=== PATIENT | female | born 1950 | race Caucasian/White ===

== ENCOUNTER → 2016-10-27 | Outpatient (CLI) | payer MEDICARE, MEDICAID ==
[~2016-10-27] MED LIST: ACETAMINOPHEN325 M1 PO; ALLOPURINOL300 M1 PO; ALPRAZOLAM1 MG PO; ANUSOL-HC25 MG PR; APAP/BUTALBITAL1 TA1 PO; ATIVAN GENERIC 11 MG PO; BENTYL10 MG PO; BENTYL20 MG PO; BENZTROPINE1 MG PO; COGENTIN GENERIC1 MG PO; DICYCLOMINE HYD20 MG PO; FLONASE 50 MCG16 GM; GLIPIZIDE 5MG TA5 MG PO; IMODIUM 2MG. CAP2 MG PO; KLOR-CON M2020 MEQ PO; LOPERAMIDE2 MG PO; MAXZIDE 25 MG-31 TA1 PO; MAXZIDE 50 MG-71 TAB PO; MAXZIDE1 TAB PO; MECLIZINE HYDRO25 MG PO; METFORMIN500 MG PO; MONTELUKAST SOD10 MG PO; OXCARBAZEPINE300 M2 PO; PANTOPRAZOLE SO40 M1 PO; PHENERGAN 25MG.25 M1 PO; POTASSIUM CHLO10 ME3 PO; POTASSIUM CHLO20 ME2 PO; PRAVACHOL20 MG PO; PRAVASTATIN 20M20 MG PO; PRILOSEC20 M1 PO; PRISTIQ50 MG PO; PROZAC40 MG PO; REQUIP 1 MG TABL1 MG PO; RISPERDAL 1 MG T1 MG PO; RISPERDAL1 MG PO; RISPERDAL2 M1 PO; RISPERIDONE1 M2 PO; ROPINIROLE HYDRO1 M1 PO; SIMVASTATIN20 MG PO; SINGULAIR10 MG PO; TRILEPTAL300 MG PO; TRILEPTAL600 MG PO; VISTARIL25 M1 PO; ZYLOPRIM300 MG PO; ZYPREXA 5MG TAB5 MG PO; ZYRTEC10 M2 PO; [UNRECOGNIZED DRUG - OTHER] NS
[2016-10-27 19:45] LABS: URINE BILIRUBIN - DIPSTICK NEGATIVE (NEG); URINE BLOOD NEGATIVE (NEG)
== END ==
LOC: LAB 19:11
PROVIDERS: Emergency Medicine
DX: N39.0 Urinary tract infection, site not specified (principal)

== ENCOUNTER 2017-02-27 09:07 | Day surgery (SDC) | payer MEDICARE, MEDICAID ==
[~2017-02-27 09:07] MED LIST changes: +ALLOPURINOL300 M1 FT; +ALPRAZOLAM XR1 MG PO; +BENZONATATE100 MG PO; +BENZTROPINE ME0.5 MG PO; +DESVENLAFAXINE100 M1 PO; +FLOVENT DI50 MCG/ACT IH; +HCTZ/TRIAMTEREN1 CA2 PO; +INVANZ 1 GM1 GM IM; +LACTULOSE10 GM/15 M PO; +LEADER PAIN RE500 M1 PO; +MIRALAX17 GM/DOSE PO; +PANTOPRAZOLE SO40 MG PO; +ROPINIROLE HYDRO1 MG PO; +SENNA8.6 M1 PO; +SINGULAIR 10 MG10 MG PO; +ZYPREXA ZYDIS10 MG PO; +ZYRTEC ALLERGY10 MG PO
--- NOTE | 2017-02-27 11:30 | Operative Note ---
Surgeon/Diagnoses Surgeon/Rn Primary Care(s) Date of procedure: 02/27/17 Surgeon: Ilya Eddy Diagnoses Pre-op diagnosis: Suspicious irritated skin lesion of LEFT breast Post-op diagnosis Same Procedure Procedure Procedure: Excision of skin lesion from LEFT breast (excisional length 4.5 cm) with simple closure Indications: JAMISON MAGANA is a 66 year-old Female wheelchair-bound [place] [facility] patient referred by Tim Tejeda for "mole on the LEFT breast". Patient is unable to give me much of a history. She does describe some "soreness". She is unable to relate to me how long the lesion has been present. There is no evidence of any breast imaging. Findings: Irritated skin lesion possibly seborrheic keratosis Procedure Description: Consent was obtained. Patient was maintained on the stretcher. She was taken to the operating room. The area was prepped and draped. Lesion was marked with a skin marker. Local anesthetic was infiltrated. Elliptical incision was made. Dissection was carried down to subcutaneous tissues. Skin ellipse containing the lesion with grossly negative margins was excised from underlying subcutaneous tissues using Metzenbaum dissection. It was sent off as specimen. Hemostasis was achieved with use of electrocautery. Wound was closed with interrupted 4-0 nylon sutures. Dressing was applied. EBL (ml): 20 Anesthesia: local Specimens: Skin lesion from LEFT breast Disposition Disposition: To postop at 1130
[2017-02-27 14:13] VITALS: BP 169/75
== END 2017-02-27 12:00 | disposition home or self-care (01) ==
LOC: SDC 09:07
PROVIDERS: Surgery
PROC: 0HBUXZZ (ICD-10-PCS; principal; 2017-02-27 09:15)
DX: D48.5 Neoplasm of uncertain behavior of skin (principal); E11.9 Type 2 diabetes mellitus without complications

== ENCOUNTER → 2017-03-03 | Outpatient (CLI) | payer MEDICARE, MEDICAID | LOC: LAB 19:11 | DX: S21.002A Unspecified open wound of left breast, initial encounter (principal); R06.02 Shortness of breath ==

== ENCOUNTER 2017-04-13 20:02 | Inpatient (IN) | payer MEDICARE, MEDICAID ==
[~2017-04-13] VITALS: Ht 177.8 cm; Wt 89.6 kg
[2017-04-13 20:06] VITALS: BP 132/68
--- OUTSIDE RECORDS SUMMARY | 2017-04-13 20:26 | External Medical Summary Rpt | CCD ---
Demographics Preferred Language Japanese Marital Status Unknown Uatsdin Affiliation Unknown Race Unknown Ethnic Group Unknown Author Author JANICE Address Unknown Phone Immunization No patient found.
--- OUTSIDE RECORDS SUMMARY | 2017-04-13 20:26 | External Medical Summary Rpt | CCD ---
Author Author Conduent Organization Con[employer] Address Unknown Phone Unavailable Purpose Continuity of Care Document - through 2016
--- OUTSIDE RECORDS SUMMARY | 2017-04-13 20:26 | External Medical Summary Rpt | CCD ---
Author Author , JANICE Organization JANICE Address Unknown Phone [email or web address] Care Team Providers Care Fabric Inspector Name Role Phone Fercho Mac MD, Unavailable Unavailable Fercho Mac MD Purpose Continuity of Care Document - 04-22-2013 through 2016 Problems Code Diagnosis DOS Provider Status 805.6 805.6 FX 04-23-2013 Niraj SACRUM/COCC [facility]OSED [facility] 808.2 808.2 04-23-2013 Niraj FRACTURE OF [facility] PUBIS-CLOSE D 847.0 847.0 04-23-2013 Niraj SPRAIN OF [facility] 850.11 850.11 04-23-2013 Niraj CONCUSSION, [facility] LOSS OF Hospital CONSCIOUSNE SS OF 30 MINUTES OR LESS E849.7 E849.7 04-23-2013 Niraj ACCID IN [facility] INSTIT E885.9 E885.9 FALL 04-23-2013 Niraj FROM [facility] SLIPPING, Hospital TRIPPING, OR STUMBLING NEC E87.6 HYPOKALEMIA N28.9 DISORDER OF KIDNEY AND URETER, UNSPECIFIED N39.0 URINARY TRACT INFECTION, SITE NOT SPECIFIED S00.93XA CONTUSION OF UNSPECIFIED PART OF HEAD, INITIAL ENCOUNTER S01.81XA LACERATION W/O FOREIGN BODY OF OTH PART OF HEAD, INIT ENCNTR W19.XXXA UNSPECIFIED FALL, INITIAL ENCOUNTER Allergies, Adverse Reactions, Alerts Type Allergy to substance Drug Allergy Adverse Reaction to Substance Substance Reaction Severity ANTIHISTAMINES Unknown Mild Aspirin Unknown Mild Loratadine Unknown Mild Sertraline Unknown Mild Vital Signs 04-23-2013 00:57 Name Value Interpretat Reference Comment ion Range Body 98.4 [degF] Temperature BP 65 mm[Hg] Diastolic BP Systolic 123 mm[Hg] Heart 82 /min Rate/Pulse O2% 97 % Respiratory 20 /min Rate 11-27-2013 22:24 Name Value Interpretat Reference Comment ion Range BP 62 mm[Hg] Diastolic BP Systolic 120 mm[Hg] Heart 97 /min Rate/Pulse O2% 93 % Respiratory 20 /min Rate Results Labs Lab Lab Date Result Refere Interp Status Commen Order Detail nces retati t Range on Urinalysis dipstick W Reflex Microscopic panel in Urine (10-27-2016 18:00) Bacteri 4+ O complet a 017 ed [Presen 18:00 ce] in Urine sedimen t by Light microsc opy Epithel 5-10 0#/hp complet ial 017 f - ed cells.s 18:00 5#/hp quamous f [Presen ce] in Urine sedimen t by Microsc opy high power field Leukocy 50-100 O complet daryl 017 wbc/hpf ed [#/volu 18:00 me] in Urine Urinalysis dipstick W Reflex Microscopic panel in Urine (10-27-2016 18:00) Appeara CLOUDY CLEAR complet nce of 017 ed Urine 18:00 Bilirub NEGATIV NEG complet in 017 E ed [Presen 18:00 ce] in Urine by Test strip Erythro NEGATIV NEG complet cytes 017 E ed [Presen 18:00 ce] in Urine Color YELLOW YELLOW complet of 017 ed Urine 18:00 Ketones NEGATIV NEG complet 017 E ed [Presen 18:00 ce] in Urine by Automat ed test strip Mucus 1+ NEG Abnorma complet [Presen 017 l ed ce] in 18:00 Urine sedimen t by Light microsc opy Nitrite NEGATIV NEG complet 017 E ed [Presen 18:00 ce] in Urine by Test strip Urobili 1.0 NEG complet nogen 017 ed [Presen 18:00 ce] in Urine by Test strip Urinalysis dipstick W Reflex Microscopic panel in Urine (10-24-2016) Appeara CLEAR CLEAR complet nce of 017 ed Urine Amorpho OCC NONE complet us 017 ed sedimen t [Presen ce] in Urine sedimen t by Light microsc opy Bacteri 3+ O complet a 017 ed [Presen ce] in Urine sedimen t by Light microsc opy Bilirub NEGATIV NEG complet in 017 E ed [Presen ce] in Urine by Test strip Erythro TRACE-I NEG complet cytes 017 NTACT ed [Presen ce] in Urine Color YELLOW YELLOW complet of 017 ed Urine Ketones NEGATIV NEG complet 017 E ed [Presen ce] in Urine by Automat ed test strip Mucus 3+ NEG Abnorma complet [Presen 017 l ed ce] in Urine sedimen t by Light microsc opy Nitrite NEGATIV NEG complet 017 E ed [Presen ce] in Urine by Test strip Erythro 3-5 0 complet cytes 017 ed [Presen ce] in Urine sedimen t by Light microsc opy Urobili 1.0 NEG complet nogen 017 ed [Presen ce] in Urine by Test strip Leukocy 20-50 O complet daryl 017 wbc/hpf ed [#/volu me] in Urine COMPREHENSIVE METABOLIC PANEL (04-22-2013 21:45) Glucose 110 74-106 complet 013 mg/dL ed Bld-mCn 21:45 c BUN 25 7-18 complet Bld-mCn 013 mg/dL ed c 21:45 Creat 2.7 0.6-1.0 complet SerPl-m 013 mg/dL ed Cnc 21:45 Creat 28 50-200 complet Cl 013 ML/MIN ed predict 21:45 ed SerPl C-G-vRa te GFR/BSA 18 59- Low complet .pred 013 ML/MIN alert ed SerPl 21:45 Schwart z-vRate Sodium 135 136-145 complet SerPl-s 013 mmoL/L ed Cnc 21:45 Potassi 3.5 3.5-5.1 complet um 013 mmoL/L ed SerPl-s 21:45 Cnc Chlorid 11-27-2 95 98-107 complet e 013 mmoL/L ed SerPl-s 21:45 Cnc CO2 04-22-2 25 21.0-32 complet SerPl-s 013 mmoL/L .0 ed Cnc 21:45 Calcium 04-22-2 8.8 8.5-10. complet 013 mg/dL 1 ed SerPl-m 21:45 Cnc Prot 04-22-2 7.8 6.4-8.2 complet SerPl-m 013 gm/dL ed Cnc 21:45 Albumin 04-22-2 3.3 3.4-5.0 complet 013 gm/dL ed SerPl-m 21:45 Cnc Globuli 04-22-2 4.5 1.3-3.2 complet n 013 gm/dL ed Ser-mCn 21:45 c Albumin 04-22-2 0.7 UNK 1.1-1.8 complet /Glob 013 ed SerPl-m 21:45 Rto Bilirub 04-22-2 0.4 0.2-1.0 complet 013 mg/dL ed SerPl-m 21:45 Cnc AST 04-22-2 21 U/L 15-37 complet SerPl-c 013 ed Cnc 21:45 ALT 04-22-2 40 U/L 30-65 complet SerPl-c 013 ed Cnc 21:45 ALP 04-22-2 290 U/L 50-136 complet SerPl-c 013 ed Cnc 21:45 CBC with AUTO DIFF (04-22-2013 21:45) WBC # 04-22-2 11.3 4.8-10. complet Bld 013 K/MM3 8 ed Auto 21:45 RBC # 04-22-2 4.95 4.2-5.4 complet Bld 013 M/mm3 ed Auto 21:45 Hgb 04-22-2 13.7 12.2-16 complet Bld-mCn 013 g/dL .2 ed c 21:45 Hct Fr 04-22-2 40.6 % 37.0-47 complet Bld 013 .0 ed 21:45 MCV RBC 04-22-2 82.1 fl 82.2-97 complet 013 .8 ed 21:45 MCH RBC 04-22-2 27.8 pg 27-31.2 complet Qn 013 ed Auto 21:45 MEAN 04-22-2 33.8 31.8-35 complet CORPUSC 013 g/dl .4 ed ULAR 21:45 HGB CONC RDW RBC 04-22-2 16.1 % 11.5-17 complet Auto 013 .5 ed 21:45 Platele 04-22-2 312 142-424 complet t Bld 013 K/mm3 ed Ql 21:45 Manual MEAN 04-22-2 7.9 fl 7.4-10. complet PLATELE 013 4 ed T 21:45 VOLUME Granulo 04-22-2 72.2 % 37.0-80 complet cytes 013 .0 ed Fr Bld 21:45 Auto LYMPH % 04-22-2 21.9 % 10-50.0 complet 013 ed 21:45 Monocyt 04-22-2 4.8 % 1.7-9.3 complet es Fr 013 ed Bld 21:45 Auto Eosinop 04-22-2 0.8 % 0.1-12. complet hil Fr 013 0 ed Bld 21:45 Auto Basophi 04-22-2 0.3 % 0.1-2.0 complet ls Fr 013 ed Bld 21:45 Auto Granulo 04-22-2 8.1 1.8-7.8 complet cytes # 013 K/mm3 ed Bld 21:45 Auto Lymphoc 04-22-2 2.5 0.7-4.5 complet ytes Fr 013 K/mm3 ed Bld 21:45 Auto Monocyt 04-22-2 0.5 0.1-1.0 complet es # 013 K/mm3 ed Bld 21:45 Auto Eosinop 04-22-2 0.1 0.0-0.4 complet hil # 013 K/mm3 ed Bld 21:45 Auto Basophi 04-22-2 0.0 0-0.2 complet ls # 013 K/MM3 ed Bld 21:45 Auto Encounters Encounter Start End Date Code Location Performer Type Date Emergency JOSE Mac MD (ER) 3 22:07 3 00:57 [facility]
--- OUTSIDE RECORDS SUMMARY | 2017-04-13 20:26 | External Medical Summary Rpt ---
Author Author JANICE Leonardo, [employer] Organization [employer] Address Unknown Phone Unavailable Results Glucose [Mass/volume] in Capillary blood by Glucometer Observa Value Referen Units Interpr Notes Date tion ce etation Range Glucose 70 - 110 mg/dl No No Feb 4 [Mass/vol informati informati 2017 9:50 ume] in on in on in AM Capillary source source blood by data data Glucomete r Urinalysis dipstick W Reflex Microscopic panel in Urine Observa Value Referen Units Interpr Notes Date tion ce etation Range Appeara CLOUDY CLEAR No No No Oct 3 nce of informa informa informa 2017 Urine tion in tion in tion in 6:00 PM source source source data data data Bacteri 4+ O No No No Oct 27 a informa informa informa 2016 [Presen tion in tion in tion in 6:00 PM ce] in source source source Urine data data data sedimen t by Light microsc opy Bilirub NEGATIV NEG No No No Oct 27 in E informa informa informa 2016 [Presen tion in tion in tion in 6:00 PM ce] in source source source Urine data data data by Test strip Erythro NEGATIV NEG No No No Oct 27 cytes E informa informa informa 2016 [Presen tion in tion in tion in 6:00 PM ce] in source source source Urine data data data Color YELLOW YELLOW No No No Oct 27 of informa informa informa 2017 Urine tion in tion in tion in 6:00 PM source source source data data data Glucose NEG No No No Oct 3 [Mass/vol informati informati informati 2017 6:00 ume] in on in on in on in PM Urine by source source source Test data data data strip Ketones NEGATIV NEG mg/dL No No Oct 27 E informa informa 2016 [Presen tion in tion in 6:00 PM ce] in source source Urine data data by Automat ed test strip Mucus 1+ NEG No Abnorma No Wero 3 [Presen informa l informa 2016 ce] in tion in tion in 6:00 PM Urine source source sedimen data data t by Light microsc opy Nitrite NEGATIV NEG No No No Wero 3 E informa informa informa 2017 [Presen tion in tion in tion in 6:00 PM ce] in source source source Urine data data data by Test strip pH of 5.0 - 8.5 No Normal No Wero 3 Urine informati informati 2017 6:00 on in on in PM source source data data Protein NEG mg/dL No No Wero 3 [Mass/vol informati informati 2017 6:00 ume] in on in on in PM Urine by source source Automated data data test strip Specific 1.005 - No Normal No Wero 3 gravity 1.030 informati informati 2017 6:00 of Urine on in on in PM source source data data Epithel 5-10 0 - 5 #/hpf No No Wero 3 ial informa informa 2017 cells.s tion in tion in 6:00 PM quamous source source data data [Presen ce] in Urine sedimen t by Microsc opy high power field Urobili 1.0 NEG E.U./dL No No Wero 3 nogen informa informa 2016 [Presen tion in tion in 6:00 PM ce] in source source Urine data data by Test strip Leukocy [50 O wbc/hpf No No Wero 3 daryl wbc/hpf informa informa 2016 [#/volu ; 100 tion in tion in 6:00 PM me] in wbc/hpf source source Urine ] data data Urinalysis dipstick W Reflex Microscopic panel in Urine Observa Value Referen Units Interpr Notes Date tion ce etation Range Appeara CLOUDY CLEAR No No No Wero 3 nce of informa informa informa 2017 Urine tion in tion in tion in 6:00 PM source source source data data data Bilirub NEGATIV NEG No No No Wero 3 in E informa informa informa 2017 [Presen tion in tion in tion in 6:00 PM ce] in source source source Urine data data data by Test strip Erythro NEGATIV NEG No No No Wero 3 cytes E informa informa informa 2017 [Presen tion in tion in tion in 6:00 PM ce] in source source source Urine data data data Color YELLOW YELLOW No No No Oct 3 of informa informa informa 2016 Urine tion in tion in tion in 6:00 PM source source source data data data Glucose NEG No No No Wero 3 [Mass/vol informati informati informati 2016 6:00 ume] in on in on in on in PM Urine by source source source Test data data data strip Ketones NEGATIV NEG mg/dL No No Ewro 3 E informa informa 2016 [Presen tion in tion in 6:00 PM ce] in source source Urine data data by Automat ed test strip Mucus 1+ NEG No Abnorma No Wero 3 [Presen informa l informa 2016 ce] in tion in tion in 6:00 PM Urine source source sedimen data data t by Light microsc opy Nitrite NEGATIV NEG No No No Oct 3 E informa informa informa 2016 [Presen tion in tion in tion in 6:00 PM ce] in source source source Urine data data data by Test strip pH of 5.0 - 8.5 No Normal No Wero 3 Urine informati informati 2017 6:00 on in on in PM source source data data Protein NEG mg/dL No No Wero 3 [Mass/vol informati informati 2016 6:00 ume] in on in on in PM Urine by source source Automated data data test strip Specific 1.005 - No Normal No Wero 3 gravity 1.030 informati informati 2016 6:00 of Urine on in on in PM source source data data Urobili 1.0 NEG E.U./dL No No Wero 3 nogen informa informa 2016 [Presen tion in tion in 6:00 PM ce] in source source Urine data data by Test strip Urinalysis dipstick W Reflex Microscopic panel in Urine Observa Value Referen Units Interpr Notes Date tion ce etation Range Appeara CLEAR CLEAR No No No October 24 nce of informa informa informa 2017 Urine tion in tion in tion in source source source data data data Amorpho OCC NONE No No No October 24 us informa informa informa 2016 sedimen tion in tion in tion in t source source source [Presen data data data ce] in Urine sedimen t by Light microsc opy Bacteri 3+ O No No No October 24 a informa informa informa 2017 [Presen tion in tion in tion in ce] in source source source Urine data data data sedimen t by Light microsc opy Bilirub NEGATIV NEG No No No October 24 in E informa informa informa 2016 [Presen tion in tion in tion in ce] in source source source Urine data data data by Test strip Erythro TRACE-I NEG No No No October 24 cytes NTACT informa informa informa 2016 [Presen tion in tion in tion in ce] in source source source Urine data data data Color YELLOW YELLOW No No No October 24 of informa informa informa 2017 Urine tion in tion in tion in source source source data data data Glucose NEG No No No October 24 [Mass/vol informati informati informati 2016 ume] in on in on in on in Urine by source source source Test data data data strip Ketones NEGATIV NEG mg/dL No No October 24 E informa informa 2017 [Presen tion in tion in ce] in source source Urine data data by Automat ed test strip Mucus 3+ NEG No Abnorma No October 24 [Presen informa l informa 2016 ce] in tion in tion in Urine source source sedimen data data t by Light microsc opy Nitrite NEGATIV NEG No No No October 24 E informa informa informa 2016 [Presen tion in tion in tion in ce] in source source source Urine data data data by Test strip pH of 5.0 - 8.5 No Normal No October 24 Urine informati informati 2017 on in on in source source data data Protein NEG mg/dL No No October 24 [Mass/vol informati informati 2016 ume] in on in on in Urine by source source Automated data data test strip Erythro 3-5 0 rbc/hpf No No October 24 cytes informa informa 2017 [Presen tion in tion in ce] in source source Urine data data sedimen t by Light microsc opy Specific 1.005 - No Normal No October 24 gravity 1.030 informati informati 2016 of Urine on in on in source source data data Urobili 1.0 NEG E.U./dL No No October 24 nogen informa informa 2017 [Presen tion in tion in ce] in source source Urine data data by Test strip Leukocy [20 O wbc/hpf No No October 24 daryl wbc/hpf informa informa 2017 [#/volu ; 50 tion in tion in me] in wbc/hpf source source Urine ] data data
--- OUTSIDE RECORDS SUMMARY | 2017-04-13 20:26 | External Medical Summary Rpt | CCD ---
Demographics Preferred Language Greek Marital Status Unknown Pentecostal Affiliation Unknown Race Unknown Ethnic Group Unknown Author Author JANICE Address Unknown Phone Immunization No patient found.
--- OUTSIDE RECORDS SUMMARY | 2017-04-13 20:26 | External Medical Summary Rpt ---
[...] strip Ketones NEGATIV NEG mg/dL No No Wero 3 E informa informa 2016 [Presen tion [...]
--- OUTSIDE RECORDS SUMMARY | 2017-04-13 20:26 | External Medical Summary Rpt | CCD ---
Author Author , JANICE Organization JANICE Address Unknown Phone Care Team Providers Care Legal Referee Name Role Phone Fercho Mac MD, Unavailable Unavailable Fercho Mac MD Purpose Continuity of Care Document - 04-22-2013 through 2016 Problems Code Diagnosis DOS Provider Status 805.6 805.6 FX 04-23-2013 Niraj SACRUM/COCC [facility]CLOSED Hospital 808.2 808.2 04-23-2013 Niraj FRACTURE OF [facility] PUBIS-CLOSE D 847.0 847.0 04-23-2013 Niraj SPRAIN OF [facility] 850.11 850.11 04-23-2013 Niraj CONCUSSION, [facility] LOSS OF Hospital CONSCIOUSNE SS OF 30 MINUTES OR LESS E849.7 E849.7 04-23-2013 Niraj ACCID IN [facility] INSTIT E885.9 E885.9 FALL 04-23-2013 Niraj FROM [facility] SLIPPING, Hospital TRIPPING, OR STUMBLING NEC E87.6 [...] Mac MD (ER) 3 22:07 3 00:57 [facility]
[2017-04-13 20:32] LABS: ARTERIAL PO2 99.1 MMHG (80-100); ARTERIAL TCO2 26.4 MMOL/L (23-27)
[2017-04-13 20:33] LABS: ALLEN'S TEST Y; ARTERIAL ABE 1.9 MMOL/L (-2.4-+2.3); OXYGEN 4
--- NOTE | 2017-04-13 20:48 | Emergency Room Report ---
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 Y Clinical Suspician of Infection? Y Mental Status: 2 - Mildly Altered Sepsis Risk:Possible Sepsis Risk Have you (or family members/close friends) recently traveled outside the [place]? N If Yes, where/when: Have you had exposure to infectious disease within the past month? N TB? Other? Specify: Source patient, RN notes reviewed, family, old records Exam Limitations clinical condition Comment pt sent from [facility] for eval of change in mental status- pt unable to give specific hx- Cardiac Chest Pain Chest pain indicative of cardiac No Timing/Duration this evening Severity moderate ALLERGIES Coded Allergies: Antihistamines - Alkylamine (02/27/17) aspirin (02/27/17) loratadine (02/27/17) sertraline (02/27/17) Home Medications Active Scripts Allopurinol (Zyloprim 300MG) 300 MG PO DAILY #30 TAB Prov: 10/03/16 ALPRAZOLAM (Alprazolam 1MG) 1 MG PO Q6HP PRN ANXIETY #120 TAB Prov: 10/03/16 Dicyclomine Hcl (Bentyl 10MG) 20 MG PO DAILY #30 CAPSULE Prov: 10/03/16 BENZTROPINE MESYLATE (Benztropine 1MG Tab) 0.5 MG PO BID #60 TAB Prov: 10/03/16 Olanzapine (Zyprexa 5MG) 10 MG PO BID #30 TAB Prov: 10/03/16 Pravastatin Sodium (Pravachol) 20 MG PO QHS #30 TAB Prov: 10/03/16 Oxcarbazepine 600 MG PO BID #60 TAB Prov: 10/03/16 Reported Medications BENZTROPINE MESYLATE (COGENTIN 1MG TAB) 0.5 MG PO BID Risperidone (Risperdal) 2 MG PO QID Pravastatin Sodium (Pravastatin 20MG) 20 MG PO QHS Dicyclomine Hcl (Bentyl 20mg Tab (Generic)) 20 MG PO 1700 ROPINIROLE HCL (Requip 1 Mg) 1 MG PO QHS Glipizide (Glipizide 5MG) 5 MG PO DAILY Acetaminophen 650 MG PO Q4HP PRN PAIN ALPRAZOLAM (Alprazolam 1MG) 1 MG PO Q6HP PRN ANXIETY Risperidone (Risperdal) 1 MG PO QAM CETIRIZINE HCL (Zyrtec) 10 MG PO DAILY OMEPRAZOLE MAGNESIUM (Prilosec 20MG) 20 MG PO DAILY Olanzapine (Zyprexa 5MG) 10 MG PO BID Montelukast Sodium (Singulair) 10 MG PO QHS OXYMETAZOLINE HCL (Nasal [place]) 15 ML NS BID Desvenlafaxine Succinate (Pristiq ER) 50 MG PO DAILY TRIAMTERENE/HYDROCHLOROTHIAZID (Maxzide 75 MG-50 MG Tablet) 1 TAB PO DAILY Oxcarbazepine (Trileptal) 600 MG PO BID Acetaminophen (Pain Reliever) 500 MG PO Alprazolam (Alprazolam Xr) 1 MG PO Lactulose (Lactulose) 10 GM PO QID Cetirizine Hcl (Zyrtec) 10 MG PO Desvenlafaxine (Desvenlafaxine ER) 100 MG PO Fluticasone Propionate (Flovent Diskus 50MCG) 1 PUFF IH BID Ertapenem Sodium (Invanz) 1 GM IM DAILY Montelukast Sodium (Singulair 10MG) 10 MG PO DAILY Olanzapine (Zyprexa Zydis) 10 MG PO Oxcarbazepine (Trileptal) 600 MG PO Pantoprazole Sodium (Pantoprazole 40MG) 40 MG PO BID Polyethylene Glycol 3350 (Miralax) 17 GM PO DAILY Sennosides (Senna) 8.6 MG PO History Medical History General CAD? No Angina: No NM: No Hypertension? Yes Hyperlipidemia? No CHF? No DVT? No PE? No COPD? No Asthma? Yes Anemia? No GERD? No Gastric ulcers? No GI Bleed? No Hernia? No Thyroid Problems? No Hypothyroidism? No CVA? No Seizures? No Diabetes? Yes Insulin Dependent: No Insulin Pump: No Home FSBS? No Renal Insuffiency? No End Stage Renal Disease? No UTI? No Stones? No BPH? No GB Disease: No Nephritic Syndrome? No Asplenia? No Hepatitis? No Sickle Cell Disease? No Arthritis? Yes Migraines? Yes Cataracts? No Glaucoma? No MRSA? No HIV? No TB? No Anxiety? Yes Depression? Yes Cancer? No More? Yes Additional hx: SCHIZOPRENIA MENTAL RETARDATION Immunization Hx DT/Tetanus Unknown Flu 2015-FSN Pneumonia Received In Past Surgical Hx Previous Surgery?Y HYSTERECTOMY 1994 Hemorrhoid [place]-2002 Family History Family Hx Diabetes Yes CAD No Hypertension Yes Hyperlipidemia Yes Cancer No TB No Social History Smoking Hx Smoker: Former Smoker Tobacco: No Alcohol Alcohol: No Drugs none Review of Systems All Other Systems Reviewed and Negative Constitutional see HPI, denies fever, other Eyes denies drainage ENT denies: ear discharge, epistaxis, throat pain. Respiratory denies cough, denies shortness of breath, denies wheezing Cardiovascular denies chest pain, denies syncope Gastrointestinal denies abdominal pain, denies diarrhea, denies vomiting Genitourinary denies: dysuria, frequency, hesitancy, hematuria. Musculoskeletal denies back pain, denies joint pain, denies joint swelling, denies neck pain Skin denies rash Psychiatric/Neurological see HPI, denies headache, denies seizure, other Physical Exam Vital Signs Vital Signs Date Time Temp Pulse Resp B/P Pulse O2 O2 Flow FiO2 Ox Delivery Rate 04/13 2111 99.9 127 20 118/83 96 4 04/13 2006 101.2 85 22 132/68 95 4 - WBC >12,000 or <4,000 or 10% bands? 2 or more SIRS Criteria Met? B/P:118/83 MAP:89 Creatinine >2.0? UA output<0.5ml/kg/hr for 2 hrs? Platelet count >100,000? Lactate >2.0mmol/1? INR >1.2 or PTT > than 60 sec? Evidence of Organ Dysfunction? Provider documented clinical suspician of infection? Y Sepsis Criteria Count: 2 Sepsis Risk: Possible Sepsis Risk General Appearance no apparent distress Eye Exam - bilateral eye PERRL, bilateral eye EOMI Ear, Nose, Throat normal ENT inspection Neck non-tender Respiratory Status No: respiratory distress. Lung Sounds bilateral: decreased breath sounds. Cardiovascular regular rate/rhythm, systolic murmur Peripheral Pulses Pulses normal Yes Gastrointestinal soft Extremities pedal edema, foot drop bilat Strength 3 Lower Ext (L), 3 Lower Ext (R), 4 Upper Ext (L), 4 Upper Ext (R) Neurologic no focal changes Reflexes Reflexes normal No Mental status confused Skin intact Medical Decision Making LABS/Meds/Orders Pt receiving controlled substance in ED? No Results/Orders Laboratory Tests 04/13/17 2100: Urine Color YELLOW, Urine Appearance CLOUDY, Urine pH 6.5, Ur Specific [place] 1.015, Urine Protein 2+ H, Urine Ketones NEGATIVE, Urine Blood 2+ H, Urine Nitrate NEGATIVE, Urine Bilirubin NEGATIVE, Urine Urobilinogen 0.2, Ur Leukocyte Esterase 3+ H, Urine RBC 20-50, Urine WBC TNTC, Urine Glucose NEGATIVE 04/13/172049: Lactic Acid 1.2 04/13/172049: Sodium 128 L, Potassium 2.8 *L, Chloride 90 L, Carbon Dioxide 28, BUN 19 H, Creatinine 1.7 H, Estimated Creat Clear 68, Estimated GFR (MDRD) 30 L, Glucose 163 H, Calcium 9.5, Total Bilirubin 0.4, AST 11 L, ALT 14, Alkaline Phosphatase 132 H, Creatine Kinase 20 L, CK-MB (CK-2) Rel Index 2.5, CK and CKMB Interp < 0.5, Troponin I < 0.02, Total Protein 7.4, Albumin 2.9 L, Globulin 4.5 H, Albumin/Globulin Ratio 0.6 L, WBC 18.0 H, RBC 4.93, Hgb 13.3, Hct 39.7, MCV 80.6 L, RDW 16.2, Plt Count 298, MPV 7.5, Gran % 88.4 H, Gran # 15.9 H, Total Counted Pending, Lymphocytes % 5.4 L, Monocytes % 5.7, Eosinophils % 0.4, Basophils % 0.1, Neutrophils Pending, Lymphocytes (Manual) Pending, Lymphocytes # 1.0, Monocytes # 1.0, Eosinophils # 0.1, Basophils # 0.0, Platelet Estimate Pending, PUBS MCHC 33.5, MCH 27.0 04/13/172030: ABG pH 7.48 H, ABG pCO2 (Temp Corrct 34.6 L, ABG pO2 (Temp Correct 99.1, ABG HCO3 25.4, ABG Total CO2 26.4, ABG O2 Sat (Calculated) 97.6, ABG Base Excess 1.9 , Az Test Y, Blood Gas Comments R/R Current Medication Orders Sig/Malcolm Start time Last Medication Dose Route Stop Time Status Admin Ertapenem 1 GM ONCE ONE 04/13 2145 AC Sodium Chloride 50 ML IV 04/13 2214 Acetaminophen 0 .STK-MED ONE 04/13 2021 DC RI Albuterol/Ipratropium 0 .STK-MED ONE 04/13 2019 DC INH Acetaminophen 650 MG ONCE ONE 04/13 2015 DC 04/13 RI 04/13 Albuterol/Ipratropium 3 ML ONCE ONE 04/13 2015 DC 04/13 INH 04/13 Sodium Chloride 10 ML PRN PRN 04/13 2015 AC IV 04/14 2006 Orders Procedure Date/time Status Decision to admit 04/13 2134 Active CULTURE, URINE 04/13 2100 Active URINARY CATHETER INSERT 04/13 2056 Active URINALYSIS/COMPLETE 04/13 2052 Complete DIFFERENTIAL-WBC 04/13 2050 Active RT Aerosol Treatment, Provide 04/13 2015 Active ELECTROCARDIOGRAM REQUEST 04/13 2007 Active RT REQUEST DUONEB 04/13 2007 Active ARTERIAL BLOOD GAS REQUEST 04/13 2007 Active CHEST-PORTABLE 04/13 2007 Active IV SALINE LOCK 04/13 2007 Active CULTURE, BLOOD 04/13 2007 Active LACTIC ACID 04/13 2007 Complete CBC WITH AUTO DIFF 04/13 2007 Active CARDIAC ENZYMES 04/13 2007 Complete CHEM 12 PROFILE 04/13 2007 Complete 12 LEAD EKG-DESTINY (INITIAL) 04/13 UNK Active CM/EKG CM/personal lines underwriter Rhythm Sinus Tachycardia EKG no EKG for comparison, non-spec. ST/Twave chgs XRAY/CT/US XRAY/CT/US XRAY chest XR interpretation by reviewed by me Xray Results normal/NAD Departure Departure Time of Disposition 2132 Disposition Still a Patient Clinical Impression Primary Impression: UTI (urinary tract infection) Qualifiers: Urinary tract infection type: acute cystitis Hematuria presence: without hematuria Qualified Code: N30.00 - Acute cystitis without hematuria Secondary Impressions: Hypokalemia, Renal insufficiency Condition STABLE Referrals Estefania DIEGO,Sanju Conde (Family) ED Critical Care Critical Care No at [id number]
[2017-04-13 21:07] LABS: LYMPH % 5.4 % (10-50.0)
[2017-04-13 21:15] LABS: HEMOGLOBIN 13.3 g/dL (12.2-16.2)
[2017-04-13 21:22] LABS: URINE BILIRUBIN - DIPSTICK NEGATIVE (NEG); URINE BLOOD 2+ (NEG)
[2017-04-13 21:38] LABS: BUN 19 mg/dL (7-18)
[2017-04-13 21:39] LABS: GFR (ESTIMATED) 30 ML/MIN (59-)
--- OUTSIDE RECORDS SUMMARY | 2017-04-13 21:45 | External Medical Summary Rpt | CCD ---
Author Author , JANICE Organization JANICE Address Unknown Phone Care Team Providers Care Hospital Education Coordinator Name Role Phone Fercho Mac MD, Unavailable Unavailable Fercho Mac MD Purpose Continuity of Care Document - 04-22-2013 through 2016 Problems Code Diagnosis DOS Provider Status 805.6 805.6 FX 04-23-2013 Niraj SACRUM/COCC [facility] YX-CLOSED Hospital 808.2 808.2 04-23-2013 Niraj FRACTURE OF [facility] PUBIS-CLOSE D 847.0 847.0 04-23-2013 Niraj SPRAIN OF [facility] 850.11 850.11 04-23-2013 Niraj CONCUSSION, [facility] LOSS OF Hospital CONSCIOUSNE SS OF 30 MINUTES OR LESS E849.7 E849.7 04-23-2013 Niraj ACCID IN [facility] INSTIT E885.9 E885.9 FALL 04-23-2013 Niraj FROM [facility] SLIPPING, Hospital TRIPPING, OR STUMBLING NEC [...] Detail nces retati t Range on Urinalysis with microscopy (04-13-2017 21:00) Urine 11-18-2 NEGATIV NEG complet total 017 E ed bilirub 21:00 NEGATIV in E L detecti on by test Urine 11-18-2 CLOUDY CLEAR complet appeara 017 CLOUDY ed nce 21:00 L determi nation Urine 11-18-2 2+ 2+ L NEG complet blood 017 ed detecti 21:00 on Urine 11-18-2 YELLOW YELLOW complet color 017 YELLOW ed 21:00 L Glucose -18-2 = NEG complet ur 017 NEGATIV ed test 21:00 E strip Urine 11-18-2 NEGATIV NEG complet ketones 017 E ed 21:00 NEGATIV detecti E L on by mg/dL automat ed daryl Mucus 11-18-2 3+ 3+ L NEG complet detecti 017 ed on in 21:00 urine sedimen t by lig Urine -18-2 NEGATIV NEG complet nitrite 017 E ed 21:00 NEGATIV detecti E L on by test strip Urine 11-18-2 = 6.5 5.0-8.5 complet pH 017 ed 21:00 Urine 11-18-2 2 + NEG complet protein 017 mg/dL ed 21:00 measure ment by automat ed t Erythro 11-18-2 20-50 0 complet cytes 017 20-50 L ed detecti 21:00 on in rbc/hpf urine sedimen t Urine 11-18-2 = 1.015 1.005-1 complet specifi 017 .030 ed c 21:00 gravity measure ment Urine 11-18-2 0.2 0.2 NEG complet urobili 017 L ed nogen 21:00 E.U./dL detecti on by test str Urine 11-18-2 = TNTC O complet leukocy 017 wbc/hpf ed daryl 21:00 count (number /volume ) Blood lactic acid measurement (moles/vol (04-13-2017 20:50) Blood 11-18-2 = 1.2 0.4-2.0 complet lactic 017 mmol/L ed acid 20:50 measure ment (moles/ vol Cardiac enzymes (04-13-2017 20:50) Serum 1118-2 = 2.5 0-4.0 complet or 017 U/L ed plasma 20:50 creatin e kinase MB (CK-M Serum < 0.5 0.0-3.6 complet or 017 ng/mL ed plasma 20:50 creatin e kinase MB measu Serum = 20 26-192 complet or 017 U/L ed plasma 20:50 creatin e kinase measure m Serum 04-13-2 < 0.02 0.00-0. complet or 017 ng/mL 06 ed plasma 20:50 troponi n i.cardi ac measu Comprehensive metabolic panel (04-13-2017 20:50) Serum 18-2 = 0.6 1.1-1.8 complet or 017 ed plasma 20:50 albumin /globul in mass ra Serum 2 = 2.9 3.4-5.0 complet or 017 gm/dL ed plasma 20:50 albumin measure ment (mas Serum = 132 46-116 complet or 017 U/L ed plasma 20:50 alkalin e phospha tase ximena Serum 04-13-2 = 0.4 0.2-1.0 complet or 017 mg/dL ed plasma 20:50 total bilirub in measure m Serum 04-13-2 = 19 7-18 complet or 017 mg/dL ed plasma 20:50 urea nitroge n measure men Serum 04-13-2 = 9.5 8.5-10. complet or 017 mg/dL 1 ed plasma 20:50 calcium measure ment (mas Serum 2 = 90 98-107 complet or 017 mmoL/L ed plasma 20:50 chlorid e measure ment (mo Carbon = 28 21.0-32 complet dioxide 017 mmoL/L .0 ed 20:50 measure ment Serum 04-13-2 = 1.7 0.55-1. complet or 017 mg/dL 02 ed plasma 20:50 creatin ine measure ment ( Estimat = 68 50-200 complet ion of 017 ML/MIN ed creatin 20:50 ine renal clearan ce Estimat = 30 59- complet ed 017 ML/MIN ed glomeru 20:50 lar filtrat ion rate (GF Comment: REFERENCE RANGE: >60 ML/MIN/1.73 SQUARE METERS Comment: If this patient is -Polish, then multiply the Comment: result by 1.210. Serum 04-13-2 = 4.5 1.3-3.2 complet globuli 017 gm/dL ed n 20:50 measure ment (mass/v olume) Serum = 163 74-106 complet or 017 mg/dL ed plasma 20:50 glucose measure ment (mas Serum = 2.8 3.5-5.1 complet potassi 017 mmoL/L ed um 20:50 measure ment Comment: CRITICAL RESULTS Comment: RESULTS CALLED TO: Rosie RAYA [employer]ERCIAL JOURNEYMAN ELECTRICIAN 04/13/170 Comment: Luis Alfaro Serum = 128 136-145 complet sodium 017 mmoL/L ed measure 20:50 ment Serum = 11 15-37 complet or 017 U/L ed plasma 20:50 asparta te aminotr ansfera ALT = 14 12-78 complet (SGPT) 017 U/L ed ser/ayo 20:50 s Protein = 7.4 6.4-8.2 complet total 017 gm/dL ed ser/ayo 20:50 s Arterial blood gas (04-13-2017 20:31) Arteria = 1.9 -2.4-+2 complet l blood 017 MMOL/L .3 ed base 20:[address] [facility]'s Y Y L complet test 017 ed before 20:31 arteria l blood gas Arteria = 25.4 22.0-26 complet l blood 017 MMOL/L .0 ed 20:31 [place] mekhi measure ment ( Arteria = 4 complet l blood 017 ed total 20:31 oxygen content nichole Arteria = 34.6 35.0-45 complet l blood 017 MMHG .0 ed 20:31 partial pressur e of carbo Arteria = 7.48 7.35-7. complet l blood 017 MMOL/L 45 ed pH 20:31 measure ment Arteria = 99.1 80-100 complet l whole 017 MMHG ed blood 20:31 PO2 at POC Arteria = 97.6 90-100 complet l blood 017 % ed oxygen 20:31 saturat ion calcula SOURCE R/R complet 017 ed 20:31 Arteria = 26.4 23-27 complet l blood 017 MMOL/L ed carbon 20:31 dioxide , total ximena COMPREHENSIVE METABOLIC PANEL (04-22-2013 21:45) Glucose 110 [...] 013 mmoL/L ed SerPl-s 21:45 Cnc Chlorid 95 98-107 complet e 013 mmoL/L ed SerPl-s 21:45 Cnc CO2 25 21.0-32 complet SerPl-s 013 mmoL/L .0 ed Cnc 21:45 Calcium 8.8 8.5-10. complet 013 mg/dL 1 ed SerPl-m 21:45 Cnc Prot 7.8 6.4-8.2 complet SerPl-m 013 gm/dL ed Cnc 21:45 Albumin 3.3 3.4-5.0 complet 013 gm/dL ed SerPl-m 21:45 Cnc Globuli 4.5 1.3-3.2 complet n 013 gm/dL ed [...] with AUTO DIFF (04-22-2013 21:45) WBC # 11-27-2 11.3 4.8-10. complet Bld 013 K/MM3 8 ed Auto 21:45 RBC # 27-2 4.95 4.2-5.4 complet Bld 013 M/mm3 ed [...] complet Auto 013 .5 ed 21:45 Platele 11--2 312 142-424 complet t Bld 013 K/mm3 ed Ql 21:45 Manual MEAN 11-27-2 7.9 fl 7.4-10. complet PLATELE 013 4 ed T 21:45 VOLUME Granulo 04-22-2 72.2 % 37.0-80 complet cytes 013 .0 ed Fr Bld 21:45 Auto LYMPH % 11--2 21.9 % 10-50.0 complet 013 ed 21:45 Monocyt 11-27-2 4.8 % 1.7-9.3 complet es Fr 013 [...] Mac MD (ER) 3 22:07 3 00:57 [facility]
--- OUTSIDE RECORDS SUMMARY | 2017-04-13 21:45 | External Medical Summary Rpt | CCD ---
Demographics Preferred Language Albanian Marital Status Unknown Worship Affiliation Unknown Race Unknown Ethnic Group Unknown Author Author JANICE Address Unknown Phone Immunization No patient found.
--- OUTSIDE RECORDS SUMMARY | 2017-04-13 21:45 | External Medical Summary Rpt | CCD ---
Demographics Preferred Language Romansh Marital Status Unknown Jewish Affiliation Unknown Race Unknown Ethnic Group Unknown Author Author JANICE Address Unknown Phone Immunization No patient found.
--- OUTSIDE RECORDS SUMMARY | 2017-04-13 21:45 | External Medical Summary Rpt | CCD ---
Author Author , JANICE Organization JANICE Address Unknown Phone Care Team Providers Care Product Safety Test Engineer Name Role Phone Fercho Mac MD, Unavailable Unavailable Fercho Mac MD Purpose Continuity of Care Document - 04-22-2013 through 2016 Problems Code Diagnosis DOS Provider Status 805.6 805.6 FX 04-23-2013 Niraj SACRUM/COCC [facility] YX-CLOSED Hospital 808.2 808.2 04-23-2013 Niraj FRACTURE OF [facility] PUBIS-CLOSE D 847.0 847.0 04-23-2013 Niraj SPRAIN OF [facility] 850.11 850.11 04-23-2013 Niraj CONCUSSION, [facility] LOSS OF Hospital CONSCIOUSNE SS OF 30 MINUTES OR LESS E849.7 E849.7 04-23-2013 Niraj ACCID IN [facility] INSTIT E885.9 E885.9 FALL 04-23-2013 Niraj FROM [facility] SLIPPING, Hospital TRIPPING, OR STUMBLING NEC [...] SQUARE METERS Comment: If this patient is -Martiniquais, then multiply the Comment: result by 1.210. Serum 04-13-2 = 4.5 1.3-3.2 complet globuli 017 gm/dL ed n 20:50 measure ment (mass/v olume) Serum = 163 74-106 complet or 017 mg/dL ed plasma 20:50 glucose measure ment (mas Serum = 2.8 3.5-5.1 complet potassi 017 mmoL/L ed um 20:50 measure ment Comment: CRITICAL RESULTS Comment: RESULTS CALLED TO: Rosie RAYA AUTOMOBILE GLASS TECHNICIAN 04/13/170 Comment: Luis Alfaro Serum = 128 [...] MMOL/L .3 ed base 20:31 excess determi [facility]'s Y Y L complet test 017 ed [...] Mac MD (ER) 3 22:07 3 00:57 [facility]
--- OUTSIDE RECORDS SUMMARY | 2017-04-13 21:46 | External Medical Summary Rpt ---
Author Author JANICE Leonardo, [employer] Organization [employer] Address Unknown Phone Unavailable Results Urinalysis dipstick W Reflex Microscopic panel in Urine Observa Value Referen Units Interpr Notes Date tion ce etation Range Appeara CLOUDY CLEAR No No No Apr 13 nce of informa informa informa 2017 Urine tion in tion in tion in 9:00 PM source source source data data data Bilirub NEGATIV NEG No No No Apr 13 in E informa informa informa 2016 [Presen tion in tion in tion in 9:00 PM ce] in source source source Urine data data data by Test strip Erythro 2+ NEG No Abnorma No Apr 13 cytes informa l informa 2016 [Presen tion in tion in 9:00 PM ce] in source source Urine data data Color YELLOW YELLOW No No No Apr 13 of informa informa informa 2016 Urine tion in tion in tion in 9:00 PM source source source data data data Glucose NEG No No No Apr 13 [Mass/vol informati informati informati 2017 9:00 ume] in on in on in on in PM Urine by source source source Test data data data strip Ketones NEGATIV NEG mg/dL No No Apr 13 E informa informa 2016 [Presen tion in tion in 9:00 PM ce] in source source Urine data data by Automat ed test strip Mucus 3+ NEG No Abnorma No Mar 18 [Presen informa l informa 2016 ce] in tion in tion in 9:00 PM Urine source source sedimen data data t by Light microsc opy Nitrite NEGATIV NEG No No No Apr 13 E informa informa informa 2016 [Presen tion in tion in tion in 9:00 PM ce] in source source source Urine data data data by Test strip pH of 5.0 - 8.5 No Normal No Nov 18 Urine informati informati 2017 9:00 on in on in PM source source data data Protein NEG mg/dL High No Apr 13 [Mass/vol informati 2016 9:00 ume] in on in PM Urine by source Automated data test strip Erythro 20-50 0 rbc/hpf No No Apr 13 cytes informa informa 2016 [Presen tion in tion in 9:00 PM ce] in source source Urine data data sedimen t by Light microsc opy Specific 1.005 - No Normal No Apr 13 gravity 1.030 informati informati 2016 9:00 of Urine on in on in PM source source data data Urobili 0.2 NEG E.U./dL No No Apr 13 nogen informa informa 2016 [Presen tion in tion in 9:00 PM ce] in source source Urine data data by Test strip Leukocyte O wbc/hpf No No Apr 13 s informati informati 2016 9:00 [#/volume on in on in PM ] in source source Urine data data Urinalysis dipstick W Reflex Microscopic panel in Urine Observa Value Referen Units Interpr Notes Date tion ce etation Range Appeara CLOUDY CLEAR No No No Apr 13 nce of informa informa informa 2016 Urine tion in tion in tion in 9:00 PM source source source data data data Bilirub NEGATIV NEG No No No Apr 13 in E informa informa informa 2016 [Presen tion in tion in tion in 9:00 PM ce] in source source source Urine data data data by Test strip Erythro 2+ NEG No Abnorma No Apr 13 cytes informa l informa 2016 [Presen tion in tion in 9:00 PM ce] in source source Urine data data Color YELLOW YELLOW No No No Apr 13 of informa informa informa 2016 Urine tion in tion in tion in 9:00 PM source source source data data data Glucose NEG No No No Apr 13 [Mass/vol informati informati informati 2016 9:00 ume] in on in on in on in PM Urine by source source source Test data data data strip Ketones NEGATIV NEG mg/dL No No Apr 13 E informa informa 2016 [Presen tion in tion in 9:00 PM ce] in source source Urine data data by Automat ed test strip Mucus 3+ NEG No Abnorma No Apr 13 [Presen informa l informa 2016 ce] in tion in tion in 9:00 PM Urine source source sedimen data data t by Light microsc opy Nitrite NEGATIV NEG No No No Mar 18 E informa informa informa 2016 [Presen tion in tion in tion in 9:00 PM ce] in source source source Urine data data data by Test strip pH of 5.0 - 8.5 No Normal No Mar 18 Urine informati informati 2017 9:00 on in on in PM source source data data Protein NEG mg/dL High No Mar 18 [Mass/vol informati 2016 9:00 ume] in on in PM Urine by source Automated data test strip Specific 1.005 - No Normal No Apr 13 gravity 1.030 informati informati 2016 9:00 of Urine on in on in PM source source data data Urobili 0.2 NEG E.U./dL No No Mar 18 nogen informa informa 2016 [Presen tion in tion in 9:00 PM ce] in source source Urine data data by Test strip Lactate [Moles/volume] in Blood Observa Value Referen Units Interpr Notes Date tion ce etation Range Lactate 0.4 - 2.0 mmol/L Normal No Mar 18 [Moles/vo informati 2016 8:50 lume] in on in PM Blood source data Gas panel in Arterial blood Observa Value Referen Units Interpr Notes Date tion ce etation Range Base -2.4-+2.3 MMOL/L Normal No Mar 18 excess in informati 2017 8:31 Arterial on in PM blood source data Arteria Y No No No No Mar 18 l informa informa informa informa 2016 patency tion in tion in tion in tion in 8:31 PM Wrist source source source source artery data data data data --pre arteria l punctur e Bicarbona 22.0 - MMOL/L Normal No Mar 18 te 26.0 informati 2017 8:31 [Moles/vo on in PM lume] in source Arterial data blood Oxygen No No No No Mar 18 content informati informati informati informati 2017 8:31 in on in on in on in on in PM Arterial source source source source blood data data data data Carbon 35.0 - MMHG Low No Apr 13 dioxide 45.0 informati 2017 8:31 [Partial on in PM pressure] source in data Arterial blood pH of 7.35 - MMOL/L High No Apr 13 Arterial 7.45 informati 2016 8:31 blood on in PM source data Oxygen 80 - 100 MMHG Normal No Apr 13 [Partial informati 2016 8:31 pressure] on in PM in source Arterial data blood Oxygen 90 - 100 % Normal No Apr 13 saturatio informati 2016 8:31 n.calcula on in PM ken from source oxygen data partial pressure in Arterial blood SOURCE R/R No No No No Apr 13 informa informa informa informa 2016 tion in tion in tion in tion in 8:31 PM source source source source data data data data Carbon 23 - 27 MMOL/L Normal No Apr 13 dioxide, informati 2016 8:31 total on in PM [Moles/vo source lume] in data Arterial blood Glucose [Mass/volume] in Capillary blood by Glucometer Observa Value Referen Units Interpr Notes Date tion ce etation Range Glucose 70 - 110 mg/dl No No Feb 27 [Mass/vol informati informati 2016 9:50 ume] in on in on in AM Capillary source source blood by data data Glucomete r Urinalysis dipstick W Reflex Microscopic panel in Urine Observa Value Referen Units Interpr Notes Date tion ce etation Range Appeara CLOUDY CLEAR No No No Oct 27 nce of informa informa informa 2016 Urine tion [...] No Wero 3 [Mass/vol informati informati informati 2017 6:00 [...] No Wero 3 E informa informa informa 2016 [Presen [...] data Color YELLOW YELLOW No No No Wero 3 of informa informa informa 2017 Urine tion in tion in tion in 6:00 PM source source source data data data Glucose NEG No No No Wero 3 [Mass/vol informati informati informati 2017 6:00 [...] No Wero 3 E informa informa informa 2016 [Presen [...] No No Wero 3 nogen informa informa 2017 [Presen tion in tion in 6:00 PM [...] No October 24 us informa informa informa 2017 sedimen tion in tion in tion in t source source source [Presen data data data ce] in Urine sedimen t by Light microsc opy Bacteri 3+ O No No No October 24 a informa informa informa 2016 [Presen tion [...] No October 24 gravity 1.030 informati informati 2017 of Urine on in on in source source data data Urobili 1.0 NEG E.U./dL No No October 24 nogen informa informa 2017 [Presen tion in tion in ce] in source source Urine data data by Test strip Leukocy [20 O wbc/hpf No No October 24 daryl wbc/hpf informa informa 2016 [#/volu ; 50 tion in tion in me] in wbc/hpf source source Urine ] data data
[2017-04-13 21:47] LABS: NEUTROPHILS 86 % (42-76)
[2017-04-13 23:17] VITALS: BP 135/77
[2017-04-14] VITALS (8 sets, daily range): BP systolic 124–157; BP diastolic 75–88
[2017-04-14] MEDS ORDERED: BENZONATATE100 MG PO (03:56)
[2017-04-14] MEDS ORDERED: BENZTROPINE1 MG PO (03:57)
[2017-04-14] MEDS ORDERED: BETHANECHOL CHL25 MG PO (03:58)
[2017-04-14] MEDS ORDERED: FLUTICASONE 50M16 GM (04:01)
[2017-04-14] MEDS ORDERED: OLANZAPINE5 MG PO (04:25)
[2017-04-14] MEDS ORDERED: PANTOPRAZOLE SO40 MG PO (04:26)
[2017-04-14] MEDS ORDERED: RISPERIDONE2 MG PO (04:28)
[2017-04-14] MEDS ORDERED: SENNA PLUS 50 M1 TAB PO (04:30)
[2017-04-14] MEDS ORDERED: MAXZIDE 25 MG-31 TAB PO (04:32)
[2017-04-14] MEDS ORDERED: ACID GONE 420420 ML PO (04:53)
[2017-04-14] MEDS ORDERED: ALPRAZOLAM1 MG PO (04:55)
[2017-04-14] MEDS ORDERED: SIMETHICONE80 MG PO (04:59)
[2017-04-14 07:05] LABS: LYMPH # 0.9 K/mm3 (0.7-4.5); LYMPH % 7.1 % (10-50.0)
--- NOTE | 2017-04-14 07:05 | HISTORY AND PHYSICAL REPORT ---
Demographics: Admit date: 04/13/17 Chief complaint: change mental status PRIMARY DIAGNOSIS: UTI Allergies: Coded Allergies: Antihistamines - Alkylamine (02/27/17) aspirin (02/27/17) loratadine (02/27/17) sertraline (02/27/17) History of present illness: History of present illness: this wf was sent from [facility], [facility] where she was noted to have change in mental status-pt unable to give specific hx - pt was seen in the ed and found to have acute uti and was admitted for ivf and abx as she had mental status change and fever - Past medical history: Family HX Diabetes Yes CAD No Hypertension Yes Hyperlipidemia Yes Cancer No TB No Immunization HX DT/Tetanus Unknown Flu 2015-FSN Pneumonia Received In Past TB Test in last year Yes Result Negative General CAD? No Angina: No MA: No Hypertension? Yes Hyperlipidemia? No CHF? No DVT? No PE? No COPD? No Asthma? Yes Anemia? No GERD? No Gastric ulcers? No GI Bleed? No Hernia? No Thyroid Problems? No Hypothyroidism? No CVA? No Seizures? No Diabetes? Yes Insulin Dependent: No Insulin Pump: No Home FSBS? No Renal Insuffiency? No UTI? No Stones? No BPH? No GB Disease: No Nephritic Syndrome? No Asplenia? No Hepatitis? No Sickle Cell Disease? No Arthritis? Yes Migraines? Yes Cataracts? No Glaucoma? No MRSA? No HIV? No TB? No Anxiety? Yes Depression? Yes Cancer? No More? Yes Additional hx: SCHIZOPRENIA MENTAL RETARDATION Past Surgical HX Previous Surgery?Y HYSTERECTOMY 1994 Hemorrhoid STAPLING-2002 Current home meds: Active Scripts Allopurinol (Zyloprim 300MG) 300 MG PO DAILY #30 TAB Prov: 10/03/16 ALPRAZOLAM (Alprazolam 1MG) 1 MG PO Q6HP PRN ANXIETY #120 TAB Prov: 10/03/16 Dicyclomine Hcl (Bentyl 10MG) 20 MG PO DAILY #30 CAPSULE Prov: 10/03/16 Olanzapine (Zyprexa 5MG) 10 MG PO BID #30 TAB Prov: 10/03/16 Pravastatin Sodium (Pravachol) 20 MG PO QHS #30 TAB Prov: 10/03/16 Oxcarbazepine 600 MG PO BID #60 TAB Prov: 10/03/16 Reported Medications Dicyclomine Hcl (Bentyl 20mg Tab (Generic)) 20 MG PO 1700 ROPINIROLE HCL (Requip 1 Mg) 1 MG PO QHS Glipizide (Glipizide 5MG) 5 MG PO DAILY Acetaminophen 650 MG PO Q4HP PRN PAIN BENZONATATE (Benzonatate) 100 MG PO BID BENZTROPINE MESYLATE (Benztropine 1MG Tab) 0.5 MG PO DAILY Bethanechol Chloride 25 MG PO TID FLUTICASONE PROPIONATE (Fluticasone 50MCG Nasal [place]) 2 SPRAY NA DAILY Olanzapine (Olanzapine 5MG Tab) 10 MG PO BID Pantoprazole Sodium (Pantoprazole 40MG) 40 MG PO QHS Risperidone 2 MG PO BID SENNOSIDES/DOCUSATE SODIUM (Senna Plus Tablet) 1 EACH PO BID Hydrochlorothiazide W/Triamter (Triamterene-Hctz 37.5-25 MG Tb) 1 TAB PO DAILY MAG CARB/AL HYDROX/ALGINIC AC (Acid Gone Antacid Liquid) 30 ML PO QIDP PRN ACID REFLUX ALPRAZOLAM (Alprazolam 1MG) 1 MG PO Q6H SIMETHICONE (Simethicone 80MG) 80 MG PO TID Risperidone (Risperdal) 1 MG PO QAM CETIRIZINE HCL (Zyrtec) 10 MG PO DAILY OMEPRAZOLE MAGNESIUM (Prilosec 20MG) 20 MG PO DAILY Montelukast Sodium (Singulair) 10 MG PO QHS Oxcarbazepine (Trileptal) 600 MG PO BID Acetaminophen (Pain Reliever) 500 MG PO Lactulose (Lactulose) 10 GM PO QID Desvenlafaxine (Desvenlafaxine ER) 100 MG PO Montelukast Sodium (Singulair 10MG) 10 MG PO DAILY Polyethylene Glycol 3350 (Miralax) 17 GM PO DAILY Social Hx: Smoking HX Tobacco No Alcohol Alcohol: No Hx of Drug Use Drug Use? No Patien't marital status is Patient's support system is good Review of systems: Constitutional see HPI, fever, other. Eyes No: drainage. Ears, Nose, Mouth, Throat No ear discharge, No epistaxis, No throat pain Respiratory No: cough. Cardiovascular No chest pain, No palpitations, No syncope Gastrointestinal/Abdominal see HPI, No diarrhea, poor appetite, poor fluid intake, No vomiting Genitourinary No: dysuria, frequency, hesitancy, hematuria. Musculoskeletal No: back pain, joint pain, joint swelling, neck pain. Skin No: rash. Neurological No: headache, seizure disorder. Psychiatric No: no symptoms reported. Exam: Lab data for last 24 hours: Laboratory Tests 04/14/17 0637: POC Glucose 138 H 04/14/17 0038: POC Glucose 128 H 04/13/17 2100: Urine Color YELLOW, Urine Appearance CLOUDY, Urine pH 6.5, Ur Specific [place] 1.015, Urine Protein 2+ H, Urine Ketones NEGATIVE, Urine Blood 2+ H, Urine Nitrate NEGATIVE, Urine Bilirubin NEGATIVE, Urine Urobilinogen 0.2, Ur Leukocyte Esterase 3+ H, Urine RBC 20-50, Urine WBC TNTC, Urine Glucose NEGATIVE 04/13/172049: Lactic Acid 1.2 04/13/172049: Sodium 128 L, Potassium 2.8 *L, Chloride 90 L, Carbon Dioxide 28, BUN 19 H, Creatinine 1.7 H, Estimated Creat Clear 68, Estimated GFR (MDRD) 30 L, Glucose 163 H, Calcium 9.5, Total Bilirubin 0.4, AST 11 L, ALT 14, Alkaline Phosphatase 132 H, Creatine Kinase 20 L, CK-MB (CK-2) Rel Index 2.5, CK and CKMB Interp < 0.5, Troponin I < 0.02, Total Protein 7.4, Albumin 2.9 L, Globulin 4.5 H, Albumin/Globulin Ratio 0.6 L, WBC 18.0 H, RBC 4.93, Hgb 13.3, Hct 39.7, MCV 80.6 L, RDW 16.2, Plt Count 298, MPV 7.5, Gran % 88.4 H, Gran # 15.9 H, Total Counted 100, Lymphocytes % 5.4 L, Monocytes % 5.7, Eosinophils % 0.4, Basophils % 0.1, Neutrophils 86 H, Band Neutrophils 11 H, Lymphocytes ( Manual) 2 L, Lymphocytes # 1.0, Monocytes (Manual) 1 L, Monocytes # 1.0, Eosinophils # 0.1, Basophils # 0.0, RBC/WBC/PLT Morphology NORMAL, Platelet Estimate NORMAL, PUBS MCHC 33.5, MCH 27.0 04/13/172030: ABG pH 7.48 H, ABG pCO2 (Temp Corrct 34.6 L, ABG pO2 (Temp Correct 99.1, ABG HCO3 25.4, ABG Total CO2 26.4, ABG O2 Sat (Calculated) 97.6, ABG Base Excess 1.9 , Az Test Y, Blood Gas Comments R/R Microbiology 04/13 2100 URINE CATH: Urine Culture - RES 04/13 2050 BLOOD: Anaerobic Blood Culture - RECD 04/13 2050 BLOOD: Aerobic Blood Culture - RECD 04/13 2010 BLOOD: Anaerobic Blood Culture - RECD 04/13 2010 BLOOD: Aerobic Blood Culture - RECD Admission vital signs: 1ST Vital Signs Result Date Time Pulse Ox 95 04/13 2006 B/P 132/68 04/13 2006 O2 Flow Rate 4 04/13 2006 Temp 101.2 04/13 2006 Pulse 85 04/13 2006 Resp 22 04/13 2006 O2 Delivery OXYGEN 04/13 2317 Exam General appearance: awake Eyes: PERRLA ENT: dry mucous membranes Neck: no JVD Cardiovascular: regular rate & rhythm, murmur Respiratory: no respiratory distress, diminished breath sounds ABD: soft Genitourinary: no hematuria, catheter in place Extremities: moves all Musculoskeletal: equal muscle strength Skin: dry Neuro: non-focal Plan: Problem List 1. UTI (urinary tract infection) 2. Renal insufficiency 3. Hypokalemia Plan: will give ivf and abx and check renal function at 0705
[2017-04-14 07:10] LABS: HEMOGLOBIN 11.3 g/dL (12.2-16.2)
--- NOTE | 2017-04-14 10:58 | PHARMACY CLINIC NOTE ---
Patient Demographics Patient Demographics Admission date: 04/13/17 Date: 04/14/17 Time: 1058 Allergies Coded Allergies: Antihistamines - Alkylamine (02/27/17) aspirin (02/27/17) loratadine (02/27/17) sertraline (02/27/17) HEIGHT- FT: 5 IN: 10.00 K.557 VTE General Information Labs: Laboratory Tests 04/14 04/13 0640 2050 Hematology Hgb (12.2 - 16.2 g/dL) 11.3 L 13.3 Hct (37.0 - 47.0 %) 33.3 L 39.7 Plt Count (142 - 424 K/mm3) 160 298 Disclaimer The following section includes nursing documentation that has been pulled in for pharmacy review. Patient's VTE score: 6 Patient's VTE Risk: MOD RISK Clinical trial participant? No VTE prophylaxis NQF [id number] VTE prophylaxis ordered? Yes Type of prophylaxis/treatment: SEVERINO at 1058
--- NOTE | 2017-04-14 17:27 | RADIOLOGY REPORT PS360 ---
CHEST-PORTABLE Ordering Physician: Fercho Mac MD Patient Age: 66 years: Female HISTORY: SOA cough fever short of breath TECHNIQUE: AP portable upright chest COMPARISON :09/30/2016 PCXR FINDINGS Less inspiration today . This crowds markings at the bases. Limited portable chest rotated to the left. Not true AP. This distorts the chest. Right lung clear with nothing definitely acute. Left chest. Upper lung stokes clear. Slight blunting left CP angle. Additional density retrocardiac region suspect reflects a generous hiatal hernia estimate nearly 8 cm diameter however slightly more pronounced than seen on previous chest film September 2016.. Difficult to exclude other process but favor hiatal hernia.. If chest/respiratory symptoms persist follow-up PA and lateral chest recommended Mild cardiomegaly. Mediastinum unremarkable. No acute chest wall findings. IMPRESSION: ...... Limited leftward rotated chest, Less optimal inspiration.-crowds markings at bases.. No definitive pneumonia . Blunting left CP angle. More likely atelectasis vs possible minimal effusion. Suspect generous hiatal hernia, accounts that the lower chest into the left. However if chest symptoms persis, t follow-up would be encouraged Mild cardiomegaly
[2017-04-15 03:44] VITALS: BP 139/78
[2017-04-15 07:10] LABS: LYMPH # 1.2 K/mm3 (0.7-4.5); LYMPH % 12.8 % (10-50.0)
--- NOTE | 2017-04-15 07:48 | ACUTE CARE PROGRESS NOTE (QUA) ---
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 UTI (urinary tract infection) 2. Renal insufficiency 3. Hypokalemia Patient condition Improving Plan: continue current care This inpt stay is expected to cross 2 MNs from start of care Yes Comments: doing ok
--- NOTE | 2017-04-15 07:48 | ACUTE CARE PROGRESS NOTE (QUA) ---
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 UTI (urinary tract infection) 2. Renal insufficiency 3. Hypokalemia Patient condition Improving Plan: continue current care This inpt stay is expected to cross 2 MNs from start of care Yes Comments: doing ok
[2017-04-15 08:30] VITALS: BP 137/87
[2017-04-15 09:37] VITALS: BP 137/87
--- NOTE | 2017-04-15 13:09 | RADIOLOGY REPORT PS360 ---
CHEST-PORTABLE HISTORY: PICC LINE PLACEMENT ORDERING PHYSICIAN: Sanju Mac MD PATIENT AGE: 66 years COMPARISON: 04/13/2017 FINDINGS: Left upper extremity PICC line has been place with the tip in good position in region of the superior vena cava. There are low lung volumes with atelectasis or infiltrate in the right lung base. Synovial osteochondromas are present in the right shoulder. No acute bony anomalies. IMPRESSION: 1. Good placement of PICC line. 2. Right lower lobe atelectasis and/or infiltrate.
[2017-04-15 16:10] VITALS: BP 125/70
[2017-04-15 19:05] VITALS: BP 125/70
[2017-04-15 19:40] VITALS: BP 144/88
[2017-04-15 23:29] LABS: HEMOGLOBIN 10.1 g/dL (12.2-16.2); LYMPH # 1.4 K/mm3 (0.7-4.5); LYMPH % 15.4 % (10-50.0)
[2017-04-16 04:30] VITALS: BP 137/85
[2017-04-16 08:00] VITALS: BP 122/84
[2017-04-16] MEDS ORDERED: INVANZ 1 GM1 GM IM (08:10)
--- NOTE | 2017-04-16 08:16 | DISCHARGE SUMMARY STANDARD ---
Demographics Admit date: 04/13/17 Discharge date: 04/16/17 History of present illness History of present illness this wf was sent from [facility] where she was noted to have change in mental status-pt unable to give specific hx - pt was seen in the ed and found to have acute uti and was admitted for ivf and abx as she had mental status change and fever - Hospital Course Hospital Course: blood cx:Organism 1 ESCHERICHIA COLI 1. ESCHERICHIA COLI RX AB M.I.C ROUTE COST I ------ -- --------- ----- ------ ERTAPENEM S <=0.5 ESBL NEG picc line placed, contiune iv invanz 1 gram for 10 days. Urine cx: ESCHERICHIA COLI pos. also sensitive to invanz. [facility] with cbc and cmp on saturday. Discharge diagnoses Problem List 1. UTI (urinary tract infection) 2. Renal insufficiency 3. Hypokalemia Medications Medications: Discharge meds are as noted. Follow up Follow up in office in: 2 WEEKS with: Roberth DIEGO,Sanju Conde Comment: rounded with roberth- at 0839
--- NOTE | 2017-04-16 08:16 | DISCHARGE SUMMARY STANDARD ---
Demographics Admit date: 04/13/17 Discharge date: 04/16/17 History of present illness History of present illness this wf was sent from [facility] where she was noted to have change in mental status-pt unable to give specific hx - pt was seen in the ed and found to have acute uti and was admitted for ivf and abx as she had mental status change and fever - Hospital Course Hospital Course: blood cx:Organism 1 ESCHERICHIA COLI 1. ESCHERICHIA COLI RX AB M.I.C ROUTE COST I ------ -- --------- ----- ------ ERTAPENEM S <=0.5 ESBL NEG picc line placed, contiune iv invanz 1 gram for 10 days. Urine cx: ESCHERICHIA COLI pos. also sensitive to invanz. Will transfer back to [facility] and [facility] antibotics, with cbc and cmp on saturday. Discharge diagnoses Problem List 1. UTI (urinary tract infection) 2. Renal insufficiency 3. Hypokalemia Medications Medications: Discharge meds are as noted. Follow up Follow up in office in: 2 WEEKS with: Roberth DIEGO,Sanju Conde Comment: rounded with roberth- at 0839
[2017-04-16] MEDS ORDERED: INVANZ 1 GM1 GM IV (08:20)
[2017-04-16 08:25] VITALS: BP 137/85
--- NOTE | 2017-04-16 08:38 | ACUTE CARE PROGRESS NOTE (QUA) ---
Progress Notes Subjective Date 04/16/17 Time 0836 Patient/family reports: feeling better, no complaints Nursing reports: alert Objective Findings Laboratory Tests 04/16/17 0557: POC Glucose 113 H 04/15/17 2315: Sodium 133 L, Potassium 3.1 L, Chloride 96 L, Carbon Dioxide 29, BUN 14, Creatinine 1.1 H, Estimated Creat Clear 69, Estimated GFR (MDRD) 49 L, Glucose 92, Calcium 8.6, WBC 9.0, RBC 3.76 L, Hgb 10.1 L, Hct 30.6 L, MCV 81.3 L, RDW 16.1, Plt Count 243, MPV 7.6, Gran % 74.8, Gran # 6.7, Lymphocytes % 15.4, Monocytes % 8.3, Eosinophils % 1.2, Basophils % 0.3, Lymphocytes # 1.4, Monocytes # 0.7, Eosinophils # 0.1, Basophils # 0.0, PUBS MCHC 32.9, MCH 26.8 L 04/15/17 2001: POC Glucose 180 H 04/15/17 1638: POC Glucose 108 04/15/17 1129: POC Glucose 112 H Vital Signs Date Time Temp Pulse Resp B/P Pulse O2 O2 Flow FiO2 Ox Delivery Rate 04/16 0825 98.6 103 22 137/85 04/16 0625 4 04/16 0532 4 04/16 0518 4 04/16 0430 4 04/16 0430 98.6 103 22 137/85 98 OXYGEN 4 04/16 0309 4 04/16 0144 4 04/16 0133 4 04/16 0028 4 04/15 2304 4 04/15 2157 4 04/15 2145 4 04/15 1949 90 ROOM AIR 04/15 194 4 04/15 194 98.3 72 20 144/88 98 OXYGEN 4 04/15 1905 4 04/15 1905 97.7 75 18 125/70 98 4 04/15 1834 4 04/15 1610 97.7 75 18 125/70 98 OXYGEN 04/15 1511 4 04/15 1310 4 04/15 1101 4 04/15 0937 4 04/15 0937 98.4 91 22 137/87 97 4 Current Medications Ondansetron HCl 0 .STK-MED ONE .ROUTE (DC) Sodium Chloride 50 ML .STK-MED ONE IV (DC) Potassium Chloride 0 .STK-MED ONE PO (DC) Potassium Chloride 40 MEQ ONCE ONE PO (DC) Ertapenem 1 GM 1300 IV Sodium Chloride 50 ML Olanzapine 10 MG BID PO Sodium Chloride 10 ML PRN PRN IV Diagnostic Test (Pha) 1 EACH W/MEALS&HS FS Insulin Human [rDNA origin] SEE ADMIN CRITERIA FOR LOW INTENSITY SS W/MEALS&HS SC Acetaminophen 650 MG Q4HP PRN PO Ondansetron HCl 4 MG Q6HP PRN IV Sodium Chloride 1,000 ML .[id number] IV Last VS-Temp:98.6 B/P:137/85 Pulse:103 Resp:22 SaO2:98 OXYGEN Last weight lbs:197 oz:7 K.557 Method:Bed Scales Exam General appearance: normal appearance, alert, active, awake, no acute distress Eyes: normal exam ENT: normal exam Neck: normal inspection, no carotid bruit, full range of motion Cardiovascular: normal exam, regular rate & rhythm Respiratory: normal exam, clear to auscultation, no respiratory distress ABD: normal exam, normal bowel sounds, soft Genitourinary: catheter in place Extremities: normal exam, moves all, warm Musculoskeletal: normal exam Skin: normal exam, intact, warm Neuro: normal exam, alert, intact, oriented Reviewed: allergies, medications, vital signs, lab results, radiology report, consult note Assessment/Plan Problem List 1. UTI (urinary tract infection) Qualifiers: Urinary tract infection type: acute cystitis Hematuria presence: without hematuria Qualified Code: N30.00 - Acute cystitis without hematuria 2. Renal insufficiency 3. Hypokalemia Patient condition Stable Plan: initiate discharge plan This inpt stay is expected to cross 2 MNs from start of care Yes Comments: rounded with roberth Antibiotic Stewardship (2) Current Culture Results Microbiology 04/13 2100 URINE CATH: Urine Culture - COMP ESCHERICHIA COLI 04/13 2050 BLOOD: Anaerobic Blood Culture - COMP ESCHERICHIA COLI 04/13 2050 BLOOD: Aerobic Blood Culture - COMP ESCHERICHIA COLI at 0838
[2017-04-16 10:20] VITALS: BP 137/85
[2017-05-14] MEDS ORDERED: LEVAQUIN500 MG PO (16:59)
[2017-05-14] MEDS ORDERED: K-DUR 2020 MEQ PO (16:59)
[2017-05-15] MEDS ORDERED: ALPRAZOLAM1 MG PO (16:37)
[2017-05-15] MEDS ORDERED: BISAC-EVAC10 MG PR (16:49)
== END 2017-04-16 10:15 | DRG 690 ==
LOC: ER 20:02 → 2ND 21:42
PROVIDERS: Emergency Medicine
DX: N39.0 Urinary tract infection, site not specified (principal); F20.9 Schizophrenia, unspecified; B96.20 Unspecified Escherichia coli [E. coli] as the cause of diseases classified elsewhere; E87.6 Hypokalemia; I10 Essential (primary) hypertension; E11.9 Type 2 diabetes mellitus without complications
CPT/HCPCS: C1751; J1335; J2405

== ENCOUNTER 2017-04-25 14:44 | Emergency (ER) | payer MEDICARE, MEDICAID ==
[~2017-04-25] VITALS: Ht 177.8 cm; Wt 91.2 kg
--- NOTE | 2017-04-25 15:13 | Emergency Room Report ---
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 NSG HOME REPORTS PT WAS LETHARGIC. PT ANSWERED MY QUESTIONS AND ADVISED SHE DIDN'T HURT ANYWHERE AND FELT BETTER Onset of symptoms date/time:/ or onset unknown for:MEDICAL HX UNKNOWN Treatment Prior to Arrival: PT MONITORED. 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 N Clinical Suspician of Infection? N Mental Status: 1 - Regular (Normal Baseline) Sepsis Risk:Low Sepsis Risk Have you (or family members/close friends) recently traveled outside the [place]? N If Yes, where/when: Have you had exposure to infectious disease within the past month? N TB? Other? Specify: patient sent from [place] due to PICC line clogged. Needs last dose of Invanz. Was transferred from this facility last week due to MS changes; Invanz initiated. This MD cared for her and she appears quite alert comparatively. She has expressive aphasia and facial droop noted last week but she is able to answer y/ n questions and has no complaints. She arrives with a Cortez in place and PICC line in place, transferred to ED from [facility]. Source EMS, t/c to PCP Tim Tejeda for more details: 1503 PCP had impression patient had mental status changes per [place] report to PCP prior to transfer. PCP updated about PICC line status and patient looking alert and well otherwise. Ok to leave IV and transfer back to [place] after checking UA. Urine sample has already been sent to lab. Please check CBC and CMP per Tim jiang request. Exam Limitations language barrier (exprsv aphasia: ok y/n questns) ALLERGIES Coded Allergies: Antihistamines - Alkylamine (02/27/17) aspirin (02/27/17) loratadine (02/27/17) sertraline (02/27/17) Home Medications Active Scripts Ertapenem Sodium (Invanz) 1 GM IV DAILY 10 Days Prov: 04/16/17 Allopurinol (Zyloprim 300MG) 300 MG PO DAILY #30 TAB Prov: 10/03/16 ALPRAZOLAM (Alprazolam 1MG) 1 MG PO Q6HP PRN ANXIETY #120 TAB Prov: 10/03/16 Olanzapine (Zyprexa 5MG) 10 MG PO BID #30 TAB Prov: 10/03/16 Pravastatin Sodium (Pravachol) 20 MG PO QHS #30 TAB Prov: 10/03/16 Reported Medications Acetaminophen (Pain Reliever) 500 MG PO Q4HP PRN PAIN/FEVER Lactulose (Lactulose) 20 GM PO DAILY Desvenlafaxine (Desvenlafaxine ER) 100 MG PO DAILY FLUTICASONE PROPIONATE (Fluticasone 50MCG Nasal [place]) 1 SPRAY NA DAILY Risperidone 2 MG PO BID SENNOSIDES/DOCUSATE SODIUM (Senna Plus Tablet) 2 TAB PO BID SIMETHICONE (Simethicone 80MG) 80 MG PO TID PRN GAS Dicyclomine Hcl (Bentyl 20mg Tab (Generic)) 20 MG PO 1700 ROPINIROLE HCL (Requip 1 Mg) 1 MG PO QHS Glipizide (Glipizide 5MG) 5 MG PO DAILY BENZONATATE (Benzonatate) 100 MG PO BID BENZTROPINE MESYLATE (Benztropine 1MG Tab) 0.5 MG PO DAILY Bethanechol Chloride 25 MG PO TID Pantoprazole Sodium (Pantoprazole 40MG) 40 MG PO QHS Hydrochlorothiazide W/Triamter (Triamterene-Hctz 37.5-25 MG Tb) 1 TAB PO DAILY MAG CARB/AL HYDROX/ALGINIC AC (Acid Gone Antacid Liquid) 30 ML PO QIDP PRN ACID REFLUX CETIRIZINE HCL (Zyrtec) 10 MG PO DAILY Montelukast Sodium (Singulair) 10 MG PO QHS Oxcarbazepine (Trileptal) 600 MG PO BID Polyethylene Glycol 3350 (Miralax) 17 GM PO DAILY History Medical History General CAD? No Angina: No [place]: No Hypertension? Yes Hyperlipidemia? No CHF? No DVT? No PE? No COPD? No Asthma? Yes Anemia? No GERD? No Gastric ulcers? No GI Bleed? No Hernia? No Thyroid Problems? No Hypothyroidism? No CVA? No Seizures? No Diabetes? Yes Insulin Dependent: No Insulin Pump: No Home FSBS? No Renal Insuffiency? No End Stage Renal Disease? No UTI? No Stones? No BPH? No GB Disease: No Nephritic Syndrome? No Asplenia? No Hepatitis? No Sickle Cell Disease? No Arthritis? Yes Migraines? Yes Cataracts? No Glaucoma? No MRSA? No HIV? No TB? No Anxiety? Yes Depression? Yes Cancer? No More? Yes Additional hx: SCHIZOPRENIA MENTAL RETARDATION Immunization Hx DT/Tetanus Unknown Flu 2017-18FSN Pneumonia Received In Past Surgical Hx Previous Surgery?Y HYSTERECTOMY 1994 Hemorrhoid [place]-2002 Family History Family Hx Diabetes Yes CAD No Hypertension Yes Hyperlipidemia Yes Cancer No TB No Social History Smoking Hx Smoker: Never Smoker Tobacco: No Alcohol Alcohol: No Review of Systems All Other Systems Reviewed and Negative Psychiatric/Neurological see HPI, pre-existing deficit Physical Exam Vital Signs Vital Signs Date Time Temp Pulse Resp B/P Pulse O2 O2 Flow FiO2 Ox Delivery Rate 04/25 1609 98.4 100 16 171/101 98 04/25 1449 98.4 96 16 146/88 98 General Appearance normal appearance, WD/WN, no apparent distress (alert, sitting up, nontoxic) Eye Exam - bilateral eye normal exam, bilateral eye PERRL, bilateral eye EOMI Neck normal inspection, non-tender, supple, full range of motion Respiratory Status Yes: trachea midline, chest symmetrical, non tender chest. No: respiratory distress, tender on palpation, use of accessory muscles, pain on inspiration, pain on expiration, productive cough, non productive cough. Lung Sounds bilateral: normal breath sounds, lungs clear. Cardiovascular normal exam, regular rate/rhythm, no peripheral edema, no gallop, no JVD, no murmur, no rub, normal peripheral pulses Gastrointestinal normal bowel sounds, normal exam, non tender, soft, no organomegaly, no pulsatile mass, no guarding, no rebound Extremities non-tender, normal range of motion, normal inspection, no calf tenderness, no pedal edema Strength 4 Upper Ext (L), 4 Upper Ext (R), 4 Lower Ext (L), 4 Lower Ext (R) Neurologic alert, oriented x 3, expressive aphasia but alert, can answer y/n questions appropriately, has facial droop seen last week. Glascow Coma Scale Glascow Coma Scale Response Value EYE response: 4 Spontaneously 4 MOTOR response: 5 LOCALIZES PAIN 5 VERBAL response: 5 Oriented & Converses 5 Total 14 Skin intact, normal color, warm/dry, abrasions (good turgor), no rash cons.w/ shingles Medical Decision Making LABS/Meds/Orders Pt receiving controlled substance in ED? No Results/Orders Laboratory Tests 04/25/17 1528: Sodium 131 L, Potassium 2.7 *L, Chloride 90 L, Carbon Dioxide 33 H, BUN 11, Creatinine 1.4 H, Estimated Creat Clear 55, Estimated GFR (MDRD) 37 L, Glucose 121 H, Calcium 9.4, Total Bilirubin 0.2, AST 22, ALT 20, Alkaline Phosphatase 155 H, Total Protein 7.5, Albumin 3.3 L, Globulin 4.2 H, Albumin/Globulin Ratio 0.8 L, WBC 12.2 H, RBC 4.97, Hgb 13.4, Hct 40.4, MCV 81.3 L, RDW 16.6, Plt Count 449 H, MPV 7.7, Gran % 85.4 H, Gran # 10.4 H, Total Counted Pending , Lymphocytes % 8.1 L, Monocytes % 3.9, Eosinophils % 2.3, Basophils % 0.3, Neutrophils Pending, Lymphocytes (Manual) Pending, Lymphocytes # 1.0, Monocytes # 0.5, Eosinophils # 0.3, Basophils # 0.0, Platelet Estimate Pending, PUBS MCHC 32.9, MCH 26.8 L Current Medication Orders Sig/Malcolm Start time Last Medication Dose Route Stop Time Status Admin Potassium Chloride 0 .STK-MED ONE 04/25 1601 DC PO Potassium Chloride 20 MEQ ONCE ONE 04/25 1600 DC 04/25 PO 04/25 1601 1605 Sodium Chloride 10 ML PRN PRN 04/25 1545 AC IV 04/26 1532 Orders Procedure Date/time Status 12 LEAD EKG-BESSON (INITIAL) 04/25 1555 Active ELECTROCARDIOGRAM REQUEST 04/25 1555 Active IV SALINE LOCK 04/25 1532 Active DIFFERENTIAL-WBC 04/25 1528 Active CBC WITH AUTO DIFF 04/25 1518 Active CHEM 12 PROFILE 04/25 1518 Complete CM/EKG CM/EKG EKG rate, NSR, rhythm, no evid. of ischemic chgs, no ectopy, normal QRS, normal RI, normal EKG, compared w/(date of old) (no new change from 04/13/17) Consult MD Physician Consult Time Called 1508 Reason Pt. Condition Comments see beginning of this note regarding d/w PCP Tim Tejeda on patient arrival regarding indication for and extent of work up. Progress ED Progress Notes Date 04/25/17 Time 1616 Comment KCl PO. Departure Departure Time of Disposition 1617 Disposition DC Home or Self Care(routine) Clinical Impression Primary Impression: Need for intravenous access Secondary Impressions: Hypokalemia Condition STABLE Referrals Tim Tejeda APRN (Family) Patient Instructions Hypokalemia Additional Instructions Recheck potassium level on 04/26/17 and call result to PCP. Do not access PICC line as occluded; turf sales person who placed PICC line as well as contact PCP regarding removal of PICC line at their discretion. UA was normal today so no further antibiotics indicated unless otherwise specified by PCP. Follow up with PCP at PCP discretion. Discharge Counseling Counseled pt/family regarding diagnosis, test results, medications/RX, home care, follow up needs ED Critical Care Critical Care No at 1615
--- NOTE | 2017-04-25 15:13 | Emergency Room Report ---
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 NSG HOME REPORTS PT WAS LETHARGIC. PT ANSWERED MY QUESTIONS AND ADVISED SHE DIDN'T HURT ANYWHERE AND FELT BETTER Onset of symptoms date/time:/ or onset unknown for:MEDICAL HX UNKNOWN Treatment Prior to Arrival: PT MONITORED. 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 N Clinical Suspician of Infection? N Mental Status: 1 - Regular (Normal Baseline) Sepsis Risk:Low Sepsis Risk Have you (or family members/close friends) recently traveled outside the [place]? N If Yes, where/when: Have you had exposure to infectious disease within the past month? N TB? Other? Specify: patient sent from [place] due to PICC line clogged. Needs last dose of Invanz. Was transferred from this facility last week due to MS changes; Invanz initiated. This MD cared for her and she appears quite alert comparatively. She has expressive aphasia and facial droop noted last week but she is able to answer y/ n questions and has no complaints. She arrives with a Cort[place] in place and PICC line in place, transferred to ED from [facility]. Source EMS, t/c to PCP Tim Tejeda for more details: 1503 PCP had impression patient had mental status changes per [place] report to PCP prior to transfer. PCP updated about PICC line status and patient looking alert and well otherwise. Ok to leave IV and transfer back to [place] after checking UA. Urine sample has already been sent to lab. Please check CBC and CMP per Tim jiang request. Exam Limitations language barrier (exprsv aphasia: ok y/n questns) ALLERGIES Coded Allergies: Antihistamines - Alkylamine (02/27/17) aspirin (02/27/17) loratadine (02/27/17) sertraline (02/27/17) Home Medications Active Scripts Ertapenem Sodium (Invanz) 1 GM IV DAILY 10 Days Prov: 04/16/17 Allopurinol (Zyloprim 300MG) 300 MG PO DAILY #30 TAB Prov: 10/03/16 ALPRAZOLAM (Alprazolam 1MG) 1 MG PO Q6HP PRN ANXIETY #120 TAB Prov: 10/03/16 Olanzapine (Zyprexa 5MG) 10 MG PO BID #30 TAB Prov: 10/03/16 Pravastatin Sodium (Pravachol) 20 MG PO QHS #30 TAB Prov: 10/03/16 Reported Medications Acetaminophen (Pain Reliever) 500 MG PO Q4HP PRN PAIN/FEVER Lactulose (Lactulose) 20 GM PO DAILY Desvenlafaxine (Desvenlafaxine ER) 100 MG PO DAILY FLUTICASONE PROPIONATE (Fluticasone 50MCG Nasal [place]) 1 SPRAY NA DAILY Risperidone 2 MG PO BID SENNOSIDES/DOCUSATE SODIUM (Senna Plus Tablet) 2 TAB PO BID SIMETHICONE (Simethicone 80MG) 80 MG PO TID PRN GAS Dicyclomine Hcl (Bentyl 20mg Tab (Generic)) 20 MG PO 1700 ROPINIROLE HCL (Requip 1 Mg) 1 MG PO QHS Glipizide (Glipizide 5MG) 5 MG PO DAILY BENZONATATE (Benzonatate) 100 MG PO BID BENZTROPINE MESYLATE (Benztropine 1MG Tab) 0.5 MG PO DAILY Bethanechol Chloride 25 MG PO TID Pantoprazole Sodium (Pantoprazole 40MG) 40 MG PO QHS Hydrochlorothiazide W/Triamter (Triamterene-Hctz 37.5-25 MG Tb) 1 TAB PO DAILY MAG CARB/AL HYDROX/ALGINIC AC (Acid Gone Antacid Liquid) 30 ML PO QIDP PRN ACID REFLUX CETIRIZINE HCL (Zyrtec) 10 MG PO DAILY Montelukast Sodium (Singulair) 10 MG PO QHS Oxcarbazepine (Trileptal) 600 MG PO BID Polyethylene Glycol 3350 (Miralax) 17 GM PO DAILY History Medical History General CAD? No Angina: No [place]: No Hypertension? Yes Hyperlipidemia? No CHF? No DVT? No PE? No COPD? No Asthma? Yes Anemia? No GERD? No Gastric ulcers? No GI Bleed? No Hernia? No Thyroid Problems? No Hypothyroidism? No CVA? No Seizures? No Diabetes? Yes Insulin Dependent: No Insulin Pump: No Home FSBS? No Renal Insuffiency? No End Stage Renal Disease? No UTI? No Stones? No BPH? No GB Disease: No Nephritic Syndrome? No Asplenia? No Hepatitis? No Sickle Cell Disease? No Arthritis? Yes Migraines? Yes Cataracts? No Glaucoma? No MRSA? No HIV? No TB? No Anxiety? Yes Depression? Yes Cancer? No More? Yes Additional hx: SCHIZOPRENIA MENTAL RETARDATION Immunization Hx DT/Tetanus Unknown Flu 2017-18FSN Pneumonia Received In Past Surgical Hx Previous Surgery?Y HYSTERECTOMY 1994 Hemorrhoid [place]-2002 Family History Family Hx Diabetes Yes CAD No Hypertension Yes Hyperlipidemia Yes Cancer No TB No Social History Smoking Hx Smoker: Never Smoker Tobacco: No Alcohol Alcohol: No Review of Systems All Other Systems Reviewed and Negative Psychiatric/Neurological see HPI, pre-existing deficit Physical Exam Vital Signs Vital Signs Date Time Temp Pulse Resp B/P Pulse O2 O2 Flow FiO2 Ox Delivery Rate 04/25 1609 98.4 100 16 171/101 98 04/25 1449 98.4 96 16 146/88 98 General Appearance normal appearance, WD/WN, no apparent distress (alert, sitting up, nontoxic) Eye Exam - bilateral eye normal exam, bilateral eye PERRL, bilateral eye EOMI Neck normal inspection, non-tender, supple, full range of motion Respiratory Status Yes: trachea midline, chest symmetrical, non tender chest. No: respiratory distress, tender on palpation, use of accessory muscles, pain on inspiration, pain on expiration, productive cough, non productive cough. Lung Sounds bilateral: normal breath sounds, lungs clear. Cardiovascular normal exam, regular rate/rhythm, no peripheral edema, no gallop, no JVD, no murmur, no rub, normal peripheral pulses Gastrointestinal normal bowel sounds, normal exam, non tender, soft, no organomegaly, no pulsatile mass, no guarding, no rebound Extremities non-tender, normal range of motion, normal inspection, no calf tenderness, no pedal edema Strength 4 Upper Ext (L), 4 Upper Ext (R), 4 Lower Ext (L), 4 Lower Ext (R) Neurologic alert, oriented x 3, expressive aphasia but alert, can answer y/n questions appropriately, has facial droop seen last week. Glascow Coma Scale Glascow Coma Scale Response Value EYE response: 4 Spontaneously 4 MOTOR response: 5 LOCALIZES PAIN 5 VERBAL response: 5 Oriented & Converses 5 Total 14 Skin intact, normal color, warm/dry, abrasions (good turgor), no rash cons.w/ shingles Medical Decision Making LABS/Meds/Orders Pt receiving controlled substance in ED? No Results/Orders Laboratory Tests 04/25/17 1528: Sodium 131 L, Potassium 2.7 *L, Chloride 90 L, Carbon Dioxide 33 H, BUN 11, Creatinine 1.4 H, Estimated Creat Clear 55, Estimated GFR (MDRD) 37 L, Glucose 121 H, Calcium 9.4, Total Bilirubin 0.2, AST 22, ALT 20, Alkaline Phosphatase 155 H, Total Protein 7.5, Albumin 3.3 L, Globulin 4.2 H, Albumin/Globulin Ratio 0.8 L, WBC 12.2 H, RBC 4.97, Hgb 13.4, Hct 40.4, MCV 81.3 L, RDW 16.6, Plt Count 449 H, MPV 7.7, Gran % 85.4 H, Gran # 10.4 H, Total Counted Pending , Lymphocytes % 8.1 L, Monocytes % 3.9, Eosinophils % 2.3, Basophils % 0.3, Neutrophils Pending, Lymphocytes (Manual) Pending, Lymphocytes # 1.0, Monocytes # 0.5, Eosinophils # 0.3, Basophils # 0.0, Platelet Estimate Pending, PUBS MCHC 32.9, MCH 26.8 L Current Medication Orders Sig/Malcolm Start time Last Medication Dose Route Stop Time Status Admin Potassium Chloride 0 .STK-MED ONE 04/25 1601 DC PO Potassium Chloride 20 MEQ ONCE ONE 04/25 1600 DC 04/25 PO 04/25 1601 1605 Sodium Chloride 10 ML PRN PRN 04/25 1545 AC IV 04/26 1532 Orders Procedure Date/time Status 12 LEAD EKG-BESSON (INITIAL) 04/25 1555 Active ELECTROCARDIOGRAM REQUEST 04/25 1555 Active IV SALINE LOCK 04/25 1532 Active DIFFERENTIAL-WBC 04/25 1528 Active CBC WITH AUTO DIFF 04/25 1518 Active CHEM 12 PROFILE 04/25 1518 Complete CM/EKG CM/EKG EKG rate, NSR, rhythm, no evid. of ischemic chgs, no ectopy, normal QRS, normal IL, normal EKG, compared w/(date of old) (no new change from 04/13/17) Consult MD Physician Consult Time Called 1508 Reason Pt. Condition Comments see beginning of this note regarding d/w PCP Tim Tejeda on patient arrival regarding indication for and extent of work up. Progress ED Progress Notes Date 04/25/17 Time 1616 Comment KCl PO. Departure Departure Time of Disposition 1617 Disposition DC Home or Self Care(routine) Clinical Impression Primary Impression: Need for intravenous access Secondary Impressions: Hypokalemia Condition STABLE Referrals Tim Tejeda APRN (Family) Patient Instructions Hypokalemia Additional Instructions Recheck potassium level on 04/26/17 and call result to PCP. Do not access PICC line as occluded; contact center assistant who placed PICC line as well as contact PCP regarding removal of PICC line at their discretion. UA was normal today so no further antibiotics indicated unless otherwise specified by PCP. Follow up with PCP at PCP discretion. Discharge Counseling Counseled pt/family regarding diagnosis, test results, medications/RX, home care, follow up needs ED Critical Care Critical Care No at 1611
[2017-04-25 15:36] LABS: LYMPH % 8.1 % (10-50.0)
--- OUTSIDE RECORDS SUMMARY | 2017-04-25 15:40 | External Medical Summary Rpt | CCD ---
Author Author , JANICE Organization [facility] Address Unknown Phone Care Team Providers Care Team Facilitator Name Role Phone [facility] Unavailable Unavailable [facility], [facility] LORI PEREZ, Unavailable Unavailable LORI PEREZ [facility] Unavailable Unavailable [facility], [facility] BRAUDIS JAM, BRAUDIS Unavailable Unavailable JAM [facility] Unavailable Unavailable SERVICE, [facility] Unavailable Unavailable SERVICE[facility] CHIPPS JULIENNE & Unavailable Unavailable DUBILIER, [facility] DUBILIER [facility] Unavailable Unavailable [facility], [facility] Unavailable Unavailable DIAGNOSTIC SE, [facility] Unavailable Unavailable TRANSPORTATION SER, [facility] ALEXANDRA SARGENT, Unavailable Unavailable ALEXANDRA SARGENT [facility] Unavailable Unavailable INC, [facility] Unavailable Unavailable HOSPITAL P, [facility], Unavailable Unavailable [facility] Unavailable Unavailable IMAGING [facility], [facility] FAN JAYDA, FAN Unavailable Unavailable JAYDA Fercho Sargent MD, Unavailable Unavailable Fercho Sargent MD [facility], [facility] & Unavailable Unavailable [facility], [facility], Unavailable Unavailable [facility], [facility], Unavailable Unavailable [facility] Unavailable Unavailable [facility], [facility] Un[facility], [facility] Unavailable Unavailable AGENCY, [facility] Unavailable Unavailable PHARMACY Purpose Continuity of Care Document - 08-05-2007 through 2016 Problems Code Diagnosis DOS Provider Status D649 ANEMIA 04-04-2017 [facility] E119 TYPE 2 04-04-2017 [facility] WITHOUT COMPLICATIO NS E785 HYPERLIPIDE 04-04-2017 [facility] UNSPECIFIED ASSOCIATES E876 HYPOKALEMIA 04-04-2017 [facility] I10 ESSENTIAL 04-04-2017 [facility] HYPERTENSIO ASSOCIATES N B36471 OTHER LONG 04-04-2017 [facility] CURRENT [facility]OCIATES DRUG THERAPY R0602 SHORTNESS 03-03-2017 [facility]ATH [facility] [id number] UNSPECIFIED 03-03-2017 [facility] OPEN [facility]OUND [facility] LT BREAST INC INITIAL ENC R509 FEVER 03-01-2017 [facility] D485 NEOPLASM OF 02-27-2017 [facility] INC SKIN L821 OTHER 02-27-2017 [facility] SEBORRHEIC JULIENNE & KERATOSIS DUBILIER R339 RETENTION 12-18-2016 [facility] OF URINE [facility] P R69 ILLNESS 12-18-2016 [facility]ATED UNSPECIFIED TRANSPORTAT ION SER N390 URINARY 11-28-2016 [facility] SITE NOT SPECIFIED R7989 OTHER SPEC 11-05-2016 [facility] ABNORMAL [facility] FINDINGS [facility]IATES BLOOD CHEMISTRY R300 DYSURIA 10-24-2016 [facility] N289 DISORDER OF 10-02-2016 [facility] UNSPECIFIED M160 BILATERAL 09-30-2016 [facility]STEO[facility] TIS OF HIP E61602 PAIN IN 09-30-2016 [facility] M542 CERVICALGIA 09-30-2016 [facility] N3000 ACUTE 09-30-2016 [facility] CYSTITIS [facility], WITHOUT PLLC HEMATURIA R51 HEADACHE 09-30-2016 [facility] AMBULANCE SERVICE R531 WEAKNESS 09-30-2016 [facility] AMBULANCE SERVICE Z043 ENCOUNTER 09-30-2016 [facility]ATION [facility] FOLLOW OTH ACCIDENT R220 LOCALIZED 09-10-2016 [facility]WE[facility] LUMP HEAD O6140HV CONTUSION 09-10-2016 [facility] OF SCALP PHYSICIANS, INITIAL PLLC ENCOUNTER M66OSMG UNSPECIFIED 09-10-2016 [facility] IN[facility]ICE ENCOUNTER E559 VITAMIN D 07-19-2016 [facility] DEFICIENCY PHYSICIANS UNSPECIFIED LA N183 CHRONIC 07-19-2016 [facility]NEY [facility] DISEASE LA STAGE 3 MODERATE [id number] LACERATION 05-09-2016 [facility] W/O FB PHYSICIANS, OTHER PART PLLC HEAD INITIAL ENC R3947CV UNSPECIFIED 05-09-2016 [facility] INJURY OF AMBULANCE FACE SERVICE INITIAL ENCOUNTER Z23 ENCOUNTER 04-04-2016 [facility] IMMUNIZATIO [facility] DEPT N PITA J310 CHRONIC 12-19-2015 [facility] RHINITIS PH[facility] GROUP J320 CHRONIC 12-19-2015 [facility] MAXILLARY PHYS[facility]ANS SINUSITIS GROUP M3500 SICCA 12-19-2015 [facility] SYNDROME PHYSICIANS UNSPECIFIED GROUP A61758 UNS 12-14-2015 [facility] ATHEROSCLER [place] ART EXTREM BILATERAL LEGS L851 ACQ 12-14-2015 [facility] KERATOSIS KERATODERMA PALMARIS ET PLANTARIS F30186 PAIN IN 12-14-2015 [facility] RIGHT TOES J90435 PAIN IN 12-14-2015 [facility] LIV LEFT TOES W09071 PAIN IN 11-24-2015 [facility] LEFT HAND MOBILE DIAGNOSTIC SE E871 HYPO-OSMOLA 09-12-2015 [facility] SERV HYPONATREMI FOUNDATION A I129 HYPERTENSIV 09-12-2015 [facility] E CKD SERV W/STAGE 1-4 FOUNDATION CKD OR UNS CKD N184 CHRONIC 09-12-2015 [facility] KIDNEY SERV DISEASE FOUNDATION STAGE 4 SEVERE N250 RENAL 09-12-2015 [facility] OSTEODYSTRO SERV PHY FOUNDATION 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 [facility] 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 INSULIN FOUNDATION B351 TINEA 08-29-2015 [facility] UNGUIUM [id number] PAIN IN 08-18-2015 [facility] LEFT KNEE MOBILE DIAGNOSTIC SE R27048 PAIN IN 05-23-2015 [facility] RIGHT FOOT B71951 PAIN IN 05-23-2015 [facility] LEFT FOOT G17973 PAIN IN 04-08-2015 [facility] LEFT WRIST MOBILE DIAGNOSTIC SE R600 LOCALIZED 03-08-2015 [facility] EDEMA 63207 DIAB W/O 01-20-2015 [facility] COMP TYPE PHYSICIANS II/UNS NOT LA STATED UNCNTRL 2724 OTHER AND 01-20-2015 [facility]ED UNSPECIFIED PHYSICIANS LA HYPERLIPIDE [place] 4019 UNSPECIFIED 01-20-2015 [facility]ED [place] [address] 01-06-2015 [facility]ERATED TRANSPORTAT ION SER 5854 CHRONIC 01-04-2015 [facility] DISEASE INC STAGE IV (SEVERE) 88386 DIAB 12-23-2014 [facility] W/PERIPH CIRC D/O TYPE II/UNS NOT UNCNTRL 7295 PAIN IN 12-23-2014 [facility] SOFT TISSUES OF LIMB 7823 EDEMA 12-23-2014 [facility] 27680 UNSPECIFIED 11-19-2014 [facility] HOME URINARY HEALTH INCONTINENC AGENCY E 68460 PAIN IN 10-25-2014 EXPRESS JOINT MOBILE PELVIC DIAGNOSTIC REGION AND SE THIGH 7011 ACQUIRED 09-16-2014 [facility] KERATODERMA 25006 OSTEOARTHRO 06-30-2014 [facility] UNSPEC MEDICAL GEN/LOC IMAGING ASS PELV REGION&THIG H 5859 CHRONIC 06-29-2014 [facility] DISE[facility] UNSPECIFIED 5932 ACQUIRED 06-29-2014 [facility] CYST OF MEDICAL KIDNEY IMAGING ASS 7242 LUMBAGO 06-12-2014 [facility]LE DIAGNOSTIC SE 5853 CHRONIC 05-31-2014 [facility] KIDNEY SERV DISEASE FOUNDATION STAGE III (MODERATE) 5880 RENAL 05-31-2014 [facility] MEDICAL OSTEODYSTRO SERV PHY [facility] 2689 UNSPECIFIED 04-21-2014 COM[facility]ED VITAMIN D PHYSICIANS DEFICIENCY LA 0062 AMEBIC 01-28-2014 [facility] IC COLITIS MEDICAL EQUIPME 72750 DISORDER OF 10-13-2013 EXPRESS BONE AND MOBILE CARTILAGE DIAGNOSTIC UNSPECIFIED SE 805.6 805.6 FX 04-23-2013 [facility] SACRUM/COCC [facility] YX-CLOSED Hospital 808.2 808.2 04-23-2013 [facility] FRACTURE OF [facility] PUBIS-CLOSE D 847.0 847.0 04-23-2013 [facility] SPRAIN OF [facility] 850.11 850.11 04-23-2013 [facility] CONCUSSION, [facility] W LOSS OF Hospital CONSCIOUSNE SS OF 30 MINUTES OR LESS E849.7 E849.7 04-23-2013 [facility] ACCID IN [facility] INSTIT E885.9 E885.9 FALL 04-23-2013 [facility] FROM [facility] SLIPPING, Hospital TRIPPING, OR STUMBLING NEC 02608 ACUTE PAIN 04-22-2013 [facility] DUE TO AMBULANCE TRAUMA SERVICE 6259 UNSPEC 04-22-2013 [facility] W/FEMALE GENITAL ORGANS 29641 SPASM OF 04-22-2013 [facility] 8056 CLOS FX 04-22-2013 [facility] SACRUM&COCC [facility] YX W/O INC MENTION SP CORD INJURY 8082 CLOSED 04-22-2013 [facility] FRACTURE OF MEM HOSP PUBIS INC 8470 NECK SPRAIN 04-22-2013 [facility] AND STRAIN [facility] P 65152 CONCUSSION 04-22-2013 [facility] WITH LOC OF [facility] 30 MINUTES [place] [facility] SSD P OR LESS 920 CONTUSION 04-22-2013 [facility] OF FACE MEDICAL SCALP AND IMAGING ASS NECK EXCEPT EYE 11618 INJURY OF 04-22-2013 [facility] FACE AND MEDICAL NECK OTHER IMAGING ASS AND UNSPECIFIED E8497 PLACE OF 04-22-2013 [facility] OCCURRENCE [facility] RESIDENTIAL [place] [facility] SSD P INSTITUTION E8859 FALL FROM 04-22-2013 [facility] OTHER [facility] OR STUMBLING E8889 UNSPECIFIED 04-22-2013 [facility] V5413 AFTERCARE 04-22-2013 [facility] FOR HEALING MEDICAL TRAUMATIC IMAGING ASS FRACTURE OF HIP V0481 NEED 04-02-2013 [facility] PROPHYLACTI [facility] DEPT VACCINATION PITA &INOCULATIO N FLU 45422 ATHEROSCLER 09-16-2012 [facility] OSIS [place] ART EXTREMITIES UNSPEC V5869 LONG-TERM 07-23-2012 COMBINED (CURRENT) PHYSICIANS USE OF LA OTHER MEDICATIONS 2449 UNSPECIFIED 06-18-2012 [facility] PHYSICIANS [place] [address]879 PAIN IN 05-05-2012 EXPRESS JOINT, MOBILE FOREARM DIAGNOSTIC SE 4619 ACUTE 04-14-2012 [facility] SINUSITIS, UNSPECIFIED 4779 ALLERGIC 04-14-2012 [facility] RHINITIS CAUSE UNSPECIFIED 7804 DIZZINESS 04-14-2012 [facility] AND GIDDINESS 3319 UNSPECIFIED 03-14-2012 [facility] CEREBRAL [facility]ICAL DEGENERATIO IMAGING ASS N 7840 HEADACHE 02-20-2012 [facility] 1101 DERMATOPHYT 07-04-2011 [facility] OSIS OF NAIL 7812 ABNORMALITY 09-26-2009 N[facility] OF GAIT REGISTRY & HOME HEAL 34269 ANAL OR 10-18-2008 [facility] 13140 DIARRHEA 10-18-2008 [facility] 11870 ABDOMINAL 10-18-2008 [facility] RIGHT EMERGENCY LOWER SERVICES [facility] 79012 ABDOMINAL 10-18-2008 [facility] PAIN, AMBULANCE GENERALIZED SERVICE 5693 HEMORRHAGE 02-14-2008 [facility] OF RECTUM AMBULANCE AND ANUS SERVICE 5789 UNSPECIFIED 02-14-2008 [facility] HEMORRHAGE [facility] OF INC GASTROINTES TINAL TRACT 3829 UNSPECIFIED 12-23-2007 ARNOLD, OTITIS LORI W MEDIA 5690 ANAL AND 11-26-2007 [facility] RECTAL AMBULANCE POLYP SERVICE 5691 RECTAL 11-26-2007 [facility] PROLAPSE [facility] INC 4552 INTERNAL 10-04-2007 [facility] HEMORRHOIDS AMBULANCE WITH OTHER SERVICE COMPLICATIO N 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 D 34 IN ti ON 20 1- 7- 00 CA 21 EY ve AT 53 20 20 0 RE 36 AT 65 17 17 MD E 0 PH CH 10 AR AE 0 MA L MG CY S CA LL PS C UL E HE 64 11 11 0 50 5 ME 15 GA Ac PA 25 -2 -2 0. D 36 IN ti RI 30 1- 7- 00 CA 09 EY ve N 22 20 20 0 RE 60 50 23 17 17 MD 5 PH CH UN AR AE IT MA L S/ CY S 5 ML LL C (1 0/ ML ) NO 64 11 11 0 20 5 ME 15 GA Ac RM 25 -2 -2 00 D 34 IN ti AL 30 1- 1- .0 CA 44 EY ve 11 20 20 00 RE 97 SA 13 17 17 MD LI 0 PH CH NE AR AE MA L FL CY S US H LL SY C RI NG E HE 64 11 11 0 50 5 ME 15 GA Ac PA 25 -2 -2 0. D 34 IN ti RI 30 1- 1- 00 CA 45 EY ve N 22 20 20 0 RE 01 50 23 17 17 MD 5 PH CH UN AR AE IT MA L S/ CY S 5 ML LL C (1 0/ ML ) MA 00 05 11 0 30 5 ME 15 GA Ac PA 90 -1 -1 0. D 28 IN ti P 41 0- 3- 00 CA 67 EY ve 50 98 20 20 0 RE 29 0 86 17 17 MD MG 1 PH CH AR AE TA MA L BL CY S ET LL C BE 67 06 10 0 60 30 ME 15 GA Ac NZ 87 -1 -2 0. D 18 IN ti ON 70 8- 5- 00 CA 49 EY ve AT 10 20 20 0 RE 87 AT 50 17 17 MD E 5 PH CH 10 AR AE 0 MA L MG CY S CA LL PS C UL E SE 00 06 10 0 12 30 ME 15 GA Ac NE 53 -0 -2 00 D 16 IN ti XO 64 1- 4- .0 CA 78 EY ve N- 08 20 20 00 RE 15 S 60 17 17 MD TA 1 PH CH BL AR AE ET MA L CY S LL C MA 00 05 10 0 30 5 ME 15 GA Ac PA 90 -1 -2 0. D 18 IN ti P 41 0- 4- 00 CA 10 EY ve 50 98 20 20 0 RE 13 0 86 17 17 MD MG 1 PH CH AR AE TA MA L BL CY S ET LL C MA 00 05 10 0 30 5 ME 15 GA Ac PA 90 -1 -0 0. D 08 IN ti P 41 0- 7- 00 CA 91 EY ve 50 98 20 20 0 RE 31 0 86 17 17 MD MG 1 PH CH AR AE TA MA L BL CY S ET LL C SE 00 06 09 0 12 30 ME 15 GA Ac NE 53 -0 -2 00 D 01 IN ti XO 64 1- 6- .0 CA 96 EY ve N- 08 20 20 00 RE 48 S 60 17 17 MD TA 1 PH CH BL AR AE ET MA L CY S LL C BE 67 06 09 0 60 30 ME 15 GA Ac NZ 87 -1 -2 0. D 01 IN ti ON 70 8- 6- 00 CA 96 EY ve AT 10 20 20 0 RE 45 AT 50 17 17 MD E 5 PH CH 10 AR AE 0 MA L MG CY S CA LL PS C UL E MD 00 07 09 0 30 30 ME 15 GA Ac -A 90 -2 -2 0. D 00 IN ti CI 45 3- 3- 00 CA 90 EY ve D 06 20 20 0 RE 44 GA 86 17 17 MD S 0 PH CH 80 AR AE MA L MG CY S TA LL B C CH EW MA 00 05 09 0 30 5 ME 14 GA Ac PA 90 -1 -1 0. D 96 IN ti P 41 0- 6- 00 CA 78 EY ve 50 98 20 20 0 RE 69 0 86 17 17 MD MG 1 PH CH AR AE TA MA L BL CY S ET LL C SE 00 06 09 0 12 30 ME 14 GA Ac NE 53 -0 -0 00 D 86 IN ti XO 64 1- 1- .0 CA 87 EY ve N- 08 20 20 00 RE 65 S 60 17 17 MD TA 1 PH CH BL AR AE ET MA L CY S LL C MA 00 05 08 0 30 5 ME 14 GA Ac PA 90 -1 -2 0. D 85 IN ti P 41 0- 9- 00 CA 64 EY ve 50 98 20 20 0 RE 43 0 86 17 17 MD MG 1 PH CH AR AE TA MA L BL CY S ET LL C BE 67 06 08 0 60 30 ME 14 GA Ac NZ 87 -1 -2 0. D 84 IN ti ON 70 8- 6- 00 CA 52 EY ve AT 10 20 20 0 RE 63 AT 50 17 17 MD E 5 PH CH 10 AR AE 0 MA L MG CY S CA LL PS C UL E SE 00 06 08 0 12 30 ME 14 GA Ac NE 53 -0 -0 00 D 70 IN ti XO 64 1- 3- .0 CA 16 EY ve N- 08 20 20 00 RE 39 S 60 17 17 MD TA 1 PH CH BL AR AE ET MA L CY S LL C MA 00 05 07 0 30 5 ME 14 GA Ac PA 90 -1 -2 0. D 68 IN ti P 41 0- 8- 00 CA 10 EY ve 50 98 20 20 0 RE 14 0 86 17 17 MD MG 1 PH CH AR AE TA MA L BL CY S ET LL C BE 67 06 07 0 60 30 ME 14 GA Ac NZ 87 -1 -2 0. D 67 IN ti ON 70 8- 6- 00 CA 06 EY ve AT 10 20 20 0 RE 14 AT 50 17 17 MD E 5 PH CH 10 AR AE 0 MA L MG CY S CA LL PS C UL E MD 00 07 07 0 30 30 ME 14 GA Ac -A 90 -2 -2 0. D 64 IN ti CI 45 3- 4- 00 CA 88 EY ve D 06 20 20 0 RE 55 GA 86 17 17 MD S 0 PH CH 80 AR AE MA L MG CY S TA LL B C CH EW MA 00 06 07 30 5 00 ME Ac PA 90 -3 -2 .0 00 D ti P 41 0- 1- 00 14 CA ve 50 98 20 20 50 RE 0 86 17 17 79 MG 1 94 PH AR TA MA BL CY ET AC 00 06 07 35 2 00 ME Ac ID 90 -2 -2 5. 00 D ti 47 9- 00 14 CA ve GO 72 20 20 0 49 RE NE 71 17 17 78 4 82 PH AN AR TA MA CI CY D LI QU ID BE 67 06 07 60 30 00 ME Ac NZ 87 -1 -1 .0 00 D ti ON 70 9 14 CA ve AT 10 20 20 42 RE AT 50 17 17 76 E 5 53 PH 10 AR 0 MA MG CY CA PS UL E CE 00 06 07 30 30 00 ME Ac TI 37 -0 -0 .0 00 D ti RI 83 6- 7- 00 14 CA ve ZI 63 20 20 33 RE NE 70 17 17 26 1 46 PH HC AR L MA 10 CY MG TA BL ET PA 00 06 07 30 30 00 ME Ac NT 09 -0 -0 .0 00 D ti OP 30 7- 7- 00 14 CA ve RA 01 20 20 33 RE ZO 29 17 17 82 LE 8 72 PH AR SO MA D CY DR 40 MG TA B OX 62 06 07 60 30 00 ME Ac CA 75 -0 -0 .0 00 D ti RB 60 7- 7- 00 14 CA ve AZ 18 20 20 33 RE EP 58 17 17 82 IN 8 69 PH E AR 60 MA 0 CY MG TA BL ET TR 00 06 07 30 30 00 ME Ac IA 78 -0 -0 .0 00 D ti MT 11 7- 7- 00 14 CA ve ER 12 20 20 33 RE EN 30 17 17 82 E- 5 70 PH HC AR TZ MA CY 37 .5 -2 5 MG TB MO 00 06 07 30 30 00 ME Ac NT 05 -0 -0 .0 00 D ti EL 40 7- 7- 00 14 CA ve UK 25 20 20 33 RE 92 17 17 82 T 2 65 PH SO AR D MA 10 CY MG TA BL ET MA 00 06 07 30 5 00 ME Ac PA 90 -1 -0 .0 00 D ti P 41 6- 7- 00 14 CA ve 50 98 20 20 41 RE 0 86 17 17 27 MG 1 54 PH AR TA MA BL CY ET SE 00 06 07 12 30 00 ME Ac NE 53 -1 -0 0. 00 D ti XO 64 0- 7- 00 14 CA ve N- 08 20 20 0 36 RE S 60 17 17 81 TA 1 46 PH BL AR ET MA CY SE 00 06 07 0 12 30 ME 14 GA Ac NE 53 -0 -0 00 D 49 IN ti XO 64 1- 6- .0 CA 76 EY ve N- 08 20 20 00 RE 69 S 60 17 17 MD TA 1 PH CH BL AR AE ET MA L CY S LL C SE 00 06 06 40 10 00 ME Ac NE 53 -0 -2 .0 00 D ti XO 64 1- 3- 00 14 CA ve N- 08 20 20 31 RE S 60 17 17 44 TA 1 92 PH BL AR ET MA CY MA 00 05 06 30 5 00 ME Ac PA 90 -2 -1 .0 00 D ti P 41 7- 6- 00 14 CA ve 50 98 20 20 26 RE 0 86 17 17 99 MG 1 61 PH AR TA MA BL CY ET AL 00 05 06 30 5 00 ME Ac MO 78 -2 -1 .0 00 D ti AZ 11 5- 6- 00 14 CA ve OL 07 20 20 25 RE AM 90 17 17 87 1 5 53 PH AR MG MA CY TA BL ET PA 00 05 06 30 30 00 ME Ac NT 09 -1 -0 .0 00 D ti OP 30 0- 9- 00 14 CA ve RA 01 20 20 18 RE ZO 29 17 17 60 LE 8 63 PH AR SO MA D CY DR 40 MG TA B TR 00 05 06 30 30 00 ME Ac IA 78 -1 -0 .0 00 D ti MT 11 0- 9- 00 14 CA ve ER 12 20 20 18 RE EN 30 17 17 60 E- 5 60 PH HC AR TZ MA CY 37 .5 -2 5 MG TB MO 00 05 06 30 30 00 ME Ac NT 05 -1 -0 .0 00 D ti EL 40 0- 9- 00 14 CA ve UK 25 20 20 18 RE 92 17 17 60 T 2 49 PH SO AR D MA 10 CY MG TA BL ET FL 00 05 06 16 30 00 ME Ac UT 05 -1 -0 .0 00 D ti IC 43 9 00 14 CA ve 27 20 20 18 RE ON 09 17 17 72 E 9 68 PH MO AR OP MA CY 50 MC G SP RA Y MO 68 05 06 30 30 00 ME Ac AV 46 -1 -0 .0 00 D ti 20 0- 9- 00 14 CA ve TA 19 20 20 18 RE TI 60 17 17 60 N 5 51 PH SO AR DI MA UM CY 20 MG TA B RI 00 05 06 90 30 00 ME Ac SP 37 -1 -0 .0 00 D ti ER 83 0- 9- 00 14 CA ve ID 51 20 20 18 RE ON 29 17 17 60 E 1 62 PH 2 AR MG MA CY TA BL ET AL 00 05 06 30 5 00 ME Ac MO 78 -1 -0 .0 00 D ti AZ 11 14 CA ve OL 07 20 20 18 RE AM 90 17 17 70 1 5 27 PH AR MG MA CY TA BL ET AL 00 05 06 30 30 00 ME Ac LO 37 -1 -0 .0 00 D ti PU 80 0- 9 00 14 CA ve RI 18 20 20 18 RE NO 10 17 17 60 L 5 36 PH 30 AR 0 MA MG CY TA BL ET BE 00 05 06 60 30 00 ME Ac NZ 83 -1 -0 .0 00 D ti TR 21 0 9 14 CA ve OP 08 20 20 18 RE IN 00 17 17 60 E 0 37 PH ME AR S MA 0. CY 5 MG TA B DI 00 05 06 30 30 00 ME Ac CY 37 -1 -0 .0 00 D ti CL 81 0- 9- 00 14 CA ve OM 62 20 20 18 RE IN 00 17 17 60 E 1 46 PH 20 AR MA MG CY TA BL ET GL 60 05 06 30 30 00 ME Ac IP 50 -1 -0 .0 00 D ti IZ 50 0- 9- 00 14 CA ve ID 14 20 20 18 RE E 10 17 17 60 5 1 48 PH MG AR MA TA CY BL ET RO 43 05 06 30 30 00 ME Ac PI 54 -1 -0 .0 00 D ti NI 70 0- 9- 00 14 CA ve RO 27 20 20 18 RE LE 01 17 17 60 0 53 PH HC AR L MA 1 CY MG TA BL ET OX 62 05 06 60 30 00 ME Ac CA 75 -1 -0 .0 00 D ti RB 60 0- 9- 00 14 CA ve AZ 18 20 20 18 RE EP 58 17 17 60 IN 8 55 PH E AR 60 MA 0 CY MG TA BL ET PO 00 05 06 25 15 00 ME Ac LY 57 -1 -0 5. 00 D ti ET 40 6- 9- 00 14 CA ve HY 41 20 20 0 21 RE LE 20 17 17 09 NE 2 44 PH AR GL MA YC CY OL 33 50 PO WD LA 00 05 06 47 [address] 60 -1 -0 3. 00 D ti UL 31 6- 9- 00 14 CA ve OS 37 20 20 0 21 RE E 85 17 17 09 10 8 47 PH AR GM MA /1 CY 5 ML SO KEN TI ON BU 00 05 06 30 7 00 ME Ac TA 60 -0 -0 .0 00 D ti LB 32 9- 2- 00 14 CA ve -A 54 20 20 17 RE CE 42 17 17 67 TA 1 90 PH MD AR N- MA CA CY FF 50 -3 25 -4 0 CE 00 05 06 30 30 00 ME Ac TI 37 -1 -0 .0 00 D ti RI 83 0- 2- 00 14 CA ve ZI 63 20 20 18 RE NE 70 17 17 60 1 39 PH HC AR L MA 10 CY MG TA BL ET MA 00 05 06 30 5 00 ME Ac PA 90 -1 -0 .0 00 D ti P 41 0- 2- 00 14 CA ve 50 98 20 20 18 RE 0 86 17 17 60 MG 1 32 PH AR TA MA BL CY ET NA 00 05 06 30 30 00 ME Ac SA 90 -1 -0 .0 00 D ti L 45 0- 2- 00 14 CA ve DE 71 20 20 18 RE CO 13 17 17 60 NG 0 45 PH ES AR TA MA NT CY 0. 05 % SP RA Y RE 53 05 06 11 15 00 ME Ac ME 32 -1 -0 3. 00 D ti DY 90 0- 2- 00 14 CA ve 16 20 20 0 18 RE CA 54 17 17 60 LA 4 65 PH ZI AR ME MA CY MO OT EC T PA ST E RO 43 05 05 30 30 00 ME Ac PI 54 -0 -2 .0 00 D ti NI 70 3- 6- 00 14 CA ve RO 27 20 20 12 RE LE 01 17 17 67 0 53 PH HC AR L MA 1 CY MG TA BL ET DI 00 05 05 30 30 00 ME Ac CY 37 -0 -2 .0 00 D ti CL 81 1- 6- 00 14 CA ve OM 62 20 20 09 RE IN 00 17 17 97 E 1 13 PH 20 AR MA MG CY TA BL ET OX 62 04 05 60 30 00 ME Ac CA 75 -2 -1 .0 00 D ti RB 60 4- 9- 00 14 CA ve AZ 18 20 20 09 RE EP 58 17 17 92 IN 8 81 PH E AR 60 MA 0 CY MG TA BL ET AL 00 04 05 30 30 00 ME Ac LO 37 -2 -1 .0 00 D ti PU 80 6- 9- 00 14 CA ve RI 18 20 20 09 RE NO 10 17 17 76 L 5 85 PH 30 AR 0 MA MG CY TA BL ET BE 00 04 05 60 30 00 ME Ac NZ 83 -2 -1 .0 00 D ti TR 21 6- 9- 00 14 CA ve OP 08 20 20 09 RE IN 00 17 17 97 E 0 48 PH ME AR S MA 0. CY 5 MG TA B OM 00 04 05 30 30 00 ME Ac EP 78 -2 -1 .0 00 D ti RA 12 8- 9 14 CA ve ZO 79 20 20 11 RE LE 01 17 [address] AR MA 20 CY MG CA PS UL E PO 62 04 05 60 30 00 ME Ac TA 03 -1 -1 .0 00 D ti SS 70 7- 2- 00 14 CA ve IU 99 20 20 05 RE M 90 17 17 17 CL 1 34 PH AR ER MA CY 20 ME Q TA BL ET GL 60 04 05 30 30 00 ME Ac IP 50 -2 -1 .0 00 D ti IZ 50 1- 2- 00 14 CA ve ID 14 20 20 07 RE E 10 17 17 81 5 1 02 PH MG AR MA TA CY BL ET OM 00 03 05 30 30 00 ME Ac EP 78 -3 -0 .0 00 D ti RA 12 0- 5- 00 13 CA ve ZO 79 20 20 96 RE LE 01 17 17 [address] AR MA 20 CY MG CA PS UL E AC 00 04 05 35 5 00 ME Ac ID 90 -0 -0 5. 00 D ti 47 3- 5- 00 13 CA ve GO 72 20 20 0 99 RE NE 71 17 17 56 4 89 PH AN AR TA MA CI CY D LI QU ID MA 00 04 05 60 10 00 ME Ac PA 90 -0 -0 .0 00 D ti P 41 6- 5- 00 14 CA ve 32 98 20 20 01 RE 5 26 17 17 23 MG 1 93 PH AR TA MA BL CY ET AL 00 03 05 30 30 00 ME Ac LO 37 -2 -0 .0 00 D ti PU 80 8- 5- 00 13 CA ve RI 18 20 20 95 RE NO 10 17 17 08 L 5 64 PH 30 AR 0 MA MG CY TA BL ET RO 43 04 05 30 30 00 ME Ac PI 54 -0 -0 .0 00 D ti NI 70 7- 5- 00 14 CA ve RO 27 20 20 01 RE LE 01 17 17 01 0 80 PH HC AR L MA 1 CY MG TA BL ET AL 00 04 05 30 7 00 ME Ac MO 78 -1 -0 .0 00 D ti AZ 11 2- 5- 00 14 CA ve OL 07 20 20 03 RE AM 90 17 17 81 1 5 01 PH AR MG MA CY TA BL ET MO 00 04 05 30 30 00 ME Ac NT 05 -1 -0 .0 00 D ti EL 40 3- 5- 00 14 CA ve UK 25 20 20 03 RE 92 17 17 65 T 2 27 PH SO AR D MA 10 CY MG TA BL ET CE 00 04 05 30 30 00 ME Ac TI 37 -1 -0 .0 00 D ti RI 83 4- 5- 00 14 CA ve ZI 63 20 20 04 RE NE 70 17 17 55 1 00 PH HC AR L MA 10 CY MG TA BL ET MO 68 04 05 30 30 00 ME Ac AV 46 -1 -0 .0 00 D ti 20 4- 5- 00 14 CA ve TA 19 20 20 04 RE TI 60 17 17 55 N 5 02 PH SO AR DI MA UM CY 20 MG TA B RI 00 04 05 12 30 00 ME Ac SP 37 -1 -0 0. 00 D ti ER 83 4- 5- 00 14 CA ve ID 51 20 20 0 04 RE ON 29 17 17 55 E 1 15 PH 2 AR MG MA CY TA BL ET OX 62 04 05 60 30 00 ME Ac CA 75 -1 -0 .0 00 D ti RB 60 4- 5- 00 14 CA ve AZ 18 20 20 04 RE EP 41 17 17 55 IN 3 16 PH E AR 30 MA 0 CY MG TA BL ET TR 00 04 05 30 30 00 ME Ac IA 78 -1 -0 .0 00 D ti MT 11 4- 5- 00 14 CA ve ER 00 20 20 04 RE EN 80 17 17 54 E- 5 75 PH HC AR TZ MA CY 75 -5 0 MG TA B DI 00 03 05 30 30 00 ME Ac CY 37 -3 -0 .0 00 D ti CL 81 1- 5- 00 13 CA ve OM 62 20 20 97 RE IN 00 17 17 53 E 1 65 PH 20 AR MA MG CY TA BL ET BE 00 03 05 60 30 00 ME Ac NZ 83 -3 -0 .0 00 D ti TR 21 1- 5- 00 13 CA ve OP 08 20 20 97 RE IN 00 17 17 53 E 0 67 PH ME AR S MA 0. CY 5 MG TA B AZ 50 03 04 6. 5 00 ME Ac IT 11 -2 -1 00 00 D ti HR 10 2- 4- 0 13 CA ve OM 78 20 20 94 RE YC 76 17 17 13 IN 6 97 PH AR 25 MA 0 CY MG TA BL ET GL 60 03 04 30 30 00 ME Ac IP 50 -2 -1 .0 00 D ti IZ 50 3- 4- 00 13 CA ve ID 14 20 20 93 RE E 10 17 17 25 5 1 53 PH MG AR MA TA CY BL ET TR 00 03 04 30 30 00 ME Ac IA 78 -1 -0 .0 00 D ti MT 11 6- 7- 00 13 CA ve ER 00 20 20 89 RE EN 80 17 17 75 E- 5 70 PH HC AR TZ MA CY 75 -5 0 MG TA B RI 00 03 04 12 30 00 ME Ac SP 37 -1 -0 0. 00 D ti ER 83 6- 7- 00 13 CA ve ID 51 20 20 0 90 RE ON 29 17 17 90 E 1 68 PH 2 AR MG MA CY TA BL ET OX 62 03 04 60 30 00 ME Ac CA 75 -1 -0 .0 00 D ti RB 60 6- 7- 00 13 CA ve AZ 18 20 20 90 RE EP 41 17 17 90 IN 3 74 PH E AR 30 MA 0 CY MG TA BL ET LO 00 03 04 30 4 00 ME Ac PE 09 -1 -0 .0 00 D ti RA 30 3- 7- 00 13 CA ve MD 31 20 20 88 RE DE 10 17 17 53 2 1 78 PH AR MG MA CY CA PS UL E AL 00 03 04 30 7 00 ME Ac MO 78 -1 -0 .0 00 D ti AZ 11 3- 7- 00 13 CA ve OL 07 20 20 88 RE AM 90 17 17 53 1 5 74 PH AR MG MA CY TA BL ET CE 00 03 04 30 30 00 ME Ac TI 37 -1 -0 .0 00 D ti RI 83 7- 7- 00 13 CA ve ZI 63 20 20 90 RE NE 70 17 17 65 1 87 PH HC AR L MA 10 CY MG TA BL ET MO 68 03 04 30 30 00 ME Ac AV 46 -1 -0 .0 00 D ti 20 7- 7 13 CA ve TA 19 20 20 90 RE TI 60 17 17 65 N 5 89 PH SO AR DI MA UM CY 20 MG TA B PO 62 03 04 60 30 00 ME Ac TA 03 -1 -0 .0 00 D ti SS 70 7 7 13 CA ve IU 99 20 20 90 RE M 90 17 17 65 CL 1 95 PH AR ER MA CY 20 ME Q TA BL ET MO 27 03 04 30 30 00 ME Ac NT 24 -1 -0 .0 00 D ti EL 10 5- 7 13 CA ve UK 01 20 20 89 RE 80 17 17 25 T 9 79 PH SO AR D MA 10 CY MG TA BL ET RO 43 03 03 30 30 00 ME Ac PI 54 -1 -3 .0 00 D ti NI 70 0- 1- 00 13 CA ve RO 27 20 20 87 RE LE 01 17 17 06 0 15 PH HC AR L MA 1 CY MG TA BL ET GL 60 03 03 14 14 00 ME Ac IP 50 -1 -3 .0 00 D ti IZ 50 0- 1- 00 13 CA ve ID 14 20 20 87 RE E 10 17 17 54 5 1 16 PH MG AR MA TA CY BL ET OM 00 03 03 30 30 00 ME Ac EP 78 -0 -2 .0 00 D ti RA 12 1- 4 13 CA ve ZO 79 20 20 82 RE LE 01 17 17 [address] AR MA 20 CY MG CA PS UL E AL 00 02 03 30 30 00 ME Ac LO 37 -2 -2 .0 00 D ti PU 80 7- 4- 00 13 CA ve RI 18 20 20 80 RE NO 10 17 17 19 L 5 45 PH 30 AR 0 MA MG CY TA BL ET DI 00 03 03 30 30 00 ME Ac CY 37 -0 -2 .0 00 D ti CL 81 3- 4- 00 13 CA ve OM 62 20 20 83 RE IN 00 17 17 76 E 1 05 PH 20 AR MA MG CY TA BL ET BE 00 03 03 60 30 00 ME Ac NZ 83 -0 -2 .0 00 D ti TR 21 3- 4- 00 13 CA ve OP 08 20 20 83 RE IN 00 17 17 76 E 0 07 PH ME AR S MA 0. CY 5 MG TA B AC 00 03 03 35 5 00 ME Ac ID 90 -0 -2 5. 00 D ti 47 4- 4- 00 13 CA ve GO 72 20 20 0 85 RE NE 71 17 17 05 4 97 PH AN AR TA MA CI CY D LI QU ID BU 00 02 03 30 7 00 ME Ac TA 60 -2 -1 .0 00 D ti LB 32 1- 7- 00 13 CA ve -A 54 20 20 78 RE CE 42 17 17 52 TA 1 35 PH MD AR N- MA CA CY FF 50 -3 25 -4 0 MO 27 02 03 30 30 00 ME Ac NT 24 -1 -1 .0 00 D ti EL 10 4- 0- 00 13 CA ve [place] 01 20 20 74 RE 80 17 17 09 T 9 88 PH SO AR D MA 10 CY MG TA BL ET TR 00 02 03 30 30 00 ME Ac IA 78 -1 -1 .0 00 D ti MT 11 5- 0- 00 13 CA ve ER 00 20 20 75 RE EN 80 17 17 79 E- 5 54 PH HC AR TZ MA CY 75 -5 0 MG TA B PO 62 02 03 60 30 00 ME Ac TA 03 -1 -1 .0 00 D ti SS 70 6- 0- 00 13 CA ve IU 99 20 20 75 RE M 90 17 17 60 CL 1 95 PH AR ER MA CY 20 ME Q TA BL ET MO 68 02 03 30 30 00 ME Ac AV 46 -1 -1 .0 00 D ti 20 6- 0- 00 13 CA ve TA 19 20 20 75 RE TI 60 17 17 60 N 5 94 PH SO AR DI MA UM CY 20 MG TA B RO 43 02 03 30 30 00 ME Ac PI 54 -0 -1 .0 00 D ti NI 70 9- 0- 00 13 CA ve RO 27 20 20 72 RE LE 01 17 17 12 0 51 PH HC AR L MA 1 CY MG TA BL ET GL 60 02 03 30 30 00 ME Ac IP 50 -0 -1 .0 00 D ti IZ 50 9- 0- 00 13 CA ve ID 14 20 20 72 RE E 10 17 17 12 5 1 54 PH MG AR MA TA CY BL ET BU 00 02 03 18 19 00 ME Ac TA 60 -0 -1 .0 00 D ti LB 32 9- 0- 00 13 CA ve -A 54 20 20 72 RE CE 42 17 17 61 TA 1 25 PH MD AR N- MA CA CY FF 50 -3 25 -4 0 AL 00 02 03 30 7 00 ME Ac MO 78 -0 -1 .0 00 D ti AZ 11 9- 0- 00 13 CA ve OL 07 20 20 72 RE AM 90 17 17 99 1 5 78 PH AR MG MA CY TA BL ET CE 00 02 03 30 30 00 ME Ac TI 37 -1 -1 .0 00 D ti RI 83 7- 0- 00 13 CA ve ZI 63 20 20 76 RE NE 70 17 17 37 1 80 PH HC AR L MA 10 CY MG TA BL ET RI 00 02 03 90 30 00 ME Ac SP 37 -1 -1 .0 00 D ti ER 83 7- 0- 00 13 CA ve ID 51 20 20 76 RE ON 29 17 17 37 E 1 63 PH 2 AR MG MA CY TA BL ET BE 00 02 02 60 30 00 ME Ac NZ 83 -0 -2 .0 00 D ti TR 21 3- 4- 00 13 CA ve OP 08 20 20 69 RE IN 00 17 17 59 E 0 14 PH ME AR S MA 0. CY 5 MG TA B DI 00 02 02 30 30 00 ME Ac CY 37 -0 -2 .0 00 D ti CL 81 3- 4- 00 13 CA ve OM 62 20 20 69 RE IN 00 17 17 59 E 1 12 PH 20 AR MA MG CY TA BL ET OM 00 01 02 30 30 00 ME Ac EP 78 -3 -2 .0 00 D ti RA 12 0- 4- 00 13 CA ve ZO 79 20 20 66 RE LE 01 17 17 [address] AR MA 20 CY MG LL C CA PS UL E RO 00 01 02 11 3 00 ME Ac BA 90 -3 -2 8. 00 D ti FE 40 1- 4- 00 13 CA ve N- 05 20 20 0 67 RE DM 31 17 17 94 6 78 PH SY AR RU MA P CY MO 00 01 02 30 30 00 ME Ac NT 05 -1 -1 .0 00 D ti EL 40 6- 7- 00 13 CA ve UK 25 20 20 59 RE 92 17 17 92 T 2 89 PH SO AR D MA 10 CY MG LL C TA BL ET MO 68 01 02 30 30 00 ME Ac AV 46 -1 -1 .0 00 D ti 20 8- 7- 00 13 CA ve TA 19 20 20 61 RE TI 60 17 17 15 N 5 64 PH SO AR DI MA UM CY 20 LL C MG TA B RI 00 01 02 90 30 00 ME Ac SP 37 -2 -1 .0 00 D ti ER 83 0- 7- 00 13 CA ve ID 51 20 20 62 RE ON 29 17 17 61 E 1 95 PH 2 AR MG MA CY TA BL LL ET C CE 00 01 02 30 30 00 ME Ac TI 37 -1 -1 .0 00 D ti RI 83 9- 7- 00 13 CA ve ZI 63 20 20 62 RE NE 70 17 17 06 1 67 PH HC AR L MA 10 CY MG LL C TA BL ET AL 00 01 02 30 7 00 ME Ac MO 78 -2 -1 .0 00 D ti AZ 11 4- 7- 00 13 CA ve OL 07 20 20 64 RE AM 90 17 17 62 1 5 51 PH AR MG MA CY TA BL LL ET C BU 00 01 02 18 19 00 ME Ac TA 60 -2 -1 .0 00 D ti LB 32 4- 7- 00 13 CA ve -A 54 20 20 64 RE CE 42 17 17 62 TA 1 50 PH MD AR N- MA CA CY FF LL 50 C -3 25 -4 0 AL 00 01 02 30 30 00 ME Ac LO 37 -2 -1 .0 00 D ti PU 80 8- 7- 00 13 CA ve RI 18 20 20 60 RE NO 10 17 17 26 L 5 02 PH 30 AR 0 MA MG CY TA LL BL C ET AC 00 01 02 35 5 00 ME Ac ID 90 -0 -0 5. 00 D ti 47 9- 3- 00 13 CA ve GO 72 20 20 0 57 RE NE 71 17 17 40 4 57 PH AN AR TA MA CI CY D LI LL QU C ID BU 00 01 02 30 7 00 ME Ac TA 60 -0 -0 .0 00 D ti LB 32 9- 3- 00 13 CA ve -A 54 20 20 57 RE CE 42 17 17 40 TA 1 79 PH MD AR N- MA CA CY FF LL 50 C -3 25 -4 0 AL 00 01 02 30 7 00 ME Ac MO 78 -0 -0 .0 00 D ti AZ 11 9- 3- 00 13 CA ve OL 07 20 20 57 RE AM 90 17 17 40 1 5 78 PH AR MG MA CY TA BL LL ET C RO 43 01 02 30 30 00 ME Ac PI 54 -1 -0 .0 00 D ti NI 70 1- 3- 00 13 CA ve RO 27 20 20 57 RE LE 01 17 17 58 0 39 PH HC AR L MA 1 CY MG LL TA C BL ET GL 60 01 02 30 30 00 ME Ac IP 50 -1 -0 .0 00 D ti IZ 50 1- 3- 00 13 CA ve ID 14 20 20 57 RE E 10 17 17 58 5 1 41 PH MG AR MA TA CY BL ET LL C MA 00 01 02 60 10 00 ME Ac PA 90 -0 -0 .0 00 D ti P 41 9- 3- 00 13 CA ve 32 98 20 20 57 RE 5 26 17 17 58 MG 1 14 PH AR TA MA BL CY ET LL C AL 00 01 02 7. 7 00 ME Ac LO 37 -1 -0 00 00 D ti PU 80 4- 3- 0 13 CA ve RI 13 20 20 60 RE NO 70 17 17 26 L 1 00 PH 10 AR 0 MA MG CY TA LL BL C ET TR 00 02 30 30 00 ME Ac IA 78 -1 -0 .0 00 D ti MT 11 4- 3- 00 13 CA ve ER 00 20 20 59 RE EN 80 17 17 51 E- 5 04 PH HC AR TZ MA CY 75 -5 LL 0 C MG TA B DI 00 01 30 30 00 ME Ac CY 37 -0 -2 .0 00 D ti CL 81 4- 7- 00 13 CA ve OM 62 20 20 54 RE IN 00 17 17 32 E 1 51 PH 20 AR MA MG CY TA LL BL C ET BE 00 01 60 30 00 ME Ac NZ 83 -0 -2 .0 00 D ti TR 21 4- 7- 00 13 CA ve OP 08 20 20 54 RE IN 00 17 17 32 E 0 53 PH ME AR S MA 0. CY 5 MG LL C TA B PO 62 01 01 30 30 00 ME Ac TA 03 -0 -2 .0 00 D ti SS 70 7- 7- 00 13 CA ve IU 99 20 20 56 RE M 90 17 17 18 CL 1 77 PH AR ER MA CY 20 LL ME C Q TA BL ET CE 00 12 01 30 30 00 ME Ac TI 37 -2 -1 .0 00 D ti RI 83 0- 3- 00 13 CA ve ZI 63 20 20 46 RE NE 70 16 17 80 1 55 PH HC AR L MA 10 CY MG LL C TA BL ET DE 00 12 01 44 30 00 ME Ac EP 90 -1 -0 .0 00 D ti 43 3- 9- 00 13 CA ve SE 86 20 20 44 RE A 57 16 17 59 0. 5 61 PH 65 AR % MA NO CY SE LL SP C RA Y AC 00 12 01 35 5 00 ME Ac ID 90 -1 -0 5. 00 D ti 47 2- 9- 00 13 CA ve GO 72 20 20 0 44 RE NE 71 16 17 34 4 33 PH AN AR TA MA CI CY D LI LL QU C ID MA 00 05 06 0 60 7 ME 11 AR Ac PA 90 -0 -0 0. D 34 NO ti P 41 9- 5- 00 CA 57 LD ve 32 98 20 20 0 RE 82 5 26 15 15 RI MG 1 PH CH AR AR TA MA D BL CY W ET LL C AC 00 05 06 0 35 7 ME 11 AR Ac ID 90 -0 -0 50 D 33 NO ti 47 9- 1- .0 CA 41 LD ve GO 72 20 20 00 RE 66 NE 71 15 15 RI 4 PH CH AN AR AR TA MA D CI CY W D LI LL QU C ID AC 00 05 05 0 35 7 ME 11 AR Ac ID 90 -0 -0 50 D 24 NO ti 47 9- 6- .0 CA 79 LD ve GO 72 20 20 00 RE 83 NE 71 14 15 RI 4 PH CH AN AR AR TA MA D CI CY W D LI LL QU C ID MA 00 05 04 0 60 7 ME 11 AR Ac PA 90 -0 -1 0. D 18 NO ti P 41 9- 6- 00 CA 56 LD ve 32 98 20 20 0 RE 01 5 26 14 15 RI MG 1 PH CH AR AR TA MA D BL CY W ET LL C Q- 00 05 03 0 11 3 ME 11 AR Ac TU 60 -0 -2 80 D 13 NO ti SS 30 9- 8- .0 CA 16 LD ve IN 85 20 20 00 RE 67 59 14 15 RI DM 4 PH CH AR AR SY MA D RU CY W P LL C AC 00 05 03 0 35 7 ME 11 AR Ac ID 90 -0 -1 50 D 09 NO ti 47 9- 7- .0 CA 34 LD ve GO 72 20 20 00 RE 22 NE 71 14 15 RI 4 PH CH AN AR AR TA MA D CI CY W D LI LL QU C ID MA 00 05 02 0 60 7 ME 10 AR Ac PA 90 -0 -1 0. D 99 NO ti P 41 9- 6- 00 CA 56 LD ve 32 98 20 20 0 RE 44 5 26 14 15 RI MG 1 PH CH AR AR TA MA D BL CY W ET LL C AC 00 05 01 0 35 7 ME 10 AR Ac ID 90 -0 -1 50 D 89 NO ti 47 9- 2- .0 CA 04 LD ve GO 72 20 20 00 RE 40 NE 71 14 15 RI 4 PH CH AN AR AR TA MA D CI CY W D LI LL QU C ID MA 00 05 12 0 60 7 ME 10 AR Ac PA 90 -0 -2 0. D 82 NO ti P 41 9- 0- 00 CA 04 LD ve 32 98 20 20 0 RE 69 5 26 14 14 RI MG 1 PH CH AR AR TA MA D BL CY W ET LL C AC 00 05 12 0 35 7 ME 10 AR Ac ID 90 -0 -1 50 D 81 NO ti 47 9- 8- .0 CA 13 LD ve GO 72 20 20 00 RE 72 NE 71 14 14 RI 4 PH CH AN AR AR TA MA D CI CY W D LI LL QU C ID AC 00 05 11 0 35 7 ME 10 AR Ac ID 90 -0 -1 50 D 72 NO ti 47 9- 9- .0 CA 57 LD ve GO 72 20 20 00 RE 09 NE 71 14 14 RI 4 PH CH AN AR AR TA MA D CI CY W D LI LL QU C ID Q- 00 05 11 0 11 3 ME 10 AR Ac TU 60 -0 -1 80 D 70 NO ti SS 30 9- 3- .0 CA 24 LD ve IN 85 20 20 00 RE 68 59 14 14 RI DM 4 PH CH AR AR SY MA D RU CY W P LL C DI 10 09 11 0 30 21 ME 10 AR Ac AL 54 -2 -1 .0 D 69 NO ti YV 20 6- 2- 00 CA 54 LD ve IT 10 20 20 RE 28 E 00 14 14 RI 8 PH CH T AR AR D3 MA D CY W 50 ,0 LL 00 C UN IT DI 10 09 10 0 40 28 ME 10 AR Ac AL 54 -2 -2 .0 D 60 NO ti YV 20 6- 0- 00 CA 93 LD ve IT 10 20 20 RE 78 E 00 14 14 RI 8 PH CH T AR AR D3 MA D CY W 50 ,0 LL 00 C UN IT DI 10 09 09 0 40 28 ME 10 AR Ac AL 54 -2 -2 .0 D 55 NO ti YV 20 6- 6- 00 CA 07 LD ve IT 10 20 20 RE 09 E 00 14 14 RI 8 PH CH T AR AR D3 MA D CY W 50 ,0 LL 00 C UN IT MA 00 05 09 0 60 7 ME 10 AR Ac PA 90 -0 -1 0. D 52 NO ti P 41 9- 7- 00 CA 42 LD ve 32 98 20 20 0 RE 32 5 26 14 14 RI MG 1 PH CH AR AR TA MA D BL CY W ET LL C AC 00 05 08 0 35 7 ME 10 AR Ac ID 90 -0 -2 50 D 44 NO ti 47 9- 5- .0 CA 91 LD ve GO 72 20 20 00 RE 59 NE 71 14 14 RI 4 PH CH AN AR AR TA MA D CI CY W D LI LL QU C ID AC 00 05 08 0 35 7 ME 10 AR Ac ID 90 -0 -0 50 D 38 NO ti 47 9- 4- .0 CA 17 LD ve GO 72 20 20 00 RE 17 NE 71 14 14 RI 4 PH CH AN AR AR TA MA D CI CY W D LI LL QU C ID MA 00 05 06 0 60 7 ME 10 AR Ac PA 90 -0 -2 0. D 25 NO ti P 41 9- 1- 00 CA 35 LD ve 32 98 20 20 0 RE 20 5 26 14 14 RI MG 1 PH CH AR AR TA MA D BL CY W ET LL C TR 00 06 06 0 28 7 ME 10 AR Ac IP 71 -1 -1 4. D 22 NO ti LE 30 2- 2- 00 CA 56 LD ve 26 20 20 0 RE 04 AN 83 14 14 RI TI 1 PH CH BI AR AR OT MA D IC CY W OI LL NT C ME NT AC 00 05 06 0 35 7 ME 10 AR Ac ID 90 -0 -0 50 D 21 NO ti 47 9- 7- .0 CA 05 LD ve GO 72 20 20 00 RE 20 NE 71 14 14 RI 4 PH CH AN AR AR TA MA D CI CY W D LI LL QU C ID Q- 00 05 06 0 11 3 ME 10 AR Ac TU 60 -0 -0 80 D 20 NO ti SS 30 9- 5- .0 CA 48 LD ve IN 85 20 20 00 RE 01 59 14 14 RI DM 4 PH CH AR AR SY MA D RU CY W P LL C AC 00 05 05 0 35 7 ME 10 AR Ac ID 90 -0 -1 50 D 12 NO ti 47 9- 3- .0 CA 22 LD ve GO 72 20 20 00 RE 27 NE 71 14 14 RI 4 PH CH AN AR AR TA MA D CI CY W D LI LL QU C ID AC 00 05 03 0 35 7 ME 99 AR Ac ID 90 -0 -2 50 D 69 NO ti 47 9- 9- .0 CA 89 LD ve GO 72 20 20 00 RE 0 NE 71 13 14 RI 4 PH CH AN AR AR TA MA D CI CY W D LI LL QU C ID DI 00 05 03 0 30 30 ME 99 AR Ac CY 59 -0 -2 0. D 61 NO ti CL 10 9- 7- 00 CA 91 LD ve OM 79 20 20 0 RE 1 IN 51 13 14 RI E 0 PH CH 20 AR AR MA D MG CY W TA LL BL C ET ME 68 01 03 0 60 30 ME 99 AR Ac TF 38 -3 -2 0. D 40 NO ti OR 20 1- 0- 00 CA 40 LD ve MD 02 20 20 0 RE 4 N 80 14 14 RI HC 5 PH CH L AR AR 50 MA D 0 CY W MG LL TA C BL ET PO 68 05 03 0 30 30 ME 99 AR Ac TA 38 -0 -1 0. D 32 NO ti SS 20 9- 9- 00 CA 40 LD ve IU 70 20 20 0 RE 5 M 10 13 14 RI CL 5 PH CH AR AR ER MA D CY W 10 LL ME C Q CA PS UL E AC 00 05 03 0 35 7 ME 99 AR Ac ID 90 -0 -1 50 D 23 NO ti 47 9- 5- .0 CA 15 LD ve GO 72 20 20 00 RE 6 NE 71 13 14 RI 4 PH CH AN AR AR TA MA D CI CY W D LI LL QU C ID RO 68 05 03 0 30 30 ME 99 AR Ac PI 46 -0 -1 0. D 13 NO ti NI 20 9- 4- 00 CA 91 LD ve RO 25 20 20 0 RE 0 LE 50 13 14 RI 1 PH CH HC AR AR L MA D 1 CY W MG LL TA C BL ET FR 99 02 03 11 10 30 YO 28 AR Ac EE 07 -1 -1 00 UR [address] 30 2- 3- .0 0 LD ve YL 70 20 20 00 PH E 82 14 14 AR RI LI 2 MA CH TE CY AR D TE W ST ST RI P SA 38 02 03 11 10 30 YO 28 AR Ac FE 41 -1 -1 00 UR 43 NO ti TY 50 2- 3- .0 1 LD ve 10 20 20 00 PH SE 03 14 14 AR RI AL 0 MA CH CY AR 30 D G W LA NC ET S MO 00 05 03 0 30 30 ME 99 AR Ac NT 09 -0 -1 0. D 05 NO ti EL 37 9- 2- 00 CA 93 LD ve [place] 42 20 20 0 RE 7 69 13 14 RI T 8 PH CH SO AR AR D MA D 10 CY W MG LL C TA BL ET OM 55 02 03 0 30 30 ME 98 AR Ac EP 11 -2 -1 0. D 97 NO ti RA 10 2- 0- 00 CA 26 LD ve ZO 15 20 20 0 RE 8 LE 81 14 14 RI [address] AR AR MA D 20 CY W MG LL C CA PS UL E MO 00 12 03 0 30 30 ME 98 AR Ac IS 00 -1 -1 0. D 97 NO ti TI 81 2- 0- 00 CA 29 LD ve Q 21 20 20 0 RE 2 ER 13 13 14 RI 0 PH CH 50 AR AR MA D MG CY W TA LL BL C ET OL 00 12 03 0 30 30 ME 98 AR Ac AN 09 -1 -1 0. D 97 NO ti ZA 35 2- 0- 00 CA 29 LD ve PI 76 20 20 0 RE 0 NE 81 13 14 RI 5 0 PH CH AR AR MG MA D CY W TA BL LL ET C RI 68 12 03 0 60 30 ME 98 AR Ac SP 38 -1 -1 0. D 97 NO ti ER 20 2- 0- 00 CA 29 LD ve ID 11 20 20 0 RE 1 ON 51 13 14 RI E 4 PH CH 2 AR AR MG MA D CY W TA BL LL ET C MA 00 05 03 0 60 7 ME 99 AR Ac PA 90 -0 -0 0. D 00 NO ti P 41 9- 8- 00 CA 19 LD ve 32 98 20 20 0 RE 5 5 26 13 14 RI MG 1 PH CH AR AR TA MA D BL CY W ET LL C Q- 00 05 03 0 11 3 ME 98 AR Ac TU 60 -0 -0 80 D 93 NO ti SS 30 9- 6- .0 CA 12 LD ve IN 85 20 20 00 RE 3 59 13 14 RI DM 4 PH CH AR AR SY MA D RU CY W P LL C TR 00 10 03 0 30 30 ME 98 AR Ac IA 37 -0 -0 0. D 76 NO ti MT 81 4- 3- 00 CA 15 LD ve ER 35 20 20 0 RE 9 EN 50 13 14 RI E- 5 PH CH HC AR AR TZ MA D CY W 75 -5 LL 0 C MG TA B BE 00 06 02 0 60 30 ME 98 AR Ac NZ 60 -0 -2 0. D 72 NO ti TR 32 7- 8- 00 CA 40 LD ve OP 43 20 20 0 RE 5 IN 32 13 14 RI E 1 PH CH ME AR AR S MA D 0. CY W 5 MG LL C TA B DI 00 05 02 0 30 30 ME 98 AR Ac CY 59 -0 -2 0. D 65 NO ti CL 10 9- 6- 00 CA 38 LD ve OM 79 20 20 0 RE 8 IN 51 13 14 RI E 0 PH CH 20 AR AR MA D MG CY W TA LL BL C ET LO 00 11 02 0 20 5 ME 98 AR Ac RA 78 -1 -2 0. D 61 NO ti ZE 15 8- 4- 00 CA 26 LD ve PA 40 20 20 0 RE 1 M 60 13 14 RI 1 5 PH CH MG AR AR MA D TA CY W BL ET LL C ME 68 01 02 0 60 30 ME 98 AR Ac TF 38 -3 -1 0. D 45 NO ti OR 20 1- 9- 00 CA 07 LD ve MD 02 20 20 0 RE 7 N 80 14 14 RI HC 5 PH CH L AR AR 50 MA D 0 CY W MG LL TA C BL ET PO 68 05 02 0 30 30 ME 98 AR Ac TA 38 -0 -1 0. D 37 NO ti SS 20 9- 7- 00 CA 31 LD ve IU 70 20 20 0 RE 8 M 10 13 14 RI CL 5 PH CH AR AR ER MA D CY W 10 LL ME C Q CA PS UL E MO 00 05 02 0 30 30 ME 98 AR Ac NT 09 -0 -1 0. D 17 NO ti EL 37 9- 0- 00 CA 21 LD ve [place] 42 20 20 0 RE 8 69 13 14 RI T 8 PH CH SO AR AR D MA D 10 CY W MG LL C TA BL ET AC 00 05 02 0 35 7 ME 98 AR Ac ID 90 -0 -1 50 D 21 NO ti 47 9- 0- .0 CA 75 LD ve GO 72 20 20 00 RE 5 NE 71 13 14 RI 4 PH CH AN AR AR TA MA D CI CY W D LI LL QU C ID SA 38 02 02 11 10 30 YO 26 AR Ac FE 41 -1 -1 00 UR 92 NO ti TY 50 5- 0- .0 4 LD ve 10 20 20 00 PH SE 03 13 14 AR RI AL 0 MA CH CY AR 30 D G W LA NC ET S FR 99 02 02 11 10 30 YO 26 AR Ac EE 07 -1 -1 00 UR [address] 30 5- 0- .0 3 LD ve YL 70 20 20 00 PH E 82 13 14 AR RI LI 2 MA CH TE CY AR D TE W ST ST RI P RO 68 05 02 0 30 30 ME 98 AR Ac PI 46 -0 -0 0. D 10 NO ti NI 20 9- 7- 00 CA 54 LD ve RO 25 20 20 0 RE 9 LE 50 13 14 RI 1 PH CH HC AR AR L MA D 1 CY W MG LL TA C BL ET OM 55 02 02 0 30 30 ME 98 AR Ac EP 11 -2 -0 0. D 10 NO ti RA 10 2- 7- 00 CA 55 LD ve ZO 15 20 20 0 RE 7 LE 81 13 14 RI [address] AR AR MA D 20 CY W MG LL C CA PS UL E MO 00 12 02 0 30 30 ME 98 AR Ac IS 00 -1 -0 0. D 10 NO ti TI 81 2- 7- 00 CA 59 LD ve Q 21 20 20 0 RE 3 ER 13 13 14 RI 0 PH CH 50 AR AR MA D MG CY W TA LL BL C ET RI 68 12 02 0 60 30 ME 98 AR Ac SP 38 -1 -0 0. D 10 NO ti ER 20 2- 7- 00 CA 59 LD ve ID 11 20 20 0 RE 2 ON 51 13 14 RI E 4 PH CH 2 AR AR MG MA D CY W TA BL LL ET C OL 00 12 02 0 30 30 ME 98 AR Ac AN 09 -1 -0 0. D 10 NO ti ZA 35 2- 7- 00 CA 59 LD ve PI 76 20 20 0 RE 1 NE 81 13 14 RI 5 0 PH CH AR AR MG MA D CY W TA BL LL ET C TR 00 10 01 0 30 30 ME 97 AR Ac IA 37 -0 -3 0. D 88 NO ti MT 81 4- 1- 00 CA 72 LD ve ER 35 20 20 0 RE 9 EN 50 13 14 RI E- 5 PH CH HC AR AR TZ MA D CY W 75 -5 LL 0 C MG TA B BE 00 06 01 0 60 30 ME 97 AR Ac NZ 60 -0 -3 0. D 85 NO ti TR 32 7- 0- 00 CA 45 LD ve OP 43 20 20 0 RE 9 IN 32 13 14 RI E 1 PH CH ME AR AR S MA D 0. CY W 5 MG LL C TA B DI 00 05 01 0 30 30 ME 97 AR Ac CY 59 -0 -2 0. D 72 NO ti CL 10 9- 7- 00 CA 96 LD ve OM 79 20 20 0 RE 3 IN 51 13 14 RI E 0 PH CH 20 AR AR MA D MG CY W TA LL BL C ET ME 68 01 01 0 60 30 ME 97 AR Ac TF 38 -3 -2 0. D 53 NO ti OR 20 1- 0- 00 CA 52 LD ve MD 02 20 20 0 RE 9 N 80 13 14 RI HC 5 PH CH L AR AR 50 MA D 0 CY W MG LL TA C BL ET PO 68 05 01 0 30 30 ME 97 AR Ac TA 38 -0 -1 0. D 49 NO ti SS 20 9- 8- 00 CA 16 LD ve IU 70 20 20 0 RE 3 M 10 13 14 RI CL 5 PH CH AR AR ER MA D CY W 10 LL ME C Q CA PS UL E OM 55 02 01 0 30 30 ME 97 AR Ac EP 11 -2 -1 0. D 32 NO ti RA 10 2- 1- 00 CA 92 LD ve ZO 15 20 20 0 RE 4 LE 81 13 14 RI [address] AR AR MA D 20 CY W MG LL C CA PS UL E MO 00 05 01 0 30 30 ME 97 AR Ac NT 09 -0 -1 0. D 29 NO ti EL 37 9- 1- 00 CA 06 LD ve [place] 42 20 20 0 RE 7 69 13 14 RI T 8 PH CH SO AR AR D MA D 10 CY W MG LL C TA BL ET RI 68 12 01 0 60 30 ME 97 AR Ac SP 38 -1 -0 0. D 21 NO ti ER 20 2- 9- 00 CA 55 LD ve ID 11 20 20 0 RE 5 ON 51 13 14 RI E 4 PH CH 2 AR AR MG MA D CY W TA BL LL ET C OL 00 12 01 0 30 30 ME 97 AR Ac AN 09 -1 -0 0. D 21 NO ti ZA 35 2- 9- 00 CA 55 LD ve PI 76 20 20 0 RE 4 NE 81 13 14 RI 5 0 PH CH AR AR MG MA D CY W TA BL LL ET C MO 00 05 01 0 30 5 ME 97 AR Ac OM 59 -0 -0 0. D 24 NO ti ET 15 9- 9- 00 CA 48 LD ve TYLRE 30 20 20 0 RE 0 ZI 71 13 14 RI NE 0 PH CH AR AR 25 MA D CY W MG LL TA C BL ET RO 68 05 01 0 30 30 ME 97 AR Ac PI 46 -0 -0 0. D 21 NO ti NI 20 9- 9- 00 CA 51 LD ve RO 25 20 20 0 RE 4 LE 50 13 14 RI 1 PH CH HC AR AR L MA D 1 CY W MG LL TA C BL ET MO 00 12 01 0 30 30 ME 97 AR Ac IS 00 -1 -0 0. D 21 NO ti TI 81 2- 9- 00 CA 55 LD ve Q 21 20 20 0 RE 6 ER 13 13 14 RI 0 PH CH 50 AR AR MA D MG CY W TA LL BL C ET TR 00 10 01 0 30 30 ME 96 AR Ac IA 37 -0 -0 0. D 99 NO ti MT 81 4- 2- 00 CA 54 LD ve ER 35 20 20 0 RE 5 EN 50 13 14 RI E- 5 PH CH HC AR AR TZ MA D CY W 75 -5 LL 0 C MG TA B BE 00 06 12 0 60 30 ME 96 AR Ac NZ 60 -0 -3 0. D 95 NO ti TR 32 7- 1- 00 CA 26 LD ve OP 43 20 20 0 RE 9 IN 32 13 13 RI E 1 PH CH ME AR AR S MA D 0. CY W 5 MG LL C TA B DI 00 05 12 0 30 30 ME 96 AR Ac CY 59 -0 -2 0. D 86 NO ti CL 10 9- 8- 00 CA 57 LD ve OM 79 20 20 0 RE 2 IN 51 13 13 RI E 0 PH CH 20 AR AR MA D MG CY W TA LL BL C ET LO 00 05 12 0 30 4 ME 96 AR Ac PE 37 -0 -2 0. D 83 NO ti RA 82 9- 6- 00 CA 01 LD ve MD 10 20 20 0 RE 6 DE 00 13 13 RI 2 5 PH CH AR AR MG MA D CY W CA PS LL UL C E ME 68 01 12 0 60 30 ME 96 AR Ac TF 38 -3 -2 0. D 67 NO ti OR 20 1- 1- 00 CA 08 LD ve MD 02 20 20 0 RE 7 N 80 13 13 RI HC 5 PH CH L AR AR 50 MA D 0 CY W MG LL TA C BL ET PO 68 05 12 0 30 30 ME 96 AR Ac TA 38 -0 -2 0. D 62 NO ti SS 20 9- 0- 00 CA 07 LD ve IU 70 20 20 0 RE 8 M 10 13 13 RI CL 5 PH CH AR AR ER MA D CY W 10 LL ME C Q CA PS UL E OM 55 02 12 0 30 30 ME 96 AR Ac EP 11 -2 -1 0. D 44 NO ti RA 10 2- 6- 00 CA 63 LD ve ZO 15 20 20 0 RE 9 LE 81 13 13 [address] AR AR MA D 20 CY W MG LL C CA PS UL E MO 00 05 12 0 30 30 ME 96 AR Ac NT 09 -0 -1 0. D 38 NO ti EL 37 9- 3- 00 CA 52 LD ve [place] 42 20 20 0 RE 8 69 13 13 RI T 8 PH CH SO AR AR D MA D 10 CY W MG LL C TA BL ET MO 00 12 12 0 30 30 ME 96 AR Ac IS 00 -1 -1 0. D 37 NO ti TI 81 2- 3- 00 CA 08 LD ve Q 21 20 20 0 RE 0 ER 13 13 13 RI 0 PH CH 50 AR AR MA D MG CY W TA LL BL C ET OL 00 12 12 0 30 30 ME 96 AR Ac AN 09 -1 -1 0. D 37 NO ti ZA 35 2- 2- 00 CA 07 LD ve PI 76 20 20 0 RE 6 NE 81 13 13 RI 5 0 PH CH AR AR MG MA D CY W TA BL LL ET C RI 68 12 12 0 60 30 ME 96 AR Ac SP 38 -1 -1 0. D 37 NO ti ER 20 2- 2- 00 CA 07 LD ve ID 11 20 20 0 RE 7 ON 51 13 13 RI E 4 PH CH 2 AR AR MG MA D CY W TA BL LL ET C RO 68 05 12 0 30 30 ME 96 AR Ac PI 46 -0 -1 0. D 30 NO ti NI 20 9- 1- 00 CA 16 LD ve RO 25 20 20 0 RE 5 LE 50 13 13 RI 1 PH CH HC AR AR L MA D 1 CY W MG LL TA C BL ET RI 68 01 12 0 30 30 ME 96 AR Ac SP 38 -1 -0 0. D 17 NO ti ER 20 8- 6- 00 CA 41 LD ve ID 11 20 20 0 RE 9 ON 40 13 13 RI E 5 PH CH 1 AR AR MG MA D CY W TA BL LL ET C TR 00 10 12 0 30 30 ME 96 AR Ac IA 37 -0 -0 0. D 10 NO ti MT 81 4- 4- 00 CA 06 LD ve ER 35 20 20 0 RE 8 EN 50 13 13 RI E- 5 PH CH HC AR AR TZ MA D CY W 75 -5 LL 0 C MG TA B BE 00 06 12 0 60 30 ME 96 AR Ac NZ 60 -0 -0 0. D 00 NO ti TR 32 7- 2- 00 CA 06 LD ve OP 43 20 20 0 RE 9 IN 32 13 13 RI E 1 PH CH ME AR AR S MA D 0. CY W 5 MG LL C TA B DI 00 05 11 0 30 30 ME 95 AR Ac CY 59 -0 -2 0. D 93 NO ti CL 10 9- 9- 00 CA 79 LD ve OM 79 20 20 0 RE 8 IN 51 13 13 RI E 0 PH CH 20 AR AR MA D MG CY W TA LL BL C ET ME 68 01 11 0 60 30 ME 95 AR Ac TF 38 -3 -2 0. D 73 NO ti OR 20 1- 1- 00 CA 61 LD ve MD 02 20 20 0 RE 2 N 80 13 13 RI HC 5 PH CH L AR AR 50 MA D 0 CY W MG LL TA C BL ET PO 68 05 11 0 30 30 ME 95 AR Ac TA 38 -0 -2 0. D 73 NO ti SS 20 9- 1- 00 CA 05 LD ve IU 70 20 20 0 RE 3 M 10 13 13 RI CL 5 PH CH AR AR ER MA D CY W 10 LL ME C Q CA PS UL E FL 49 09 11 0 42 21 ME 95 AR Ac UO 88 -2 -1 0. D 61 NO ti XE 40 1- 8- 00 CA 14 LD ve TI 87 20 20 0 RE 6 NE 20 13 13 RI 5 PH CH HC AR AR L MA D 40 CY W MG LL C CA PS UL E RI 68 09 11 0 30 30 ME 95 AR Ac SP 38 -2 -1 0. D 61 NO ti ER 20 1- 8- 00 CA 14 LD ve ID 11 20 20 0 RE 4 ON 71 13 13 RI E 4 PH CH 4 AR AR MG MA D CY W TA BL LL ET C LO 00 11 11 0 20 5 ME 95 AR Ac RA 78 -1 -1 0. D 67 NO ti ZE 15 8- 8- 00 CA 57 LD ve PA 40 20 20 0 RE 7 M 60 13 13 RI 1 5 PH CH MG AR AR MA D TA CY W BL ET LL C 00 05 11 0 90 2 ME 95 AR Ac 18 -0 -1 .0 D 64 NO ti 50 9- 8- 00 CA 32 LD ve 61 20 20 RE 4 30 13 13 RI 5 PH CH AR AR MA D CY W LL C OM 55 02 11 0 30 30 ME 95 AR Ac EP 11 -2 -1 0. D 56 NO ti RA 10 2- 5- 00 CA 73 LD ve ZO 15 20 20 0 RE 5 LE 81 13 13 RI [address] AR AR MA D 20 CY W MG LL C CA PS UL E MO 00 05 11 0 30 30 ME 95 AR Ac NT 09 -0 -1 0. D 53 NO ti EL 37 9- 4- 00 CA 44 LD ve UK 42 20 20 0 RE 5 69 13 13 RI T 8 PH CH SO AR AR D MA D 10 CY W MG LL C TA BL ET RO 68 05 11 0 30 30 ME 95 AR Ac PI 46 -0 -1 0. D 43 NO ti NI 20 9- 1- 00 CA 42 LD ve RO 25 20 20 0 RE 1 LE 50 13 13 RI 1 PH CH HC AR AR L MA D 1 CY W MG LL TA C BL ET RI 68 01 11 0 30 30 ME 95 AR Ac SP 38 -1 -0 0. D 33 NO ti ER 20 8- 7- 00 CA 40 LD ve ID 11 20 20 0 RE 8 ON 40 13 13 RI E 5 PH CH 1 AR AR MG MA D CY W TA BL LL ET C FR 99 02 11 11 10 30 YO 26 AR Ac EE 07 -1 -0 00 UR [address] 30 5- 7- .0 3 LD ve YL 70 20 20 00 PH E 82 13 13 AR RI LI 2 MA CH TE CY AR D TE W ST ST RI P SA 38 02 11 11 10 30 YO 26 AR Ac FE 41 -1 -0 00 UR 92 NO ti TY 50 5- 7- .0 4 LD ve 10 20 20 00 PH SE 03 13 13 AR RI AL 0 MA CH CY AR 30 D G W LA NC ET S FL 60 05 11 0 16 30 ME 95 AR Ac UT 43 -0 -0 0. D 29 NO ti IC 20 9- 5- 00 CA 43 LD ve 26 20 20 0 RE 7 ON 41 13 13 RI E 5 PH CH MO AR AR OP MA D CY W 50 LL MC C G SP RA Y TR 00 10 11 0 30 30 ME 95 AR Ac IA 37 -0 -0 0. D 21 NO ti MT 81 4- 4- 00 CA 23 LD ve ER 35 20 20 0 RE 5 EN 50 13 13 RI E- 5 PH CH HC AR AR TZ MA D CY W 75 -5 LL 0 C MG TA B BE 00 06 11 0 60 30 ME 95 AR Ac NZ 60 -0 -0 0. D 15 NO ti TR 32 7- 1- 00 CA 85 LD ve OP 43 20 20 0 RE 2 IN 32 13 13 RI E 1 PH CH ME AR AR S MA D 0. CY W 5 MG LL C TA B AC 00 05 11 0 35 7 ME 95 AR Ac ID 90 -0 -0 50 D 18 NO ti 47 9- 1- .0 CA 14 LD ve GO 72 20 20 00 RE 4 NE 71 13 13 RI 4 PH CH AN AR AR TA MA D CI CY W D LI LL QU C ID 00 05 10 0 30 30 ME 95 AR Ac 14 -0 -3 0. D 11 NO ti 31 9- 1- 00 CA 38 LD ve 22 20 20 0 RE 6 71 13 13 RI 0 PH CH AR AR MA D CY W LL C MA 00 05 10 0 60 7 ME 95 AR Ac PA 90 -0 -2 0. D 06 NO ti P 41 9- 9- 00 CA 91 LD ve 32 98 20 20 0 RE 9 5 28 13 13 RI MG 0 PH CH AR AR TA MA D BL CY W ET LL C ME 68 01 10 0 60 30 ME 94 AR Ac TF 38 -3 -2 0. D 89 NO ti OR 20 1- 3- 00 CA 90 LD ve MD 02 20 20 0 RE 8 N 80 13 13 RI HC 5 PH CH L AR AR 50 MA D 0 CY W MG LL TA C BL ET PO 68 05 10 0 30 30 ME 94 AR Ac TA 38 -0 -2 0. D 87 NO ti SS 20 9- 2- 00 CA 44 LD ve IU 70 20 20 0 RE 3 M 10 13 13 RI CL 5 PH CH AR AR ER MA D CY W 10 LL ME C Q CA PS UL E FL 49 09 10 0 60 30 ME 94 AR Ac UO 88 -2 -1 0. D 78 NO ti XE 40 1- 8- 00 CA 58 LD ve TI 87 20 20 0 RE 3 NE 20 13 13 RI 5 PH CH HC AR AR L MA D 40 CY W MG LL C CA PS UL E RI 68 09 10 0 30 30 ME 94 AR Ac SP 38 -2 -1 0. D 78 NO ti ER 20 1- 8- 00 CA 58 LD ve ID 11 20 20 0 RE 2 ON 71 13 13 RI E 4 PH CH 4 AR AR MG MA D CY W TA BL LL ET C OM 62 02 10 0 30 30 ME 94 AR Ac EP 17 -2 -1 0. D 74 NO ti RA 50 2- 7- 00 CA 26 LD ve ZO 11 20 20 0 RE 7 LE 84 13 13 [address] AR AR MA D 20 CY W MG LL C CA PS UL E MO 00 05 10 0 30 30 ME 94 AR Ac NT 09 -0 -1 0. D 68 NO ti EL 37 9- 5- 00 CA 19 LD ve [place] 42 20 20 0 RE 3 69 13 13 RI T 8 PH CH SO AR AR D MA D 10 CY W MG LL C TA BL ET RO 68 05 10 0 30 30 ME 94 AR Ac PI 46 -0 -1 0. D 66 NO ti NI 20 9- 4- 00 CA 64 LD ve RO 25 20 20 0 RE 2 LE 50 13 13 RI 1 PH CH HC AR AR L MA D 1 CY W MG LL TA C BL ET AC 00 05 10 0 35 7 ME 94 AR Ac ID 90 -0 -0 50 D 52 NO ti 47 9- 9- .0 CA 02 LD ve GO 72 20 20 00 RE 2 NE 71 13 13 RI 4 PH CH AN AR AR TA MA D CI CY W D LI LL QU C ID RI 68 01 10 0 30 30 ME 94 AR Ac SP 38 -1 -0 0. D 47 NO ti ER 20 8- 8- 00 CA 82 LD ve ID 11 20 20 0 RE 5 ON 40 13 13 RI E 5 PH CH 1 AR AR MG MA D CY W TA BL LL ET C TR 00 10 10 0 30 30 ME 94 AR Ac IA 37 -0 -0 0. D 38 NO ti MT 81 4- 4- 00 CA 04 LD ve ER 35 20 20 0 RE 6 EN 50 13 13 RI E- 5 PH CH HC AR AR TZ MA D CY W 75 -5 LL 0 C MG TA B BE 00 06 10 0 60 30 ME 94 AR Ac NZ 60 -0 -0 0. D 34 NO ti TR 32 7- 3- 00 CA 44 LD ve OP 43 20 20 0 RE 9 IN 32 13 13 RI E 1 PH CH ME AR AR S MA D 0. CY W 5 MG LL C TA B SA 38 02 10 11 10 30 YO 26 AR Ac FE 41 -1 -0 00 UR 92 NO ti TY 50 5- 3- .0 4 LD ve 10 20 20 00 PH SE 03 13 13 AR RI AL 0 MA CH CY AR 30 D G W LA NC ET S FR 99 02 10 11 10 30 YO 26 AR Ac EE 07 -1 -0 00 UR [address] 30 5- 3- .0 3 LD ve YL 70 20 20 00 PH E 82 13 13 AR RI LI 2 MA CH TE CY AR D TE W ST ST RI P 00 05 10 0 30 30 ME 94 AR Ac 14 -0 -0 0. D 27 NO ti 31 9- 1- 00 CA 46 LD ve 22 20 20 0 RE 8 71 13 13 RI 0 PH CH AR AR MA D CY W LL C AC 00 05 09 0 35 7 ME 94 AR Ac ID 90 -0 -2 50 D 20 NO ti 47 9- 7- .0 CA 14 LD ve GO 72 20 20 00 RE 2 NE 71 13 13 RI 4 PH CH AN AR AR TA MA D CI CY W D LI LL QU C ID ME 68 01 09 0 60 30 ME 94 AR Ac TF 38 -3 -2 0. D 03 NO ti OR 20 1- 3- 00 CA 90 LD ve MD 02 20 20 0 RE 0 N 80 13 13 RI HC 5 PH CH L AR AR 50 MA D 0 CY W MG LL TA C BL ET FL 49 09 09 0 60 30 ME 94 AR Ac UO 88 -2 -2 0. D 06 NO ti XE 40 1- 1- 00 CA 35 LD ve TI 87 20 20 0 RE 7 NE 20 13 13 RI 5 PH CH HC AR AR L MA D 40 CY W MG LL C CA PS UL E PO 68 05 09 0 30 30 ME 94 AR Ac TA 38 -0 -2 0. D 02 NO ti SS 20 9- 1- 00 CA 65 LD ve IU 70 20 20 0 RE 5 M 10 13 13 RI CL 5 PH CH AR AR ER MA D CY W 10 LL ME C Q CA PS UL E RI 68 09 09 0 30 30 ME 94 AR Ac SP 38 -2 -2 0. D 06 NO ti ER 20 1- 1- 00 CA 35 LD ve ID 11 20 20 0 RE 5 ON 71 13 13 RI E 4 PH CH 4 AR AR MG MA D CY W TA BL LL ET C RO 68 05 09 0 30 30 ME 93 AR Ac PI 46 -0 -1 0. D 90 NO ti NI 20 9- 7- 00 CA 45 LD ve RO 25 20 20 0 RE 4 LE 50 13 13 RI 1 PH CH HC AR AR L MA D 1 CY W MG LL TA C BL ET OM 55 02 09 0 30 30 ME 93 AR Ac EP 11 -2 -1 0. D 90 NO ti RA 10 2- 7- 00 CA 45 LD ve ZO 15 20 20 0 RE 8 LE 81 13 13 RI [address] AR AR MA D 20 CY W MG LL C CA PS UL E MO 62 05 09 0 30 30 ME 93 AR Ac NT 17 -0 -1 0. D 83 NO ti EL 50 9- 4- 00 CA 48 LD ve UK 21 20 20 0 RE 4 04 13 13 RI T 6 PH CH SO AR AR D MA D 10 CY W MG LL C TA BL ET 00 05 09 0 30 5 ME 93 AR Ac 18 -0 -1 0. D 73 NO ti 50 9- 0- 00 CA 36 LD ve 61 20 20 0 RE 5 30 13 13 RI 5 PH CH AR AR MA D CY W LL C AC 00 05 09 0 35 7 ME 93 AR Ac ID 90 -0 -0 50 D 70 NO ti 47 9- 9- .0 CA 21 LD ve GO 72 20 20 00 RE 8 NE 71 13 13 RI 4 PH CH AN AR AR TA MA D CI CY W D LI LL QU C ID RI 68 01 09 0 30 30 ME 93 AR Ac SP 38 -1 -0 0. D 65 NO ti ER 20 8- 7- 00 CA 65 LD ve ID 11 20 20 0 RE 1 ON 40 13 13 RI E 5 PH CH 1 AR AR MG MA D CY W TA BL LL ET C RI 68 01 09 0 10 10 ME 93 AR Ac SP 38 -1 -0 0. D 68 NO ti ER 20 8- 6- 00 CA 56 LD ve ID 11 20 20 0 RE 4 ON 61 13 13 RI E 4 PH CH 3 AR AR MG MA D CY W TA BL LL ET C TR 00 05 09 0 30 30 ME 93 AR Ac IA 37 -0 -0 0. D 58 NO ti MT 81 9- 5- 00 CA 57 LD ve ER 35 20 20 0 RE 9 EN 50 13 13 RI E- 5 PH CH HC AR AR TZ MA D CY W 75 -5 LL 0 C MG TA B BE 00 06 09 0 60 30 ME 93 AR Ac NZ 60 -0 -0 0. D 49 NO ti TR 32 7- 3- 00 CA 75 LD ve OP 43 20 20 0 RE 0 IN 32 13 13 RI E 1 PH CH ME AR AR S MA D 0. CY W 5 MG LL C TA B FR 99 02 09 11 10 30 YO 26 AR Ac EE 07 -1 -0 00 UR [address] 30 5- 3- .0 3 LD ve YL 70 20 20 00 PH E 82 13 13 AR RI LI 2 MA CH TE CY AR D TE W ST ST RI P SA 38 02 09 11 10 30 YO 26 AR Ac FE 41 -1 -0 00 UR 92 NO ti TY 50 5- 3- .0 4 LD ve 10 20 20 00 PH SE 03 13 13 AR RI AL 0 MA CH CY AR 30 D G W LA NC ET S MA 00 05 09 0 60 7 ME 93 AR Ac PA 90 -0 -0 0. D 52 NO ti P 41 9- 2- 00 CA 85 LD ve 32 98 20 20 0 RE 1 5 28 13 13 RI MG 0 PH CH AR AR TA MA D BL CY W ET LL C 00 05 08 0 30 30 ME 93 AR Ac 14 -0 -3 0. D 46 NO ti 31 9- 1- 00 CA 95 LD ve 22 20 20 0 RE 8 71 13 13 RI 0 PH CH AR AR MA D CY W LL C FL 50 08 08 0 30 30 ME 93 AR Ac UO 11 -0 -2 0. D 40 NO ti XE 10 1- 9- 00 CA 45 LD ve TI 64 20 20 0 RE 5 NE 70 13 13 RI 3 PH CH HC AR AR L MA D 10 CY W MG LL C CA PS UL E FL 50 08 08 0 30 30 ME 93 AR Ac UO 11 -0 -2 0. D 10 NO ti XE 10 1- 6- 00 CA 06 LD ve TI 64 20 20 0 RE 1 NE 80 13 13 RI 3 PH CH HC AR AR L MA D 20 CY W MG LL C CA PS UL E AC 00 05 08 0 35 7 ME 93 AR Ac ID 90 -0 -2 50 D 32 NO ti 47 9- 4- .0 CA 69 LD ve GO 72 20 20 00 RE 7 NE 71 13 13 RI 4 PH CH AN AR AR TA MA D CI CY W D LI LL QU C ID ME 68 01 08 0 60 30 ME 93 AR Ac TF 38 -3 -2 0. D 25 NO ti OR 20 1- 3- 00 CA 65 LD ve MD 02 20 20 0 RE 8 N 80 13 13 RI HC 5 PH CH L AR AR 50 MA D 0 CY W MG LL TA C BL ET PO 68 05 08 0 30 30 ME 93 AR Ac TA 38 -0 -2 0. D 22 NO ti SS 20 9- 2- 00 CA 23 LD ve IU 70 20 20 0 RE 5 M 10 13 13 RI CL 5 PH CH AR AR ER MA D CY W 10 LL ME C Q CA PS UL E RO 68 05 08 0 30 30 ME 93 AR Ac PI 46 -0 -2 0. D 18 NO ti NI 20 9- 0- 00 CA 39 LD ve RO 25 20 20 0 RE 2 LE 50 13 13 RI 1 PH CH HC AR AR L MA D 1 CY W MG LL TA C BL ET OM 55 02 08 0 30 30 ME 93 AR Ac EP 11 -2 -1 0. D 10 NO ti RA 10 2- 7- 00 CA 05 LD ve ZO 15 20 20 0 RE 6 LE 81 13 13 RI [address] AR AR MA D 20 CY W MG LL C CA PS UL E MO 62 05 08 0 30 30 ME 93 AR Ac NT 17 -0 -1 0. D 04 NO ti EL 50 9- 5- 00 CA 30 LD ve UK 21 20 20 0 RE 0 04 13 13 RI T 6 PH CH SO AR AR D MA D 10 CY W MG LL C TA BL ET RI 68 01 08 0 19 19 ME 92 AR Ac SP 38 -1 -1 0. D 94 NO ti ER 20 8- 2- 00 CA 47 LD ve ID 11 20 20 0 RE 9 ON 61 13 13 RI E 4 PH CH 3 AR AR MG MA D CY W TA BL LL ET C RI 68 01 08 0 30 30 ME 92 AR Ac SP 38 -1 -0 0. D 85 NO ti ER 20 8- 8- 00 CA 00 LD ve ID 11 20 20 0 RE 1 ON 40 13 13 RI E 5 PH CH 1 AR AR MG MA D CY W TA BL LL ET C TR 00 05 08 0 30 30 ME 92 AR Ac IA 37 -0 -0 0. D 78 NO ti MT 81 9- 6- 00 CA 24 LD ve ER 35 20 20 0 RE 7 EN 50 13 13 RI E- 5 PH CH HC AR AR TZ MA D CY W 75 -5 LL 0 C MG TA B BE 00 06 08 0 60 30 ME 92 AR Ac NZ 60 -0 -0 0. D 70 NO ti TR 32 7- 3- 00 CA 38 LD ve OP 43 20 20 0 RE 3 IN 32 13 13 RI E 1 PH CH ME AR AR S MA D 0. CY W 5 MG LL C TA B SA 38 02 08 11 10 30 YO 26 AR Ac FE 41 -1 -0 00 UR 92 NO ti TY 50 5- 2- .0 4 LD ve 10 20 20 00 PH SE 03 13 13 AR RI AL 0 MA CH CY AR 30 D G W LA NC ET S FR 99 02 08 11 10 30 YO 26 AR Ac EE 07 -1 -0 00 UR [address] 30 5- 2- .0 3 LD ve YL 70 20 20 00 PH E 82 13 13 AR RI LI 2 MA CH TE CY AR D TE W ST ST RI P FL 50 08 08 0 30 30 ME 92 AR Ac UO 11 -0 -0 0. D 67 NO ti XE 10 1- 1- 00 CA 03 LD ve TI 64 20 20 0 RE 3 NE 80 13 13 RI 3 PH CH HC AR AR L MA D 20 CY W MG LL C CA PS UL E 00 05 08 0 30 30 ME 92 AR Ac 14 -0 -0 0. D 65 NO ti 31 9- 1- 00 CA 76 LD ve 22 20 20 0 RE 0 71 13 13 RI 0 PH CH AR AR MA D CY W LL C ME 68 01 07 0 60 30 ME 92 AR Ac TF 38 -3 -2 0. D 46 NO ti OR 20 1- 5- 00 CA 00 LD ve MD 02 20 20 0 RE 1 N 80 13 13 RI HC 5 PH CH L AR AR 50 MA D 0 CY W MG LL TA C BL ET MA 00 05 07 0 60 7 ME 92 AR Ac PA 90 -0 -2 0. D 48 NO ti P 41 9- 5- 00 CA 63 LD ve 32 98 20 20 0 RE 3 5 28 13 13 RI MG 0 PH CH AR AR TA MA D BL CY W ET LL C PO 68 05 07 0 30 30 ME 92 AR Ac TA 38 -0 -2 0. D 42 NO ti SS 20 9- 4- 00 CA 94 LD ve IU 70 20 20 0 RE 0 M 10 13 13 RI CL 5 PH CH AR AR ER MA D CY W 10 LL ME C Q CA PS UL E RO 68 05 07 0 30 30 ME 92 AR Ac PI 46 -0 -1 0. D 34 NO ti NI 20 9- 9- 00 CA 98 LD ve RO 25 20 20 0 RE 5 LE 50 13 13 RI 1 PH CH HC AR AR L MA D 1 CY W MG LL TA C BL ET FL 50 02 07 0 40 4 ME 92 AR Ac UO 11 -1 -1 .0 D 31 NO ti XE 10 6- 9- 00 CA 98 LD ve TI 64 20 20 RE 0 NE 80 13 13 RI 3 PH CH HC AR AR L MA D 20 CY W MG LL C CA PS UL E OM 55 02 07 0 30 30 ME 92 AR Ac EP 11 -2 -1 0. D 28 NO ti RA 10 2- 8- 00 CA 75 LD ve ZO 15 20 20 0 RE 3 LE 81 13 13 RI [address] AR AR MA D 20 CY W MG LL C CA PS UL E MO 62 05 07 0 30 30 ME 92 AR Ac NT 17 -0 -1 0. D 25 NO ti EL 50 9- 7- 00 CA 78 LD ve UK 21 20 20 0 RE 9 04 13 13 RI T 6 PH CH SO AR AR D MA D 10 CY W MG LL C TA BL ET LO 00 05 07 0 30 4 ME 92 AR Ac PE 37 -0 -1 0. D 22 NO ti RA 82 9- 5- 00 CA 66 LD ve MD 10 20 20 0 RE 4 DE 00 13 13 RI 2 5 PH CH AR AR MG MA D CY W CA PS LL UL C E RI 68 01 07 0 30 30 ME 92 AR Ac SP 38 -1 -1 0. D 15 NO ti ER 20 8- 2- 00 CA 31 LD ve ID 11 20 20 0 RE 1 ON 61 13 13 RI E 4 PH CH 3 AR AR MG MA D CY W TA BL LL ET C RI 68 01 07 0 30 30 ME 92 AR Ac SP 38 -1 -1 0. D 08 NO ti ER 20 8- 0- 00 CA 12 LD ve ID 11 20 20 0 RE 2 ON 40 13 13 RI E 5 PH CH 1 AR AR MG MA D CY W TA BL LL ET C TR 00 05 07 0 30 30 ME 91 AR Ac IA 37 -0 -0 0. D 99 NO ti MT 81 9- 6- 00 CA 77 LD ve ER 35 20 20 0 RE 7 EN 50 13 13 RI E- 5 PH CH HC AR AR TZ MA D CY W 75 -5 LL 0 C MG TA B BE 00 06 07 0 60 30 ME 91 AR Ac NZ 60 -0 -0 0. D 95 NO ti TR 32 7- 5- 00 CA 61 LD ve OP 43 20 20 0 RE 4 IN 32 13 13 RI E 1 PH CH ME AR AR S MA D 0. CY W 5 MG LL C TA B 00 05 07 0 30 30 ME 91 AR Ac 14 -0 -0 0. D 90 NO ti 31 9- 3- 00 CA 15 LD ve 22 20 20 0 RE 0 71 13 13 RI 0 PH CH AR AR MA D CY W LL C SA 38 02 07 11 10 30 YO 26 AR Ac FE 41 -1 -0 00 UR 92 NO ti TY 50 5- 2- .0 4 LD ve 10 20 20 00 PH SE 03 13 13 AR RI AL 0 MA CH CY AR 30 D G W LA NC ET S FR 99 02 07 11 10 30 YO 26 AR Ac EE 07 -1 -0 00 UR [address] 30 5- 2- .0 3 LD ve YL 70 20 20 00 PH E 82 13 13 AR RI LI 2 MA CH TE CY AR D TE W ST ST RI P ME 68 01 06 0 60 30 ME 91 AR Ac TF 38 -3 -2 0. D 68 NO ti OR 20 1- 5- 00 CA 75 LD ve MD 02 20 20 0 RE 2 N 80 13 13 RI HC 5 PH CH L AR AR 50 MA D 0 CY W MG LL TA C BL ET PO 68 05 06 0 30 30 ME 91 AR Ac TA 38 -0 -2 0. D 66 NO ti SS 20 9- 4- 00 CA 13 LD ve IU 70 20 20 0 RE 0 M 10 13 13 RI CL 5 PH CH AR AR ER MA D CY W 10 LL ME C Q CA PS UL E FL 50 02 06 0 30 30 ME 91 AR Ac UO 11 -1 -2 0. D 57 NO ti XE 10 6- 0- 00 CA 83 LD ve TI 64 20 20 0 RE 4 NE 80 13 13 RI 3 PH CH HC AR AR L MA D 20 CY W MG LL C CA PS UL E OM 62 02 06 0 30 30 ME 91 AR Ac EP 17 -2 -1 0. D 55 NO ti RA 50 2- 9- 00 CA 14 LD ve ZO 11 20 20 0 RE 1 LE 84 13 13 RI [address] AR AR MA D 20 CY W MG LL C CA PS UL E 00 05 06 0 30 5 ME 91 AR Ac 18 -0 -1 0. D 57 NO ti 50 9- 9- 00 CA 15 LD ve 61 20 20 0 RE 5 30 13 13 RI 5 PH CH AR AR MA D CY W LL C MO 62 05 06 0 30 30 ME 91 AR Ac NT 17 -0 -1 0. D 49 NO ti EL 50 9- 7- 00 CA 92 LD ve UK 21 20 20 0 RE 4 04 13 13 RI T 6 PH CH SO AR AR D MA D 10 CY W MG LL C TA BL ET RO 68 05 06 0 30 30 ME 91 AR Ac PI 46 -0 -1 0. D 51 NO ti NI 20 9- 7- 00 CA 30 LD ve RO 25 20 20 0 RE 5 LE 50 13 13 RI 1 PH CH HC AR AR L MA D 1 CY W MG LL TA C BL ET LO 00 05 06 0 30 4 ME 91 AR Ac PE 37 -0 -1 0. D 51 NO ti RA 82 9- 7- 00 CA 30 LD ve MD 10 20 20 0 RE 8 DE 00 13 13 RI 2 5 PH CH AR AR MG MA D CY W CA PS LL UL C E RI 68 01 06 0 30 30 ME 91 AR Ac SP 38 -1 -1 0. D 41 NO ti ER 20 8- 3- 00 CA 51 LD ve ID 11 20 20 0 RE 1 ON 61 13 13 RI E 4 PH CH 3 AR AR MG MA D CY W TA BL LL ET C RI 68 01 06 0 30 30 ME 91 AR Ac SP 38 -1 -1 0. D 32 NO ti ER 20 8- 0- 00 CA 64 LD ve ID 11 20 20 0 RE 7 ON 40 13 13 RI E 5 PH CH 1 AR AR MG MA D CY W TA BL LL ET C AC 00 05 06 0 35 7 ME 91 AR Ac ID 90 -0 -0 50 D 33 NO ti 47 9- 8- .0 CA 51 LD ve GO 72 20 20 00 RE 7 NE 71 13 13 RI 4 PH CH AN AR AR TA MA D CI CY W D LI LL QU C ID BE 00 06 06 0 60 30 ME 91 AR Ac NZ 60 -0 -0 0. D 31 NO ti TR 32 7- 7- 00 CA 59 LD ve OP 43 20 20 0 RE 3 IN 32 13 13 RI E 1 PH CH ME AR AR S MA D 0. CY W 5 MG LL C TA B TR 00 05 06 0 30 30 ME 91 AR Ac IA 37 -0 -0 0. D 24 NO ti MT 81 9- 6- 00 CA 93 LD ve ER 35 20 20 0 RE 9 EN 50 13 13 RI E- 5 PH CH HC AR AR TZ MA D CY W 75 -5 LL 0 C MG TA B 00 05 06 0 30 30 ME 91 AR Ac 14 -0 -0 0. D 16 NO ti 31 9- 3- 00 CA 52 LD ve 22 20 20 0 RE 8 71 13 13 RI 0 PH CH AR AR MA D CY W LL C PO 68 05 05 0 30 30 ME 90 AR Ac TA 38 -0 -2 0. D 93 NO ti SS 20 9- 4- 00 CA 27 LD ve IU 70 20 20 0 RE 8 M 10 13 13 RI CL 5 PH CH AR AR ER MA D CY W 10 LL ME C Q CA PS UL E ME 68 01 05 0 60 30 ME 90 AR Ac TF 38 -3 -2 0. D 93 NO ti OR 20 1- 4- 00 CA 29 LD ve MD 02 20 20 0 RE 1 N 80 13 13 RI HC 5 PH CH L AR AR 50 MA D 0 CY W MG LL TA C BL ET FL 50 02 05 0 30 30 ME 90 AR Ac UO 11 -1 -2 0. D 84 NO ti XE 10 6- 1- 00 CA 52 LD ve TI 64 20 20 0 RE 0 NE 80 13 13 RI 3 PH CH HC AR AR L MA D 20 CY W MG LL C CA PS UL E OM 62 02 05 0 30 30 ME 90 AR Ac EP 17 -2 -2 0. D 81 NO ti RA 50 2- 0- 00 CA 50 LD ve ZO 11 20 20 0 RE 6 LE 84 13 13 RI [address] AR AR MA D 20 CY W MG LL C CA PS UL E MO 62 05 05 0 30 30 ME 90 AR Ac NT 17 -0 -1 0. D 76 NO ti EL 50 9- 7- 00 CA 83 LD ve UK 21 20 20 0 RE 3 04 13 13 RI T 6 PH CH SO AR AR D MA D 10 CY W MG LL C TA BL ET RI 68 01 05 0 30 30 ME 90 AR Ac SP 38 -1 -1 0. D 68 NO ti ER 20 8- 4- 00 CA 38 LD ve ID 11 20 20 0 RE 8 ON 61 13 13 RI E 4 PH CH 3 AR AR MG MA D CY W TA BL LL ET C RO 68 05 05 0 30 30 ME 90 AR Ac PI 46 -0 -1 0. D 69 NO ti NI 20 9- 4- 00 CA 83 LD ve RO 25 20 20 0 RE 0 LE 50 13 13 RI 1 PH CH HC AR AR L MA D 1 CY W MG LL TA C BL ET RI 68 01 05 0 30 30 ME 90 AR Ac SP 38 -1 -1 0. D 60 NO ti ER 20 8- 0- 00 CA 17 LD ve ID 11 20 20 0 RE 8 ON 40 13 13 RI E 5 PH CH 1 AR AR MG MA D CY W TA BL LL ET C TR 00 11 05 0 30 30 ME 90 AR Ac IA 37 -0 -0 0. D 54 NO ti MT 81 7- 8- 00 CA 32 LD ve ER 35 20 20 0 RE 2 EN 50 11 13 RI E- 5 PH CH HC AR AR TZ MA D CY W 75 -5 LL 0 C MG TA B AC 00 03 05 0 35 7 ME 90 AR Ac ID 90 -1 -0 50 D 53 NO ti 47 2- 7- .0 CA 69 LD ve GO 72 20 20 00 RE 6 NE 71 12 13 RI 4 PH CH AN AR AR TA MA D CI CY W D LI LL QU C ID LO 00 07 05 0 30 4 ME 90 AR Ac PE 37 -2 -0 0. D 49 NO ti RA 82 4- 6- 00 CA 94 LD ve MD 10 20 20 0 RE 7 DE 00 12 13 RI 2 5 PH CH AR AR MG MA D CY W CA PS LL UL C E 00 10 05 0 30 30 ME 90 AR Ac 14 -1 -0 0. D 42 NO ti 31 0- 3- 00 CA 57 LD ve 22 20 20 0 RE 7 71 12 13 RI 0 PH CH AR AR MA D CY W LL C LO 00 11 04 0 20 5 ME 90 AR Ac RA 59 -1 -2 0. D 31 NO ti ZE 10 2- 9- 00 CA 50 LD ve PA 24 20 20 0 RE 0 M 11 12 13 RI 1 0 PH CH MG AR AR MA D TA CY W BL ET LL C PO 68 11 04 0 30 30 ME 90 AR Ac TA 38 -0 -2 0. D 22 NO ti SS 20 7- 5- 00 CA 30 LD ve IU 70 20 20 0 RE 9 M 10 11 13 RI CL 5 PH CH AR AR ER MA D CY W 10 LL ME C Q CA PS UL E ME 68 01 04 0 60 30 ME 90 AR Ac TF 38 -3 -2 0. D 22 NO ti OR 20 1- 5- 00 CA 32 LD ve MD 02 20 20 0 RE 3 N 80 13 13 RI HC 5 PH CH L AR AR 50 MA D 0 CY W MG LL TA C BL ET FL 50 02 04 0 30 30 ME 90 AR Ac UO 11 -1 -1 0. D 09 NO ti XE 10 6- 9- 00 CA 59 LD ve TI 64 20 20 0 RE 3 NE 80 13 13 RI 3 PH CH HC AR AR L MA D 20 CY W MG LL C CA PS UL E OM 62 02 04 0 30 30 ME 90 AR Ac EP 17 -2 -1 0. D 09 NO ti RA 50 2- 9- 00 CA 59 LD ve ZO 11 20 20 0 RE 4 LE 84 13 13 RI [address] AR AR MA D 20 CY W MG LL C CA PS UL E MO 62 11 04 0 30 30 ME 90 AR Ac NT 17 -0 -1 0. D 06 NO ti EL 50 7- 8- 00 CA 05 LD ve UK 21 20 20 0 RE 9 04 11 13 RI T 6 PH CH SO AR AR D MA D 10 CY W MG LL C TA BL ET Q- 00 11 04 0 11 3 ME 90 AR Ac TU 60 -0 -1 80 D 07 NO ti SS 30 7- 8- .0 CA 82 LD ve IN 85 20 20 00 RE 9 59 11 13 RI DM 4 PH CH AR AR SY MA D RU CY W P LL C RI 68 01 04 0 30 30 ME 89 AR Ac SP 38 -1 -1 0. D 92 NO ti ER 20 8- 2- 00 CA 67 LD ve ID 11 20 20 0 RE 0 ON 61 13 13 RI E 4 PH CH 3 AR AR MG MA D CY W TA BL LL ET C RO 68 07 04 0 30 30 ME 89 AR Ac PI 46 -0 -1 0. D 94 NO ti NI 20 6- 2- 00 CA 89 LD ve RO 25 20 20 0 RE 1 LE 50 12 13 RI 1 PH CH HC AR AR L MA D 1 CY W MG LL TA C BL ET RI 68 01 04 0 30 30 ME 89 AR Ac SP 38 -1 -1 0. D 88 NO ti ER 20 8- 1- 00 CA 87 LD ve ID 11 20 20 0 RE 1 ON 40 13 13 RI E 5 PH CH 1 AR AR MG MA D CY W TA BL LL ET C TR 51 11 04 0 30 30 ME 89 AR Ac IA 07 -0 -0 0. D 78 NO ti MT 90 7- 8- 00 CA 96 LD ve ER 43 20 20 0 RE 3 EN 32 11 13 RI E- 0 PH CH HC AR AR TZ MA D CY W 75 -5 LL 0 C MG TA B BA 00 04 04 0 28 30 ME 89 AR Ac CI 16 -0 -0 3. D 77 NO ti TR 80 5- 5- 50 CA 52 LD ve AC 02 20 20 0 RE 7 IN 13 13 13 RI -P 1 PH CH OL AR AR YM MA D YX CY W IN LL OI C NT ME NT 00 10 04 0 30 30 ME 89 AR Ac 14 -1 -0 0. D 71 NO ti 31 0- 4- 00 CA 97 LD ve 22 20 20 0 RE 0 71 12 13 RI 0 PH CH AR AR MA D CY W LL C BA 00 11 04 0 28 3 ME 89 AR Ac CI 16 -2 -0 3. D 67 NO ti TR 80 9- 2- 50 CA 89 LD ve AC 02 20 20 0 RE 0 IN 13 12 13 RI -P 1 PH CH OL AR AR YM MA D YX CY W IN LL OI C NT ME NT SA 38 02 04 11 10 30 YO 26 AR Ac FE 41 -1 -0 00 UR 92 NO ti TY 50 5- 1- .0 4 LD ve 10 20 20 00 PH SE 03 13 13 AR RI AL 0 MA CH CY AR 30 D G W LA NC ET S FR 99 02 04 11 10 30 YO 26 AR Ac EE 07 -1 -0 00 UR [address] 30 5- 1- .0 3 LD ve YL 70 20 20 00 PH E 82 13 13 AR RI LI 2 MA CH TE CY AR D TE W ST ST RI P ME 68 01 03 0 60 30 ME 89 AR Ac TF 38 -3 -2 0. D 51 NO ti OR 20 1- 7- 00 CA 11 LD ve MD 02 20 20 0 RE 5 N 80 13 13 RI HC 5 PH CH L AR AR 50 MA D 0 CY W MG LL TA C BL ET PO 68 11 03 0 30 30 ME 89 AR Ac TA 38 -0 -2 0. D 48 NO ti SS 20 7- 6- 00 CA 85 LD ve IU 70 20 20 0 RE 5 M 10 11 13 RI CL 5 PH CH AR AR ER MA D CY W 10 LL ME C Q CA PS UL E FL 50 02 03 0 30 30 ME 89 AR Ac UO 11 -1 -2 0. D 40 NO ti XE 10 6- 2- 00 CA 55 LD ve TI 64 20 20 0 RE 2 NE 80 13 13 RI 3 PH CH HC AR AR L MA D 20 CY W MG LL C CA PS UL E OM 62 02 03 0 30 30 ME 89 AR Ac EP 17 -2 -2 0. D 37 NO ti RA 50 2- 1- 00 CA 39 LD ve ZO 11 20 20 0 RE 0 LE 84 13 [address] AR AR MA D 20 CY W MG LL C CA PS UL E MO 62 11 03 0 30 30 ME 89 AR Ac NT 17 -0 -1 0. D 31 NO ti EL 50 7- 9- 00 CA 66 LD ve UK 21 20 20 0 RE 0 04 11 13 RI T 6 PH CH SO AR AR D MA D 10 CY W MG LL C TA BL ET RI 51 01 03 0 30 30 ME 89 AR Ac SP 07 -1 -1 0. D 23 NO ti ER 90 8- 5- 00 CA 68 LD ve ID 46 20 20 0 RE 3 ON 45 13 13 RI E 6 PH CH 3 AR AR MG MA D CY W TA BL LL ET C RI 51 01 03 0 30 30 ME 89 AR Ac SP 07 -1 -1 0. D 22 NO ti ER 90 8- 4- 00 CA 13 LD ve ID 46 20 20 0 RE 4 ON 25 13 13 RI E 6 PH CH 1 AR AR MG MA D CY W TA BL LL ET C RO 68 07 03 0 30 30 ME 89 AR Ac PI 46 -0 -1 0. D 15 NO ti NI 20 6- 2- 00 CA 80 LD ve RO 25 20 20 0 RE 7 LE 50 12 13 RI 1 PH CH HC AR AR L MA D 1 CY W MG LL TA C BL ET AC 00 03 03 0 35 7 ME 89 AR Ac ID 90 -1 -1 50 D 12 NO ti 47 2- 1- .0 CA 91 LD ve GO 72 20 20 00 RE 8 NE 71 12 13 RI 4 PH CH AN AR AR TA MA D CI CY W D LI LL QU C ID TR 51 11 03 0 30 30 ME 89 AR Ac IA 07 -0 -0 0. D 07 NO ti MT 90 7- 8- 00 CA 07 LD ve ER 43 20 20 0 RE 9 EN 32 11 13 RI E- 0 PH CH HC AR AR TZ MA D CY W 75 -5 LL 0 C MG TA B 00 10 03 0 30 30 ME 88 AR Ac 14 -1 -0 0. D 98 NO ti 31 0- 5- 00 CA 04 LD ve 22 20 20 0 RE 0 71 12 13 RI 0 PH CH AR AR MA D CY W LL C ME 62 01 02 0 60 30 ME 88 AR Ac TF 58 -3 -2 0. D 78 NO ti OR 40 1- 7- 00 CA 27 LD ve MD 25 20 20 0 RE 8 N 90 13 13 RI HC 1 PH CH L AR AR 50 MA D 0 CY W MG LL TA C BL ET MO 00 11 02 0 30 5 ME 88 AR Ac OM 59 -0 -2 0. D 78 NO ti ET 15 7- 5- 00 CA 27 LD ve TYLER 30 20 20 0 RE 9 ZI 71 11 13 RI NE 0 PH CH AR AR 25 MA D CY W MG LL TA C BL ET PO 68 11 02 0 30 30 ME 88 AR Ac TA 38 -0 -2 0. D 72 NO ti SS 20 7- 2- 00 CA 71 LD ve IU 70 20 20 0 RE 8 M 10 11 13 RI CL 5 PH CH AR AR ER MA D CY W 10 LL ME C Q CA PS UL E OM 62 02 02 0 30 30 ME 88 AR Ac EP 17 -2 -2 0. D 75 NO ti RA 50 2- 2- 00 CA 27 LD ve ZO 11 20 20 0 RE 8 LE 84 13 [address] AR AR MA D 20 CY W MG LL C CA PS UL E FL 50 02 02 0 30 30 ME 88 AR Ac UO 11 -1 -2 0. D 59 NO ti XE 10 6- 1- 00 CA 08 LD ve TI 64 20 20 0 RE 5 NE 80 13 13 RI 3 PH CH HC AR AR L MA D 20 CY W MG LL C CA PS UL E MD 68 02 02 0 14 14 ME 88 AR Ac RT 08 -1 -1 0. D 59 NO ti AZ 40 6- 6- 00 CA 08 LD ve AP 11 20 20 0 RE 6 IN 90 13 13 RI E 1 PH CH 15 AR AR MA D MG CY W TA LL BL C ET FL 50 02 02 0 70 7 ME 88 AR Ac UO 11 -1 -1 .0 D 59 NO ti XE 10 6- 6- 00 CA 08 LD ve TI 64 20 20 RE 4 NE 70 13 13 RI 3 PH CH HC AR AR L MA D 10 CY W MG LL C CA PS UL E MO 62 11 02 0 30 30 ME 88 AR Ac NT 17 -0 -1 0. D 55 NO ti EL 50 7- 5- 00 CA 06 LD ve UK 21 20 20 0 RE 1 04 11 13 RI T 6 PH CH SO AR AR D MA D 10 CY W MG LL C TA BL ET RI 51 01 02 0 30 30 ME 88 AR Ac SP 07 -1 -1 0. D 50 NO ti ER 90 8- 4- 00 CA 94 LD ve ID 46 20 20 0 RE 9 ON 45 13 13 RI E 6 PH CH 3 AR AR MG MA D CY W TA BL LL ET C RO 68 07 02 0 30 30 ME 88 AR Ac PI 46 -0 -0 0. D 42 NO ti NI 20 6- 9- 00 CA 81 LD ve RO 25 20 20 0 RE 1 LE 50 12 13 RI 1 PH CH HC AR AR L MA D 1 CY W MG LL TA C BL ET FL 60 11 02 0 16 30 ME 88 AR Ac UT 43 -0 -0 0. D 42 NO ti IC 20 7- 9- 00 CA 81 LD ve 26 20 20 0 RE 0 ON 41 11 13 RI E 5 PH CH MO AR AR OP MA D CY W 50 LL MC C G SP RA Y TR 51 11 02 0 30 30 ME 88 AR Ac IA 07 -0 -0 0. D 34 NO ti MT 90 7- 7- 00 CA 15 LD ve ER 43 20 20 0 RE 2 EN 32 11 13 RI E- 0 PH CH HC AR AR TZ MA D CY W 75 -5 LL 0 C MG TA B Q- 00 11 02 0 11 3 ME 88 AR Ac TU 60 -0 -0 80 D 28 NO ti SS 30 7- 5- .0 CA 50 LD ve IN 85 20 20 00 RE 2 59 11 13 RI DM 4 PH CH AR AR SY MA D RU CY W P LL C FR 99 02 02 0 10 36 YO 26 AR Ac EE 07 -0 -0 .0 5 UR [address] 30 1- 1- 00 2 LD ve YL 70 20 20 PH E 80 13 13 AR RI LI 5 MA CH TE CY AR D ME W TE R FR 99 02 02 0 10 30 YO 26 AR Ac EE 07 -0 -0 00 UR [address] 30 1- 1- .0 3 LD ve YL 70 20 20 00 PH E 82 13 13 AR RI LI 2 MA CH TE CY AR D TE W ST ST RI P SA 38 02 02 0 10 30 YO 26 AR Ac FE 41 -0 -0 00 UR 61 NO ti TY 50 1- 1- .0 4 LD ve 10 20 20 00 PH SE 03 13 13 AR RI AL 0 MA CH CY AR 30 D G W LA NC ET S DI 00 10 02 0 30 30 ME 88 AR Ac CY 59 -1 -0 0. D 20 NO ti CL 10 0- 1- 00 CA 71 LD ve OM 79 20 20 0 RE 8 IN 51 12 13 RI E 0 PH CH 20 AR AR MA D MG CY W TA LL BL C ET ME 62 01 01 0 60 30 ME 88 AR Ac TF 58 -3 -3 0. D 19 NO ti OR 40 1- 1- 00 CA 38 LD ve MD 25 20 20 0 RE 7 N 90 13 13 RI HC 1 PH CH L AR AR 50 MA D 0 CY W MG LL TA C BL ET MA 00 11 01 0 60 7 ME 88 AR Ac PA 90 -0 -2 0. D 07 NO ti P 41 7- 6- 00 CA 43 LD ve 32 98 20 20 0 RE 6 5 26 11 13 RI MG 1 PH CH AR AR TA MA D BL CY W ET LL C PO 68 11 01 0 30 30 ME 88 AR Ac TA 38 -0 -2 0. D 03 NO ti SS 20 7- 5- 00 CA 52 LD ve IU 70 20 20 0 RE 2 M 10 11 13 RI CL 5 PH CH AR AR ER MA D CY W 10 LL ME C Q CA PS UL E MO 37 07 01 0 30 30 ME 87 AR Ac IL 00 -0 -2 0. D 99 NO ti OS 00 6- 4- 00 CA 95 LD ve EC 35 20 20 0 RE 5 90 12 13 RI OT 7 PH CH C AR AR 20 MA D .6 CY W MG LL C TA BL ET AC 00 03 01 0 35 7 ME 87 AR Ac ID 90 -1 -1 50 D 90 NO ti 47 2- 9- .0 CA 83 LD ve GO 72 20 20 00 RE 4 NE 71 12 13 RI 4 PH CH AN AR AR TA MA D CI CY W D LI LL QU C ID MO 00 11 01 0 30 30 ME 87 AR Ac NT 09 -0 -1 0. D 86 NO ti EL 37 7- 8- 00 CA 18 LD ve UK 42 20 20 0 RE 3 69 11 13 RI T 8 PH CH SO AR AR D MA D 10 CY W MG LL C TA BL ET MD 68 01 01 0 30 30 ME 87 AR Ac RT 08 -1 -1 0. D 87 NO ti AZ 40 8- 8- 00 CA 85 LD ve AP 12 20 20 0 RE 2 IN 00 13 13 RI E 1 PH CH 30 AR AR MA D MG CY W TA LL BL C ET RI 51 01 01 0 30 30 ME 87 AR Ac SP 07 -1 -1 0. D 87 NO ti ER 90 8- 8- 00 CA 84 LD ve ID 46 20 20 0 RE 7 ON 25 13 13 RI E 6 PH CH 1 AR AR MG MA D CY W TA BL LL ET C BE 00 11 01 0 30 10 ME 87 AR Ac NZ 60 -0 -0 0. D 66 NO ti TR 32 7- 9- 00 CA 61 LD ve OP 43 20 20 0 RE 4 IN 32 11 13 RI E 1 PH CH ME AR AR S MA D 0. CY W 5 MG LL C TA B TR 51 11 01 0 30 30 ME 87 AR Ac IA 07 -0 -0 0. D 60 NO ti MT 90 7- 8- 00 CA 20 LD ve ER 43 20 20 0 RE 2 EN 32 11 13 RI E- 0 PH CH HC AR AR TZ MA D CY W 75 -5 LL 0 C MG TA B DI 00 10 01 0 30 30 ME 87 AR Ac CY 59 -1 -0 0. D 52 NO ti CL 10 0- 4- 00 CA 88 LD ve OM 79 20 20 0 RE 5 IN 51 12 13 RI E 0 PH CH 20 AR AR MA D MG CY W TA LL BL C ET MD 68 11 01 0 90 9 ME 87 AR Ac RT 08 -0 -0 .0 D 52 NO ti AZ 40 7- 4- 00 CA 14 LD ve AP 11 20 20 RE 1 IN 90 11 13 RI E 1 PH CH 15 AR AR MA D MG CY W TA LL BL C ET AC 00 03 01 0 35 7 ME 87 AR Ac ID 90 -1 -0 50 D 50 NO ti 47 2- 3- .0 CA 18 LD ve GO 72 20 20 00 RE 9 NE 71 12 13 RI 4 PH CH AN AR AR TA MA D CI CY W D LI LL QU C ID LO 51 07 01 0 30 4 ME 87 AR Ac PE 07 -2 -0 0. D 50 NO ti RA 90 4- 3- 00 CA 15 LD ve MD 69 20 20 0 RE 8 DE 02 12 13 RI 2 0 PH CH AR AR MG MA D CY W CA PS LL UL C E Q- 00 11 01 0 11 3 ME 87 AR Ac TU 60 -0 -0 80 D 50 NO ti SS 30 7- 3- .0 CA 18 LD ve IN 85 20 20 00 RE 3 59 11 13 RI DM 4 PH CH AR AR SY MA D RU CY W P LL C RO 68 07 12 5 30 30 ME 81 AR Ac PI 46 -0 -2 0. D 21 NO ti NI 20 6- 9- 00 CA 75 LD ve RO 25 20 20 0 RE 3 LE 50 12 12 RI 1 PH CH HC AR AR L MA D 1 CY W MG LL TA C BL ET VE 68 11 12 0 90 30 ME 87 AR Ac NL 38 -2 -2 0. D 36 NO ti AF 20 9- 8- 00 CA 66 LD ve AX 02 20 20 0 RE 0 IN 10 12 12 RI E 1 PH CH HC AR AR L MA D 75 CY W MG LL C TA BL ET MO 68 11 12 0 30 5 ME 87 AR Ac OM 38 -0 -2 0. D 40 NO ti ET 20 7- 8- 00 CA 17 LD ve TYLER 04 20 20 0 RE 7 ZI 11 11 12 RI NE 0 PH CH AR AR 25 MA D CY W MG LL TA C BL ET PO 00 11 12 0 30 30 ME 87 AR Ac TA 57 -0 -2 0. D 33 NO ti SS 40 7- 7- 00 CA 24 LD ve IU 18 20 20 0 RE 7 M 10 11 12 RI CL 5 PH CH AR AR ER MA D CY W 10 LL ME C Q CA PS UL E RI 51 11 12 0 18 18 ME 87 AR Ac SP 07 -0 -2 0. D 32 NO ti ER 90 7- 7- 00 CA 50 LD ve ID 46 20 20 0 RE 1 ON 35 11 12 RI E 6 PH CH 2 AR AR MG MA D CY W TA BL LL ET C MO 37 07 12 0 30 30 ME 87 AR Ac IL 00 -0 -2 0. D 29 NO ti OS 00 6- 6- 00 CA 62 LD ve EC 45 20 20 0 RE 4 50 12 12 RI OT 4 PH CH C AR AR 20 MA D .6 CY W MG LL C TA BL ET RI 68 11 12 0 30 30 ME 87 AR Ac SP 38 -0 -2 0. D 23 NO ti ER 20 7- 2- 00 CA 86 LD ve ID 11 20 20 0 RE 8 ON 30 11 12 RI E 5 PH CH 0. AR AR 5 MA D MG CY W TA LL BL C ET MO 00 11 12 0 30 30 ME 87 AR Ac NT 09 -0 -2 0. D 17 NO ti EL 37 7- 0- 00 CA 94 LD ve UK 42 20 20 0 RE 5 69 11 12 RI T 8 PH CH SO AR AR D MA D 10 CY W MG LL C TA BL ET AC 00 03 12 0 35 7 ME 87 AR Ac ID 90 -1 -1 50 D 15 NO ti 47 2- 9- .0 CA 48 LD ve GO 72 20 20 00 RE 4 NE 71 12 12 RI 4 PH CH AN AR AR TA MA D CI CY W D LI LL QU C ID TR 51 11 12 0 30 30 ME 86 AR Ac IA 07 -0 -0 0. D 89 NO ti MT 90 7- 7- 00 CA 02 LD ve ER 43 20 20 0 RE 3 EN 32 11 12 RI E- 0 PH CH HC AR AR TZ MA D CY W 75 -5 LL 0 C MG TA B MD 68 11 12 0 30 30 ME 86 AR Ac RT 08 -0 -0 0. D 84 NO ti AZ 40 7- 6- 00 CA 51 LD ve AP 11 20 20 0 RE 4 IN 90 11 12 RI E 1 PH CH 15 AR AR MA D MG CY W TA LL BL C ET DI 00 10 12 0 30 30 ME 86 AR Ac CY 59 -1 -0 0. D 85 NO ti CL 10 0- 6- 00 CA 41 LD ve OM 79 20 20 0 RE 0 IN 50 12 12 RI E 1 PH CH 20 AR AR MA D MG CY W TA LL BL C ET AC 00 03 12 0 35 7 ME 86 AR Ac ID 90 -1 -0 50 D 86 NO ti 47 2- 6- .0 CA 05 LD ve GO 72 20 20 00 RE 5 NE 71 12 12 RI 4 PH CH AN AR AR TA MA D CI CY W D LI LL QU C ID VE 68 11 12 0 90 30 ME 86 AR Ac NL 38 -2 -0 0. D 69 NO ti AF 20 9- 1- 00 CA 84 LD ve AX 02 20 20 0 RE 0 IN 10 12 12 RI E 1 PH CH HC AR AR L MA D 75 CY W MG LL C TA BL ET RO 68 07 11 6 30 30 ME 81 AR Ac PI 46 -0 -3 0. D 21 NO ti NI 20 6- 0- 00 CA 75 LD ve RO 25 20 20 0 RE 3 LE 50 12 12 RI 1 PH CH HC AR AR L MA D 1 CY W MG LL TA C BL ET RI 51 11 11 0 30 30 ME 86 AR Ac SP 07 -0 -2 0. D 63 NO ti ER 90 7- 9- 00 CA 59 LD ve ID 46 20 20 0 RE 3 ON 35 11 12 RI E 6 PH CH 2 AR AR MG MA D CY W TA BL LL ET C VE 68 11 11 0 40 2 ME 86 AR Ac NL 38 -2 -2 .0 D 69 NO ti AF 20 9- 9- 00 CA 83 LD ve AX 02 20 20 RE 4 IN 10 12 12 RI E 1 PH CH HC AR AR L MA D 75 CY W MG LL C TA BL ET BA 00 11 11 0 28 3 ME 86 AR Ac CI 16 -2 -2 3. D 70 NO ti TR 80 9- 9- 50 CA 07 LD ve AC 02 20 20 0 RE 2 IN 13 12 12 RI -P 1 PH CH OL AR AR YM MA D YX CY W IN LL OI C NT ME NT PO 00 11 11 0 30 30 ME 86 AR Ac TA 57 -0 -2 0. D 65 NO ti SS 40 7- 8- 00 CA 18 LD ve IU 18 20 20 0 RE 6 M 10 11 12 RI CL 5 PH CH AR AR ER MA D CY W 10 LL ME C Q CA PS UL E MO 37 07 11 0 30 30 ME 86 AR Ac IL 00 -0 -2 0. D 57 NO ti OS 00 6- 6- 00 CA 99 LD ve EC 45 20 20 0 RE 8 50 12 12 RI OT 4 PH CH C AR AR 20 MA D .6 CY W MG LL C TA BL ET RI 68 11 11 0 30 30 ME 86 AR Ac SP 38 -0 -2 0. D 53 NO ti ER 20 7- 3- 00 CA 78 LD ve ID 11 20 20 0 RE 6 ON 30 11 12 RI E 5 PH CH 0. AR AR 5 MA D MG CY W TA LL BL C ET MO 00 11 11 0 30 30 ME 86 AR Ac NT 09 -0 -2 0. D 45 NO ti EL 37 7- 0- 00 CA 88 LD ve UK 42 20 20 0 RE 4 69 11 12 RI T 8 PH CH SO AR AR D MA D 10 CY W MG LL C TA BL ET VE 68 10 11 0 20 2 ME 86 AR Ac NL 38 -0 -2 .0 D 45 NO ti AF 20 2- 0- 00 CA 88 LD ve AX 03 20 20 RE 8 IN 61 12 12 RI E 6 PH CH HC AR AR L MA D ER CY W 15 LL 0 C MG CA P AC 00 03 11 0 35 7 ME 86 AR Ac ID 90 -1 -1 50 D 34 NO ti 47 2- 7- .0 CA 39 LD ve GO 72 20 20 00 RE 7 NE 71 12 12 RI 4 PH CH AN AR AR TA MA D CI CY W D LI LL QU C ID MO 68 11 11 0 30 5 ME 86 AR Ac OM 38 -0 -1 0. D 09 NO ti ET 20 7- 2- 00 CA 30 LD ve TYLER 04 20 20 0 RE 6 ZI 11 11 12 RI NE 0 PH CH AR AR 25 MA D CY W MG LL TA C BL ET LO 00 11 11 0 20 5 ME 86 AR Ac RA 59 -1 -1 0. D 08 NO ti ZE 10 2- 2- 00 CA 52 LD ve PA 24 20 20 0 RE 5 M 11 12 12 RI 1 0 PH CH MG AR AR MA D TA CY W BL ET LL C TR 51 11 11 0 30 30 ME 86 AR Ac IA 07 -0 -0 0. D 03 NO ti MT 90 7- 9- 00 CA 31 LD ve ER 43 20 20 0 RE 8 EN 32 11 12 RI E- 0 PH CH HC AR AR TZ MA D CY W 75 -5 LL 0 C MG TA B FL 60 11 11 0 16 30 ME 86 AR Ac UT 50 -0 -0 0. D 02 NO ti IC 50 7- 8- 00 CA 19 LD ve 82 20 20 0 RE 7 ON 90 11 12 RI E 1 PH CH MO AR AR OP MA D CY W 50 LL MC C G SP RA Y DI 00 10 11 0 30 30 ME 85 AR Ac CY 59 -1 -0 0. D 97 NO ti CL 10 0- 7- 00 CA 18 LD ve OM 79 20 20 0 RE 3 IN 50 12 12 RI E 1 PH CH 20 AR AR MA D MG CY W TA LL BL C ET MD 68 11 11 0 30 30 ME 85 AR Ac RT 08 -0 -0 0. D 94 NO ti AZ 40 7- 6- 00 CA 54 LD ve AP 11 20 20 0 RE 8 IN 90 11 12 RI E 1 PH CH 15 AR AR MA D MG CY W TA LL BL C ET RI 51 11 11 0 30 30 ME 85 AR Ac SP 07 -0 -0 0. D 78 NO ti ER 90 7- 2- 00 CA 81 LD ve ID 46 20 20 0 RE 0 ON 35 11 12 RI E 6 PH CH 2 AR AR MG MA D CY W TA BL LL ET C RO 68 07 11 7 30 30 ME 81 AR Ac PI 46 -0 -0 0. D 21 NO ti NI 20 6- 1- 00 CA 75 LD ve RO 25 20 20 0 RE 3 LE 50 12 12 RI 1 PH CH HC AR AR L MA D 1 CY W MG LL TA C BL ET MO 37 07 10 0 30 30 ME 85 AR Ac IL 00 -0 -2 0. D 54 NO ti OS 00 6- 9- 00 CA 26 LD ve EC 45 20 20 0 RE 1 50 12 12 RI OT 4 PH CH C AR AR 20 MA D .6 CY W MG LL C TA BL ET PO 00 11 10 0 30 30 ME 85 AR Ac TA 57 -0 -2 0. D 59 NO ti SS 40 7- 9- 00 CA 86 LD ve IU 18 20 20 0 RE 8 M 10 11 12 RI CL 5 PH CH AR AR ER MA D CY W 10 LL ME C Q CA PS UL E RI 68 11 10 0 30 30 ME 85 AR Ac SP 38 -0 -2 0. D 52 NO ti ER 20 7- 5- 00 CA 65 LD ve ID 11 20 20 0 RE 2 ON 30 11 12 RI E 5 PH CH 0. AR AR 5 MA D MG CY W TA LL BL C ET MO 68 11 10 0 30 30 ME 85 AR Ac NT 46 -0 -2 0. D 43 NO ti EL 20 7- 4- 00 CA 54 LD ve UK 39 20 20 0 RE 6 29 11 12 RI T 0 PH CH SO AR AR D MA D 10 CY W MG LL C TA BL ET MA 00 11 10 0 60 7 ME 85 AR Ac PA 90 -0 -2 0. D 43 NO ti P 41 7- 2- 00 CA 54 LD ve 32 98 20 20 0 RE 8 5 26 11 12 RI MG 1 PH CH AR AR TA MA D BL CY W ET LL C VE 68 10 10 0 30 30 ME 84 AR Ac NL 38 -0 -2 0. D 76 NO ti AF 20 2- 2- 00 CA 28 LD ve AX 03 20 20 0 RE 8 IN 61 12 12 RI E 6 PH CH HC AR AR L MA D ER CY W 15 LL 0 C MG CA P AC 00 03 10 0 35 7 ME 85 AR Ac ID 90 -1 -1 50 D 26 NO ti 47 2- 8- .0 CA 93 LD ve GO 72 20 20 00 RE 8 NE 71 12 12 RI 4 PH CH AN AR AR TA MA D CI CY W D LI LL QU C ID TR 51 11 10 0 30 30 ME 85 AR Ac IA 07 -0 -1 0. D 02 NO ti MT 90 7- 1- 00 CA 62 LD ve ER 43 20 20 0 RE 0 EN 32 11 12 RI E- 0 PH CH HC AR AR TZ MA D CY W 75 -5 LL 0 C MG TA B DI 00 10 10 0 30 30 ME 85 AR Ac CY 59 -1 -1 0. D 01 NO ti CL 10 0- 0- 00 CA 95 LD ve OM 79 20 20 0 RE 3 IN 50 12 12 RI E 1 PH CH 20 AR AR MA D MG CY W TA LL BL C ET MD 68 11 10 0 30 30 ME 84 AR Ac RT 08 -0 -0 0. D 83 NO ti AZ 40 7- 5- 00 CA 90 LD ve AP 11 20 20 0 RE 1 IN 90 11 12 RI E 1 PH CH 15 AR AR MA D MG CY W TA LL BL C ET RI 51 11 10 0 30 30 ME 84 AR Ac SP 07 -0 -0 0. D 79 NO ti ER 90 7- 4- 00 CA 45 LD ve ID 46 20 20 0 RE 7 ON 35 11 12 RI E 6 PH CH 2 AR AR MG MA D CY W TA BL LL ET C MO 68 11 10 0 30 5 ME 84 AR Ac OM 38 -0 -0 0. D 77 NO ti ET 20 7- 3- 00 CA 95 LD ve TYLER 04 20 20 0 RE 1 ZI 11 11 12 RI NE 0 PH CH AR AR 25 MA D CY W MG LL TA C BL ET RO 68 07 10 8 30 30 ME 81 AR Ac PI 46 -0 -0 0. D 21 NO ti NI 20 6- 2- 00 CA 75 LD ve RO 25 20 20 0 RE 3 LE 50 12 12 RI 1 PH CH HC AR AR L MA D 1 CY W MG LL TA C BL ET MO 37 07 10 8 30 30 ME 81 AR Ac IL 00 -0 -0 0. D 21 NO ti OS 00 6- 2- 00 CA 75 LD ve EC 45 20 20 0 RE 5 50 12 12 RI OT 4 PH CH C AR AR 20 MA D .6 CY W MG LL C TA BL ET VE 68 10 10 0 21 21 ME 84 AR Ac NL 38 -0 -0 0. D 76 NO ti AF 20 2- 2- 00 CA 28 LD ve AX 03 20 20 0 RE 5 IN 51 12 12 RI E 6 PH CH HC AR AR L MA D ER CY W 75 LL C MG CA P LO 00 07 10 0 30 4 ME 84 AR Ac PE 37 -2 -0 0. D 66 NO ti RA 82 4- 1- 00 CA 35 LD ve MD 10 20 20 0 RE 7 DE 00 12 12 RI 2 1 PH CH AR AR MG MA D CY W CA PS LL UL C E PO 00 11 10 0 30 30 ME 84 AR Ac TA 57 -0 -0 0. D 66 NO ti SS 40 7- 1- 00 CA 35 LD ve IU 18 20 20 0 RE 6 M 10 11 12 RI CL 5 PH CH AR AR ER MA D CY W 10 LL ME C Q CA PS UL E MO 68 11 09 0 30 30 ME 84 AR Ac NT 46 -0 -2 0. D 58 NO ti EL 20 7- 7- 00 CA 66 LD ve UK 39 20 20 0 RE 2 29 11 12 RI T 0 PH CH SO AR AR D MA D 10 CY W MG LL C TA BL ET DI 00 11 09 0 30 10 ME 84 AR Ac CY 59 -0 -2 0. D 56 NO ti CL 10 7- 6- 00 CA 32 LD ve OM 79 20 20 0 RE 4 IN 50 11 12 RI E 1 PH CH 20 AR AR MA D MG CY W TA LL BL C ET RI 68 11 09 0 30 30 ME 84 AR Ac SP 38 -0 -2 0. D 54 NO ti ER 20 7- 6- 00 CA 18 LD ve ID 11 20 20 0 RE 0 ON 30 11 12 RI E 5 PH CH 0. AR AR 5 MA D MG CY W TA LL BL C ET AC 00 03 09 0 35 7 ME 84 AR Ac ID 90 -1 -2 50 D 38 NO ti 47 2- 2- .0 CA 07 LD ve GO 72 20 20 00 RE 0 NE 71 12 12 RI 4 PH CH AN AR AR TA MA D CI CY W D LI LL QU C ID ME 65 11 09 0 21 7 ME 84 AR Ac CL 16 -0 -1 0. D 14 NO ti IZ 20 5- 5- 00 CA 08 LD ve IN 44 20 20 0 RE 9 E 21 11 12 RI 25 0 PH CH AR AR MG MA D CY W TA BL LL ET C TR 51 11 09 0 30 30 ME 84 AR Ac IA 07 -0 -1 0. D 00 NO ti MT 90 7- 1- 00 CA 51 LD ve ER 43 20 20 0 RE 6 EN 32 11 12 RI E- 0 PH CH HC AR AR TZ MA D CY W 75 -5 LL 0 C MG TA B LO 00 07 09 0 30 4 ME 84 AR Ac PE 37 -2 -1 0. D 01 NO ti RA 82 4- 1- 00 CA 93 LD ve MD 10 20 20 0 RE 2 DE 00 12 12 RI 2 1 PH CH AR AR MG MA D CY W CA PS LL UL C E MD 68 11 09 0 30 30 ME 83 AR Ac RT 08 -0 -0 0. D 82 NO ti AZ 40 7- 6- 00 CA 65 LD ve AP 11 20 20 0 RE 2 IN 90 11 12 RI E 1 PH CH 15 AR AR MA D MG CY W TA LL BL C ET RI 51 11 09 0 30 30 ME 83 AR Ac SP 07 -0 -0 0. D 71 NO ti ER 90 7- 4- 00 CA 04 LD ve ID 46 20 20 0 RE 1 ON 35 11 12 RI E 6 PH CH 2 AR AR MG MA D CY W TA BL LL ET C PO 00 11 09 0 30 30 ME 83 AR Ac TA 57 -0 -0 0. D 71 NO ti SS 40 7- 4- 00 CA 03 LD ve IU 18 20 20 0 RE 1 M 10 11 12 RI CL 5 PH CH AR AR ER MA D CY W 10 LL ME C Q CA PS UL E DI 00 11 09 0 30 10 ME 83 AR Ac CY 59 -0 -0 0. D 68 NO ti CL 10 7- 1- 00 CA 31 LD ve OM 79 20 20 0 RE 2 IN 50 11 12 RI E 1 PH CH 20 AR AR MA D MG CY W TA LL BL C ET MO 37 07 08 9 30 30 ME 81 AR Ac IL 00 -0 -3 0. D 21 NO ti OS 00 6- 1- 00 CA 75 LD ve EC 45 20 20 0 RE 5 50 12 12 RI OT 4 PH CH C AR AR 20 MA D .6 CY W MG LL C TA BL ET RO 68 07 08 9 30 30 ME 81 AR Ac PI 46 -0 -3 0. D 21 NO ti NI 20 6- 1- 00 CA 75 LD ve RO 25 20 20 0 RE 3 LE 50 12 12 RI 1 PH CH HC AR AR L MA D 1 CY W MG LL TA C BL ET MO 68 11 08 0 30 30 ME 83 AR Ac NT 46 -0 -3 0. D 47 NO ti EL 20 7- 0- 00 CA 58 LD ve UK 39 20 20 0 RE 9 29 11 12 RI T 0 PH CH SO AR AR D MA D 10 CY W MG LL C TA BL ET 00 06 08 0 13 26 ME 83 AR Ac 09 -1 -3 0. D 57 NO ti 34 6- 0- 00 CA 83 LD ve 74 20 20 0 RE 3 29 12 12 RI 3 PH CH AR AR MA D CY W LL C AZ 64 08 08 0 60 5 ME 83 AR Ac IT 67 -2 -2 .0 D 55 NO ti HR 90 9- 9- 00 CA 26 LD ve OM 96 20 20 RE 2 YC 10 12 12 RI IN 5 PH CH AR AR 25 MA D 0 CY W MG LL TA C BL ET MO 00 11 08 0 30 5 ME 83 AR Ac OM 60 -0 -2 0. D 47 NO ti ET 35 7- 7- 00 CA 57 LD ve YTLER 43 20 20 0 RE 1 ZI 83 11 12 RI NE 2 PH CH AR AR 25 MA D CY W MG LL TA C BL ET RI 68 11 08 0 30 30 ME 83 AR Ac SP 38 -0 -2 0. D 42 NO ti ER 20 7- 7- 00 CA 09 LD ve ID 11 20 20 0 RE 2 ON 30 11 12 RI E 5 PH CH 0. AR AR 5 MA D MG CY W TA LL BL C ET AC 00 03 08 0 35 7 ME 83 AR Ac ID 90 -1 -2 50 D 27 NO ti 47 2- 1- .0 CA 32 LD ve GO 72 20 20 00 RE 5 NE 71 12 12 RI 4 PH CH AN AR AR TA MA D CI CY W D LI LL QU C ID TR 51 11 08 0 30 30 ME 82 AR Ac IA 07 -0 -1 0. D 86 NO ti MT 90 7- 0- 00 CA 11 LD ve ER 43 20 20 0 RE 9 EN 32 11 12 RI E- 0 PH CH HC AR AR TZ MA D CY W 75 -5 LL 0 C MG TA B MU 45 08 08 0 22 3 ME 82 AR Ac PI 80 -0 -0 0. D 83 NO ti RO 20 9- 9- 00 CA 81 LD ve CI 11 20 20 0 RE 5 N 22 12 12 RI 2% 2 PH CH AR AR OI MA D NT CY W ME NT LL C MD 68 11 08 0 30 30 ME 82 AR Ac RT 08 -0 -0 0. D 77 NO ti AZ 40 7- 8- 00 CA 04 LD ve AP 11 20 20 0 RE 2 IN 90 11 12 RI E 1 PH CH 15 AR AR MA D MG CY W TA LL BL C ET DI 00 11 08 0 30 10 ME 82 AR Ac CY 59 -0 -0 0. D 71 NO ti CL 10 7- 6- 00 CA 99 LD ve OM 79 20 20 0 RE 5 IN 50 11 12 RI E 1 PH CH 20 AR AR MA D MG CY W TA LL BL C ET PO 00 11 08 0 30 30 ME 82 AR Ac TA 57 -0 -0 0. D 59 NO ti SS 40 7- 3- 00 CA 37 LD ve IU 18 20 20 0 RE 2 M 10 11 12 RI CL 5 PH CH AR AR ER MA D CY W 10 LL ME C Q CA PS UL E RI 51 11 08 0 30 30 ME 82 AR Ac SP 07 -0 -0 0. D 59 NO ti ER 90 7- 3- 00 CA 38 LD ve ID 46 20 20 0 RE 2 ON 35 11 12 RI E 6 PH CH 2 AR AR MG MA D CY W TA BL LL ET C 00 11 08 0 30 30 ME 82 AR Ac 00 -0 -0 0. D 59 NO ti 60 7- 3- 00 CA 38 LD ve 11 20 20 0 RE 1 72 11 12 RI 8 PH CH AR AR MA D CY W LL C MO 37 07 08 10 30 30 ME 81 AR Ac IL 00 -0 -0 0. D 21 NO ti OS 00 6- 2- 00 CA 75 LD ve EC 45 20 20 0 RE 5 50 12 12 RI OT 4 PH CH C AR AR 20 MA D .6 CY W MG LL C TA BL ET RO 68 07 08 10 30 30 ME 81 AR Ac PI 46 -0 -0 0. D 21 NO ti NI 20 6- 2- 00 CA 75 LD ve RO 25 20 20 0 RE 3 LE 50 12 12 RI 1 PH CH HC AR AR L MA D 1 CY W MG LL TA C BL ET CI 65 06 08 0 15 30 ME 82 AR Ac TA 16 -1 -0 0. D 47 NO ti LO 20 6- 1- 00 CA 71 LD ve MO 05 20 20 0 RE 5 AM 45 12 12 RI 0 PH CH HB AR AR R MA D 40 CY W MG LL C TA BL ET RI 68 11 07 0 30 30 ME 82 AR Ac SP 38 -0 -2 0. D 25 NO ti ER 20 7- 7- 00 CA 03 LD ve ID 11 20 20 0 RE 8 ON 30 11 12 RI E 5 PH CH 0. AR AR 5 MA D MG CY W TA LL BL C ET LO 00 07 07 0 30 4 ME 82 AR Ac PE 37 -2 -2 0. D 04 NO ti RA 82 4- 4- 00 CA 56 LD ve MD 10 20 20 0 RE 9 DE 00 12 12 RI 2 1 PH CH AR AR MG MA D CY W CA PS LL UL C E AC 00 03 07 0 35 7 ME 82 AR Ac ID 90 -1 -2 50 D 05 NO ti 47 2- 4- .0 CA 57 LD ve GO 72 20 20 00 RE 6 NE 71 12 12 RI 4 PH CH AN AR AR TA MA D CI CY W D LI LL QU C ID ME 51 11 07 0 21 7 ME 81 AR Ac CL 07 -0 -1 0. D 59 NO ti IZ 90 5- 6- 00 CA 09 LD ve IN 09 20 20 0 RE 6 E 02 11 12 RI 25 0 PH CH AR AR MG MA D CY W TA BL LL ET C TR 51 11 07 0 30 30 ME 81 AR Ac IA 07 -0 -1 0. D 48 NO ti MT 90 7- 2- 00 CA 10 LD ve ER 43 20 20 0 RE 8 EN 32 11 12 RI E- 0 PH CH HC AR AR TZ MA D CY W 75 -5 LL 0 C MG TA B HY 00 11 07 0 30 5 [address] 59 -0 -1 0. D 45 NO ti OX 10 7- 1- 00 CA 69 LD ve YZ 80 20 20 0 RE 5 IN 00 11 12 RI E 5 PH CH PA AR AR M MA D 25 CY W MG LL C CA P MD 68 11 07 0 30 30 ME 81 AR Ac RT 08 -0 -0 0. D 24 NO ti AZ 40 7- 9- 00 CA 59 LD ve AP 11 20 20 0 RE 5 IN 90 11 12 RI E 1 PH CH 15 AR AR MA D MG CY W TA LL BL C ET 00 11 07 0 30 30 ME 81 AR Ac 00 -0 -0 0. D 06 NO ti 60 7- 6- 00 CA 47 LD ve 11 20 20 0 RE 2 72 11 12 RI 8 PH CH AR AR MA D CY W LL C PO 00 11 07 0 30 30 ME 81 AR Ac TA 57 -0 -0 0. D 06 NO ti SS 40 7- 6- 00 CA 46 LD ve IU 18 20 20 0 RE 3 M 10 11 12 RI CL 5 PH CH AR AR ER MA D CY W 10 LL ME C Q CA PS UL E MO 37 07 07 11 30 30 ME 81 AR Ac IL 00 -0 -0 0. D 21 NO ti OS 00 6- 6- 00 CA 75 LD ve EC 45 20 20 0 RE 5 50 12 12 RI OT 4 PH CH C AR AR 20 MA D .6 CY W MG LL C TA BL ET RO 68 07 07 11 30 30 ME 81 AR Ac PI 46 -0 -0 0. D 21 NO ti NI 20 6- 6- 00 CA 75 LD ve RO 25 20 20 0 RE 3 LE 50 12 12 RI 1 PH CH HC AR AR L MA D 1 CY W MG LL TA C BL ET RI 51 11 07 0 30 30 ME 81 AR Ac SP 07 -0 -0 0. D 06 NO ti ER 90 7- 6- 00 CA 47 LD ve ID 46 20 20 0 RE 3 ON 35 11 12 RI E 6 PH CH 2 AR AR MG MA D CY W TA BL LL ET C MO 68 11 07 0 30 5 ME 81 AR Ac OM 38 -0 -0 0. D 12 NO ti ET 20 7- 3- 00 CA 68 LD ve TYLER 04 20 20 0 RE 4 ZI 11 11 12 RI NE 0 PH CH AR AR 25 MA D CY W MG LL TA C BL ET DI 00 11 07 0 30 10 ME 81 AR Ac CY 59 -0 -0 0. D 12 NO ti CL 10 7- 3- 00 CA 68 LD ve OM 79 20 20 0 RE 3 IN 50 11 12 RI E 1 PH CH 20 AR AR MA D MG CY W TA LL BL C ET AC 00 03 07 0 35 7 ME 81 AR Ac ID 90 -1 -0 50 D 12 NO ti 47 2- 3- .0 CA 68 LD ve GO 72 20 20 00 RE 5 NE 71 12 12 RI 4 PH CH AN AR AR TA MA D CI CY W D LI LL QU C ID RI 68 11 06 0 30 30 ME 80 AR Ac SP 38 -0 -2 0. D 84 NO ti ER 20 7- 8- 00 CA 71 LD ve ID 11 20 20 0 RE 2 ON 30 11 12 RI E 5 PH CH 0. AR AR 5 MA D MG CY W TA LL BL C ET MA 00 11 06 0 60 7 ME 80 AR Ac PA 90 -0 -2 0. D 95 NO ti P 41 7- 7- 00 CA 19 LD ve 32 98 20 20 0 RE 9 5 26 11 12 RI MG 1 PH CH AR AR TA MA D BL CY W ET LL C CI 65 06 06 0 70 14 ME 80 AR Ac TA 16 -1 -1 .0 D 70 NO ti LO 20 9- 9- 00 CA 45 LD ve MO 05 20 20 RE 7 AM 45 12 12 RI 0 PH CH HB AR AR R MA D 40 CY W MG LL C TA BL ET AC 00 03 06 0 35 7 ME 80 AR Ac ID 90 -1 -1 50 D 67 NO ti 47 2- 8- .0 CA 60 LD ve GO 72 20 20 00 RE 0 NE 71 12 12 RI 4 PH CH AN AR AR TA MA D CI CY W D LI LL QU C ID CI 65 06 06 0 70 14 ME 80 AR Ac TA 16 -1 -1 .0 D 64 NO ti LO 20 6- 6- 00 CA 45 LD ve MO 05 20 20 RE 8 AM 35 12 12 RI 0 PH CH HB AR AR R MA D 20 CY W MG LL C TA BL ET TR 51 11 06 0 30 30 ME 80 AR Ac IA 07 -0 -1 0. D 41 NO ti MT 90 7- 3- 00 CA 67 LD ve ER 43 20 20 0 RE 9 EN 32 11 12 RI E- 0 PH CH HC AR AR TZ MA D CY W 75 -5 LL 0 C MG TA B MD 68 11 06 0 30 30 ME 80 AR Ac RT 08 -0 -0 0. D 32 NO ti AZ 40 7- 9- 00 CA 78 LD ve AP 11 20 20 0 RE 9 IN 90 11 12 RI E 1 PH CH 15 AR AR MA D MG CY W TA LL BL C ET CI 65 12 06 0 50 5 ME 80 AR Ac TA 16 -1 -0 .0 D 34 NO ti LO 20 1- 6- 00 CA 59 LD ve MO 05 20 20 RE 8 AM 45 11 12 RI 0 PH CH HB AR AR R MA D 40 CY W MG LL C TA BL ET PO 00 11 06 0 30 30 ME 80 AR Ac TA 57 -0 -0 0. D 25 NO ti SS 40 7- 6- 00 CA 31 LD ve IU 18 20 20 0 RE 6 M 10 11 12 RI CL 5 PH CH AR AR ER MA D CY W 10 LL ME C Q CA PS UL E RI 51 11 06 0 30 30 ME 80 AR Ac SP 07 -0 -0 0. D 25 NO ti ER 90 7- 6- 00 CA 32 LD ve ID 46 20 20 0 RE 6 ON 35 11 12 RI E 6 PH CH 2 AR AR MG MA D CY W TA BL LL ET C 00 11 06 0 30 30 ME 80 AR Ac 00 -0 -0 0. D 25 NO ti 60 7- 6- 00 CA 32 LD ve 11 20 20 0 RE 5 72 11 12 RI 8 PH CH AR AR MA D CY W LL C AC 00 03 06 0 35 7 ME 80 AR Ac ID 90 -1 -0 50 D 23 NO ti 47 2- 2- .0 CA 41 LD ve GO 72 20 20 00 RE 0 NE 71 12 12 RI 4 PH CH AN AR AR TA MA D CI CY W D LI LL QU C ID MO 68 11 06 0 30 5 ME 80 AR Ac OM 38 -0 -0 0. D 21 NO ti ET 20 7- 1- 00 CA 82 LD ve TYLER 04 20 20 0 RE 0 ZI 11 11 12 RI NE 0 PH CH AR AR 25 MA D CY W MG LL TA C BL ET DI 00 11 06 0 30 10 ME 80 AR Ac CY 59 -0 -0 0. D 21 NO ti CL 10 7- 1- 00 CA 81 LD ve OM 79 20 20 0 RE 8 IN 50 11 12 RI E 1 PH CH 20 AR AR MA D MG CY W TA LL BL C ET RI 68 11 05 0 30 30 ME 80 AR Ac SP 38 -0 -2 0. D 01 NO ti ER 20 7- 9- 00 CA 24 LD ve ID 11 20 20 0 RE 9 ON 30 11 12 RI E 5 PH CH 0. AR AR 5 MA D MG CY W TA LL BL C ET MO 37 03 05 0 30 30 ME 80 AR Ac IL 00 -0 -2 0. D 09 NO ti OS 00 6- 9- 00 CA 80 LD ve EC 45 20 20 0 RE 6 50 12 12 RI OT 4 PH CH C AR AR 20 MA D .6 CY W MG LL C TA BL ET RO 68 11 05 0 30 30 ME 80 AR Ac PI 46 -0 -2 0. D 02 NO ti NI 20 7- 6- 00 CA 43 LD ve RO 25 20 20 0 RE 1 LE 50 11 12 RI 1 PH CH HC AR AR L MA D 1 CY W MG LL TA C BL ET AC 00 03 05 0 35 7 ME 79 AR Ac ID 90 -1 -2 50 D 90 NO ti 47 2- 2- .0 CA 26 LD ve GO 72 20 20 00 RE 8 NE 71 12 12 RI 4 PH CH AN AR AR TA MA D CI CY W D LI LL QU C ID ME 51 11 05 0 21 7 ME 79 AR Ac CL 07 -0 -1 0. D 81 NO ti IZ 90 5- 8- 00 CA 06 LD ve IN 09 20 20 0 RE 3 E 02 11 12 RI 25 0 PH CH AR AR MG MA D CY W TA BL LL ET C TR 51 11 05 0 30 30 ME 79 AR Ac IA 07 -0 -1 0. D 56 NO ti MT 90 7- 4- 00 CA 16 LD ve ER 43 20 20 0 RE 0 EN 32 11 12 RI E- 0 PH CH HC AR AR TZ MA D CY W 75 -5 LL 0 C MG TA B AC 00 03 05 0 35 7 ME 79 AR Ac ID 90 -1 -1 50 D 65 NO ti 47 2- 4- .0 CA 27 LD ve GO 72 20 20 00 RE 4 NE 71 12 12 RI 4 PH CH AN AR AR TA MA D CI CY W D LI LL QU C ID MD 68 11 05 0 30 30 ME 79 AR Ac RT 08 -0 -1 0. D 44 NO ti AZ 40 7- 0- 00 CA 70 LD ve AP 11 20 20 0 RE 5 IN 90 11 12 RI E 1 PH CH 15 AR AR MA D MG CY W TA LL BL C ET CI 65 12 05 0 30 30 ME 79 AR Ac TA 16 -1 -0 0. D 42 NO ti LO 20 1- 9- 00 CA 54 LD ve MO 05 20 20 0 RE 4 AM 45 11 12 RI 0 PH CH HB AR AR R MA D 40 CY W MG LL C TA BL ET PO 00 11 05 0 30 30 ME 79 AR Ac TA 57 -0 -0 0. D 33 NO ti SS 40 7- 7- 00 CA 82 LD ve IU 18 20 20 0 RE 7 M 10 11 12 RI CL 5 PH CH AR AR ER MA D CY W 10 LL ME C Q CA PS UL E 00 11 05 0 30 30 ME 79 AR Ac 00 -0 -0 0. D 33 NO ti 60 7- 7- 00 CA 83 LD ve 11 20 20 0 RE 9 72 11 12 RI 8 PH CH AR AR MA D CY W LL C RI 51 11 05 0 30 30 ME 79 AR Ac SP 07 -0 -0 0. D 33 NO ti ER 90 7- 7- 00 CA 84 LD ve ID 46 20 20 0 RE 0 ON 35 11 12 RI E 6 PH CH 2 AR AR MG MA D CY W TA BL LL ET C AC 00 03 05 0 35 7 ME 79 AR Ac ID 90 -1 -0 50 D 38 NO ti 47 2- 3- .0 CA 55 LD ve GO 72 20 20 00 RE 5 NE 71 12 12 RI 4 PH CH AN AR AR TA MA D CI CY W D LI LL QU C ID DI 00 11 05 0 30 10 ME 79 AR Ac CY 59 -0 -0 0. D 29 NO ti CL 10 7- 2- 00 CA 61 LD ve OM 79 20 20 0 RE 5 IN 50 11 12 RI E 1 PH CH 20 AR AR MA D MG CY W TA LL BL C ET MO 37 03 05 0 30 30 ME 79 AR Ac IL 00 -0 -0 0. D 29 NO ti OS 00 6- 2- 00 CA 60 LD ve EC 45 20 20 0 RE 9 50 12 12 RI OT 4 PH CH C AR AR 20 MA D .6 CY W MG LL C TA BL ET MO 68 11 05 0 30 5 ME 79 AR Ac OM 38 -0 -0 0. D 29 NO ti ET 20 7- 2- 00 CA 61 LD ve TYLER 04 20 20 0 RE 1 ZI 11 11 12 RI NE 0 PH CH AR AR 25 MA D CY W MG LL TA C BL ET HY 00 11 05 0 30 5 [address] 59 -0 -0 0. D 29 NO ti OX 10 7- 2- 00 CA 61 LD ve YZ 80 20 20 0 RE 3 IN 00 11 12 RI E 5 PH CH PA AR AR M MA D 25 CY W MG LL C CA P NE 61 05 05 0 10 10 ME 79 AR Ac OM 31 -0 -0 0. D 34 NO ti YC 40 1- 1- 00 CA 73 LD ve IN 64 20 20 0 RE 6 -P 61 12 12 RI OL 0 PH CH YM AR AR YX MA D IN CY W -H C LL EA C R SO LN RI 68 11 05 0 30 30 ME 79 AR Ac SP 38 -0 -0 0. D 30 NO ti ER 20 7- 1- 00 CA 19 LD ve ID 11 20 20 0 RE 4 ON 30 11 12 RI E 5 PH CH 0. AR AR 5 MA D MG CY W TA LL BL C ET MA 00 11 04 0 60 7 ME 79 AR Ac PA 90 -0 -3 0. D 28 NO ti P 41 7- 0- 00 CA 52 LD ve 32 98 20 20 0 RE 3 5 26 11 12 RI MG 1 PH CH AR AR TA MA D BL CY W ET LL C RO 68 11 04 5 30 30 ME 35 AR Ac PI 46 -0 -2 0. D 08 NO ti NI 20 7- 9- 00 CA 05 LD ve RO 25 20 20 0 RE LE 50 11 12 RI 1 PH CH HC AR AR L MA D 1 CY W MG LL TA C BL ET ME 51 11 04 0 21 7 ME 78 AR Ac CL 07 -0 -1 0. D 97 NO ti IZ 90 5- 8- 00 CA 97 LD ve IN 09 20 20 0 RE 8 E 02 11 12 RI 25 0 PH CH AR AR MG MA D CY W TA BL LL ET C AC 00 03 04 0 35 7 ME 78 AR Ac ID 90 -1 -1 50 D 97 NO ti 47 2- 8- .0 CA 97 LD ve GO 72 20 20 00 RE 2 NE 71 12 12 RI 4 PH CH AN AR AR TA MA D CI CY W D LI LL QU C ID FL 60 11 04 0 16 30 ME 17 AR Ac UT 50 -0 -1 0. D 88 NO ti IC 50 7- 6- 00 CA 07 LD ve 82 20 20 0 RE ON 90 11 12 RI E 1 PH CH MO AR AR OP MA D CY W 50 LL MC C G SP RA Y TR 51 11 04 0 30 30 ME 78 AR Ac IA 07 -0 -1 0. D 70 NO ti MT 90 7- 4- 00 CA 79 LD ve ER 43 20 20 0 RE 7 EN 32 11 12 RI E- 0 PH CH HC AR AR TZ MA D CY W 75 -5 LL 0 C MG TA B MD 68 11 04 0 30 30 ME 78 AR Ac RT 08 -0 -1 0. D 62 NO ti AZ 40 7- 0- 00 CA 68 LD ve AP 11 20 20 0 RE 0 IN 90 11 12 RI E 1 PH CH 15 AR AR MA D MG CY W TA LL BL C ET RI 51 11 04 0 30 30 ME 78 AR Ac SP 07 -0 -0 0. D 75 NO ti ER 90 7- 9- 00 CA 35 LD ve ID 46 20 20 0 RE 4 ON 35 11 12 RI E 6 PH CH 2 AR AR MG MA D CY W TA BL LL ET C DI 00 11 04 0 30 10 ME 78 AR Ac CY 59 -0 -0 0. D 75 NO ti CL 10 7- 9- 00 CA 36 LD ve OM 79 20 20 0 RE 5 IN 50 11 12 RI E 1 PH CH 20 AR AR MA D MG CY W TA LL BL C ET 00 11 04 0 30 30 ME 78 AR Ac 00 -0 -0 0. D 75 NO ti 60 7- 9- 00 CA 35 LD ve 11 20 20 0 RE 9 72 11 12 RI 8 PH CH AR AR MA D CY W LL C CI 65 12 04 0 30 30 ME 78 AR Ac TA 16 -1 -0 0. D 61 NO ti LO 20 1- 9- 00 CA 37 LD ve MO 05 20 20 0 RE 6 AM 45 11 12 RI 0 PH CH HB AR AR R MA D 40 CY W MG LL C TA BL ET PO 62 11 04 0 30 30 ME 78 AR Ac TA 03 -0 -0 0. D 75 NO ti SS 70 7- 9- 00 CA 34 LD ve IU 56 20 20 0 RE 2 M 00 11 12 RI CL 5 PH CH AR AR ER MA D CY W 10 LL ME C Q CA PS UL E AC 00 03 04 0 35 0 ME 78 AR Ac ID 90 -1 -0 50 D 72 NO ti 47 2- 6- .0 CA 29 LD ve GO 72 20 20 00 RE 2 NE 71 12 12 RI 4 PH CH AN AR AR TA MA D CI CY W D LI LL QU C ID RI 68 11 04 0 30 0 ME 78 AR Ac SP 38 -0 -0 0. D 47 NO ti ER 20 7- 4- 00 CA 59 LD ve ID 11 20 20 0 RE 6 ON 30 11 12 RI E 5 PH CH 0. AR AR 5 MA D MG CY W TA LL BL C ET MO 37 03 04 10 30 0 ME 77 AR Ac IL 00 -0 -0 0. D 90 NO ti OS 00 6- 3- 00 CA 79 LD ve EC 45 20 20 0 RE 3 50 12 12 RI OT 4 PH CH C AR AR 20 MA D .6 CY W MG LL C TA BL ET RO 68 11 03 6 30 0 ME 35 AR Ac PI 46 -0 -3 0. D 08 NO ti NI 20 7- 0- 00 CA 05 LD ve RO 25 20 20 0 RE LE 50 11 12 RI 1 PH CH HC AR AR L MA D 1 CY W MG LL TA C BL ET MA 00 11 03 0 60 0 ME 78 AR Ac PA 90 -0 -3 0. D 53 NO ti P 41 7- 0- 00 CA 84 LD ve 32 98 20 20 0 RE 6 5 26 11 12 RI MG 1 PH CH AR AR TA MA D BL CY W ET LL C MO 68 11 03 0 30 0 ME 78 AR Ac OM 38 -0 -3 0. D 53 NO ti ET 20 7- 0- 00 CA 84 LD ve TYLER 04 20 20 0 RE 7 ZI 11 11 12 RI NE 0 PH CH AR AR 25 MA D CY W MG LL TA C BL ET HY 00 11 03 0 30 0 ME [address] 59 -0 -2 0. D 49 NO ti OX 10 7- 9- 00 CA 10 LD ve YZ 80 20 20 0 RE 9 IN 00 11 12 RI E 5 PH CH PA AR AR M MA D 25 CY W MG LL C CA P AC 00 03 03 0 35 0 ME 78 AR Ac ID 90 -1 -2 50 D 43 NO ti 47 2- 8- .0 CA 56 LD ve GO 72 20 20 00 RE 9 NE 71 12 12 RI 4 PH CH AN AR AR TA MA D CI CY W D LI LL QU C ID DI 00 11 03 0 30 0 ME 78 AR Ac CY 59 -0 -2 0. D 24 NO ti CL 10 7- 1- 00 CA 91 LD ve OM 79 20 20 0 RE 3 IN 50 11 12 RI E 1 PH CH 20 AR AR MA D MG CY W TA LL BL C ET MU 45 03 03 0 22 0 ME 78 AR Ac PI 80 -1 -2 0. D 18 NO ti RO 20 9- 0- 00 CA 89 LD ve CI 11 20 20 0 RE 0 N 22 12 12 RI 2% 2 PH CH AR AR OI MA D NT CY W ME NT LL C TR 51 11 03 0 30 0 ME 77 AR Ac IA 07 -0 -1 0. D 96 NO ti MT 90 7- 5- 00 CA 91 LD ve ER 43 20 20 0 RE 6 EN 32 11 12 RI E- 0 PH CH HC AR AR TZ MA D CY W 75 -5 LL 0 C MG TA B MD 68 11 03 0 30 0 ME 78 AR Ac RT 08 -0 -1 0. D 02 NO ti AZ 40 7- 3- 00 CA 37 LD ve AP 11 20 20 0 RE 5 IN 90 11 12 RI E 1 PH CH 15 AR AR MA D MG CY W TA LL BL C ET RI 51 11 03 0 30 0 ME 78 AR Ac SP 07 -0 -1 0. D 02 NO ti ER 90 7- 3- 00 CA 37 LD ve ID 46 20 20 0 RE 6 ON 35 11 12 RI E 6 PH CH 2 AR AR MG MA D CY W TA BL LL ET C AC 00 03 03 0 35 0 ME 78 AR Ac ID 90 -1 -1 50 D 01 NO ti 47 2- 2- .0 CA 01 LD ve GO 72 20 20 00 RE 9 NE 71 12 12 RI 4 PH CH AN AR AR TA MA D CI CY W D LI LL QU C ID 00 11 03 0 30 0 ME 77 AR Ac 00 -0 -1 0. D 83 NO ti 60 7- 1- 00 CA 17 LD ve 11 20 20 0 RE 4 72 11 12 RI 8 PH CH AR AR MA D CY W LL C PO 62 11 03 0 30 0 ME 77 AR Ac TA 03 -0 -1 0. D 83 NO ti SS 70 7- 1- 00 CA 17 LD ve IU 56 20 20 0 RE 1 M 00 11 12 RI CL 5 PH CH AR AR ER MA D CY W 10 LL ME C Q CA PS UL E CI 65 12 03 0 30 0 ME 77 AR Ac TA 16 -1 -1 0. D 81 NO ti LO 20 1- 0- 00 CA 95 LD ve MO 05 20 20 0 RE 5 AM 45 11 12 RI 0 PH CH HB AR AR R MA D 40 CY W MG LL C TA BL ET MO 68 11 03 0 30 0 ME 77 AR Ac OM 38 -0 -0 0. D 93 NO ti ET 20 7- 8- 00 CA 65 LD ve TYLER 04 20 20 0 RE 3 ZI 11 11 12 RI NE 0 PH CH AR AR 25 MA D CY W MG LL TA C BL ET MO 37 03 03 11 30 0 ME 77 AR Ac IL 00 -0 -0 0. D 90 NO ti OS 00 6- 6- 00 CA 79 LD ve EC 45 20 20 0 RE 3 50 12 12 RI OT 4 PH CH C AR AR 20 MA D .6 CY W MG LL C TA BL ET RI 68 11 03 0 30 0 ME 76 AR Ac SP 38 -0 -0 0. D 01 NO ti ER 20 7- 5- 00 CA 98 LD ve ID 11 20 20 0 RE 6 ON 30 11 12 RI E 5 PH CH 0. AR AR 5 MA D MG CY W TA LL BL C ET DI 00 11 03 0 30 0 ME 77 AR Ac CY 59 -0 -0 0. D 84 NO ti CL 10 7- 3- 00 CA 35 LD ve OM 79 20 20 0 RE 6 IN 50 11 12 RI E 1 PH CH 20 AR AR MA D MG CY W TA LL BL C ET ME 51 11 03 0 21 0 ME 77 AR Ac CL 07 -0 -0 0. D 84 NO ti IZ 90 5- 3- 00 CA 35 LD ve IN 09 20 20 0 RE 5 E 02 11 12 RI 25 0 PH CH AR AR MG MA D CY W TA BL LL ET C RO 68 11 02 7 30 0 ME 35 AR Ac PI 46 -0 -2 0. D 08 NO ti NI 20 7- 9- 00 CA 05 LD ve RO 25 20 20 0 RE LE 50 11 12 RI 1 PH CH HC AR AR L MA D 1 CY W MG LL TA C BL ET HY 00 11 02 0 30 0 ME [address] 59 -0 -2 0. D 89 NO ti OX 10 7- 3- 00 CA 59 LD ve YZ 80 20 20 0 RE 3 IN 00 11 12 RI E 5 PH CH PA AR AR M MA D 25 CY W MG LL C CA P MA 00 11 02 0 60 0 ME 75 AR Ac PA 90 -0 -2 0. D 89 NO ti P 41 7- 3- 00 CA 59 LD ve 32 98 20 20 0 RE 2 5 26 11 12 RI MG 1 PH CH AR AR TA MA D BL CY W ET LL C ME 49 02 02 0 10 0 ME 75 AR Ac CL 88 -2 -2 0. D 85 NO ti IZ 40 1- 1- 00 CA 43 LD ve IN 03 20 20 0 RE 9 E 50 12 12 RI 25 1 PH CH AR AR MG MA D CY W TA BL LL ET C AC 00 01 02 0 35 0 ME 75 AR Ac ID 90 -0 -1 50 D 72 NO ti 47 9- 5- .0 CA 85 LD ve GO 72 20 20 00 RE 7 NE 71 12 12 RI 4 PH CH AN AR AR TA MA D CI CY W D LI LL QU C ID TR 51 11 02 0 30 0 ME 75 AR Ac IA 07 -0 -1 0. D 60 NO ti MT 90 7- 4- 00 CA 10 LD ve ER 43 20 20 0 RE 0 EN 32 11 12 RI E- 0 PH CH HC AR AR TZ MA D CY W 75 -5 LL 0 C MG TA B MO 68 11 02 0 30 0 ME 18 AR Ac OM 38 -0 -1 0. D 02 NO ti ET 20 7- 3- 00 CA 97 LD ve TYLER 04 20 20 0 RE ZI 11 11 12 RI NE 0 PH CH AR AR 25 MA D CY W MG LL TA C BL ET RI 51 11 02 0 30 0 ME 75 AR Ac SP 07 -0 -1 0. D 59 NO ti ER 90 7- 3- 00 CA 33 LD ve ID 46 20 20 0 RE 1 ON 35 11 12 RI E 6 PH CH 2 AR AR MG MA D CY W TA BL LL ET C MD 68 11 02 0 30 0 ME 75 AR Ac RT 08 -0 -1 0. D 59 NO ti AZ 40 7- 3- 00 CA 32 LD ve AP 11 20 20 0 RE 9 IN 90 11 12 RI E 1 PH CH 15 AR AR MA D MG CY W TA LL BL C ET ME 51 11 02 0 21 0 ME 75 AR Ac CL 07 -0 -1 0. D 66 NO ti IZ 90 5- 0- 00 CA 90 LD ve IN 09 20 20 0 RE 7 E 02 11 12 RI 25 0 PH CH AR AR MG MA D CY W TA BL LL ET C 00 11 02 0 30 0 ME 75 AR Ac 00 -0 -1 0. D 50 NO ti 60 7- 0- 00 CA 83 LD ve 11 20 20 0 RE 7 72 11 12 RI 8 PH CH AR AR MA D CY W LL C PO 62 11 02 0 30 0 ME 75 AR Ac TA 03 -0 -1 0. D 50 NO ti SS 70 7- 0- 00 CA 83 LD ve IU 56 20 20 0 RE 4 M 00 11 12 RI CL 5 PH CH AR AR ER MA D CY W 10 LL ME C Q CA PS UL E CI 13 12 02 0 30 0 ME 75 AR Ac TA 66 -1 -0 0. D 50 NO ti LO 80 1- 9- 00 CA 16 LD ve MO 01 20 20 0 RE 7 AM 10 11 12 RI 5 PH CH HB AR AR R MA D 40 CY W MG LL C TA BL ET MO 37 11 02 0 30 0 ME 75 AR Ac IL 00 -0 -0 0. D 57 NO ti OS 00 5- 6- 00 CA 92 LD ve EC 45 20 20 0 RE 1 50 11 12 RI OT 4 PH CH C AR AR 20 MA D .6 CY W MG LL C TA BL ET RI 68 11 02 0 30 0 ME 71 AR Ac SP 38 -0 -0 0. D 83 NO ti ER 20 7- 4- 00 CA 24 LD ve ID 11 20 20 0 RE 7 ON 30 11 12 RI E 5 PH CH 0. AR AR 5 MA D MG CY W TA LL BL C ET AC 00 01 01 0 35 0 ME 73 AR Ac ID 90 -0 -3 50 D 99 NO ti 47 9- 0- .0 CA 77 LD ve GO 72 20 20 00 RE 6 NE 71 12 12 RI 4 PH CH AN AR AR TA MA D CI CY W D LI LL QU C ID RO 68 11 01 8 30 0 ME 35 AR Ac PI 46 -0 -3 0. D 08 NO ti NI 20 7- 0- 00 CA 05 LD ve RO 25 20 20 0 RE LE 50 11 12 RI 1 PH CH HC AR AR L MA D 1 CY W MG LL TA C BL ET AZ 64 01 01 0 60 0 ME 71 AR Ac IT 67 -2 -2 .0 D 83 NO ti HR 90 6- 6- 00 CA 42 LD ve OM 96 20 20 RE 8 YC 10 12 12 RI IN 5 PH CH AR AR 25 MA D 0 CY W MG LL TA C BL ET 00 11 01 0 11 0 ME 71 AR Ac 12 -0 -2 80 D 80 NO ti 10 7- 5- .0 CA 40 LD ve 63 20 20 00 RE 9 80 11 12 RI 4 PH CH AR AR MA D CY W LL C TR 51 11 01 0 30 0 ME 70 AR Ac IA 07 -0 -1 0. D 57 NO ti MT 90 7- 5- 00 CA 76 LD ve ER 43 20 20 0 RE 0 EN 32 11 12 RI E- 0 PH CH HC AR AR TZ MA D CY W 75 -5 LL 0 C MG TA B RI 51 11 01 0 30 0 ME 70 AR Ac SP 07 -0 -1 0. D 57 NO ti ER 90 7- 4- 00 CA 26 LD ve ID 46 20 20 0 RE 8 ON 35 11 12 RI E 6 PH CH 2 AR AR MG MA D CY W TA BL LL ET C MD 68 11 01 0 30 0 ME 70 AR Ac RT 08 -0 -1 0. D 57 NO ti AZ 40 7- 4- 00 CA 26 LD ve AP 11 20 20 0 RE 7 IN 90 11 12 RI E 1 PH CH 15 AR AR MA D MG CY W TA LL BL C ET PO 62 11 01 0 30 0 ME 70 AR Ac TA 03 -0 -1 0. D 54 NO ti SS 70 7- 1- 00 CA 93 LD ve IU 56 20 20 0 RE 6 M 00 11 12 RI CL 5 PH CH AR AR ER MA D CY W 10 LL ME C Q CA PS UL E 00 11 01 0 30 0 ME 70 AR Ac 00 -0 -1 0. D 54 NO ti 60 7- 1- 00 CA 93 LD ve 11 20 20 0 RE 9 72 11 12 RI 8 PH CH AR AR MA D CY W LL C CI 13 12 01 0 30 0 ME 70 AR Ac TA 66 -1 -1 0. D 54 NO ti LO 80 1- 0- 00 CA 47 LD ve MO 01 20 20 0 RE 8 AM 10 11 12 RI 5 PH CH HB AR AR R MA D 40 CY W MG LL C TA BL ET AC 00 01 01 0 35 0 ME 70 AR Ac ID 90 -0 -0 50 D 59 NO ti 47 9- 9- .0 CA 77 LD ve GO 72 20 20 00 RE 0 NE 71 12 12 RI 4 PH CH AN AR AR TA MA D CI CY W D LI LL QU C ID RI 68 11 01 0 30 0 ME 70 AR Ac SP 38 -0 -0 0. D 51 NO ti ER 20 7- 5- 00 CA 17 LD ve ID 11 20 20 0 RE 8 ON 30 11 12 RI E 5 PH CH 0. AR AR 5 MA D MG CY W TA LL BL C ET RO 68 11 12 9 30 0 ME 35 AR Ac PI 46 -0 -3 0. D 08 NO ti NI 20 7- 1- 00 CA 05 LD ve RO 25 20 20 0 RE LE 50 11 11 RI 1 PH CH HC AR AR L MA D 1 CY W MG LL TA C BL ET MO 37 11 12 0 30 0 ME 70 AR Ac IL 00 -0 -3 0. D 52 NO ti OS 00 5- 1- 00 CA 57 LD ve EC 45 20 20 0 RE 7 50 11 11 RI OT 4 PH CH C AR AR 20 MA D .6 CY W MG LL C TA BL ET DI 00 11 12 0 30 10 ME 70 AR Ac CY 59 -0 -2 .0 D 46 NO ti CL 10 7- 6- 00 CA 08 LD ve OM 79 20 20 RE 9 IN 50 11 11 RI E 1 PH CH 20 AR AR MA D MG CY W TA LL BL C ET HY 00 11 12 0 30 5 ME [address] 59 -0 -2 .0 D 43 NO ti OX 10 7- 2- 00 CA 47 LD ve YZ 80 20 20 RE 7 IN 00 11 11 RI E 5 PH CH PA AR AR M MA D 25 CY W MG LL C CA P ME 51 11 12 0 21 7 ME 70 AR Ac CL 07 -0 -2 .0 D 43 NO ti IZ 90 5- 2- 00 CA 47 LD ve IN 09 20 20 RE 8 E 02 11 11 RI 25 0 PH CH AR AR MG MA D CY W TA BL LL ET C AZ 64 12 12 0 70 0 ME 70 AR Ac IT 67 -1 -1 .0 D 40 NO ti HR 90 9- 9- 00 CA 28 LD ve OM 96 20 20 RE 6 YC 10 11 11 RI IN 5 PH CH AR AR 25 MA D 0 CY W MG LL TA C BL ET TR 51 11 12 0 30 30 ME 37 AR Ac IA 07 -0 -1 .0 D 44 NO ti MT 90 7- 6- 00 CA 54 LD ve ER 43 20 20 RE EN 32 11 11 RI E- 0 PH CH HC AR AR TZ MA D CY W 75 -5 LL 0 C MG TA B DI 00 11 12 0 30 10 ME 70 AR Ac CY 59 -0 -1 .0 D 38 NO ti CL 10 7- 6- 00 CA 95 LD ve OM 79 20 20 RE 6 IN 50 11 11 RI E 1 PH CH 20 AR AR MA D MG CY W TA LL BL C ET RI 51 11 12 0 30 0 ME 37 AR Ac SP 07 -0 -1 0. D 27 NO ti ER 90 7- 5- 00 CA 01 LD ve ID 46 20 20 0 RE ON 35 11 11 RI E 6 PH CH 2 AR AR MG MA D CY W TA BL LL ET C MD 68 11 12 0 30 30 ME 37 AR Ac RT 08 -0 -1 .0 D 27 NO ti AZ 40 7- 5- 00 CA 00 LD ve AP 11 20 20 RE IN 90 11 11 RI E 1 PH CH 15 AR AR MA D MG CY W TA LL BL C ET PO 62 11 12 0 30 30 ME 36 AR Ac TA 03 -0 -1 .0 D 96 NO ti SS 70 7- 2- 00 CA 69 LD ve IU 56 20 20 RE M 00 11 11 RI CL 5 PH CH AR AR ER MA D CY W 10 LL ME C Q CA PS UL E 00 11 12 0 30 30 ME 36 AR Ac 00 -0 -1 .0 D 96 NO ti 60 7- 2- 00 CA 72 LD ve 11 20 20 RE 72 11 11 RI 8 PH CH AR AR MA D CY W LL C BE 68 11 12 0 30 10 ME 17 AR Ac NZ 08 -0 -1 .0 D 80 NO ti TR 40 7- 2- 00 CA 92 LD ve OP 38 20 20 RE IN 10 11 11 RI E 1 PH CH ME AR AR S MA D 0. CY W 5 MG LL C TA B CI 13 12 12 0 30 30 ME 36 AR Ac TA 66 -1 -1 .0 D 92 NO ti LO 80 1- 1- 00 CA 20 LD ve MO 01 20 20 RE AM 10 11 11 RI 5 PH CH HB AR AR R MA D 40 CY W MG LL C TA BL ET RI 68 11 12 0 30 30 ME 36 AR Ac SP 38 -0 -0 .0 D 68 NO ti ER 20 7- 6- 00 CA 83 LD ve ID 11 20 20 RE ON 30 11 11 RI E 5 PH CH 0. AR AR 5 MA D MG CY W TA LL BL C ET 00 11 12 0 11 3 ME 15 AR Ac 12 -0 -0 8. D 87 NO ti 10 7- 6- 00 CA 33 LD ve 63 20 20 0 RE 80 11 11 RI 4 PH CH AR AR MA D CY W LL C MO 37 11 12 10 30 30 ME 35 AR Ac IL 00 -0 -0 .0 D 19 NO ti OS 00 5- 3- 00 CA 17 LD ve EC 45 20 20 RE 50 11 11 RI OT 4 PH CH C AR AR 20 MA D .6 CY W MG LL C TA BL ET MA 00 11 12 0 60 7 ME 37 AR Ac PA 90 -0 -0 .0 D 03 NO ti P 41 7- 3- 00 CA 54 LD ve 32 98 20 20 RE 5 26 11 11 RI MG 1 PH CH AR AR TA MA D BL CY W ET LL C RO 68 11 12 10 30 30 ME 35 AR Ac PI 46 -0 -0 .0 D 08 NO ti NI 20 7- 1- 00 CA 05 LD ve RO 25 20 20 RE LE 50 11 11 RI 1 PH CH HC AR AR L MA D 1 CY W MG LL TA C BL ET DI 00 11 11 0 30 10 ME 35 AR Ac CY 59 -0 -2 .0 D 92 NO ti CL 10 7- 1- 00 CA 26 LD ve OM 79 20 20 RE IN 50 11 11 RI E 1 PH CH 20 AR AR MA D MG CY W TA LL BL C ET TR 51 11 11 0 30 30 ME 16 AR Ac IA 07 -0 -1 .0 D 89 NO ti MT 90 7- 8- 00 CA 70 LD ve ER 43 20 20 RE EN 32 11 11 RI E- 0 PH CH HC AR AR TZ MA D CY W 75 -5 LL 0 C MG TA B MD 68 11 11 0 30 30 ME 18 AR Ac RT 08 -0 -1 .0 D 55 NO ti AZ 40 7- 7- 00 CA 16 LD ve AP 11 20 20 RE IN 90 11 11 RI E 1 PH CH 15 AR AR MA D MG CY W TA LL BL C ET RI 51 11 11 0 30 30 ME 18 AR Ac SP 07 -0 -1 .0 D 55 NO ti ER 90 7- 7- 00 CA 25 LD ve ID 46 20 20 RE ON 35 11 11 RI E 6 PH CH 2 AR AR MG MA D CY W TA BL LL ET C 00 11 11 0 30 30 ME 18 AR Ac 00 -0 -1 .0 D 46 NO ti 60 7- 4- 00 CA 48 LD ve 11 20 20 RE 72 11 11 RI 8 PH CH AR AR MA D CY W LL C PO 62 11 11 11 30 30 ME 14 AR Ac TA 03 -0 -1 .0 D 73 NO ti SS 70 7- 4- 00 CA 89 LD ve IU 56 20 20 RE M 00 11 11 RI CL 5 PH CH AR AR ER MA D CY W 10 LL ME C Q CA PS UL E CI 13 11 11 0 30 30 ME 16 AR Ac TA 66 -0 -1 .0 D 68 NO ti LO 80 7- 3- 00 CA 81 LD ve MO 01 20 20 RE AM 10 11 11 RI 5 PH CH HB AR AR R MA D 40 CY W MG LL C TA BL ET RI 68 11 11 0 30 30 ME 18 AR Ac SP 38 -0 -0 .0 D 55 NO ti ER 20 7- 8- 00 CA 21 LD ve ID 11 20 20 RE ON 30 11 11 RI E 5 PH CH 0. AR AR 5 MA D MG CY W TA LL BL C ET MO 37 11 11 11 30 30 ME 35 AR Ac IL 00 -0 -0 .0 D 19 NO ti OS 00 5- 5- 00 CA 17 LD ve EC 45 20 20 RE 50 11 11 RI OT 4 PH CH C AR AR 20 MA D .6 CY W MG LL C TA BL ET ME 51 11 11 0 21 7 ME 35 AR Ac CL 07 -0 -0 .0 D 19 NO ti IZ 90 5- 5- 00 CA 18 LD ve IN 09 20 20 RE E 02 11 11 RI 25 0 PH CH AR AR MG MA D CY W TA BL LL ET C RO 68 11 11 11 30 30 ME 35 AR Ac PI 46 -0 -0 .0 D 08 NO ti NI 20 3- 3- 00 CA 05 LD ve RO 25 20 20 RE LE 50 11 11 RI 1 PH CH HC AR AR L MA D 1 CY W MG LL TA C BL ET HY 00 09 10 11 30 5 ME [address] 59 -1 -3 .0 D 68 NO ti OX 10 6- 1- 00 CA 72 LD ve YZ 80 20 20 RE IN 00 11 11 RI E 5 PH CH PA AR AR M MA D 25 CY W MG LL C CA P MA 00 10 10 0 60 7 ME 20 AR Ac PA 90 -2 -2 .0 D 53 NO ti P 41 7- 7- 00 CA 01 LD ve 32 98 20 20 RE 5 26 11 11 RI MG 1 PH CH AR AR TA MA D BL CY W ET LL C DI 00 10 10 0 30 10 ME 20 AR Ac CY 59 -2 -2 .0 D 53 NO ti CL 10 7- 7- 00 CA 03 LD ve OM 79 20 20 RE IN 50 11 11 RI E 1 PH CH 20 AR AR MA D MG CY W TA LL BL C ET ME 49 10 10 0 21 7 ME 20 AR Ac CL 88 -2 -2 .0 D 45 NO ti IZ 40 4- 5- 00 CA 61 LD ve IN 03 20 20 RE E 50 11 11 RI 25 1 PH CH AR AR MG MA D CY W TA BL LL ET C TR 51 09 10 3 30 30 ME 59 AR Ac IA 07 -2 -1 .0 D 53 NO ti MT 90 1- 9- CA 85 LD ve ER 43 20 20 RE 5 EN 32 11 11 RI E- 0 PH CH HC AR AR TZ MA D CY W 75 -5 LL 0 C MG TA B AN 24 09 10 3 35 7 ME 59 AR Ac TA 38 -2 -1 5. D 60 NO ti CI 50 3- 8- 00 CA 61 LD ve D 35 20 20 0 RE 5 [email or web address] 64 11 11 RI SP 0 PH CH EN AR AR SI MA D ON CY W LL C MD 68 07 10 3 30 30 ME 57 AR Ac RT 08 -2 -1 .0 D 82 NO ti AZ 40 2- 8- 00 CA 86 LD ve AP 11 20 20 RE 5 IN 90 11 11 RI E 1 PH CH 15 AR AR MA D MG CY W TA LL BL C ET RI 51 07 10 3 30 30 ME 57 AR Ac SP 07 -2 -1 .0 D 82 NO ti ER 90 2- 8- 00 CA 87 LD ve ID 46 20 20 RE 8 ON 35 11 11 RI E 6 PH CH 2 AR AR MG MA D CY W TA BL LL ET C PO 62 08 10 3 30 30 ME 58 AR Ac TA 03 -1 -1 .0 D 22 NO ti SS 70 8- 7- 00 CA 17 LD ve IU 56 20 20 RE 6 M 00 11 11 RI CL 5 PH CH AR AR ER MA D CY W 10 LL ME C Q CA PS UL E 00 07 10 3 30 30 ME 57 AR Ac 00 -1 -1 .0 D 71 NO ti 60 9- 5- 00 CA 58 LD ve 11 20 20 RE 3 72 11 11 RI 8 PH CH AR AR MA D CY W LL C 00 08 10 3 28 5 ME 58 AR Ac 71 -0 -1 .3 D 27 NO ti 30 6- 5- 99 CA 70 LD ve 29 20 20 RE 1 83 11 11 RI 1 PH CH AR AR MA D CY W LL C CI 13 09 10 3 30 30 ME 59 AR Ac TA 66 -1 -1 .0 D 42 NO ti LO 80 6- 4- 00 CA 09 LD ve MO 01 20 20 RE 8 AM 10 11 11 RI 5 PH CH HB AR AR R MA D 40 CY W MG LL C TA BL ET LO 51 10 10 3 20 5 ME 60 AR Ac PE 07 -1 -1 .0 D 10 NO ti RA 90 1- 1- 00 CA 13 LD ve MD 69 20 20 RE 1 DE 02 11 11 RI 2 0 PH CH AR AR MG MA D CY W CA PS LL UL C E FL 60 10 10 3 16 30 ME 60 AR Ac UT 50 -1 -1 .0 D 10 NO ti IC 50 1- 1- 00 CA 13 LD ve 82 20 20 RE 2 ON 90 11 11 RI E 1 PH CH MO AR AR OP MA D CY W 50 LL MC C G SP RA Y AN 24 09 10 3 35 7 ME 59 AR Ac TA 38 -2 -1 5. D 60 NO ti CI 50 3- 0- 00 CA 61 LD ve D 35 20 20 0 RE 5 [email or web address] 64 11 11 RI SP 0 PH CH EN AR AR SI MA D ON CY W LL C BE 68 07 10 3 30 10 ME 57 AR Ac NZ 08 -0 -0 .0 D 34 NO ti TR 40 6- 7- 00 CA 00 LD ve OP 38 20 20 RE 1 IN 10 11 11 RI E 1 PH CH ME AR AR S MA D 0. CY W 5 MG LL C TA B RI 68 08 10 3 30 30 ME 57 AR Ac SP 38 -1 -0 .0 D 82 NO ti ER 20 0- 7- 00 CA 86 LD ve ID 11 20 20 RE 8 ON 30 11 11 RI E 5 PH CH 0. AR AR 5 MA D MG CY W TA LL BL C ET RO 00 08 10 3 30 30 ME 57 AR Ac PI 37 -0 -0 .0 D 85 NO ti NI 85 4- 3- 00 CA 14 LD ve RO 50 20 20 RE 2 LE 10 11 11 RI 1 PH CH HC AR AR L MA D 1 CY W MG LL TA C BL ET MO 37 10 10 3 30 30 ME 59 AR Ac IL 00 -0 -0 .0 D 73 NO ti OS 00 2- 2- 00 CA 56 LD ve EC 45 20 20 RE 2 50 11 11 RI OT 4 PH CH C AR AR 20 MA D .6 CY W MG LL C TA BL ET MA 00 08 09 3 60 7 ME 58 AR Ac PA 90 -2 -2 .0 D 77 NO ti P 41 4- 4- 00 CA 04 LD ve 32 98 20 20 RE 3 5 26 11 11 RI MG 1 PH CH AR AR TA MA D BL CY W ET LL C AN 24 09 09 3 35 7 ME 59 AR Ac TA 38 -2 -2 5. D 60 NO ti CI 50 3- 3- 00 CA 61 LD ve D 35 20 20 0 RE 5 [email or web address] 64 11 11 RI SP 0 PH CH EN AR AR SI MA D ON CY W LL C TR 51 09 09 3 30 30 ME 59 AR Ac IA 07 -2 -2 .0 D 53 NO ti MT 90 1- 1- 00 CA 85 LD ve ER 43 20 20 RE 5 EN 32 11 11 RI E- 0 PH CH HC AR AR TZ MA D CY W 75 -5 LL 0 C MG TA B HY 00 09 09 3 30 5 ME [address] 59 -2 -2 .0 D 42 NO ti OX 10 0- 0- 00 CA 09 LD ve YZ 80 20 20 RE 4 IN 00 11 11 RI E 5 PH CH PA AR AR M MA D 25 CY W MG LL C CA P 00 08 09 3 28 5 ME 58 AR Ac 71 -0 -1 .3 D 27 NO ti 30 6- 9- 99 CA 70 LD ve 29 20 20 RE 1 83 11 11 RI 1 PH CH AR AR MA D CY W LL C MD 68 07 09 3 30 30 ME 57 AR Ac RT 08 -2 -1 .0 D 82 NO ti AZ 40 2- 8- 00 CA 86 LD ve AP 11 20 20 RE 5 IN 90 11 11 RI E 1 PH CH 15 AR AR MA D MG CY W TA LL BL C ET RI 51 07 09 3 30 30 ME 57 AR Ac SP 07 -2 -1 .0 D 82 NO ti ER 90 2- 8- 00 CA 87 LD ve ID 46 20 20 RE 8 ON 35 11 11 RI E 6 PH CH 2 AR AR MG MA D CY W TA BL LL ET C PO 62 08 09 3 30 30 ME 58 AR Ac TA 03 -1 -1 .0 D 22 NO ti SS 70 8- 7- 00 CA 17 LD ve IU 56 20 20 RE 6 M 00 11 11 RI CL 5 PH CH AR AR ER MA D CY W 10 LL ME C Q CA PS UL E HY 00 09 09 3 15 5 ME [address] 59 -1 -1 .0 D 42 NO ti OX 10 6- 6- 00 CA 09 LD ve YZ 80 20 20 RE 1 IN 00 11 11 RI E 5 PH CH PA AR AR M MA D 25 CY W MG LL C CA P CI 13 09 09 3 30 30 ME 59 AR Ac TA 66 -1 -1 .0 D 42 NO ti LO 80 6- 6- 00 CA 09 LD ve MO 01 20 20 RE 8 AM 10 11 11 RI 5 PH CH HB AR AR R MA D 40 CY W MG LL C TA BL ET DI 00 04 09 3 30 10 ME 54 AR Ac CY 59 -0 -1 .0 D 58 NO ti CL 10 4- 5- 00 CA 69 LD ve OM 79 20 20 RE 2 IN 50 11 11 RI E 1 PH CH 20 AR AR MA D MG CY W TA LL BL C ET 00 07 09 3 30 30 ME 57 AR Ac 00 -1 -1 .0 D 71 NO ti 60 9- 5- 00 CA 58 LD ve 11 20 20 RE 3 72 11 11 RI 8 PH CH AR AR MA D CY W LL C AN 24 08 09 3 35 7 ME 58 AR Ac TA 38 -0 -1 5. D 26 NO ti CI 50 5- 5- 00 CA 17 LD ve D 35 20 20 0 RE 9 [email or web address] 64 11 11 RI SP 0 PH CH EN AR AR SI MA D ON CY W LL C AN 24 08 09 3 35 7 ME 58 AR Ac TA 38 -0 -0 5. D 26 NO ti CI 50 5- 8- 00 CA 17 LD ve D 35 20 20 0 RE 9 LOZOYA 64 11 11 RI SP 0 PH CH EN AR AR SI MA D ON CY W LL C RI 68 08 09 3 30 30 ME 57 AR Ac SP 38 -1 -0 .0 D 82 NO ti ER 20 0- 7- 00 CA 86 LD ve ID 11 20 20 RE 8 ON 30 11 11 RI E 5 PH CH 0. AR AR 5 MA D MG CY W TA LL BL C ET BE 68 07 09 3 30 10 ME 57 AR Ac NZ 08 -0 -0 .0 D 34 NO ti TR 40 6- 5- 00 CA 00 LD ve OP 38 20 20 RE 1 IN 10 11 11 RI E 1 PH CH ME AR AR S MA D 0. CY W 5 MG LL C TA B RO 00 08 09 3 30 30 ME 57 AR Ac PI 37 -0 -0 .0 D 85 NO ti NI 85 4- 3- 00 CA 14 LD ve RO 50 20 20 RE 2 LE 10 11 11 RI 1 PH CH HC AR AR L MA D 1 CY W MG LL TA C BL ET MO 37 06 09 3 30 30 ME 56 AR Ac IL 00 -0 -0 .0 D 13 NO ti OS 00 4- 2- 00 CA 29 LD ve EC 45 20 20 RE 1 50 11 11 RI OT 4 PH CH C AR AR 20 MA D .6 CY W MG LL C TA BL ET CI 00 07 08 3 4. 4 ME 58 AR Ac TA 18 -2 -2 00 D 00 NO ti LO 50 8- 5- 0 CA 13 LD ve MO 37 20 20 RE 8 AM 30 11 11 RI 1 PH CH HB AR AR R MA D 40 CY W MG LL C TA BL ET MA 00 08 08 3 60 7 ME 58 AR Ac PA 90 -2 -2 .0 D 77 NO ti P 41 4- 4- 00 CA 04 LD ve 32 98 20 20 RE 3 5 26 11 11 RI MG 1 PH CH AR AR TA MA D BL CY W ET LL C MD 68 07 08 3 30 30 ME 57 AR Ac RT 08 -2 -1 .0 D 82 NO ti AZ 40 2- 9- 00 CA 86 LD ve AP 11 20 20 RE 5 IN 90 11 11 RI E 1 PH CH 15 AR AR MA D MG CY W TA LL BL C ET RI 51 07 08 3 30 30 ME 57 AR Ac SP 07 -2 -1 .0 D 82 NO ti ER 90 2- 9- 00 CA 87 LD ve ID 46 20 20 RE 8 ON 35 11 11 RI E 6 PH CH 2 AR AR MG MA D CY W TA BL LL ET C AN 24 08 08 3 35 7 ME 58 AR Ac TA 38 -0 -1 5. D 26 NO ti CI 50 5- 9- 00 CA 17 LD ve D 35 20 20 0 RE 9 [email or web address] 64 11 11 RI SP 0 PH CH EN AR AR SI MA D ON CY W LL C PO 62 08 08 3 30 30 ME 58 AR Ac TA 03 -1 -1 .0 D 22 NO ti SS 70 8- 8- 00 CA 17 LD ve IU 56 20 20 RE 6 M 00 11 11 RI CL 5 PH CH AR AR ER MA D CY W 10 LL ME C Q CA PS UL E DI 00 04 08 3 30 10 ME 54 AR Ac CY 59 -0 -1 .0 D 58 NO ti CL 10 4- 6- 00 CA 69 LD ve OM 79 20 20 RE 2 IN 50 11 11 RI E 1 PH CH 20 AR AR MA D MG CY W TA LL BL C ET 00 07 08 3 30 30 ME 57 AR Ac 00 -1 -1 .0 D 71 NO ti 60 9- 6- 00 CA 58 LD ve 11 20 20 RE 3 72 11 11 RI 8 PH CH AR AR MA D CY W LL C RI 68 08 08 3 30 30 ME 57 AR Ac SP 38 -1 -1 .0 D 82 NO ti ER 20 0- 0- 00 CA 86 LD ve ID 11 20 20 RE 8 ON 30 11 11 RI E 5 PH CH 0. AR AR 5 MA D MG CY W TA LL BL C ET 00 08 08 3 28 5 ME 58 AR Ac 71 -0 -0 .3 D 27 NO ti 30 6- 6- 99 CA 70 LD ve 29 20 20 RE 1 83 11 11 RI 1 PH CH AR AR MA D CY W LL C AN 24 08 08 3 35 7 ME 58 AR Ac TA 38 -0 -0 5. D 26 NO ti CI 50 5- 5- 00 CA 17 LD ve D 35 20 20 0 RE 9 [email or web address] 64 11 11 RI SP 0 PH CH EN AR AR SI MA D ON CY W LL C RO 00 08 08 3 30 30 ME 57 AR Ac PI 37 -0 -0 .0 D 85 NO ti NI 85 4- 4- 00 CA 14 LD ve RO 50 20 20 RE 2 LE 10 11 11 RI 1 PH CH HC AR AR L MA D 1 CY W MG LL TA C BL ET MO 37 06 08 3 30 30 ME 56 AR Ac IL 00 -0 -0 .0 D 13 NO ti OS 00 4- 3- 00 CA 29 LD ve EC 45 20 20 RE 1 50 11 11 RI OT 4 PH CH C AR AR 20 MA D .6 CY W MG LL C TA BL ET LO 51 02 08 3 20 5 ME 53 AR Ac PE 07 -2 -0 .0 D 42 NO ti RA 90 4- 1- 00 CA 02 LD ve MD 69 20 20 RE 6 DE 02 11 11 RI 2 0 PH CH AR AR MG MA D CY W CA PS LL UL C E MA 00 04 08 3 60 7 ME 55 AR Ac PA 90 -3 -0 .0 D 39 NO ti P 41 0- 1- 00 CA 44 LD ve 32 98 20 20 RE 8 5 26 11 11 RI MG 1 PH CH AR AR TA MA D BL CY W ET LL C CI 00 07 07 3 30 30 ME 58 AR Ac TA 18 -2 -2 .0 D 00 NO ti LO 50 8- 8- 00 CA 13 LD ve MO 37 20 20 RE 8 AM 30 11 11 RI 1 PH CH HB AR AR R MA D 40 CY W MG LL C TA BL ET MD 68 07 07 3 30 30 ME 57 AR Ac RT 08 -2 -2 .0 D 82 NO ti AZ 40 2- 2- 00 CA 86 LD ve AP 11 20 20 RE 5 IN 90 11 11 RI E 1 PH CH 15 AR AR MA D MG CY W TA LL BL C ET RI 51 07 07 3 30 30 ME 57 AR Ac SP 07 -2 -2 .0 D 82 NO ti ER 90 2- 2- 00 CA 87 LD ve ID 46 20 20 RE 8 ON 35 11 11 RI E 6 PH CH 2 AR AR MG MA D CY W TA BL LL ET C CI 65 07 07 3 7. 7 ME 57 AR Ac TA 16 -2 -2 00 D 85 NO ti LO 20 2- 2- 0 CA 27 LD ve MO 05 20 20 RE 3 AM 35 11 11 RI 0 PH CH HB AR AR R MA D 20 CY W MG LL C TA BL ET BE 68 07 07 3 30 10 ME 57 AR Ac NZ 08 -0 -2 .0 D 34 NO ti TR 40 6- 1- 00 CA 00 LD ve OP 38 20 20 RE 1 IN 10 11 11 RI E 1 PH CH ME AR AR S MA D 0. CY W 5 MG LL C TA B PO 62 04 07 3 30 30 ME 54 AR Ac TA 03 -2 -1 .0 D 82 NO ti SS 70 0- 9- 00 CA 89 LD ve IU 56 20 20 RE 0 M 00 11 11 RI CL 5 PH CH AR AR ER MA D CY W 10 LL ME C Q CA PS UL E 00 07 07 3 30 30 ME 57 AR Ac 00 -1 -1 .0 D 71 NO ti 60 9- 9- 00 CA 58 LD ve 11 20 20 RE 3 72 11 11 RI 8 PH CH AR AR MA D CY W LL C 00 06 07 3 28 5 ME 56 AR Ac 71 -0 -1 .3 D 45 NO ti 30 6- 5- 99 CA 08 LD ve 29 20 20 RE 9 83 11 11 RI 1 PH CH AR AR MA D CY W LL C MD 00 07 07 3 35 7 ME 57 AR Ac 90 -0 -0 5. D 44 NO ti AC 40 9- 9- 00 CA 78 LD ve ID 00 20 20 0 RE 2 41 11 11 RI LOZOYA 4 PH CH SP AR AR EN MA D SI CY W ON LL C MD 68 04 07 3 30 30 ME 54 AR Ac RT 08 -0 -0 .0 D 44 NO ti AZ 40 7- 6- 00 CA 78 LD ve AP 12 20 20 RE 8 IN 00 11 11 RI E 1 PH CH 30 AR AR MA D MG CY W TA LL BL C ET MA 00 04 07 3 60 7 ME 55 AR Ac PA 90 -3 -0 .0 D 39 NO ti P 41 0- 6- 00 CA 44 LD ve 32 98 20 20 RE 8 5 26 11 11 RI MG 1 PH CH AR AR TA MA D BL CY W ET LL C BE 68 07 07 3 30 10 ME 57 AR Ac NZ 08 -0 -0 .0 D 34 NO ti TR 40 6- 6- 00 CA 00 LD ve OP 38 20 20 RE 1 IN 10 11 11 RI E 1 PH CH ME AR AR S MA D 0. CY W 5 MG LL C TA B RO 00 04 07 3 30 30 ME 54 AR Ac PI 37 -0 -0 .0 D 44 NO ti NI 85 6- 5- 00 CA 41 LD ve RO 50 20 20 RE 8 LE 10 11 11 RI 1 PH CH HC AR AR L MA D 1 CY W MG LL TA C BL ET MO 37 06 07 3 30 30 ME 56 AR Ac IL 00 -0 -0 .0 D 13 NO ti OS 00 4- 4- 00 CA 29 LD ve EC 45 20 20 RE 1 50 11 11 RI OT 4 PH CH C AR AR 20 MA D .6 CY W MG LL C TA BL ET 00 06 07 3 28 5 ME 56 AR Ac 71 -0 -0 .3 D 45 NO ti 30 6- 1- 99 CA 08 LD ve 29 20 20 RE 9 83 11 11 RI 1 PH CH AR AR MA D CY W LL C RI 68 05 06 3 60 30 ME 55 AR Ac SP 38 -3 -2 .0 D 95 NO ti ER 20 0- 9- 00 CA 91 LD ve ID 11 20 20 RE 6 ON 30 11 11 RI E 5 PH CH 0. AR AR 5 MA D MG CY W TA LL BL C ET DI 00 04 06 3 30 10 ME 54 AR Ac CY 59 -0 -2 .0 D 58 NO ti CL 10 4- 5- 00 CA 69 LD ve OM 79 20 20 RE 2 IN 50 11 11 RI E 1 PH CH 20 AR AR MA D MG CY W TA LL BL C ET 00 06 06 3 28 5 ME 56 AR Ac 71 -0 -2 .3 D 45 NO ti 30 6- 2- 99 CA 08 LD ve 29 20 20 RE 9 83 11 11 RI 1 PH CH AR AR MA D CY W LL C PO 62 04 06 3 30 30 ME 54 AR Ac TA 03 -2 -1 .0 D 82 NO ti SS 70 0- 9- 00 CA 89 LD ve IU 56 20 20 RE 0 M 00 11 11 RI CL 5 PH CH AR AR ER MA D CY W 10 LL ME C Q CA PS UL E LO 51 02 06 3 20 5 ME 53 AR Ac PE 07 -2 -1 .0 D 42 NO ti RA 90 4- 0- 00 CA 02 LD ve MD 69 20 20 RE 6 DE 02 11 11 RI 2 0 PH CH AR AR MG MA D CY W CA PS LL UL C E BE 68 03 06 3 30 10 ME 53 AR Ac NZ 08 -1 -0 .0 D 95 NO ti TR 40 4- 6- 00 CA 68 LD ve OP 38 20 20 RE 5 IN 10 11 11 RI E 1 PH CH ME AR AR S MA D 0. CY W 5 MG LL C TA B MD 68 04 06 3 30 30 ME 54 AR Ac RT 08 -0 -0 .0 D 44 NO ti AZ 40 7- 6- 00 CA 78 LD ve AP 12 20 20 RE 8 IN 00 11 11 RI E 1 PH CH 30 AR AR MA D MG CY W TA LL BL C ET 00 06 06 3 28 5 ME 56 AR Ac 71 -0 -0 .3 D 45 NO ti 30 6- 6- 99 CA 08 LD ve 29 20 20 RE 9 83 11 11 RI 1 PH CH AR AR MA D CY W LL C RO 00 04 06 3 30 30 ME 54 AR Ac PI 37 -0 -0 .0 D 44 NO ti NI 85 6- 5- 00 CA 41 LD ve RO 50 20 20 RE 8 LE 10 11 11 RI 1 PH CH HC AR AR L MA D 1 CY W MG LL TA C BL ET MA 00 04 06 3 60 7 ME 55 AR Ac PA 90 -3 -0 .0 D 39 NO ti P 41 0- 4- 00 CA 44 LD ve 32 98 20 20 RE 8 5 26 11 11 RI MG 1 PH CH AR AR TA MA D BL CY W ET LL C MO 37 06 06 3 30 30 ME 56 AR Ac IL 00 -0 -0 .0 D 13 NO ti OS 00 4- 4- 00 CA 29 LD ve EC 45 20 20 RE 1 50 11 11 RI OT 4 PH CH C AR AR 20 MA D .6 CY W MG LL C TA BL ET RI 68 05 05 3 60 30 ME 55 AR Ac SP 38 -3 -3 .0 D 95 NO ti ER 20 0- 0- 00 CA 91 LD ve ID 11 20 20 RE 6 ON 30 11 11 RI E 5 PH CH 0. AR AR 5 MA D MG CY W TA LL BL C ET 00 03 05 3 28 5 ME 53 AR Ac 71 -0 -2 .3 D 75 NO ti 30 8- 0- 99 CA 86 LD ve 29 20 20 RE 7 83 11 11 RI 1 PH CH AR AR MA D CY W LL C PO 62 04 05 3 30 30 ME 54 AR Ac TA 03 -2 -2 .0 D 82 NO ti SS 70 0- 0- 00 CA 89 LD ve IU 56 20 20 RE 0 M 00 11 11 RI CL 5 PH CH AR AR ER MA D CY W 10 LL ME C Q CA PS UL E BE 68 03 05 3 30 10 ME 53 AR Ac NZ 08 -1 -0 .0 D 95 NO ti TR 40 4- 9- 00 CA 68 LD ve OP 38 20 20 RE 5 IN 10 11 11 RI E 1 PH CH ME AR AR S MA D 0. CY W 5 MG LL C TA B MD 68 04 05 3 30 30 ME 54 AR Ac RT 08 -0 -0 .0 D 44 NO ti AZ 40 7- 7- 00 CA 78 LD ve AP 12 20 20 RE 8 IN 00 11 11 RI E 1 PH CH 30 AR AR MA D MG CY W TA LL BL C ET RO 00 04 05 3 30 30 ME 54 AR Ac PI 37 -0 -0 .0 D 44 NO ti NI 85 6- 6- 00 CA 41 LD ve RO 50 20 20 RE 8 LE 10 11 11 RI 1 PH CH HC AR AR L MA D 1 CY W MG LL TA C BL ET MO 37 02 05 3 30 30 ME 52 AR Ac IL 00 -0 -0 .0 D 57 NO ti OS 00 4- 5- 00 CA 39 LD ve EC 45 20 20 RE 8 50 11 11 RI OT 4 PH CH C AR AR 20 MA D .6 CY W MG LL C TA BL ET MD 00 11 05 3 35 7 ME 50 AR Ac 90 -0 -0 5. D 21 NO ti AC 40 9- 4- 00 CA 32 LD ve ID 00 20 20 0 RE 6 41 10 11 RI LOZOYA 4 PH CH SP AR AR EN MA D SI CY W ON LL C 00 03 05 3 28 5 ME 53 AR Ac 71 -0 -0 .3 D 75 NO ti 30 8- 4- 99 CA 86 LD ve 29 20 20 RE 7 83 11 11 RI 1 PH CH AR AR MA D CY W LL C RI 68 02 05 3 60 30 ME 52 AR Ac SP 38 -0 -0 .0 D 63 NO ti ER 20 6- 2- 00 CA 15 LD ve ID 11 20 20 RE 5 ON 30 11 11 RI E 5 PH CH 0. AR AR 5 MA D MG CY W TA LL BL C ET MA 00 04 04 3 60 7 ME 55 AR Ac PA 90 -3 -3 .0 D 39 NO ti P 41 0- 0- 00 CA 44 LD ve 32 98 20 20 RE 8 5 26 11 11 RI MG 1 PH CH AR AR TA MA D BL CY W ET LL C PO 62 04 04 3 30 30 ME 54 AR Ac TA 03 -2 -2 .0 D 82 NO ti SS 70 0- 0- 00 CA 89 LD ve IU 56 20 20 RE 0 M 00 11 11 RI CL 5 PH CH AR AR ER MA D CY W 10 LL ME C Q CA PS UL E FL 50 04 04 3 16 30 ME 55 AR Ac UT 38 -2 -2 .0 D 07 NO ti IC 30 0- 0- 00 CA 55 LD ve 70 20 20 RE 0 ON 01 11 11 RI E 6 PH CH MO AR AR OP MA D CY W 50 LL MC C G SP RA Y BE 68 03 04 3 30 10 ME 53 AR Ac NZ 08 -1 -1 .0 D 95 NO ti TR 40 4- 2- 00 CA 68 LD ve OP 38 20 20 RE 5 IN 10 11 11 RI E 1 PH CH ME AR AR S MA D 0. CY W 5 MG LL C TA B MD 68 04 04 3 30 30 ME 54 AR Ac RT 08 -0 -0 .0 D 44 NO ti AZ 40 7- 7- 00 CA 78 LD ve AP 12 20 20 RE 8 IN 00 11 11 RI E 1 PH CH 30 AR AR MA D MG CY W TA LL BL C ET RI 68 02 04 3 60 30 ME 52 AR Ac SP 38 -0 -0 .0 D 63 NO ti ER 20 6- 6- 00 CA 15 LD ve ID 11 20 20 RE 5 ON 30 11 11 RI E 5 PH CH 0. AR AR 5 MA D MG CY W TA LL BL C ET RO 00 04 04 3 30 30 ME 54 AR Ac PI 37 -0 -0 .0 D 44 NO ti NI 85 6- 6- 00 CA 41 LD ve RO 50 20 20 RE 8 LE 10 11 11 RI 1 PH CH HC AR AR L MA D 1 CY W MG LL TA C BL ET MO 37 02 04 3 30 30 ME 52 AR Ac IL 00 -0 -0 .0 D 57 NO ti OS 00 4- 5- 00 CA 39 LD ve EC 45 20 20 RE 8 50 11 11 RI OT 4 PH CH C AR AR 20 MA D .6 CY W MG LL C TA BL ET RI 68 02 04 3 30 30 ME 52 AR Ac SP 38 -0 -0 .0 D 56 NO ti ER 20 3- 4- 00 CA 31 LD ve ID 11 20 20 RE 3 ON 40 11 11 RI E 5 PH CH 1 AR AR MG MA D CY W TA BL LL ET C DI 00 04 04 3 30 10 ME 54 AR Ac CY 59 -0 -0 .0 D 58 NO ti CL 10 4- 4- 00 CA 69 LD ve OM 79 20 20 RE 2 IN 50 11 11 RI E 1 PH CH 20 AR AR MA D MG CY W TA LL BL C ET PO 62 12 03 3 30 30 ME 51 AR Ac TA 03 -2 -2 .0 D 31 NO ti SS 70 4- 3- 00 CA 37 LD ve IU 56 20 20 RE 6 M 00 10 11 RI CL 5 PH CH AR AR ER MA D CY W 10 LL ME C Q CA PS UL E MA 00 12 03 3 60 7 ME 51 AR Ac PA 90 -2 -2 .0 D 37 NO ti P 41 0- 3- 00 CA 29 LD ve 32 98 20 20 RE 4 5 26 10 11 RI MG 1 PH CH AR AR TA MA D BL CY W ET LL C 00 03 03 3 28 5 ME 53 AR Ac 71 -0 -2 .3 D 75 NO ti 30 8- 2- 99 CA 86 LD ve 29 20 20 RE 7 83 11 11 RI 1 PH CH AR AR MA D CY W LL C LO 51 02 03 3 20 5 ME 53 AR Ac PE 07 -2 -1 .0 D 42 NO ti RA 90 4- 4- 00 CA 02 LD ve MD 69 20 20 RE 6 DE 02 11 11 RI 2 0 PH CH AR AR MG MA D CY W CA PS LL UL C E BE 68 03 03 3 30 10 ME 53 AR Ac NZ 08 -1 -1 .0 D 95 NO ti TR 40 4- 4- 00 CA 68 LD ve OP 38 20 20 RE 5 IN 10 11 11 RI E 1 PH CH ME AR AR S MA D 0. CY W 5 MG LL C TA B DI 00 12 03 3 30 10 ME 51 AR Ac CY 59 -2 -0 .0 D 37 NO ti CL 10 0- 9- 00 CA 29 LD ve OM 79 20 20 RE 6 IN 50 10 11 RI E 1 PH CH 20 AR AR MA D MG CY W TA LL BL C ET MD 68 12 03 3 30 30 ME 50 AR Ac RT 08 -0 -0 .0 D 82 NO ti AZ 40 8- 8- 00 CA 63 LD ve AP 12 20 20 RE 6 IN 00 10 11 RI E 1 PH CH 30 AR AR MA D MG CY W TA LL BL C ET RI 68 02 03 3 60 30 ME 52 AR Ac SP 38 -0 -0 .0 D 63 NO ti ER 20 6- 8- 00 CA 15 LD ve ID 11 20 20 RE 5 ON 30 11 11 RI E 5 PH CH 0. AR AR 5 MA D MG CY W TA LL BL C ET 00 03 03 3 28 5 ME 53 AR Ac 71 -0 -0 .3 D 75 NO ti 30 8- 8- 99 CA 86 LD ve 29 20 20 RE 7 83 11 11 RI 1 PH CH AR AR MA D CY W LL C RO 00 12 03 3 30 30 ME 50 AR Ac PI 37 -0 -0 .0 D 81 NO ti NI 85 7- 7- 00 CA 79 LD ve RO 50 20 20 RE 2 LE 10 10 11 RI 1 PH CH HC AR AR L MA D 1 CY W MG LL TA C BL ET MO 37 02 03 3 30 30 ME 52 AR Ac IL 00 -0 -0 .0 D 57 NO ti OS 00 4- 6- 00 CA 39 LD ve EC 45 20 20 RE 8 50 11 11 RI OT 4 PH CH C AR AR 20 MA D .6 CY W MG LL C TA BL ET RI 68 02 03 3 30 30 ME 52 AR Ac SP 38 -0 -0 .0 D 56 NO ti ER 20 3- 5- 00 CA 31 LD ve ID 11 20 20 RE 3 ON 40 11 11 RI E 5 PH CH 1 AR AR MG MA D CY W TA BL LL ET C FL 00 03 03 3 16 30 ME 53 AR Ac UT 05 -0 -0 .0 D 61 NO ti IC 43 3- 3- 00 CA 07 LD ve 27 20 20 RE 1 ON 09 11 11 RI E 9 PH CH MO AR AR OP MA D CY W 50 LL MC C G SP RA Y MD 00 11 03 3 35 7 ME 50 AR Ac 90 -0 -0 5. D 21 NO ti AC 40 9- 2- 00 CA 32 LD ve ID 00 20 20 0 RE 6 41 10 11 RI LOZOYA 4 PH CH SP AR AR EN MA D SI CY W ON LL C LO 51 02 02 3 21 5 ME 53 AR Ac PE 07 -2 -2 .0 D 42 NO ti RA 90 4- 4- 00 CA 02 LD ve MD 69 20 20 RE 6 DE 02 11 11 RI 2 0 PH CH AR AR MG MA D CY W CA PS LL UL C E PO 62 12 02 3 30 30 ME 51 AR Ac TA 03 -2 -2 .0 D 31 NO ti SS 70 4- 2- 00 CA 37 LD ve IU 56 20 20 RE 6 M 00 10 11 RI CL 5 PH CH AR AR ER MA D CY W 10 LL ME C Q CA PS UL E BE 68 11 02 3 30 10 ME 50 AR Ac NZ 08 -1 -1 .0 D 40 NO ti TR 40 6- 9- 00 CA 08 LD ve OP 38 20 20 RE 6 IN 10 10 11 RI E 1 PH CH ME AR AR S MA D 0. CY W 5 MG LL C TA B MA 00 12 02 3 60 7 ME 51 AR Ac PA 90 -2 -1 .0 D 37 NO ti P 41 0- 8- 00 CA 29 LD ve 32 98 20 20 RE 4 5 26 10 11 RI MG 1 PH CH AR AR TA MA D BL CY W ET LL C 00 01 02 3 28 5 ME 51 AR Ac 71 -0 -1 .3 D 86 NO ti 30 5- 6- 99 CA 92 LD ve 29 20 20 RE 3 83 11 11 RI 1 PH CH AR AR MA D CY W LL C DI 00 12 02 3 30 10 ME 51 AR Ac CY 59 -2 -0 .0 D 37 NO ti CL 10 0- 9- 00 CA 29 LD ve OM 79 20 20 RE 6 IN 50 10 11 RI E 1 PH CH 20 AR AR MA D MG CY W TA LL BL C ET MD 68 12 02 3 30 30 ME 50 AR Ac RT 08 -0 -0 .0 D 82 NO ti AZ 40 8- 6- 00 CA 63 LD ve AP 12 20 20 RE 6 IN 00 10 11 RI E 1 PH CH 30 AR AR MA D MG CY W TA LL BL C ET RI 68 02 02 3 60 30 ME 52 AR Ac SP 38 -0 -0 .0 D 63 NO ti ER 20 6- 6- 00 CA 15 LD ve ID 11 20 20 RE 5 ON 30 11 11 RI E 5 PH CH 0. AR AR 5 MA D MG CY W TA LL BL C ET RO 00 12 02 3 30 30 ME 50 AR Ac PI 37 -0 -0 .0 D 81 NO ti NI 85 7- 5- 00 CA 79 LD ve RO 50 20 20 RE 2 LE 10 10 11 RI 1 PH CH HC AR AR L MA D 1 CY W MG LL TA C BL ET MO 37 02 02 3 30 30 ME 52 AR Ac IL 00 -0 -0 .0 D 57 NO ti OS 00 4- 4- 00 CA 39 LD ve EC 45 20 20 RE 8 50 11 11 RI OT 4 PH CH C AR AR 20 MA D .6 CY W MG LL C TA BL ET RI 68 02 02 3 30 30 ME 52 AR Ac SP 38 -0 -0 .0 D 56 NO ti ER 20 3- 3- 00 CA 31 LD ve ID 11 20 20 RE 3 ON 40 11 11 RI E 5 PH CH 1 AR AR MG MA D CY W TA BL LL ET C 00 01 01 3 28 5 ME 51 AR Ac 71 -0 -2 .3 D 86 NO ti 30 5- 8- 99 CA 92 LD ve 29 20 20 RE 3 83 11 11 RI 1 PH CH AR AR MA D CY W LL C PO 62 12 01 3 30 30 ME 51 AR Ac TA 03 -2 -2 .0 D 31 NO ti SS 70 4- 3- 00 CA 37 LD ve IU 56 20 20 RE 6 M 00 10 11 RI CL 5 PH CH AR AR ER MA D CY W 10 LL ME C Q CA PS UL E BE 68 11 01 3 30 10 ME 50 AR Ac NZ 08 -1 -2 .0 D 40 NO ti TR 40 6- 0- 00 CA 08 LD ve OP 38 20 20 RE 6 IN 10 10 11 RI E 1 PH CH ME AR AR S MA D 0. CY W 5 MG LL C TA B 00 01 01 3 28 5 ME 51 AR Ac 71 -0 -1 .3 D 86 NO ti 30 5- 5- 99 CA 92 LD ve 29 20 20 RE 3 83 11 11 RI 1 PH CH AR AR MA D CY W LL C MA 00 12 01 3 60 7 ME 51 AR Ac PA 90 -2 -1 .0 D 37 NO ti P 41 0- 4- 00 CA 29 LD ve 32 98 20 20 RE 4 5 26 10 11 RI MG 1 PH CH AR AR TA MA D BL CY W ET LL C DI 00 12 01 3 30 10 ME 51 AR Ac CY 59 -2 -1 .0 D 37 NO ti CL 10 0- 4- 00 CA 29 LD ve OM 79 20 20 RE 6 IN 50 10 11 RI E 1 PH CH 20 AR AR MA D MG CY W TA LL BL C ET RI 68 10 01 3 60 30 ME 49 AR Ac SP 38 -0 -0 .0 D 24 NO ti ER 20 9- 7- 00 CA 37 LD ve ID 11 20 20 RE 2 ON 30 10 11 RI E 5 PH CH 0. AR AR 5 MA D MG CY W TA LL BL C ET MD 68 12 01 3 30 30 ME 50 AR Ac RT 08 -0 -0 .0 D 82 NO ti AZ 40 8- 7- 00 CA 63 LD ve AP 12 20 20 RE 6 IN 00 10 11 RI E 1 PH CH 30 AR AR MA D MG CY W TA LL BL C ET RO 00 12 01 3 30 30 ME 50 AR Ac PI 37 -0 -0 .0 D 81 NO ti NI 85 7- 6- 00 CA 79 LD ve RO 50 20 20 RE 2 LE 10 10 11 RI 1 PH CH HC AR AR L MA D 1 CY W MG LL TA C BL ET MO 37 10 01 3 30 30 ME 49 AR Ac IL 00 -1 -0 .0 D 36 NO ti OS 00 3- 5- 00 CA 22 LD ve EC 45 20 20 RE 1 50 10 11 RI OT 4 PH CH C AR AR 20 MA D .6 CY W MG LL C TA BL ET 00 01 01 3 28 5 ME 51 AR Ac 71 -0 -0 .3 D 86 NO ti 30 5- 5- 99 CA 92 LD ve 29 20 20 RE 3 83 11 11 RI 1 PH CH AR AR MA D CY W LL C RI 68 10 01 3 30 30 ME 49 AR Ac SP 38 -0 -0 .0 D 18 NO ti ER 20 6- 4- 00 CA 74 LD ve ID 11 20 20 RE 3 ON 40 10 11 RI E 5 PH CH 1 AR AR MG MA D CY W TA BL LL ET C PO 62 12 12 3 30 30 ME 51 AR Ac TA 03 -2 -2 .0 D 31 NO ti SS 70 4- 4- 00 CA 37 LD ve IU 56 20 20 RE 6 M 00 10 10 RI CL 5 PH CH AR AR ER MA D CY W 10 LL ME C Q CA PS UL E BE 68 11 12 3 30 10 ME 50 AR Ac NZ 08 -1 -2 .0 D 40 NO ti TR 40 6- 0- 00 CA 08 LD ve OP 38 20 20 RE 6 IN 10 10 10 RI E 1 PH CH ME AR AR S MA D 0. CY W 5 MG LL C TA B MA 00 12 12 3 60 7 ME 51 AR Ac PA 90 -2 -2 .0 D 37 NO ti P 41 0- 0- 00 CA 29 LD ve 32 98 20 20 RE 4 5 26 10 10 RI MG 1 PH CH AR AR TA MA D BL CY W ET LL C DI 00 12 12 3 30 10 ME 51 AR Ac CY 59 -2 -2 .0 D 37 NO ti CL 10 0- 0- 00 CA 29 LD ve OM 79 20 20 RE 6 IN 50 10 10 RI E 1 PH CH 20 AR AR MA D MG CY W TA LL BL C ET 00 10 12 3 28 5 ME 49 AR Ac 71 -0 -1 .3 D 07 NO ti 30 8- 4- 99 CA 42 LD ve 29 20 20 RE 9 83 10 10 RI 1 PH CH AR AR MA D CY W LL C RI 68 10 12 3 60 30 ME 49 AR Ac SP 38 -0 -0 .0 D 24 NO ti ER 20 9- 8- 00 CA 37 LD ve ID 11 20 20 RE 2 ON 30 10 10 RI E 5 PH CH 0. AR AR 5 MA D MG CY W TA LL BL C ET MO 37 10 12 3 30 30 ME 49 AR Ac IL 00 -1 -0 .0 D 36 NO ti OS 00 3- 8- 00 CA 22 LD ve EC 45 20 20 RE 1 50 10 10 RI OT 4 PH CH C AR AR 20 MA D .6 CY W MG LL C TA BL ET MD 68 12 12 3 30 30 ME 50 AR Ac RT 08 -0 -0 .0 D 82 NO ti AZ 40 8- 8- 00 CA 63 LD ve AP 12 20 20 RE 6 IN 00 10 10 RI E 1 PH CH 30 AR AR MA D MG CY W TA LL BL C ET RO 00 12 12 3 30 30 ME 50 AR Ac PI 37 -0 -0 .0 D 81 NO ti NI 85 7- 7- 00 CA 79 LD ve RO 50 20 20 RE 2 LE 10 10 10 RI 1 PH CH HC AR AR L MA D 1 CY W MG LL TA C BL ET RI 68 10 12 3 30 30 ME 49 AR Ac SP 38 -0 -0 .0 D 18 NO ti ER 20 6- 5- 00 CA 74 LD ve ID 11 20 20 RE 3 ON 40 10 10 RI E 5 PH CH 1 AR AR MG MA D CY W TA BL LL ET C 00 11 11 3 11 3 ME 50 AR Ac 12 -2 -2 8. D 74 NO ti 10 9- 9- 00 CA 10 LD ve 63 20 20 0 RE 3 80 10 10 RI 4 PH CH AR AR MA D CY W LL C LO 51 08 11 3 20 5 ME 48 AR Ac PE 07 -2 -2 .0 D 30 NO ti RA 90 8- 7- 00 CA 22 LD ve MD 69 20 20 RE 3 DE 02 10 10 RI 2 0 PH CH AR AR MG MA D CY W CA PS LL UL C E PO 62 08 11 3 30 30 ME 48 AR Ac TA 03 -3 -2 .0 D 06 NO ti SS 70 0- 4- 00 CA 06 LD ve IU 56 20 20 RE 3 M 00 10 10 RI CL 5 PH CH AR AR ER MA D CY W 10 LL ME C Q CA PS UL E 00 10 11 3 28 5 ME 49 AR Ac 71 -0 -1 .3 D 07 NO ti 30 8- 9- 99 CA 42 LD ve 29 20 20 RE 9 83 10 10 RI 1 PH CH AR AR MA D CY W LL C MA 00 09 11 3 60 7 ME 48 AR Ac PA 90 -1 -1 .0 D 83 NO ti P 41 8- 6- 00 CA 42 LD ve 32 98 20 20 RE 8 5 26 10 10 RI MG 1 PH CH AR AR TA MA D BL CY W ET LL C BE 68 11 11 3 30 10 ME 50 AR Ac NZ 08 -1 -1 .0 D 40 NO ti TR 40 6- 6- 00 CA 08 LD ve OP 38 20 20 RE 6 IN 10 10 10 RI E 1 PH CH ME AR AR S MA D 0. CY W 5 MG LL C TA B DI 00 08 11 3 30 10 ME 48 AR Ac CY 59 -2 -1 .0 D 08 NO ti CL 10 0- 2- 00 CA 50 LD ve OM 79 20 20 RE 6 IN 50 10 10 RI E 1 PH CH 20 AR AR MA D MG CY W TA LL BL C ET MO 37 10 11 3 30 30 ME 49 AR Ac IL 00 -1 -1 .0 D 36 NO ti OS 00 3- 2- 00 CA 22 LD ve EC 45 20 20 RE 1 50 10 10 RI OT 4 PH CH C AR AR 20 MA D .6 CY W MG LL C TA BL ET MD 00 11 11 3 35 7 ME 50 AR Ac 90 -0 -0 5. D 21 NO ti AC 40 9- 9- 00 CA 32 LD ve ID 00 20 20 0 RE 6 41 10 10 RI LOZOYA 4 PH CH SP AR AR EN MA D SI CY W ON LL C 00 08 11 3 30 30 ME 47 AR Ac 18 -1 -0 .0 D 50 NO ti 50 0- 8- 00 CA 93 LD ve 21 20 20 RE 9 21 10 10 RI 0 PH CH AR AR MA D CY W LL C RI 68 10 11 3 60 30 ME 49 AR Ac SP 38 -0 -0 .0 D 24 NO ti ER 20 9- 8- 00 CA 37 LD ve ID 11 20 20 RE 2 ON 30 10 10 RI E 5 PH CH 0. AR AR 5 MA D MG CY W TA LL BL C ET RO 00 08 11 3 30 30 ME 47 AR Ac PI 37 -1 -0 .0 D 19 NO ti NI 85 4- 7- 00 CA 01 LD ve RO 50 20 20 RE 0 LE 10 10 10 RI 1 PH CH HC AR AR L MA D 1 CY W MG LL TA C BL ET RI 68 10 11 3 30 30 ME 49 AR Ac SP 38 -0 -0 .0 D 18 NO ti ER 20 6- 5- 00 CA 74 LD ve ID 11 20 20 RE 3 ON 40 10 10 RI E 5 PH CH 1 AR AR MG MA D CY W TA BL LL ET C 00 10 11 3 28 5 ME 49 AR Ac 71 -0 -0 .3 D 07 NO ti 30 8- 3- 99 CA 42 LD ve 29 20 20 RE 9 83 10 10 RI 1 PH CH AR AR MA D CY W LL C MA 00 09 10 3 60 7 ME 48 AR Ac PA 90 -1 -2 .0 D 83 NO ti P 41 8- 8- 00 CA 42 LD ve 32 98 20 20 RE 8 5 26 10 10 RI MG 1 PH CH AR AR TA MA D BL CY W ET LL C PO 62 08 10 3 30 30 ME 48 AR Ac TA 03 -3 -2 .0 D 06 NO ti SS 70 0- 5- 00 CA 06 LD ve IU 56 20 20 RE 3 M 00 10 10 RI CL 5 PH CH AR AR ER MA D CY W 10 LL ME C Q CA PS UL E MO 37 10 10 3 30 30 ME 49 AR Ac IL 00 -1 -1 .0 D 36 NO ti OS 00 3- 3- 00 CA 22 LD ve EC 45 20 20 RE 1 50 10 10 RI OT 4 PH CH C AR AR 20 MA D .6 CY W MG LL C TA BL ET RO 00 08 10 3 30 30 ME 47 AR Ac PI 37 -1 -1 .0 D 19 NO ti NI 85 4- 0- 00 CA 01 LD ve RO 50 20 20 RE 0 LE 10 10 10 RI 1 PH CH HC AR AR L MA D 1 CY W MG LL TA C BL ET 00 08 10 3 30 30 ME 47 AR Ac 18 -1 -0 .0 D 50 NO ti 50 0- 9- 00 CA 93 LD ve 21 20 20 RE 9 21 10 10 RI 0 PH CH AR AR MA D CY W LL C RI 68 10 10 3 60 30 ME 49 AR Ac SP 38 -0 -0 .0 D 24 NO ti ER 20 9- 9- 00 CA 37 LD ve ID 11 20 20 RE 2 ON 30 10 10 RI E 5 PH CH 0. AR AR 5 MA D MG CY W TA LL BL C ET MA 00 09 10 3 60 7 ME 48 AR Ac PA 90 -1 -0 .0 D 83 NO ti P 41 8- 8- 00 CA 42 LD ve 32 98 20 20 RE 8 5 26 10 10 RI MG 1 PH CH AR AR TA MA D BL CY W ET LL C BE 68 07 10 3 30 10 ME 46 AR Ac NZ 08 -0 -0 .0 D 90 NO ti TR 40 8- 6- 00 CA 95 LD ve OP 38 20 20 RE 6 IN 10 10 10 RI E 1 PH CH ME AR AR S MA D 0. CY W 5 MG LL C TA B RI 68 10 10 3 30 30 ME 49 AR Ac SP 38 -0 -0 .0 D 18 NO ti ER 20 6- 6- 00 CA 74 LD ve ID 11 20 20 RE 3 ON 40 10 10 RI E 5 PH CH 1 AR AR MG MA D CY W TA BL LL ET C PO 62 08 09 3 30 30 ME 48 AR Ac TA 03 -3 -2 .0 D 06 NO ti SS 70 0- 7- 00 CA 06 LD ve IU 56 20 20 RE 3 M 00 10 10 RI CL 5 PH CH AR AR ER MA D CY W 10 LL ME C Q CA PS UL E DI 00 08 09 3 30 10 ME 48 AR Ac CY 59 -2 -2 .0 D 08 NO ti CL 10 0- 7- 00 CA 50 LD ve OM 79 20 20 RE 6 IN 50 10 10 RI E 1 PH CH 20 AR AR MA D MG CY W TA LL BL C ET MA 00 09 09 3 60 7 ME 48 AR Ac PA 90 -1 -1 .0 D 83 NO ti P 41 8- 8- 00 CA 42 LD ve 32 98 20 20 RE 8 5 26 10 10 RI MG 1 PH CH AR AR TA MA D BL CY W ET LL C MO 37 06 09 3 30 30 ME 46 AR Ac IL 00 -1 -1 .0 D 00 NO ti OS 00 4- 3- 00 CA 57 LD ve EC 45 20 20 RE 1 50 10 10 RI OT 4 PH CH C AR AR 20 MA D .6 CY W MG LL C TA BL ET RO 00 08 09 3 30 30 ME 47 AR Ac PI 37 -1 -1 .0 D 19 NO ti NI 85 4- 3- 00 CA 01 LD ve RO 50 20 20 RE 0 LE 10 10 10 RI 1 PH CH HC AR AR L MA D 1 CY W MG LL TA C BL ET RI 68 06 09 3 60 30 ME 45 AR Ac SP 38 -1 -0 .0 D 91 NO ti ER 20 0- 9- 00 CA 90 LD ve ID 11 20 20 RE 9 ON 30 10 10 RI E 5 PH CH 0. AR AR 5 MA D MG CY W TA LL BL C ET 00 08 09 3 30 30 ME 47 AR Ac 18 -1 -0 .0 D 50 NO ti 50 0- 9- 00 CA 93 LD ve 21 20 20 RE 9 21 10 10 RI 0 PH CH AR AR MA D CY W LL C RI 68 06 09 3 30 30 ME 45 AR Ac SP 38 -0 -0 .0 D 81 NO ti ER 20 7- 6- 00 CA 82 LD ve ID 11 20 20 RE 5 ON 40 10 10 RI E 5 PH CH 1 AR AR MG MA D CY W TA BL LL ET C DI 00 08 09 3 30 10 ME 48 AR Ac CY 59 -2 -0 .0 D 08 NO ti CL 10 0- 6- 00 CA 50 LD ve OM 79 20 20 RE 6 IN 50 10 10 RI E 1 PH CH 20 AR AR MA D MG CY W TA LL BL C ET BE 68 07 09 3 30 10 ME 46 AR Ac NZ 08 -0 -0 .0 D 90 NO ti TR 40 8- 4- 00 CA 95 LD ve OP 38 20 20 RE 6 IN 10 10 10 RI E 1 PH CH ME AR AR S MA D 0. CY W 5 MG LL C TA B PO 62 08 08 3 30 30 ME 48 AR Ac TA 03 -3 -3 .0 D 06 NO ti SS 70 0- 0- 00 CA 06 LD ve IU 56 20 20 RE 3 M 00 10 10 RI CL 5 PH CH AR AR ER MA D CY W 10 LL ME C Q CA PS UL E LO 51 08 08 3 20 5 ME 48 AR Ac PE 07 -2 -2 .0 D 30 NO ti RA 90 8- 8- 00 CA 22 LD ve MD 69 20 20 RE 3 DE 02 10 10 RI 2 0 PH CH AR AR MG MA D CY W CA PS LL UL C E 00 07 08 3 28 5 ME 47 AR Ac 71 -1 -2 .3 D 08 NO ti 30 4- 3- 99 CA 93 LD ve 29 20 20 RE 5 83 10 10 RI 1 PH CH AR AR MA D CY W LL C MA 00 06 08 3 60 7 ME 45 AR Ac PA 90 -0 -2 .0 D 90 NO ti P 41 2- 1- 00 CA 58 LD ve 32 98 20 20 RE 4 5 26 10 10 RI MG 1 PH CH AR AR TA MA D BL CY W ET LL C DI 00 08 08 3 30 10 ME 48 AR Ac CY 59 -2 -2 .0 D 08 NO ti CL 10 0- 0- 00 CA 50 LD ve OM 79 20 20 RE 6 IN 50 10 10 RI E 1 PH CH 20 AR AR MA D MG CY W TA LL BL C ET DO 00 08 08 3 10 10 ME 48 AR Ac K 90 -2 -2 .0 D 08 NO ti 10 42 0- 0- 00 CA 59 LD ve 0 24 20 20 RE 0 MG 46 10 10 RI 1 PH CH CA AR AR PS MA D UL CY W E LL C BE 68 07 08 3 30 10 ME 46 AR Ac NZ 08 -0 -1 .0 D 90 NO ti TR 40 8- 6- 00 CA 95 LD ve OP 38 20 20 RE 6 IN 10 10 10 RI E 1 PH CH ME AR AR S MA D 0. CY W 5 MG LL C TA B MO 37 06 08 3 30 30 ME 46 AR Ac IL 00 -1 -1 .0 D 00 NO ti OS 00 4- 4- 00 CA 57 LD ve EC 45 20 20 RE 1 50 10 10 RI OT 4 PH CH C AR AR 20 MA D .6 CY W MG LL C TA BL ET RO 00 08 08 3 30 30 ME 47 AR Ac PI 37 -1 -1 .0 D 19 NO ti NI 85 4- 4- 00 CA 01 LD ve RO 50 20 20 RE 0 LE 10 10 10 RI 1 PH CH HC AR AR L MA D 1 CY W MG LL TA C BL ET RI 68 06 08 3 60 30 ME 45 AR Ac SP 38 -1 -1 .0 D 91 NO ti ER 20 0- 0- 00 CA 90 LD ve ID 11 20 20 RE 9 ON 30 10 10 RI E 5 PH CH 0. AR AR 5 MA D MG CY W TA LL BL C ET 00 08 08 3 30 30 ME 47 AR Ac 18 -1 -1 .0 D 50 NO ti 50 0- 0- 00 CA 93 LD ve 21 20 20 RE 9 21 10 10 RI 0 PH CH AR AR MA D CY W LL C RI 68 06 08 3 30 30 ME 45 AR Ac SP 38 -0 -0 .0 D 81 NO ti ER 20 7- 7- 00 CA 82 LD ve ID 11 20 20 RE 5 ON 40 10 10 RI E 5 PH CH 1 AR AR MG MA D CY W TA BL LL ET C DI 00 05 08 3 30 10 ME 45 AR Ac CY 59 -0 -0 .0 D 26 NO ti CL 10 7- 4- 00 CA 01 LD ve OM 79 20 20 RE 8 IN 50 10 10 RI E 1 PH CH 20 AR AR MA D MG CY W TA LL BL C ET PO 62 05 07 3 30 30 ME 44 AR Ac TA 03 -0 -3 .0 D 90 NO ti SS 70 1- 1- 00 CA 09 LD ve IU 56 20 20 RE 7 M 00 10 10 RI CL 5 PH CH AR AR ER MA D CY W 10 LL ME C Q CA PS UL E LO 51 02 07 3 20 5 ME 42 AR Ac PE 07 -0 -2 .0 D 76 NO ti RA 90 2- 7- 00 CA 26 LD ve MD 69 20 20 RE 8 DE 02 10 10 RI 2 0 PH CH AR AR MG MA D CY W CA PS LL UL C E MA 00 06 07 3 60 7 ME 45 AR Ac PA 90 -0 -2 .0 D 90 NO ti P 41 2- 7- 00 CA 58 LD ve 32 98 20 20 RE 4 5 26 10 10 RI MG 1 PH CH AR AR TA MA D BL CY W ET LL C 00 07 07 3 28 5 ME 47 AR Ac 71 -1 -2 .3 D 08 NO ti 30 4- 6- 99 CA 93 LD ve 29 20 20 RE 5 83 10 10 RI 1 PH CH AR AR MA D CY W LL C DI 00 05 07 3 30 10 ME 45 AR Ac CY 59 -0 -2 .0 D 26 NO ti CL 10 7- 0- 00 CA 01 LD ve OM 79 20 20 RE 8 IN 50 10 10 RI E 1 PH CH 20 AR AR MA D MG CY W TA LL BL C ET MO 37 06 07 3 30 30 ME 46 AR Ac IL 00 -1 -1 .0 D 00 NO ti OS 00 4- 5- 00 CA 57 LD ve EC 45 20 20 RE 1 50 10 10 RI OT 4 PH CH C AR AR 20 MA D .6 CY W MG LL C TA BL ET RO 00 06 07 3 30 30 ME 46 AR Ac PI 37 -1 -1 .0 D 00 NO ti NI 85 3- 4- 00 CA 18 LD ve RO 50 20 20 RE 1 LE 10 10 10 RI 1 PH CH HC AR AR L MA D 1 CY W MG LL TA C BL ET 00 07 07 3 28 5 ME 47 AR Ac 71 -1 -1 .3 D 08 NO ti 30 4- 4- 99 CA 93 LD ve 29 20 20 RE 5 83 10 10 RI 1 PH CH AR AR MA D CY W LL C RI 68 06 07 3 60 30 ME 45 AR Ac SP 38 -1 -1 .0 D 91 NO ti ER 20 0- 1- 00 CA 90 LD ve ID 11 20 20 RE 9 ON 30 10 10 RI E 5 PH CH 0. AR AR 5 MA D MG CY W TA LL BL C ET 00 04 07 3 30 30 ME 44 AR Ac 18 -1 -1 .0 D 28 NO ti 50 1- 1- 00 CA 74 LD ve 21 20 20 RE 6 21 10 10 RI 0 PH CH AR AR MA D CY W LL C RI 68 06 07 3 30 30 ME 45 AR Ac SP 38 -0 -0 .0 D 81 NO ti ER 20 7- 8- 00 CA 82 LD ve ID 11 20 20 RE 5 ON 40 10 10 RI E 5 PH CH 1 AR AR MG MA D CY W TA BL LL ET C BE 68 07 07 3 30 10 ME 46 AR Ac NZ 08 -0 -0 .0 D 90 NO ti TR 40 8- 8- 00 CA 95 LD ve OP 38 20 20 RE 6 IN 10 10 10 RI E 1 PH CH ME AR AR S MA D 0. CY W 5 MG LL C TA B PO 62 05 07 3 30 30 ME 44 AR Ac TA 03 -0 -0 .0 D 90 NO ti SS 70 1- 1- 00 CA 09 LD ve IU 56 20 20 RE 7 M 00 10 10 RI CL 5 PH CH AR AR ER MA D CY W 10 LL ME C Q CA PS UL E DI 00 05 06 3 30 10 ME 45 AR Ac CY 59 -0 -2 .0 D 26 NO ti CL 10 7- 8- 00 CA 01 LD ve OM 79 20 20 RE 8 IN 50 10 10 RI E 1 PH CH 20 AR AR MA D MG CY W TA LL BL C ET MA 00 06 06 3 60 7 ME 45 AR Ac PA 90 -0 -2 .0 D 90 NO ti P 41 2- 5- 00 CA 58 LD ve 32 98 20 20 RE 4 5 26 10 10 RI MG 1 PH CH AR AR TA MA D BL CY W ET LL C 00 06 06 3 10 5 ME 46 AR Ac 57 -2 -2 .0 D 39 NO ti 44 1- 1- 00 CA 92 LD ve 10 20 20 RE 3 31 10 10 RI 0 PH CH AR AR MA D CY W LL C MO 37 06 06 3 30 30 ME 46 AR Ac IL 00 -1 -1 .0 D 00 NO ti OS 00 4- 4- 00 CA 57 LD ve EC 45 20 20 RE 1 50 10 10 RI OT 4 PH CH C AR AR 20 MA D .6 CY W MG LL C TA BL ET RO 00 06 06 3 30 30 ME 46 AR Ac PI 37 -1 -1 .0 D 00 NO ti NI 85 3- 3- 00 CA 18 LD ve RO 50 20 20 RE 1 LE 10 10 10 RI 1 PH CH HC AR AR L MA D 1 CY W MG LL TA C BL ET 00 04 06 3 30 30 ME 44 AR Ac 18 -1 -1 .0 D 28 NO ti 50 1- 0- 00 CA 74 LD ve 21 20 20 RE 6 21 10 10 RI 0 PH CH AR AR MA D CY W LL C RI 68 06 06 3 60 30 ME 45 AR Ac SP 38 -1 -1 .0 D 91 NO ti ER 20 0- 0- 00 CA 90 LD ve ID 11 20 20 RE 9 ON 30 10 10 RI E 5 PH CH 0. AR AR 5 MA D MG CY W TA LL BL C ET 24 04 06 3 56 5 ME 44 AR Ac 38 -1 -0 .7 D 62 NO ti 50 3- 9- 99 CA 72 LD ve 38 20 20 RE 4 74 10 10 RI 6 PH CH AR AR MA D CY W LL C BE 68 04 06 3 30 10 ME 44 AR Ac NZ 08 -0 -0 .0 D 36 NO ti TR 40 3- 8- 00 CA 76 LD ve OP 38 20 20 RE 6 IN 10 10 10 RI E 1 PH CH ME AR AR S MA D 0. CY W 5 MG LL C TA B RI 68 06 06 3 30 30 ME 45 AR Ac SP 38 -0 -0 .0 D 81 NO ti ER 20 7- 7- 00 CA 82 LD ve ID 11 20 20 RE 5 ON 40 10 10 RI E 5 PH CH 1 AR AR MG MA D CY W TA BL LL ET C MD 00 04 06 3 35 7 ME 44 AR Ac 90 -2 -0 5. D 81 NO ti AC 40 1- 4- 00 CA 80 LD ve ID 00 20 20 0 RE 7 41 10 10 RI LOZOYA 4 PH CH SP AR AR EN MA D SI CY W ON LL C MA 00 06 06 3 60 7 ME 45 AR Ac PA 90 -0 -0 .0 D 90 NO ti P 41 2- 2- 00 CA 58 LD ve 32 98 20 20 RE 4 5 26 10 10 RI MG 1 PH CH AR AR TA MA D BL CY W ET LL C PO 62 05 05 3 30 30 ME 44 AR Ac TA 03 -0 -3 .0 D 90 NO ti SS 70 1- 1- 00 CA 09 LD ve IU 56 20 20 RE 7 M 00 10 10 RI CL 5 PH CH AR AR ER MA D CY W 10 LL ME C Q CA PS UL E 24 04 05 3 56 5 ME 44 AR Ac 38 -1 -2 .7 D 62 NO ti 50 3- 4- 99 CA 72 LD ve 38 20 20 RE 4 74 10 10 RI 6 PH CH AR AR MA D CY W LL C BE 68 04 05 3 30 10 ME 44 AR Ac NZ 08 -0 -2 .0 D 36 NO ti TR 40 3- 1- 00 CA 76 LD ve OP 38 20 20 RE 6 IN 10 10 10 RI E 1 PH CH ME AR AR S MA D 0. CY W 5 MG LL C TA B MD 00 04 05 3 35 7 ME 44 AR Ac 90 -2 -2 5. D 81 NO ti AC 40 1- 1- 00 CA 80 LD ve ID 00 20 20 0 RE 7 41 10 10 RI LOZOYA 4 PH CH SP AR AR EN MA D SI CY W ON LL C LO 00 05 05 3 30 5 ME 45 AR Ac RA 59 -2 -2 .0 D 61 NO ti ZE 10 1- 1- 00 CA 55 LD ve PA 24 20 20 RE 1 M 01 10 10 RI 0. 0 PH CH 5 AR AR MG MA D CY W TA BL LL ET C LO 51 02 05 3 20 5 ME 42 AR Ac PE 07 -0 -1 .0 D 76 NO ti RA 90 2- 8- 00 CA 26 LD ve MD 69 20 20 RE 8 DE 02 10 10 RI 2 0 PH CH AR AR MG MA D CY W CA PS LL UL C E MO 37 02 05 3 30 30 ME 43 AR Ac IL 00 -2 -1 .0 D 13 NO ti OS 00 2- 5- 00 CA 91 LD ve EC 45 20 20 RE 7 50 10 10 RI OT 4 PH CH C AR AR 20 MA D .6 CY W MG LL C TA BL ET RO 00 02 05 3 30 30 ME 43 AR Ac PI 37 -1 -1 .0 D 05 NO ti NI 85 6- 4- 00 CA 72 LD ve RO 50 20 20 RE 1 LE 10 10 10 RI 1 PH CH HC AR AR L MA D 1 CY W MG LL TA C BL ET AZ 64 05 05 3 6. 5 ME 45 AR Ac IT 67 -1 -1 00 D 40 NO ti HR 90 3- 3- 0 CA 69 LD ve OM 96 20 20 RE 3 YC 10 10 10 RI IN 5 PH CH AR AR 25 MA D 0 CY W MG LL TA C BL ET RI 68 02 05 3 60 30 ME 42 AR Ac SP 38 -1 -1 .0 D 77 NO ti ER 20 0- 1- 00 CA 32 LD ve ID 11 20 20 RE 6 ON 30 10 10 RI E 5 PH CH 0. AR AR 5 MA D MG CY W TA LL BL C ET 00 04 05 3 30 30 ME 44 AR Ac 18 -1 -1 .0 D 28 NO ti 50 1- 1- 00 CA 74 LD ve 21 20 20 RE 6 21 10 10 RI 0 PH CH AR AR MA D CY W LL C 00 05 05 3 30 10 ME 45 AR Ac 09 -1 -1 .0 D 32 NO ti 33 1- 1- 00 CA 36 LD ve 10 20 20 RE 2 99 10 10 RI 3 PH CH AR AR MA D CY W LL C RI 68 02 05 3 30 30 ME 42 AR Ac SP 38 -0 -0 .0 D 68 NO ti ER 20 7- 8- 00 CA 17 LD ve ID 11 20 20 RE 8 ON 40 10 10 RI E 5 PH CH 1 AR AR MG MA D CY W TA BL LL ET C DI 00 05 05 3 30 10 ME 45 AR Ac CY 59 -0 -0 .0 D 26 NO ti CL 10 7- 7- 00 CA 01 LD ve OM 79 20 20 RE 8 IN 50 10 10 RI E 1 PH CH 20 AR AR MA D MG CY W TA LL BL C ET MD 00 04 05 3 35 7 ME 44 AR Ac 90 -2 -0 5. D 81 NO ti AC 40 1- 7- 00 CA 80 LD ve ID 00 20 20 0 RE 7 41 10 10 RI LOZOYA 4 PH CH SP AR AR EN MA D SI CY W ON LL C 00 03 05 3 60 7 ME 44 AR Ac 18 -2 -0 .0 D 02 NO ti 28 2- 7- 00 CA 89 LD ve 44 20 20 RE 1 78 10 10 RI 9 PH CH AR AR MA D CY W LL C 24 04 05 3 56 5 ME 44 AR Ac 38 -1 -0 .7 D 62 NO ti 50 3- 7- 99 CA 72 LD ve 38 20 20 RE 4 74 10 10 RI 6 PH CH AR AR MA D CY W LL C PO 62 05 05 3 30 30 ME 44 AR Ac TA 03 -0 -0 .0 D 90 NO ti SS 70 1- 1- 00 CA 09 LD ve IU 56 20 20 RE 7 M 00 10 10 RI CL 5 PH CH AR AR ER MA D CY W 10 LL ME C Q CA PS UL E BE 68 04 04 3 30 10 ME 44 AR Ac NZ 08 -0 -2 .0 D 36 NO ti TR 40 3- 9- 00 CA 76 LD ve OP 38 20 20 RE 6 IN 10 10 10 RI E 1 PH CH ME AR AR S MA D 0. CY W 5 MG LL C TA B LO 51 02 04 3 20 5 ME 42 AR Ac PE 07 -0 -2 .0 D 76 NO ti RA 90 2- 3- 00 CA 26 LD ve MD 69 20 20 RE 8 DE 02 10 10 RI 2 0 PH CH AR AR MG MA D CY W CA PS LL UL C E MD 00 04 04 3 35 7 ME 44 AR Ac 90 -2 -2 5. D 81 NO ti AC 40 1- 1- 00 CA 80 LD ve ID 00 20 20 0 RE 7 41 10 10 RI LOZOYA 4 PH CH SP AR AR EN MA D SI CY W ON LL C MO 37 02 04 3 30 30 ME 43 AR Ac IL 00 -2 -1 .0 D 13 NO ti OS 00 2- 5- 00 CA 91 LD ve EC 45 20 20 RE 7 50 10 10 RI OT 4 PH CH C AR AR 20 MA D .6 CY W MG LL C TA BL ET 00 03 04 3 60 7 ME 44 AR Ac 18 -2 -1 .0 D 02 NO ti 28 2- 4- 00 CA 89 LD ve 44 20 20 RE 1 78 10 10 RI 9 PH CH AR AR MA D CY W LL C RO 00 02 04 3 30 30 ME 43 AR Ac PI 37 -1 -1 .0 D 05 NO ti NI 85 6- 4- 00 CA 72 LD ve RO 50 20 20 RE 1 LE 10 10 10 RI 1 PH CH HC AR AR L MA D 1 CY W MG LL TA C BL ET 24 04 04 3 56 5 ME 44 AR Ac 38 -1 -1 .7 D 62 NO ti 50 3- 3- 99 CA 72 LD ve 38 20 20 RE 4 74 10 10 RI 6 PH CH AR AR MA D CY W LL C 00 04 04 3 30 30 ME 44 AR Ac 18 -1 -1 .0 D 28 NO ti 50 1- 1- 00 CA 74 LD ve 21 20 20 RE 6 21 10 10 RI 0 PH CH AR AR MA D CY W LL C RI 68 02 04 3 60 30 ME 42 AR Ac SP 38 -1 -1 .0 D 77 NO ti ER 20 0- 1- 00 CA 32 LD ve ID 11 20 20 RE 6 ON 30 10 10 RI E 5 PH CH 0. AR AR 5 MA D MG CY W TA LL BL C ET RI 68 02 04 3 30 30 ME 42 AR Ac SP 38 -0 -0 .0 D 68 NO ti ER 20 7- 8- 00 CA 17 LD ve ID 11 20 20 RE 8 ON 40 10 10 RI E 5 PH CH 1 AR AR MG MA D CY W TA BL LL ET C BE 68 04 04 3 30 10 ME 44 AR Ac NZ 08 -0 -0 .0 D 36 NO ti TR 40 3- 3- 00 CA 76 LD ve OP 38 20 20 RE 6 IN 10 10 10 RI E 1 PH CH ME AR AR S MA D 0. CY W 5 MG LL C TA B PO 62 01 04 3 30 30 ME 41 AR Ac TA 03 -0 -0 .0 D 84 NO ti SS 70 4- 1- 00 CA 77 LD ve IU 56 20 20 RE 7 M 00 10 10 RI CL 5 PH CH AR AR ER MA D CY W 10 LL ME C Q CA PS UL E DI 00 01 04 3 30 10 ME 41 AR Ac CY 59 -0 -0 .0 D 92 NO ti CL 10 2- 1- 00 CA 74 LD ve OM 79 20 20 RE 0 IN 50 10 10 RI E 1 PH CH 20 AR AR MA D MG CY W TA LL BL C ET 00 03 03 3 60 7 ME 44 AR Ac 18 -2 -2 .0 D 02 NO ti 28 2- 2- 00 CA 89 LD ve 44 20 20 RE 1 78 10 10 RI 9 PH CH AR AR MA D CY W LL C MO 37 02 03 3 30 30 ME 43 AR Ac IL 00 -2 -1 .0 D 13 NO ti OS 00 2- 9- 00 CA 91 LD ve EC 45 20 20 RE 7 50 10 10 RI OT 4 PH CH C AR AR 20 MA D .6 CY W MG LL C TA BL ET RO 00 02 03 3 30 30 ME 43 AR Ac PI 37 -1 -1 .0 D 05 NO ti NI 85 6- 5- 00 CA 72 LD ve RO 50 20 20 RE 1 LE 10 10 10 RI 1 PH CH HC AR AR L MA D 1 CY W MG LL TA C BL ET MO 68 03 03 3 30 5 ME 43 AR Ac OM 38 -1 -1 .0 D 84 NO ti ET 20 5- 5- 00 CA 27 LD ve TYLER 04 20 20 RE 6 ZI 11 10 10 RI NE 0 PH CH AR AR 25 MA D CY W MG LL TA C BL ET 00 03 03 3 60 7 ME 43 AR Ac 71 -1 -1 .0 D 82 NO ti 30 3- 3- 00 CA 24 LD ve 29 20 20 RE 0 83 10 10 RI 2 PH CH AR AR MA D CY W LL C 00 12 03 3 30 30 ME 41 AR Ac 18 -1 -1 .0 D 49 NO ti 50 9- 2- 00 CA 66 LD ve 21 20 20 RE 8 21 09 10 RI 0 PH CH AR AR MA D CY W LL C RI 68 02 03 3 60 30 ME 42 AR Ac SP 38 -1 -1 .0 D 77 NO ti ER 20 0- 2- 00 CA 32 LD ve ID 11 20 20 RE 6 ON 30 10 10 RI E 5 PH CH 0. AR AR 5 MA D MG CY W TA LL BL C ET BE 68 12 03 3 30 10 ME 41 AR Ac NZ 08 -2 -1 .0 D 82 NO ti TR 40 9- 0- 00 CA 62 LD ve OP 38 20 20 RE 4 IN 10 09 10 RI E 1 PH CH ME AR AR S MA D 0. CY W 5 MG LL C TA B RI 68 02 03 3 30 30 ME 42 AR Ac SP 38 -0 -0 .0 D 68 NO ti ER 20 7- 9- 00 CA 17 LD ve ID 11 20 20 RE 8 ON 40 10 10 RI E 5 PH CH 1 AR AR MG MA D CY W TA BL LL ET C 00 12 03 3 60 7 ME 41 AR Ac 18 -1 -0 .0 D 58 NO ti 28 9- 2- 00 CA 86 LD ve 44 20 20 RE 0 78 09 10 RI 9 PH CH AR AR MA D CY W LL C PO 62 01 03 3 30 30 ME 41 AR Ac TA 03 -0 -0 .0 D 84 NO ti SS 70 4- 2- 00 CA 77 LD ve IU 56 20 20 RE 7 M 00 10 10 RI CL 5 PH CH AR AR ER MA D CY W 10 LL ME C Q CA PS UL E 00 12 02 02 30 30 ME 41 AR Ac 18 -1 -2 .0 D 49 NO ti 50 9- 6- 00 CA 66 LD ve 21 20 20 RE 8 21 09 10 RI 0 PH CH AR AR MA D CY W LL C RI 68 02 02 00 60 30 ME 42 AR Ac SP 38 -1 -2 .0 D 77 NO ti ER 20 0- 6- 00 CA 32 LD ve ID 11 20 20 RE 6 ON 30 10 10 RI E 5 PH CH 0. AR AR 5 MA D MG CY W TA LL BL C ET RO 00 02 02 00 30 30 ME 43 AR Ac PI 37 -1 -2 .0 D 05 NO ti NI 85 6- 6- 00 CA 72 LD ve RO 50 20 20 RE 1 LE 10 10 10 RI 1 PH CH HC AR AR L MA D 1 CY W MG LL TA C BL ET 00 11 02 03 30 5 ME 40 AR Ac 71 -2 -2 .0 D 83 NO ti 30 0- 6- 00 CA 34 LD ve 29 20 20 RE 2 83 09 10 RI 1 PH CH AR AR MA D CY W LL C BE 68 12 02 02 30 10 ME 41 AR Ac NZ 08 -2 -2 .0 D 82 NO ti TR 40 9- 6- 00 CA 62 LD ve OP 38 20 20 RE 4 IN 10 09 10 RI E 1 PH CH ME AR AR S MA D 0. CY W 5 MG LL C TA B 00 12 02 02 60 7 ME 41 AR Ac 18 -1 -2 .0 D 58 NO ti 28 9- 6- 00 CA 86 LD ve 44 20 20 RE 0 78 09 10 RI 9 PH CH AR AR MA D CY W LL C AZ 64 02 02 00 6. 5 ME 43 AR Ac IT 67 -1 -2 00 D 09 NO ti HR 90 5- 6- 0 CA 79 LD ve OM 96 20 20 RE 4 YC 10 10 10 RI IN 5 PH CH AR AR 25 MA D 0 CY W MG LL TA C BL ET 00 11 02 02 30 5 ME 40 AR Ac 71 -2 -1 .0 D 83 NO ti 30 0- 1- 00 CA 34 LD ve 29 20 20 RE 2 83 09 10 RI 1 PH CH AR AR MA D CY W LL C DI 00 01 02 01 30 10 ME 41 AR Ac CY 59 -0 -1 .0 D 92 NO ti CL 10 2- 1- 00 CA 74 LD ve OM 79 20 20 RE 0 IN 50 10 10 RI E 1 PH CH 20 AR AR MA D MG CY W TA LL BL C ET LO 51 02 02 00 20 5 ME 42 AR Ac PE 07 -0 -1 .0 D 76 NO ti RA 90 2- 1- 00 CA 26 LD ve MD 69 20 20 RE 8 DE 02 10 10 RI 2 0 PH CH AR AR MG MA D CY W CA PS LL UL C E 00 10 02 03 35 7 ME 40 AR Ac 18 -2 -1 5. D 26 NO ti 26 9- 1- 00 CA 94 LD ve 16 20 20 0 RE 0 03 09 10 RI 9 PH CH AR AR MA D CY W LL C BE 68 12 02 01 30 10 ME 41 AR Ac NZ 08 -2 -1 .0 D 82 NO ti TR 40 9- 1- 00 CA 62 LD ve OP 38 20 20 RE 4 IN 10 09 10 RI E 1 PH CH ME AR AR S MA D 0. CY W 5 MG LL C TA B PO 62 01 02 01 30 30 ME 41 AR Ac TA 03 -0 -1 .0 D 84 NO ti SS 70 4- 1- 00 CA 77 LD ve IU 56 20 20 RE 7 M 00 10 10 RI CL 5 PH CH AR AR ER MA D CY W 10 LL ME C Q CA PS UL E MO 37 10 02 03 30 30 ME 39 AR Ac IL 00 -2 -1 .0 D 91 NO ti OS 00 5- 1- 00 CA 74 LD ve EC 45 20 20 RE 6 50 09 10 RI OT 4 PH CH C AR AR 20 MA D .6 CY W MG LL C TA BL ET 00 12 01 01 30 30 ME 41 AR Ac 18 -1 -2 .0 D 49 NO ti 50 9- 8- 00 CA 66 LD ve 21 20 20 RE 8 21 09 10 RI 0 PH CH AR AR MA D CY W LL C RI 65 11 01 02 60 30 ME 40 AR Ac SP 86 -0 -2 .0 D 21 NO ti ER 20 4- 8- 00 CA 80 LD ve ID 12 20 20 RE 4 ON 00 09 10 RI E 5 PH CH 0. AR AR 5 MA D MG CY W TA LL BL C ET 00 12 01 01 60 7 ME 41 AR Ac 18 -1 -2 .0 D 58 NO ti 28 9- 8- 00 CA 86 LD ve 44 20 20 RE 0 78 09 10 RI 9 PH CH AR AR MA D CY W LL C MO 68 07 01 03 30 5 ME 37 AR Ac OM 38 -2 -2 .0 D 80 NO ti ET 20 5- 8- 00 CA 41 LD ve TYLER 04 20 20 RE 1 ZI 11 09 10 RI NE 0 PH CH AR AR 25 MA D CY W MG LL TA C BL ET RO 00 10 01 03 30 30 ME 40 AR Ac PI 37 -3 -2 .0 D 07 NO ti NI 85 1- 8- 00 CA 92 LD ve RO 50 20 20 RE 4 LE 10 09 10 RI 1 PH CH HC AR AR L MA D 1 CY W MG LL TA C BL ET DO 62 01 01 00 10 10 ME 42 AR Ac CU 58 -1 -2 .0 D 24 NO ti SA 40 4- 8- 00 CA 70 LD ve TE 68 20 20 RE 3 30 10 10 RI SO 1 PH CH DI AR AR UM MA D CY W 10 0 LL MG C SO FT GE L PO 62 01 01 00 30 30 ME 41 AR Ac TA 03 -0 -1 .0 D 84 NO ti SS 70 4- 4- 00 CA 77 LD ve IU 56 20 20 RE 7 M 00 10 10 RI CL 5 PH CH AR AR ER MA D CY W 10 LL ME C Q CA PS UL E BE 68 12 01 00 30 10 ME 41 AR Ac NZ 08 -2 -1 .0 D 82 NO ti TR 40 9- 4- 00 CA 62 LD ve OP 38 20 20 RE 4 IN 10 09 10 RI E 1 PH CH ME AR AR S MA D 0. CY W 5 MG LL C TA B 00 10 01 02 35 7 ME 40 AR Ac 18 -2 -1 5. D 26 NO ti 26 9- 4- 00 CA 94 LD ve 16 20 20 0 RE 0 03 09 10 RI 9 PH CH AR AR MA D CY W LL C DO 00 11 01 01 10 10 ME 40 AR Ac K 90 -1 -1 .0 D 57 NO ti 10 42 1- 4- 00 CA 77 LD ve 0 24 20 20 RE 0 MG 46 09 10 RI 1 PH CH CA AR AR PS MA D UL CY W E LL C LO 51 08 01 03 20 5 ME 38 AR Ac PE 07 -2 -1 .0 D 71 NO ti RA 90 9- 4- 00 CA 15 LD ve MD 69 20 20 RE 9 DE 02 09 10 RI 2 0 PH CH AR AR MG MA D CY W CA PS LL UL C E DI 00 01 01 00 30 10 ME 41 AR Ac CY 59 -0 -1 .0 D 92 NO ti CL 10 2- 4- 00 CA 74 LD ve OM 79 20 20 RE 0 IN 50 10 10 RI E 1 PH CH 20 AR AR MA D MG CY W TA LL BL C ET DI 00 06 12 03 22 8 ME 37 AR Ac CY 59 -2 -3 .0 D 07 NO ti CL 10 5- 1- 00 CA 76 LD ve OM 79 20 20 RE 2 IN 50 09 09 RI E 1 PH CH 20 AR AR MA D MG CY W TA LL BL C ET 00 12 12 00 30 30 ME 41 AR Ac 18 -1 -3 .0 D 49 NO ti 50 9- 1- 00 CA 66 LD ve 21 20 20 RE 8 21 09 09 RI 0 PH CH AR AR MA D CY W LL C RI 65 11 12 01 60 30 ME 40 AR Ac SP 86 -0 -3 .0 D 21 NO ti ER 20 4- 1- 00 CA 80 LD ve ID 12 20 20 RE 4 ON 00 09 09 RI E 5 PH CH 0. AR AR 5 MA D MG CY W TA LL BL C ET MO 37 10 12 02 30 30 ME 39 AR Ac IL 00 -2 -3 .0 D 91 NO ti OS 00 5- 1- 00 CA 74 LD ve EC 45 20 20 RE 6 50 09 09 RI OT 4 PH CH C AR AR 20 MA D .6 CY W MG LL C TA BL ET 00 12 12 00 60 7 ME 41 AR Ac 18 -1 -3 .0 D 58 NO ti 28 9- 1- 00 CA 86 LD ve 44 20 20 RE 0 78 09 09 RI 9 PH CH AR AR MA D CY W LL C RO 00 10 12 02 30 30 ME 40 AR Ac PI 37 -3 -3 .0 D 07 NO ti NI 85 1- 1- 00 CA 92 LD ve RO 50 20 20 RE 4 LE 10 09 09 RI 1 PH CH HC AR AR L MA D 1 CY W MG LL TA C BL ET MO 68 07 12 02 30 5 ME 37 AR Ac OM 38 -2 -1 .0 D 80 NO ti ET 20 5- 7- 00 CA 41 LD ve TYLER 04 20 20 RE 1 ZI 11 09 09 RI NE 0 PH CH AR AR 25 MA D CY W MG LL TA C BL ET PO 62 09 12 03 30 30 ME 38 AR Ac TA 03 -0 -1 .0 D 82 NO ti SS 70 9- 7- 00 CA 76 LD ve IU 56 20 20 RE 9 M 00 09 09 RI CL 5 PH CH AR AR ER MA D CY W 10 LL ME C Q CA PS UL E 00 11 12 01 30 5 ME 40 AR Ac 71 -2 -1 .0 D 83 NO ti 30 0- 7- 00 CA 34 LD ve 29 20 20 RE 2 83 09 09 RI 1 PH CH AR AR MA D CY W LL C DI 00 06 12 03 30 10 ME 37 AR Ac CY 59 -2 -1 .0 D 07 NO ti CL 10 5- 7- 00 CA 76 LD ve OM 79 20 20 RE 2 IN 50 09 09 RI E 1 PH CH 20 AR AR MA D MG CY W TA LL BL C ET LO 51 08 12 02 20 5 ME 38 AR Ac PE 07 -2 -1 .0 D 71 NO ti RA 90 9- 7- 00 CA 15 LD ve MD 69 20 20 RE 9 DE 02 09 09 RI 2 0 PH CH AR AR MG MA D CY W CA PS LL UL C E RO 00 10 12 01 30 30 ME 40 AR Ac PI 37 -3 -0 .0 D 07 NO ti NI 85 1- 3- 00 CA 92 LD ve RO 50 20 20 RE 4 LE 10 09 09 RI 1 PH CH HC AR AR L MA D 1 CY W MG LL TA C BL ET 00 11 12 00 30 10 ME 40 AR Ac 90 -2 -0 .0 D 96 NO ti 41 5- 3- 00 CA 89 LD ve 05 20 20 RE 7 56 09 09 RI 1 PH CH AR AR MA D CY W LL C RI 65 09 12 02 30 30 ME 39 AR Ac SP 86 -2 -0 .0 D 19 NO ti ER 20 6- 3- 00 CA 25 LD ve ID 12 20 20 RE 8 ON 10 09 09 RI E 5 PH CH 1 AR AR MG MA D CY W TA BL LL ET C 00 11 12 00 30 5 ME 40 AR Ac 71 -2 -0 .0 D 83 NO ti 30 0- 3- 00 CA 34 LD ve 29 20 20 RE 2 83 09 09 RI 1 PH CH AR AR MA D CY W LL C 00 08 12 03 60 7 ME 38 AR Ac 18 -3 -0 .0 D 74 NO ti 28 1- 3- 00 CA 41 LD ve 44 20 20 RE 5 78 09 09 RI 9 PH CH AR AR MA D CY W LL C MD 60 10 12 01 30 30 ME 40 AR Ac RT 50 -2 -0 .0 D 01 NO ti AZ 50 6- 3- 00 CA 94 LD ve AP 24 20 20 RE 2 IN 80 09 09 RI E 8 PH CH 30 AR AR MA D MG CY W TA LL BL C ET MO 37 10 12 01 30 30 ME 39 AR Ac IL 00 -2 -0 .0 D 91 NO ti OS 00 5- 3- 00 CA 74 LD ve EC 45 20 20 RE 6 50 09 09 RI OT 4 PH CH C AR AR 20 MA D .6 CY W MG LL C TA BL ET 00 10 12 01 35 7 ME 40 AR Ac 18 -2 -0 5. D 26 NO ti 26 9- 3- 00 CA 94 LD ve 16 20 20 0 RE 0 03 09 09 RI 9 PH CH AR AR MA D CY W LL C 00 08 11 03 30 10 ME 38 AR Ac 90 -2 -1 .0 D 68 NO ti 41 8- 9- 00 CA 60 LD ve 05 20 20 RE 7 56 09 09 RI 1 PH CH AR AR MA D CY W LL C 00 08 11 03 30 5 ME 38 AR Ac 71 -2 -1 .0 D 59 NO ti 30 5- 9- 00 CA 98 LD ve 29 20 20 RE 0 83 09 09 RI 1 PH CH AR AR MA D CY W LL C PO 62 09 11 02 30 30 ME 38 AR Ac TA 03 -0 -1 .0 D 82 NO ti SS 70 9- 9- 00 CA 76 LD ve IU 56 20 20 RE 9 M 00 09 09 RI CL 5 PH CH AR AR ER MA D CY W 10 LL ME C Q CA PS UL E 00 11 11 00 28 25 ME 40 AR Ac 60 -0 -1 3. D 40 NO ti 30 4- 9- 00 CA 26 LD ve 99 20 20 0 RE 5 46 09 09 RI 3 PH CH AR AR MA D CY W LL C RO 00 10 11 00 30 30 ME 40 AR Ac PI 37 -3 -1 .0 D 07 NO ti NI 85 1- 9- 00 CA 92 LD ve RO 50 20 20 RE 4 LE 10 09 09 RI 1 PH CH HC AR AR L MA D 1 CY W MG LL TA C BL ET 00 10 11 00 35 7 ME 40 AR Ac 18 -2 -1 5. D 26 NO ti 26 9- 9- 00 CA 94 LD ve 16 20 20 0 RE 0 03 09 09 RI 9 PH CH AR AR MA D CY W LL C DO 00 11 11 00 10 10 ME 40 AR Ac K 90 -1 -1 .0 D 57 NO ti 10 42 1- 9- 00 CA 77 LD ve 0 24 20 20 RE 0 MG 46 09 09 RI 1 PH CH CA AR AR PS MA D UL CY W E LL C RI 65 11 11 00 60 30 ME 40 AR Ac SP 86 -0 -1 .0 D 21 NO ti ER 20 4- 9- 00 CA 80 LD ve ID 12 20 20 RE 4 ON 00 09 09 RI E 5 PH CH 0. AR AR 5 MA D MG CY W TA LL BL C ET MO 37 10 11 00 30 30 ME 39 AR Ac IL 00 -2 -0 .0 D 91 NO ti OS 00 5- 5- 00 CA 74 LD ve EC 45 20 20 RE 6 50 09 09 RI OT 4 PH CH C AR AR 20 MA D .6 CY W MG LL C TA BL ET RI 65 09 11 01 30 30 ME 39 AR Ac SP 86 -2 -0 .0 D 19 NO ti ER 20 6- 5- 00 CA 25 LD ve ID 12 20 20 RE 8 ON 10 09 09 RI E 5 PH CH 1 AR AR MG MA D CY W TA BL LL ET C MD 60 10 11 00 30 30 ME 40 AR Ac RT 50 -2 -0 .0 D 01 NO ti AZ 50 6- 5- 00 CA 94 LD ve AP 24 20 20 RE 2 IN 80 09 09 RI E 8 PH CH 30 AR AR MA D MG CY W TA LL BL C ET LO 51 08 10 01 20 5 ME 38 AR Ac PE 07 -2 -2 .0 D 71 NO ti RA 90 9- 2- 00 CA 15 LD ve MD 69 20 20 RE 9 DE 02 09 09 RI 2 0 PH CH AR AR MG MA D CY W CA PS LL UL C E 00 08 10 02 30 10 ME 38 AR Ac 90 -2 -2 .0 D 68 NO ti 41 8- 2- 00 CA 60 LD ve 05 20 20 RE 7 56 09 09 RI 1 PH CH AR AR MA D CY W LL C 00 08 10 02 30 5 ME 38 AR Ac 71 -2 -2 .0 D 59 NO ti 30 5- 2- 00 CA 98 LD ve 29 20 20 RE 0 83 09 09 RI 1 PH CH AR AR MA D CY W LL C 00 08 10 02 60 7 ME 38 AR Ac 18 -3 -2 .0 D 74 NO ti 28 1- 2- 00 CA 41 LD ve 44 20 20 RE 5 78 09 09 RI 9 PH CH AR AR MA D CY W LL C MD 00 08 10 01 35 3 ME 38 AR Ac 90 -0 -2 5. D 16 NO ti AC 40 8- 2- 00 CA 69 LD ve ID 00 20 20 0 RE 2 41 09 09 RI LOZOYA 4 PH CH SP AR AR EN MA D SI CY W ON LL C RI 65 07 10 03 60 30 ME 37 AR Ac SP 86 -1 -2 .0 D 34 NO ti ER 20 4- 2- 00 CA 82 LD ve ID 12 20 20 RE 1 ON 00 09 09 RI E 5 PH CH 0. AR AR 5 MA D MG CY W TA LL BL C ET MO 37 07 10 03 20 20 ME 37 AR Ac IL 00 -0 -2 .0 D 18 NO ti OS 00 8- 2- 00 CA 60 LD ve EC 45 20 20 RE 9 50 09 09 RI OT 4 PH CH C AR AR 20 MA D .6 CY W MG LL C TA BL ET PO 62 09 10 01 30 30 ME 38 AR Ac TA 03 -0 -2 .0 D 82 NO ti SS 70 9- 2- 00 CA 76 LD ve IU 56 20 20 RE 9 M 00 09 09 RI CL 5 PH CH AR AR ER MA D CY W 10 LL ME C Q CA PS UL E DI 00 06 10 02 30 10 ME 37 AR Ac CY 59 -2 -2 .0 D 07 NO ti CL 10 5- 2- 00 CA 76 LD ve OM 79 20 20 RE 2 IN 50 09 09 RI E 1 PH CH 20 AR AR MA D MG CY W TA LL BL C ET MO 37 07 10 03 30 30 ME 37 AR Ac IL 00 -0 -0 .0 D 18 NO ti OS 00 8- 8- 00 CA 60 LD ve EC 45 20 20 RE 9 50 09 09 RI OT 4 PH CH C AR AR 20 MA D .6 CY W MG LL C TA BL ET 00 08 10 01 60 7 ME 38 AR Ac 18 -3 -0 .0 D 74 NO ti 28 1- 8- 00 CA 41 LD ve 44 20 20 RE 5 78 09 09 RI 9 PH CH AR AR MA D CY W LL C MD 60 07 10 03 30 30 ME 37 AR Ac RT 50 -0 -0 .0 D 08 NO ti AZ 50 4- 8- 00 CA 25 LD ve AP 24 20 20 RE 9 IN 80 09 09 RI E 8 PH CH 30 AR AR MA D MG CY W TA LL BL C ET RI 65 09 10 00 30 30 ME 39 AR Ac SP 86 -2 -0 .0 D 19 NO ti ER 20 6- 8- 00 CA 25 LD ve ID 12 20 20 RE 8 ON 10 09 09 RI E 5 PH CH 1 AR AR MG MA D CY W TA BL LL ET C RO 00 07 10 03 30 30 ME 37 AR Ac PI 37 -0 -0 .0 D 03 NO ti NI 85 3- 8- 00 CA 14 LD ve RO 50 20 20 RE 0 LE 10 09 09 RI 1 PH CH HC AR AR L MA D 1 CY W MG LL TA C BL ET 00 08 09 01 30 5 ME 38 AR Ac 71 -2 -2 .0 D 59 NO ti 30 5- 4- 00 CA 98 LD ve 29 20 20 RE 0 83 09 09 RI 1 PH CH AR AR MA D CY W LL C RI 65 07 09 02 60 30 ME 37 AR Ac SP 86 -1 -2 .0 D 34 NO ti ER 20 4- 4- 00 CA 82 LD ve ID 12 20 20 RE 1 ON 00 09 09 RI E 5 PH CH 0. AR AR 5 MA D MG CY W TA LL BL C ET PO 62 09 09 00 30 30 ME 38 AR Ac TA 03 -0 -2 .0 D 82 NO ti SS 70 9- 4- 00 CA 76 LD ve IU 56 20 20 RE 9 M 00 09 09 RI CL 5 PH CH AR AR ER MA D CY W 10 LL ME C Q CA PS UL E DI 00 06 09 01 30 10 ME 37 AR Ac CY 59 -2 -2 .0 D 07 NO ti CL 10 5- 4- 00 CA 76 LD ve OM 79 20 20 RE 2 IN 50 09 09 RI E 1 PH CH 20 AR AR MA D MG CY W TA LL BL C ET 00 09 09 00 10 5 ME 38 AR Ac 57 -0 -2 .0 D 90 NO ti 44 5- 4- 00 CA 00 LD ve 10 20 20 RE 0 31 09 09 RI 0 PH CH AR AR MA D CY W LL C 00 08 09 01 30 10 ME 38 AR Ac 90 -2 -2 .0 D 68 NO ti 41 8- 4- 00 CA 60 LD ve 05 20 20 RE 7 56 09 09 RI 1 PH CH AR AR MA D CY W LL C 00 08 09 00 60 7 ME 38 AR Ac 18 -3 -1 .0 D 74 NO ti 28 1- 0- 00 CA 41 LD ve 44 20 20 RE 5 78 09 09 RI 9 PH CH AR AR MA D CY W LL C RO 00 07 09 02 30 30 ME 37 AR Ac PI 37 -0 -1 .0 D 03 NO ti NI 85 3- 0- 00 CA 14 LD ve RO 50 20 20 RE 0 LE 10 09 09 RI 1 PH CH HC AR AR L MA D 1 CY W MG LL TA C BL ET MO 68 07 09 01 30 5 ME 37 AR Ac OM 38 -2 -1 .0 D 80 NO ti ET 20 5- 0- 00 CA 41 LD ve TYLER 04 20 20 RE 1 ZI 11 09 09 RI NE 0 PH CH AR AR 25 MA D CY W MG LL TA C BL ET LO 51 08 09 00 20 5 ME 38 AR Ac PE 07 -2 -1 .0 D 71 NO ti RA 90 9- 0- 00 CA 15 LD ve MD 69 20 20 RE 9 DE 02 09 09 RI 2 0 PH CH AR AR MG MA D CY W CA PS LL UL C E 00 08 09 00 30 10 ME 38 AR Ac 90 -2 -1 .0 D 68 NO ti 41 8- 0- 00 CA 60 LD ve 05 20 20 RE 7 56 09 09 RI 1 PH CH AR AR MA D CY W LL C MD 60 07 09 02 30 30 ME 37 AR Ac RT 50 -0 -1 .0 D 08 NO ti AZ 50 4- 0- 00 CA 25 LD ve AP 24 20 20 RE 9 IN 80 09 09 RI E 8 PH CH 30 AR AR MA D MG CY W TA LL BL C ET MO 37 07 09 02 30 30 ME 37 AR Ac IL 00 -0 -1 .0 D 18 NO ti OS 00 8- 0- 00 CA 60 LD ve EC 45 20 20 RE 9 50 09 09 RI OT 4 PH CH C AR AR 20 MA D .6 CY W MG LL C TA BL ET 00 08 09 00 30 5 ME 38 AR Ac 71 -2 -1 .0 D 59 NO ti 30 5- 0- 00 CA 98 LD ve 29 20 20 RE 0 83 09 09 RI 1 PH CH AR AR MA D CY W LL C RI 65 06 09 03 30 30 ME 36 AR Ac SP 86 -0 -1 .0 D 37 NO ti ER 20 1- 0- 00 CA 04 LD ve ID 12 20 20 RE 8 ON 10 09 09 RI E 5 PH CH 1 AR AR MG MA D CY W TA BL LL ET C PO 62 05 08 03 30 30 ME 36 AR Ac TA 03 -1 -2 .0 D 11 NO ti SS 70 5- 7- 00 CA 39 LD ve IU 56 20 20 RE 2 M 00 09 09 RI CL 5 PH CH AR AR ER MA D CY W 10 LL ME C Q CA PS UL E 00 06 08 03 30 10 ME 36 AR Ac 90 -1 -2 .0 D 73 NO ti 41 1- 7- 00 CA 36 LD ve 05 20 20 RE 5 56 09 09 RI 1 PH CH AR AR MA D CY W LL C RI 65 07 08 01 60 30 ME 37 AR Ac SP 86 -1 -2 .0 D 34 NO ti ER 20 4- 7- 00 CA 82 LD ve ID 12 20 20 RE 1 ON 00 09 09 RI E 5 PH CH 0. AR AR 5 MA D MG CY W TA LL BL C ET MD 00 08 08 00 35 3 ME 38 AR Ac 90 -0 -2 5. D 16 NO ti AC 40 8- 7- 00 CA 69 LD ve ID 00 20 20 0 RE 2 41 09 09 RI LOZOYA 4 PH CH SP AR AR EN MA D SI CY W ON LL C 00 06 08 03 30 5 ME 37 AR Ac 71 -2 -2 .0 D 04 NO ti 30 4- 7- 00 CA 18 LD ve 29 20 20 RE 8 83 09 09 RI 1 PH CH AR AR MA D CY W LL C RI 65 06 08 02 30 30 ME 36 AR Ac SP 86 -0 -1 .0 D 37 NO ti ER 20 1- 3- 00 CA 04 LD ve ID 12 20 20 RE 8 ON 10 09 09 RI E 5 PH CH 1 AR AR MG MA D CY W TA BL LL ET C 00 05 08 03 60 7 ME 36 AR Ac 18 -2 -1 .0 D 36 NO ti 28 7- 3- 00 CA 98 LD ve 44 20 20 RE 9 78 09 09 RI 9 PH CH AR AR MA D CY W LL C LO 51 02 08 03 20 5 ME 34 AR Ac PE 07 -2 -1 .0 D 16 NO ti RA 90 6- 3- 00 CA 66 LD ve MD 69 20 20 RE 4 DE 02 09 09 RI 2 0 PH CH AR AR MG MA D CY W CA PS LL UL C E MO 37 07 08 01 30 30 ME 37 AR Ac IL 00 -0 -1 .0 D 18 NO ti OS 00 8- 3- 00 CA 60 LD ve EC 45 20 20 RE 9 50 09 09 RI OT 4 PH CH C AR AR 20 MA D .6 CY W MG LL C TA BL ET 00 02 08 03 5. 5 ME 33 AR Ac 24 -1 -1 00 D 79 NO ti 50 1- 3- 0 CA 75 LD ve 04 20 20 RE 7 10 09 09 RI 1 PH CH AR AR MA D CY W LL C MO 68 07 08 00 30 5 ME 37 AR Ac OM 38 -2 -1 .0 D 80 NO ti ET 20 5- 3- 00 CA 41 LD ve TYLER 04 20 20 RE 1 ZI 11 09 09 RI NE 0 PH CH AR AR 25 MA D CY W MG LL TA C BL ET RO 00 07 08 01 30 30 ME 37 AR Ac PI 37 -0 -1 .0 D 03 NO ti NI 85 3- 3- 00 CA 14 LD ve RO 50 20 20 RE 0 LE 10 09 09 RI 1 PH CH HC AR AR L MA D 1 CY W MG LL TA C BL ET MD 00 07 08 01 35 15 ME 37 AR Ac 90 -1 -1 5. D 57 NO ti AC 40 6- 3- 00 CA 17 LD ve ID 00 20 20 0 RE 8 41 09 09 RI LOZOYA 4 PH CH SP AR AR EN MA D SI CY W ON LL C MD 60 07 08 01 30 30 ME 37 AR Ac RT 50 -0 -1 .0 D 08 NO ti AZ 50 4- 3- 00 CA 25 LD ve AP 24 20 20 RE 9 IN 80 09 09 RI E 8 PH CH 30 AR AR MA D MG CY W TA LL BL C ET MD 00 07 07 00 35 15 ME 37 AR Ac 90 -1 -3 5. D 57 NO ti AC 40 6- 0- 00 CA 17 LD ve ID 00 20 20 0 RE 8 41 09 09 RI LOZOYA 4 PH CH SP AR AR EN MA D SI CY W ON LL C 00 06 07 02 30 10 ME 36 AR Ac 90 -1 -3 .0 D 73 NO ti 41 1- 0- 00 CA 36 LD ve 05 20 20 RE 5 56 09 09 RI 1 PH CH AR AR MA D CY W LL C PO 62 05 07 02 30 30 ME 36 AR Ac TA 03 -1 -3 .0 D 11 NO ti SS 70 5- 0- 00 CA 39 LD ve IU 56 20 20 RE 2 M 00 09 09 RI CL 5 PH CH AR AR ER MA D CY W 10 LL ME C Q CA PS UL E RI 65 07 07 00 60 30 ME 37 AR Ac SP 86 -1 -3 .0 D 34 NO ti ER 20 4- 0- 00 CA 82 LD ve ID 12 20 20 RE 1 ON 00 09 09 RI E 5 PH CH 0. AR AR 5 MA D MG CY W TA LL BL C ET 00 06 07 02 30 5 ME 37 AR Ac 71 -2 -3 .0 D 04 NO ti 30 4- 0- 00 CA 18 LD ve 29 20 20 RE 8 83 09 09 RI 1 PH CH AR AR MA D CY W LL C MD 60 07 07 00 30 30 ME 37 AR Ac RT 50 -0 -1 .0 D 08 NO ti AZ 50 4- 6- 00 CA 25 LD ve AP 24 20 20 RE 9 IN 80 09 09 RI E 8 PH CH 30 AR AR MA D MG CY W TA LL BL C ET 00 06 07 01 30 10 ME 36 AR Ac 90 -1 -1 .0 D 73 NO ti 41 1- 6- 00 CA 36 LD ve 05 20 20 RE 5 56 09 09 RI 1 PH CH AR AR MA D CY W LL C 00 05 07 02 60 7 ME 36 AR Ac 18 -2 -1 .0 D 36 NO ti 28 7- 6- 00 CA 98 LD ve 44 20 20 RE 9 78 09 09 RI 9 PH CH AR AR MA D CY W LL C 00 06 07 01 30 5 ME 37 AR Ac 71 -2 -1 .0 D 04 NO ti 30 4- 6- 00 CA 18 LD ve 29 20 20 RE 8 83 09 09 RI 1 PH CH AR AR MA D CY W LL C MO 37 07 07 00 30 30 ME 37 AR Ac IL 00 -0 -1 .0 D 18 NO ti OS 00 8- 6- 00 CA 60 LD ve EC 45 20 20 RE 9 50 09 09 RI OT 4 PH CH C AR AR 20 MA D .6 CY W MG LL C TA BL ET RO 00 07 07 00 30 30 ME 37 AR Ac PI 37 -0 -1 .0 D 03 NO ti NI 85 3- 6- 00 CA 14 LD ve RO 50 20 20 RE 0 LE 10 09 09 RI 1 PH CH HC AR AR L MA D 1 CY W MG LL TA C BL ET MU 45 06 07 00 22 5 ME 37 AR Ac PI 80 -2 -1 .0 D 13 NO ti RO 20 9- 6- 00 CA 00 LD ve CI 11 20 20 RE 9 N 22 09 09 RI 2% 2 PH CH AR AR OI MA D NT CY W ME NT LL C 00 06 07 00 11 5 ME 36 AR Ac 12 -1 -0 8. D 97 NO ti 10 2- 2- 00 CA 25 LD ve 74 20 20 0 RE 0 40 09 09 RI 4 PH CH AR AR MA D CY W LL C DI 00 06 07 00 30 10 ME 37 AR Ac CY 59 -2 -0 .0 D 07 NO ti CL 10 5- 2- 00 CA 76 LD ve OM 79 20 20 RE 2 IN 50 09 09 RI E 1 PH CH 20 AR AR MA D MG CY W TA LL BL C ET 00 06 07 00 30 5 ME 37 AR Ac 71 -2 -0 .0 D 04 NO ti 30 4- 2- 00 CA 18 LD ve 29 20 20 RE 8 83 09 09 RI 1 PH CH AR AR MA D CY W LL C RI 68 05 07 01 60 30 ME 35 AR Ac SP 38 -1 -0 .0 D 91 NO ti ER 20 5- 2- 00 CA 72 LD ve ID 11 20 20 RE 7 ON 30 09 09 RI E 5 PH CH 0. AR AR 5 MA D MG CY W TA LL BL C ET 00 05 07 01 60 7 ME 36 AR Ac 18 -2 -0 .0 D 36 NO ti 28 7- 2- 00 CA 98 LD ve 44 20 20 RE 9 78 09 09 RI 9 PH CH AR AR MA D CY W LL C PO 62 05 06 01 30 30 ME 36 AR Ac TA 03 -1 -1 .0 D 11 NO ti SS 70 5- 8- 00 CA 39 LD ve IU 56 20 20 RE 2 M 00 09 09 RI CL 5 PH CH AR AR ER MA D CY W 10 LL ME C Q CA PS UL E RO 00 03 06 03 30 30 ME 34 AR Ac PI 37 -0 -1 .0 D 18 NO ti NI 85 5- 8- 00 CA 30 LD ve RO 50 20 20 RE 9 LE 10 09 09 RI 1 PH CH HC AR AR L MA D 1 CY W MG LL TA C BL ET MO 37 03 06 03 30 30 ME 34 AR Ac IL 00 -1 -1 .0 D 30 NO ti OS 00 0- 8- 00 CA 53 LD ve EC 45 20 20 RE 0 50 09 09 RI OT 4 PH CH C AR AR 20 MA D .6 CY W MG LL C TA BL ET RI 65 06 06 00 30 30 ME 36 AR Ac SP 86 -0 -1 .0 D 37 NO ti ER 20 1- 8- 00 CA 04 LD ve ID 12 20 20 RE 8 ON 10 09 09 RI E 5 PH CH 1 AR AR MG MA D CY W TA BL LL ET C LO 51 02 06 02 20 5 ME 34 AR Ac PE 07 -2 -1 .0 D 16 NO ti RA 90 6- 8- 00 CA 66 LD ve MD 69 20 20 RE 4 DE 02 09 09 RI 2 0 PH CH AR AR MG MA D CY W CA PS LL UL C E 00 06 06 00 30 10 ME 36 AR Ac 90 -1 -1 .0 D 73 NO ti 41 1- 8- 00 CA 36 LD ve 05 20 20 RE 5 56 09 09 RI 1 PH CH AR AR MA D CY W LL C MD 60 03 06 03 30 30 ME 34 AR Ac RT 50 -0 -1 .0 D 18 NO ti AZ 50 6- 8- 00 CA 80 LD ve AP 24 20 20 RE 9 IN 80 09 09 RI E 8 PH CH 30 AR AR MA D MG CY W TA LL BL C ET DO 00 10 06 00 1. 1 ME 31 AR Ac K 90 -3 -0 00 D 29 NO ti 10 42 1- 4- 0 CA 94 LD ve 0 24 20 20 RE 4 MG 46 08 09 RI 1 PH CH CA AR AR PS MA D UL CY W E LL C 00 03 06 03 30 10 ME 34 AR Ac 90 -1 -0 .0 D 65 NO ti 41 7- 4- 00 CA 20 LD ve 05 20 20 RE 6 56 09 09 RI 1 PH CH AR AR MA D CY W LL C 00 05 06 00 60 7 ME 36 AR Ac 18 -2 -0 .0 D 36 NO ti 28 7- 4- 00 CA 98 LD ve 44 20 20 RE 9 78 09 09 RI 9 PH CH AR AR MA D CY W LL C 00 03 06 03 56 5 ME 34 AR Ac 71 -3 -0 .7 D 98 NO ti 30 0- 4- 99 CA 71 LD ve 29 20 20 RE 9 83 09 09 RI 1 PH CH AR AR MA D CY W LL C 00 10 06 05 35 15 ME 31 AR Ac 60 -2 -0 5. D 20 NO ti 30 7- 4- 00 CA 00 LD ve 71 20 20 0 RE 4 25 08 09 RI 7 PH CH AR AR MA D CY W LL C 00 02 06 03 30 30 ME 33 AR Ac 24 -1 -0 .0 D 79 NO ti 50 1- 4- 00 CA 75 LD ve 04 20 20 RE 7 10 09 09 RI 1 PH CH AR AR MA D CY W LL C MO 37 03 05 02 30 30 ME 34 AR Ac IL 00 -1 -2 .0 D 30 NO ti OS 00 0- 1- 00 CA 53 LD ve EC 45 20 20 RE 0 50 09 09 RI OT 4 PH CH C AR AR 20 MA D .6 CY W MG LL C TA BL ET PO 62 05 05 00 30 30 ME 36 AR Ac TA 03 -1 -2 .0 D 11 NO ti SS 70 5- 1- 00 CA 39 LD ve IU 56 20 20 RE 2 M 00 09 09 RI CL 5 PH CH AR AR ER MA D CY W 10 LL ME C Q CA PS UL E MD 60 03 05 02 30 30 ME 34 AR Ac RT 50 -0 -2 .0 D 18 NO ti AZ 50 6- 1- 00 CA 80 LD ve AP 24 20 20 RE 9 IN 80 09 09 RI E 8 PH CH 30 AR AR MA D MG CY W TA LL BL C ET 00 03 05 02 30 10 ME 34 AR Ac 90 -1 -2 .0 D 65 NO ti 41 7- 1- 00 CA 20 LD ve 05 20 20 RE 6 56 09 09 RI 1 PH CH AR AR MA D CY W LL C RO 00 03 05 02 30 30 ME 34 AR Ac PI 37 -0 -2 .0 D 18 NO ti NI 85 5- 1- 00 CA 30 LD ve RO 50 20 20 RE 9 LE 10 09 09 RI 1 PH CH HC AR AR L MA D 1 CY W MG LL TA C BL ET DO 62 05 05 00 10 10 ME 35 AR Ac CU 58 -0 -2 .0 D 82 NO ti SA 40 4- 1- 00 CA 17 LD ve TE 68 20 20 RE 0 30 09 09 RI SO 1 PH CH DI AR AR UM MA D CY W 10 0 LL MG C SO FT GE L 00 05 05 00 28 30 ME 29 AR Ac 60 -0 -2 3. D 31 NO ti 30 4- 1- 00 CA 50 LD ve 99 20 20 0 RE 8 06 09 09 RI 3 PH CH AR AR MA D CY W LL C RI 68 05 05 00 60 30 ME 35 AR Ac SP 38 -1 -2 .0 D 91 NO ti ER 20 5- 1- 00 CA 72 LD ve ID 11 20 20 RE 7 ON 30 09 09 RI E 5 PH CH 0. AR AR 5 MA D MG CY W TA LL BL C ET 00 03 05 03 60 7 ME 34 AR Ac 18 -0 -0 .0 D 26 NO ti 28 2- 7- 00 CA 54 LD ve 44 20 20 RE 7 78 09 09 RI 9 PH CH AR AR MA D CY W LL C 00 03 05 02 30 5 ME 34 AR Ac 71 -3 -0 .0 D 98 NO ti 30 0- 7- 00 CA 71 LD ve 29 20 20 RE 9 83 09 09 RI 1 PH CH AR AR MA D CY W LL C MO 37 03 04 01 30 30 ME 34 AR Ac IL 00 -1 -2 .0 D 30 NO ti OS 00 0- 3- 00 CA 53 LD ve EC 45 20 20 RE 0 50 09 09 RI OT 4 PH CH C AR AR 20 MA D .6 CY W MG LL C TA BL ET 00 03 04 01 30 10 ME 34 AR Ac 90 -1 -2 .0 D 65 NO ti 41 7- 3- 00 CA 20 LD ve 05 20 20 RE 6 56 09 09 RI 1 PH CH AR AR MA D CY W LL C RO 00 03 04 01 30 30 ME 34 AR Ac PI 37 -0 -2 .0 D 18 NO ti NI 85 5- 3- 00 CA 30 LD ve RO 50 20 20 RE 9 LE 10 09 09 RI 1 PH CH HC AR AR L MA D 1 CY W MG LL TA C BL ET LO 51 02 04 01 20 5 ME 34 AR Ac PE 07 -2 -2 .0 D 16 NO ti RA 90 6- 3- 00 CA 66 LD ve MD 69 20 20 RE 4 DE 02 09 09 RI 2 0 PH CH AR AR MG MA D CY W CA PS LL UL C E RI 65 02 04 02 60 30 ME 33 AR Ac SP 86 -1 -2 .0 D 66 NO ti ER 20 4- 3- 00 CA 73 LD ve ID 12 20 20 RE 6 ON 00 09 09 RI E 5 PH CH 0. AR AR 5 MA D MG CY W TA LL BL C ET 00 03 04 02 60 7 ME 34 AR Ac 18 -0 -2 .0 D 26 NO ti 28 2- 3- 00 CA 54 LD ve 44 20 20 RE 7 78 09 09 RI 9 PH CH AR AR MA D CY W LL C 00 02 04 02 30 30 ME 33 AR Ac 24 -1 -2 .0 D 79 NO ti 50 1- 3- 00 CA 75 LD ve 04 20 20 RE 7 10 09 09 RI 1 PH CH AR AR MA D CY W LL C MD 60 03 04 01 30 30 ME 34 AR Ac RT 50 -0 -2 .0 D 18 NO ti AZ 50 6- 3- 00 CA 80 LD ve AP 24 20 20 RE 9 IN 80 09 09 RI E 8 PH CH 30 AR AR MA D MG CY W TA LL BL C ET 00 03 04 01 30 5 ME 34 AR Ac 71 -3 -2 .0 D 98 NO ti 30 0- 3- 00 CA 71 LD ve 29 20 20 RE 9 83 09 09 RI 1 PH CH AR AR MA D CY W LL C 00 03 04 00 30 5 ME 34 AR Ac 71 -3 -0 .0 D 98 NO ti 30 0- 9- 00 CA 71 LD ve 29 20 20 RE 9 83 09 09 RI 1 PH CH AR AR MA D CY W LL C AZ 00 03 04 00 6. 5 ME 34 AR Ac IT 78 -2 -0 00 D 80 NO ti HR 11 3- 9- 0 CA 35 LD ve OM 49 20 20 RE 8 YC 66 09 09 RI IN 8 PH CH AR AR 25 MA D 0 CY W MG LL TA C BL ET 00 03 03 01 60 7 ME 34 AR Ac 18 -0 -2 .0 D 26 NO ti 28 2- 6- 00 CA 54 LD ve 44 20 20 RE 7 78 09 09 RI 9 PH CH AR AR MA D CY W LL C RI 65 02 03 01 60 30 ME 33 AR Ac SP 86 -1 -2 .0 D 66 NO ti ER 20 4- 6- 00 CA 73 LD ve ID 12 20 20 RE 6 ON 00 09 09 RI E 5 PH CH 0. AR AR 5 MA D MG CY W TA LL BL C ET 58 01 03 00 16 16 ME 32 AR Ac 17 -1 -2 .0 D 96 NO ti 70 5- 6- 00 CA 53 LD ve 00 20 20 RE 8 11 09 09 RI 1 PH CH AR AR MA D CY W LL C 00 03 03 00 30 10 ME 34 AR Ac 90 -1 -2 .0 D 65 NO ti 41 7- 6- 00 CA 20 LD ve 05 20 20 RE 6 56 09 09 RI 1 PH CH AR AR MA D CY W LL C MO 37 03 03 00 30 30 ME 34 AR Ac IL 00 -1 -2 .0 D 30 NO ti OS 00 0- 6- 00 CA 53 LD ve EC 45 20 20 RE 0 50 09 09 RI OT 4 PH CH C AR AR 20 MA D .6 CY W MG LL C TA BL ET 00 02 03 01 30 30 ME 33 AR Ac 24 -1 -2 .0 D 79 NO ti 50 1- 6- 00 CA 75 LD ve 04 20 20 RE 7 10 09 09 RI 1 PH CH AR AR MA D CY W LL C 00 10 03 04 35 15 ME 31 AR Ac 60 -2 -1 5. D 20 NO ti 30 7- 2- 00 CA 00 LD ve 71 20 20 0 RE 4 25 08 09 RI 7 PH CH AR AR MA D CY W LL C 00 12 03 03 30 10 ME 32 AR Ac 90 -1 -1 .0 D 39 NO ti 41 5- 2- 00 CA 44 LD ve 05 20 20 RE 1 56 08 09 RI 1 PH CH AR AR MA D CY W LL C 00 03 03 00 60 7 ME 34 AR Ac 18 -0 -1 .0 D 26 NO ti 28 2- 2- 00 CA 54 LD ve 44 20 20 RE 7 78 09 09 RI 9 PH CH AR AR MA D CY W LL C RO 00 03 03 00 30 30 ME 34 AR Ac PI 37 -0 -1 .0 D 18 NO ti NI 85 5- 2- 00 CA 30 LD ve RO 50 20 20 RE 9 LE 10 09 09 RI 1 PH CH HC AR AR L MA D 1 CY W MG LL TA C BL ET MD 60 03 03 00 30 30 ME 34 AR Ac RT 50 -0 -1 .0 D 18 NO ti AZ 50 6- 2- 00 CA 80 LD ve AP 24 20 20 RE 9 IN 80 09 09 RI E 8 PH CH 30 AR AR MA D MG CY W TA LL BL C ET 00 12 03 03 30 5 ME 32 AR Ac 71 -0 -1 .0 D 09 NO ti 30 3- 2- 00 CA 52 LD ve 29 20 20 RE 7 83 08 09 RI 1 PH CH AR AR MA D CY W LL C LO 51 02 03 00 20 5 ME 34 AR Ac PE 07 -2 -1 .0 D 16 NO ti RA 90 6- 2- 00 CA 66 LD ve MD 69 20 20 RE 4 DE 02 09 09 RI 2 0 PH CH AR AR MG MA D CY W CA PS LL UL C E Q- 00 06 03 02 11 5 ME 28 AR Ac TU 60 -2 -1 8. D 40 NO ti SS 30 0- 2- 00 CA 09 LD ve IN 85 20 20 0 RE 4 79 08 09 RI 10 4 PH CH 0 AR AR MG MA D /5 CY W ML LL C SO KEN TI ON RI 65 02 02 00 60 30 ME 33 AR Ac SP 86 -1 -2 .0 D 66 NO ti ER 20 4- 6- 00 CA 73 LD ve ID 12 20 20 RE 6 ON 00 09 09 RI E 5 PH CH 0. AR AR 5 MA D MG CY W TA LL BL C ET MO 37 11 02 03 30 30 ME 31 AR Ac IL 00 -1 -2 .0 D 60 NO ti OS 00 3- 6- 00 CA 65 LD ve EC 45 20 20 RE 6 50 08 09 RI OT 4 PH CH C AR AR 20 MA D .6 CY W MG LL C TA BL ET 00 11 02 04 60 7 ME 31 AR Ac 18 -0 -2 .0 D 45 NO ti 28 7- 6- 00 CA 57 LD ve 44 20 20 RE 1 78 08 09 RI 9 PH CH AR AR MA D CY W LL C 00 02 02 00 30 30 ME 33 AR Ac 24 -1 -2 .0 D 79 NO ti 50 1- 6- 00 CA 75 LD ve 04 20 20 RE 7 10 09 09 RI 1 PH CH AR AR MA D CY W LL C 00 12 02 02 30 5 ME 32 AR Ac 71 -0 -1 .0 D 09 NO ti 30 3- 2- 00 CA 52 LD ve 29 20 20 RE 7 83 08 09 RI 1 PH CH AR AR MA D CY W LL C 00 12 02 02 30 10 ME 32 AR Ac 90 -1 -1 .0 D 39 NO ti 41 5- 2- 00 CA 44 LD ve 05 20 20 RE 1 56 08 09 RI 1 PH CH AR AR MA D CY W LL C RI 65 02 02 00 30 30 ME 33 AR Ac SP 86 -0 -1 .0 D 46 NO ti ER 20 5- 2- 00 CA 75 LD ve ID 12 20 20 RE 4 ON 10 09 09 RI E 5 PH CH 1 AR AR MG MA D CY W TA BL LL ET C MD 57 01 02 01 30 30 ME 32 AR Ac RT 66 -0 -1 .0 D 69 NO ti AZ 40 5- 2- 00 CA 70 LD ve AP 50 20 20 RE 4 IN 01 09 09 RI E 8 PH CH 30 AR AR MA D MG CY W TA LL BL C ET RO 00 11 02 03 30 30 ME 31 AR Ac PI 37 -0 -1 .0 D 23 NO ti NI 85 5- 2- 00 CA 42 LD ve RO 50 20 20 RE 3 LE 10 08 09 RI 1 PH CH HC AR AR L MA D 1 CY W MG LL TA C BL ET 58 01 01 00 30 30 ME 32 AR Ac 17 -1 -3 .0 D 96 NO ti 70 5- 0- 00 CA 53 LD ve 00 20 20 RE 8 11 09 09 RI 1 PH CH AR AR MA D CY W LL C 60 11 01 02 60 30 ME 31 AR Ac 50 -1 -3 .0 D 48 NO ti 52 6- 0- 00 CA 53 LD ve 58 20 20 RE 7 50 08 09 RI 6 PH CH AR AR MA D CY W LL C 00 10 01 03 35 15 ME 31 AR Ac 60 -2 -3 5. D 20 NO ti 30 7- 0- 00 CA 00 LD ve 71 20 20 0 RE 4 25 08 09 RI 7 PH CH AR AR MA D CY W LL C 00 11 01 03 60 7 ME 31 AR Ac 18 -0 -3 .0 D 45 NO ti 28 7- 0- 00 CA 57 LD ve 44 20 20 RE 1 78 08 09 RI 9 PH CH AR AR MA D CY W LL C RO 00 11 01 02 30 30 ME 31 AR Ac PI 37 -0 -1 .0 D 23 NO ti NI 85 5- 5- 00 CA 42 LD ve RO 50 20 20 RE 3 LE 10 08 09 RI 1 PH CH HC AR AR L MA D 1 CY W MG LL TA C BL ET 00 12 01 01 30 5 ME 32 AR Ac 71 -0 -1 .0 D 09 NO ti 30 3- 5- 00 CA 52 LD ve 29 20 20 RE 7 83 08 09 RI 1 PH CH AR AR MA D CY W LL C LO 51 09 01 03 20 5 ME 30 AR Ac PE 07 -1 -1 .0 D 37 NO ti RA 90 9- 5- 00 CA 86 LD ve MD 69 20 20 RE 0 DE 02 08 09 RI 2 0 PH CH AR AR MG MA D CY W CA PS LL UL C E AZ 50 12 01 00 6. 5 ME 32 AR Ac IT 11 -3 -1 00 D 76 NO ti HR 10 0- 5- 0 CA 27 LD ve OM 78 20 20 RE 2 YC 71 08 09 RI IN 0 PH CH AR AR 25 MA D 0 CY W MG LL TA C BL ET 60 12 01 01 30 30 ME 32 AR Ac 50 -1 -1 .0 D 06 NO ti 52 0- 5- 00 CA 67 LD ve 58 20 20 RE 0 60 08 09 RI 6 PH CH AR AR MA D CY W LL C 00 12 01 01 30 10 ME 32 AR Ac 90 -1 -1 .0 D 39 NO ti 41 5- 5- 00 CA 44 LD ve 05 20 20 RE 1 56 08 09 RI 1 PH CH AR AR MA D CY W LL C MD 57 01 01 00 30 30 ME 32 AR Ac RT 66 -0 -1 .0 D 69 NO ti AZ 40 5- 5- 00 CA 70 LD ve AP 50 20 20 RE 4 IN 01 09 09 RI E 8 PH CH 30 AR AR MA D MG CY W TA LL BL C ET MO 37 11 01 02 30 30 ME 31 AR Ac IL 00 -1 -1 .0 D 60 NO ti OS 00 3- 5- 00 CA 65 LD ve EC 45 20 20 RE 6 50 08 09 RI OT 4 PH CH C AR AR 20 MA D .6 CY W MG LL C TA BL ET 00 11 01 02 60 7 ME 31 AR Ac 18 -0 -0 .0 D 45 NO ti 28 7- 1- 00 CA 57 LD ve 44 20 20 RE 1 78 08 09 RI 9 PH CH AR AR MA D CY W LL C 00 12 01 00 30 10 ME 32 AR Ac 90 -1 -0 .0 D 39 NO ti 41 5- 1- 00 CA 44 LD ve 05 20 20 RE 1 56 08 09 RI 1 PH CH AR AR MA D CY W LL C 60 11 01 01 60 30 ME 31 AR Ac 50 -1 -0 .0 D 48 NO ti 52 6- 1- 00 CA 53 LD ve 58 20 20 RE 7 50 08 09 RI 6 PH CH AR AR MA D CY W LL C 58 09 01 03 30 30 ME 30 AR Ac 17 -1 -0 .0 D 17 NO ti 70 7- 1- 00 CA 64 LD ve 00 20 20 RE 9 11 08 09 RI 1 PH CH AR AR MA D CY W LL C RO 00 11 12 01 30 30 ME 31 AR Ac PI 37 -0 -1 .0 D 23 NO ti NI 85 5- 8- 00 CA 42 LD ve RO 50 20 20 RE 3 LE 10 08 08 RI 1 PH CH HC AR AR L MA D 1 CY W MG LL TA C BL ET MD 57 09 12 03 30 30 ME 29 AR Ac RT 66 -0 -1 .0 D 92 NO ti AZ 40 7- 8- 00 CA 13 LD ve AP 50 20 20 RE 0 IN 01 08 08 RI E 8 PH CH 30 AR AR MA D MG CY W TA LL BL C ET MO 37 11 12 01 30 30 ME 31 AR Ac IL 00 -1 -1 .0 D 60 NO ti OS 00 3- 8- 00 CA 65 LD ve EC 45 20 20 RE 6 50 08 08 RI OT 4 PH CH C AR AR 20 MA D .6 CY W MG LL C TA BL ET LO 51 09 12 02 20 5 ME 30 AR Ac PE 07 -1 -1 .0 D 37 NO ti RA 90 9- 8- 00 CA 86 LD ve MD 69 20 20 RE 0 DE 02 08 08 RI 2 0 PH CH AR AR MG MA D CY W CA PS LL UL C E 60 12 12 00 30 30 ME 32 AR Ac 50 -1 -1 .0 D 06 NO ti 52 0- 8- 00 CA 67 LD ve 58 20 20 RE 0 60 08 08 RI 6 PH CH AR AR MA D CY W LL C 00 10 12 02 35 15 ME 31 AR Ac 60 -2 -1 5. D 20 NO ti 30 7- 8- 00 CA 00 LD ve 71 20 20 0 RE 4 25 08 08 RI 7 PH CH AR AR MA D CY W LL C 00 12 12 00 30 5 ME 32 AR Ac 71 -0 -1 .0 D 09 NO ti 30 3- 8- 00 CA 52 LD ve 29 20 20 RE 7 83 08 08 RI 1 PH CH AR AR MA D CY W LL C 50 11 12 00 30 10 ME 31 AR Ac 11 -1 -0 .0 D 68 NO ti 10 7- 4- 00 CA 09 LD ve 39 20 20 RE 4 30 08 08 RI 1 PH CH AR AR MA D CY W LL C MO 64 11 12 00 30 5 ME 31 AR Ac OC 98 -1 -0 .0 D 69 NO ti TO 00 7- 4- 00 CA 65 LD ve ZO 30 20 20 RE 6 NE 13 08 08 RI -H 0 PH CH C AR AR 2. MA D 5% CY W CR LL EA C M 60 11 12 00 60 30 ME 31 AR Ac 50 -1 -0 .0 D 48 NO ti 52 6- 4- 00 CA 53 LD ve 58 20 20 RE 7 50 08 08 RI 6 PH CH AR AR MA D CY W LL C 00 11 12 01 60 7 ME 31 AR Ac 18 -0 -0 .0 D 45 NO ti 28 7- 4- 00 CA 57 LD ve 44 20 20 RE 1 78 08 08 RI 9 PH CH AR AR MA D CY W LL C 00 10 11 01 35 15 ME 31 AR Ac 60 -2 -2 5. D 20 NO ti 30 7- 0- 00 CA 00 LD ve 71 20 20 0 RE 4 25 08 08 RI 7 PH CH AR AR MA D CY W LL C RO 00 11 11 00 30 30 ME 31 AR Ac PI 37 -0 -2 .0 D 23 NO ti NI 85 5- 0- 00 CA 42 LD ve RO 50 20 20 RE 3 LE 10 08 08 RI 1 PH CH HC AR AR L MA D 1 CY W MG LL TA C BL ET RI 00 07 11 04 30 30 ME 28 AR Ac SP 09 -1 -2 .0 D 89 NO ti ER 37 9- 0- 00 CA 16 LD ve ID 24 20 20 RE 4 ON 00 08 08 RI E 6 PH CH 1 AR AR MG MA D CY W TA BL LL ET C MO 37 11 11 00 30 30 ME 31 AR Ac IL 00 -1 -2 .0 D 60 NO ti OS 00 3- 0- 00 CA 65 LD ve EC 45 20 20 RE 6 50 08 08 RI OT 4 PH CH C AR AR 20 MA D .6 CY W MG LL C TA BL ET 00 11 11 00 60 7 ME 31 AR Ac 18 -0 -2 .0 D 45 NO ti 28 7- 0- 00 CA 57 LD ve 44 20 20 RE 1 78 08 08 RI 9 PH CH AR AR MA D CY W LL C MD 57 09 11 02 30 30 ME 29 AR Ac RT 66 -0 -2 .0 D 92 NO ti AZ 40 7- 0- 00 CA 13 LD ve AP 50 20 20 RE 0 IN 01 08 08 RI E 8 PH CH 30 AR AR MA D MG CY W TA LL BL C ET 58 09 11 02 30 30 ME 30 AR Ac 17 -1 -2 .0 D 17 NO ti 70 7- 0- 00 CA 64 LD ve 00 20 20 RE 9 11 08 08 RI 1 PH CH AR AR MA D CY W LL C 00 10 11 00 35 15 ME 31 AR Ac 60 -2 -0 5. D 20 NO ti 30 7- 7- 00 CA 00 LD ve 71 20 20 0 RE 4 25 08 08 RI 7 PH CH AR AR MA D CY W LL C LO 51 09 11 01 20 5 ME 30 AR Ac PE 07 -1 -0 .0 D 37 NO ti RA 90 9- 7- 00 CA 86 LD ve MD 69 20 20 RE 0 DE 02 08 08 RI 2 0 PH CH AR AR MG MA D CY W CA PS LL UL C E DO 00 10 11 00 10 10 ME 31 AR Ac K 90 -3 -0 .0 D 29 NO ti 10 42 1- 7- 00 CA 94 LD ve 0 24 20 20 RE 4 MG 46 08 08 RI 1 PH CH CA AR AR PS MA D UL CY W E LL C MO 64 07 11 03 30 5 ME 29 AR Ac OC 98 -3 -0 .0 D 31 NO ti TO 00 1- 7- 00 CA 49 LD ve ZO 30 20 20 RE 8 NE 13 08 08 RI -H 0 PH CH C AR AR 2. MA D 5% CY W CR LL EA C M Q- 00 06 10 01 11 5 ME 28 AR Ac TU 60 -2 -2 8. D 40 NO ti SS 30 0- 3- 00 CA 09 LD ve IN 85 20 20 0 RE 4 79 08 08 RI 10 4 PH CH 0 AR AR MG MA D /5 CY W ML LL C SO KEN TI ON 00 08 10 03 60 7 ME 29 AR Ac 18 -1 -2 .0 D 50 NO ti 28 1- 3- 00 CA 15 LD ve 44 20 20 RE 3 78 08 08 RI 9 PH CH AR AR MA D CY W LL C RI 00 08 10 02 60 30 ME 29 AR Ac SP 09 -1 -2 .0 D 55 NO ti ER 30 8- 3- 00 CA 39 LD ve ID 22 20 20 RE 9 ON 50 08 08 RI E 6 PH CH 0. AR AR 5 MA D MG CY W TA LL BL C ET 58 09 10 01 30 30 ME 30 AR Ac 17 -1 -2 .0 D 17 NO ti 70 7- 3- 00 CA 64 LD ve 00 20 20 RE 9 11 08 08 RI 1 PH CH AR AR MA D CY W LL C 50 07 10 03 30 10 ME 28 AR Ac 11 -1 -2 .0 D 99 NO ti 10 6- 3- 00 CA 06 LD ve 39 20 20 RE 4 30 08 08 RI 1 PH CH AR AR MA D CY W LL C RO 00 07 10 03 30 30 ME 28 AR Ac PI 37 -1 -2 .0 D 90 NO ti NI 85 1- 3- 00 CA 89 LD ve RO 50 20 20 RE 6 LE 10 08 08 RI 1 PH CH HC AR AR L MA D 1 CY W MG LL TA C BL ET MD 57 09 10 01 30 30 ME 29 AR Ac RT 66 -0 -2 .0 D 92 NO ti AZ 40 7- 3- 00 CA 13 LD ve AP 50 20 20 RE 0 IN 01 08 08 RI E 8 PH CH 30 AR AR MA D MG CY W TA LL BL C ET 00 08 10 02 60 7 ME 29 AR Ac 18 -1 -0 .0 D 50 NO ti 28 1- 9- 00 CA 15 LD ve 44 20 20 RE 3 78 08 08 RI 9 PH CH AR AR MA D CY W LL C MO 00 09 10 03 14 7 ME 30 AR Ac EV 24 -1 -0 .0 D 00 NO ti AL 50 0- 9- 00 CA 15 LD ve IT 03 20 20 RE 5 E 66 08 08 RI PA 0 PH CH CK AR AR ET MA D CY W LL C MO 64 07 10 02 30 5 ME 29 AR Ac OC 98 -3 -0 .0 D 31 NO ti TO 00 1- 9- 00 CA 49 LD ve ZO 30 20 20 RE 8 NE 13 08 08 RI -H 0 PH CH C AR AR 2. MA D 5% CY W CR LL EA C M DI 00 07 10 01 30 10 ME 28 AR Ac CY 59 -0 -0 .0 D 75 NO ti CL 10 5- 9- 00 CA 53 LD ve OM 79 20 20 RE 9 IN 50 08 08 RI E 1 PH CH 20 AR AR MA D MG CY W TA LL BL C ET MD 57 09 09 00 30 30 ME 29 AR Ac RT 66 -0 -2 .0 D 92 NO ti AZ 40 7- 6- 00 CA 13 LD ve AP 50 20 20 RE 0 IN 01 08 08 RI E 8 PH CH 30 AR AR MA D MG CY W TA LL BL C ET RI 00 08 09 01 60 30 ME 29 AR Ac SP 09 -1 -2 .0 D 55 NO ti ER 30 8- 6- 00 CA 39 LD ve ID 22 20 20 RE 9 ON 50 08 08 RI E 6 PH CH 0. AR AR 5 MA D MG CY W TA LL BL C ET MO 00 09 09 01 14 7 ME 30 AR Ac EV 24 -1 -2 .0 D 00 NO ti AL 50 0- 6- 00 CA 15 LD ve IT 03 20 20 RE 5 E 66 08 08 RI PA 0 PH CH CK AR AR ET MA D CY W LL C 58 09 09 00 30 30 ME 30 AR Ac 17 -1 -2 .0 D 17 NO ti 70 7- 6- 00 CA 64 LD ve 00 20 20 RE 9 11 08 08 RI 1 PH CH AR AR MA D CY W LL C RO 00 07 09 02 30 30 ME 28 AR Ac PI 37 -1 -2 .0 D 90 NO ti NI 85 1- 6- 00 CA 89 LD ve RO 50 20 20 RE 6 LE 10 08 08 RI 1 PH CH HC AR AR L MA D 1 CY W MG LL TA C BL ET 50 07 09 02 30 10 ME 28 AR Ac 11 -1 -2 .0 D 99 NO ti 10 6- 6- 00 CA 06 LD ve 39 20 20 RE 4 30 08 08 RI 1 PH CH AR AR MA D CY W LL C LO 51 09 09 00 20 5 ME 30 AR Ac PE 07 -1 -2 .0 D 37 NO ti RA 90 9- 6- CA 86 LD ve MD 69 20 20 RE 0 DE 02 08 08 RI 2 0 PH CH AR AR MG MA D CY W CA PS LL UL C E 00 08 09 01 60 7 ME 29 No Ac 18 -1 -1 .0 D 50 t ti 28 1- - CA 15 Av ve 44 20 20 RE 3 ai 78 08 08 la 9 PH bl AR e MA CY LL C MO 64 07 09 01 30 5 ME 29 No Ac OC 98 -3 -1 .0 D 31 t ti TO 00 CA 49 Av ve ZO 30 20 20 RE 8 ai NE 13 08 08 la -H 0 PH bl C AR e 2. MA 5% CY CR LL EA C M MO 00 07 09 05 14 7 ME 29 No Ac EV 24 -3 -1 .0 D 31 t ti AL 50 1- 1- 00 CA 49 Av ve IT 03 20 20 RE 1 ai E 66 08 08 la PA 0 PH bl CK AR e ET MA CY LL C NE 24 08 08 00 10 5 ME 29 No Ac OM 20 -1 -2 .0 D 55 t ti YC 80 2- 8- 00 CA 20 Av ve IN 63 20 20 RE 0 ai -P 11 08 08 la OL 0 PH bl YM AR e YX MA IN CY -H C LL EA C R SO LN RI 00 08 08 00 60 30 ME 29 No Ac SP 09 -1 -2 .0 D 55 t ti ER 30 8- 8- 00 CA 39 Av ve ID 22 20 20 RE 9 ai ON 50 08 08 la E 6 PH bl 0. AR e 5 MA MG CY TA LL BL C ET 00 08 08 00 60 7 ME 29 No Ac 18 -1 -2 .0 D 50 t ti 28 1- 8- 00 CA 15 Av ve 44 20 20 RE 3 ai 78 08 08 la 9 PH bl AR e MA CY LL C MO 00 07 08 03 14 7 ME 29 No Ac EV 24 -3 -2 .0 D 31 t ti AL 50 1- 8- 00 CA 49 Av ve IT 03 20 20 RE 1 ai E 66 08 08 la PA 0 PH bl CK AR e ET MA CY LL C 58 05 08 03 30 30 ME 27 No Ac 17 -2 -2 .0 D 62 t ti 70 0- 8- 00 CA 43 Av ve 00 20 20 RE 1 ai 11 08 08 la 1 PH bl AR e MA CY LL C MD 57 05 08 03 30 30 ME 27 No Ac RT 66 -1 -2 .0 D 53 t ti AZ 40 5- 8- 00 CA 80 Av ve AP 50 20 20 RE 9 ai IN 01 08 08 la E 8 PH bl 30 AR e MA MG CY TA LL BL C ET 50 07 08 01 30 10 ME 28 No Ac 11 -1 -2 .0 D 99 t ti 10 6- 8- 00 CA 06 Av ve 39 20 20 RE 4 ai 30 08 08 la 1 PH bl AR e MA CY LL C LO 51 05 08 03 20 5 ME 27 No Ac PE 07 -0 -2 .0 D 43 t ti RA 90 7- 8- 00 CA 81 Av ve MD 69 20 20 RE 9 ai DE 02 08 08 la 2 0 PH bl AR e MG MA CY CA PS LL UL C E MO 64 07 08 00 30 5 ME 29 No Ac OC 98 -3 -1 .0 D 31 t ti TO 00 1- 4- 00 CA 49 Av ve ZO 30 20 20 RE 8 ai NE 13 08 08 la -H 0 PH bl C AR e 2. MA 5% CY CR LL EA C M 51 07 08 00 30 10 ME 29 No Ac 07 -2 -1 .0 D 25 t ti 90 9- 4- 00 CA 57 Av ve 60 20 20 RE 4 ai 12 08 08 la 0 PH bl AR e MA CY LL C 00 08 08 00 10 10 ME 29 No Ac 04 -0 -1 .0 D 32 t ti 51 1- 4- 00 CA 59 Av ve 52 20 20 RE 5 ai 51 08 08 la 0 PH bl AR e MA CY LL C RO 00 07 08 01 30 30 ME 28 No Ac PI 37 -1 -1 .0 D 90 t ti NI 85 1- 4- 00 CA 89 Av ve RO 50 20 20 RE 6 ai LE 10 08 08 la 1 PH bl HC AR e L MA 1 CY MG LL TA C BL ET MO 00 07 08 00 14 7 ME 29 No Ac EV 24 -3 -1 .0 D 31 t ti AL 50 1- 4- 00 CA 49 Av ve IT 03 20 20 RE 1 ai E 66 08 08 la PA 0 PH bl CK AR e ET MA CY LL C 50 07 08 00 30 10 ME 28 No Ac 11 -1 -0 .0 D 99 t ti 10 6- 1- 00 CA 06 Av ve 39 20 20 RE 4 ai 30 08 08 la 1 PH bl AR e MA CY LL C MD 57 05 08 02 30 30 ME 27 No Ac RT 66 -1 -0 .0 D 53 t ti AZ 40 5- 1- 00 CA 80 Av ve AP 50 20 20 RE 9 ai IN 01 08 08 la E 8 PH bl 30 AR e MA MG CY TA LL BL C ET RI 50 07 08 00 60 30 ME 28 No Ac SP 45 -1 -0 .0 D 89 t ti ER 80 9- 1- 00 CA 16 Av ve ID 59 20 20 RE 5 ai ON 16 08 08 la E 0 PH bl 0. AR e 5 MA MG CY TA LL BL C ET 58 05 08 02 30 30 ME 27 No Ac 17 -2 -0 .0 D 62 t ti 70 0- 1- 00 CA 43 Av ve 00 20 20 RE 1 ai 11 08 08 la 1 PH bl AR e MA CY LL C RO 00 07 07 00 30 30 ME 28 No Ac PI 37 -1 -1 .0 D 90 t ti NI 85 1- 7- 00 CA 89 Av ve RO 50 20 20 RE 6 ai LE 10 08 08 la 1 PH bl HC AR e L MA 1 CY MG LL TA C BL ET DI 00 07 07 00 30 10 ME 28 No Ac CY 59 -0 -1 .0 D 75 t ti CL 10 5- 7- 00 CA 53 Av ve OM 79 20 20 RE 9 ai IN 50 08 08 la E 1 PH bl 20 AR e MA MG CY TA LL BL C ET 00 07 07 03 30 5 ME 21 No Ac 71 -2 -0 .0 D 06 t ti 30 7- 3- 00 CA 47 Av ve 29 20 20 RE 3 ai 83 07 08 la 1 PH bl AR e MA CY LL C MD 57 05 07 01 30 30 ME 27 No Ac RT 66 -1 -0 .0 D 53 t ti AZ 40 5- 3- 00 CA 80 Av ve AP 50 20 20 RE 9 ai IN 01 08 08 la E 8 PH bl 30 AR e MA MG CY TA LL BL C ET 50 02 07 03 30 10 ME 25 No Ac 11 -2 -0 .0 D 84 t ti 10 5- 3- 00 CA 17 Av ve 39 20 20 RE 9 ai 30 08 08 la 1 PH bl AR e MA CY LL C LO 51 05 07 02 20 5 ME 27 No Ac PE 07 -0 -0 .0 D 43 t ti RA 90 7- 3- 00 CA 81 Av ve MD 69 20 20 RE 9 ai DE 02 08 08 la 2 0 PH bl AR e MG MA CY CA PS LL UL C E DI 00 04 07 03 30 10 ME 27 No Ac CY 59 -2 -0 .0 D 11 t ti CL 10 2- 3- 00 CA 06 Av ve OM 79 20 20 RE 0 ai IN 50 08 08 la E 1 PH bl 20 AR e MA MG CY TA LL BL C ET 58 05 07 01 30 30 ME 27 No Ac 17 -2 -0 .0 D 62 t ti 70 0- 3- 00 CA 43 Av ve 00 20 20 RE 1 ai 11 08 08 la 1 PH bl AR e MA CY LL C 00 07 07 04 30 5 ME 21 No Ac 71 -2 -0 .0 D 06 t ti 30 7- 3- 00 CA 47 Av ve 29 20 20 RE 3 ai 83 07 08 la 1 PH bl AR e MA CY LL C 00 03 07 03 60 7 ME 26 No Ac 18 -1 -0 .0 D 37 t ti 28 9- 3- 00 CA 13 Av ve 44 20 20 RE 3 ai 78 08 08 la 9 PH bl AR e MA CY LL C RI 50 05 07 01 60 30 ME 27 No Ac SP 45 -2 -0 .0 D 62 t ti ER 80 0- 3- 00 CA 43 Av ve DA 30 20 20 RE 2 ai L 20 08 08 la 0. 1 PH bl 5 AR e MG MA CY TA BL LL ET C Q- 00 06 07 00 11 5 ME 28 No Ac TU 60 -2 -0 8. D 40 t ti SS 30 0- 3- 00 CA 09 Av ve IN 85 20 20 0 RE 4 ai 79 08 08 la 10 4 PH bl 0 AR e MG MA /5 CY ML LL C SO KEN TI ON RE 00 05 07 01 30 30 ME 27 No Ac QU 00 -1 -0 .0 D 45 t ti IP 74 2- 3- 00 CA 37 Av ve 1 89 20 20 RE 1 ai 22 08 08 la MG 0 PH bl AR e TA MA BL CY ET LL C 50 02 06 02 30 10 ME 25 No Ac 11 -2 -0 .0 D 84 t ti 10 5- 5- 00 CA 17 Av ve 39 20 20 RE 9 ai 30 08 08 la 1 PH bl AR e MA CY LL C DI 00 04 06 02 30 10 ME 27 No Ac CY 59 -2 -0 .0 D 11 t ti CL 10 2- 5- 00 CA 06 Av ve OM 79 20 20 RE 0 ai IN 50 08 08 la E 1 PH bl 20 AR e MA MG CY TA LL BL C ET 58 05 06 00 30 30 ME 27 No Ac 17 -2 -0 .0 D 62 t ti 70 0- 5- 00 CA 43 Av ve 00 20 20 RE 1 ai 11 08 08 la 1 PH bl AR e MA CY LL C RI 50 05 06 00 60 30 ME 27 No Ac SP 45 -2 -0 .0 D 62 t ti ER 80 0- 5- 00 CA 43 Av ve DA 30 20 20 RE 2 ai L 20 08 08 la 0. 1 PH bl 5 AR e MG MA CY TA BL LL ET C LO 51 05 06 01 20 5 ME 27 No Ac PE 07 -0 -0 .0 D 43 t ti RA 90 7- 5- 00 CA 81 Av ve MD 69 20 20 RE 9 ai DE 02 08 08 la 2 0 PH bl AR e MG MA CY CA PS LL UL C E DI 00 04 05 01 30 10 ME 27 No Ac CY 59 -2 -2 .0 D 11 t ti CL 10 2- 2- 00 CA 06 Av ve OM 79 20 20 RE 0 ai IN 50 08 08 la E 1 PH bl 20 AR e MA MG CY TA LL BL C ET 00 05 05 00 1. 1 ME 27 No Ac 09 -1 -2 00 D 52 t ti 39 1- 2- 0 CA 95 Av ve 10 20 20 RE 8 ai 72 08 08 la 9 PH bl AR e MA CY LL C 00 05 05 00 28 30 ME 27 No Ac 60 -1 -2 3. D 53 t ti 30 2- 2- 00 CA 42 Av ve 99 20 20 0 RE 3 ai 06 08 08 la 3 PH bl AR e MA CY LL C MD 57 05 05 00 30 30 ME 27 No Ac RT 66 -1 -2 .0 D 53 t ti AZ 40 5- 2- 00 CA 80 Av ve AP 50 20 20 RE 9 ai IN 01 08 08 la E 8 PH bl 30 AR e MA MG CY TA LL BL C ET 00 05 05 01 2. 2 ME 27 No Ac 09 -1 -2 00 D 52 t ti 39 1- 2- 0 CA 95 Av ve 10 20 20 RE 8 ai 72 08 08 la 9 PH bl AR e MA CY LL C LO 51 05 05 00 20 5 ME 27 No Ac PE 07 -0 -2 .0 D 43 t ti RA 90 7- 2- 00 CA 81 Av ve MD 69 20 20 RE 9 ai DE 02 08 08 la 2 0 PH bl AR e MG MA CY CA PS LL UL C E 00 03 05 02 60 7 ME 26 No Ac 18 -1 -2 .0 D 37 t ti 28 9- 2- 00 CA 13 Av ve 44 20 20 RE 3 ai 78 08 08 la 9 PH bl AR e MA CY LL C RE 00 05 05 00 30 30 ME 27 No Ac QU 00 -1 -2 .0 D 45 t ti IP 74 2- 2- 00 CA 37 Av ve 1 89 20 20 RE 1 ai 22 08 08 la MG 0 PH bl AR e TA MA BL CY ET LL C DI 00 04 05 00 30 10 ME 27 No Ac CY 59 -2 -0 .0 D 11 t ti CL 10 2- 8- 00 CA 06 Av ve OM 79 20 20 RE 0 ai IN 50 08 08 la E 1 PH bl 20 AR e MA MG CY TA LL BL C ET 50 02 05 01 30 10 ME 25 No Ac 11 -2 -0 .0 D 84 t ti 10 5- 8- 00 CA 17 Av ve 39 20 20 RE 9 ai 30 08 08 la 1 PH bl AR e MA CY LL C RI 50 01 05 03 60 30 ME 24 No Ac SP 45 -2 -0 .0 D 89 t ti ER 80 1- 8 00 CA 50 Av ve DA 30 20 20 RE 8 ai L 20 08 08 la 0. 1 PH bl 5 AR e MG MA CY TA BL LL ET C 58 01 05 03 30 30 ME 24 No Ac 17 -2 -0 .0 D 89 t ti 70 8 CA 50 Av ve 00 20 20 RE 7 ai 11 08 08 la 1 PH bl AR e MA CY LL C DO 62 03 05 01 10 10 ME 26 No Ac CU 58 -0 -0 .0 D 06 t ti SA 40 5 8 CA 86 Av ve TE 68 20 20 RE 8 ai 30 08 08 la SO 1 PH bl DI AR e UM MA CY 10 0 LL MG C SO FT GE L MD 57 01 04 03 30 30 ME 24 No Ac RT 66 -1 -2 .0 D 79 t ti AZ 40 6- 4 CA 80 Av ve AP 50 20 20 RE 1 ai IN 01 08 08 la E 8 PH bl 30 AR e MA MG CY TA LL BL C ET DI 00 02 04 03 30 10 ME 25 No Ac CY 59 -1 -2 .0 D 71 t ti CL 10 9- 4 CA 89 Av ve OM 79 20 20 RE 4 ai IN 50 08 08 la E 1 PH bl 20 AR e MA MG CY TA LL BL C ET 00 03 04 01 20 3 ME 26 No Ac 18 -1 -2 .0 D 37 t ti 28 9- 4- 00 CA 13 Av ve 44 20 20 RE 3 ai 78 08 08 la 9 PH bl AR e MA CY LL C LO 51 01 04 03 20 5 ME 24 No Ac PE 07 -1 -2 .0 D 85 t ti RA 90 1 4 CA 62 Av ve MD 69 20 20 RE 0 ai DE 02 08 08 la 2 0 PH bl AR e MG MA CY CA PS LL UL C E RE 00 01 04 03 30 30 ME 24 No Ac QU 00 -1 -2 .0 D 73 t ti IP 74 3- 4- 00 CA 03 Av ve 1 89 20 20 RE 2 ai 22 08 08 la MG 0 PH bl AR e TA MA BL CY ET LL C MD 57 01 04 02 30 30 ME 24 No Ac RT 66 -1 -1 .0 D 79 t ti AZ 40 6- 7- 00 CA 80 Av ve AP 50 20 20 RE 1 ai IN 01 08 08 la E 8 PH bl 30 AR e MA MG CY TA LL BL C ET 00 03 04 00 20 3 ME 26 No Ac 18 -1 -1 .0 D 37 t ti 28 9- 7- 00 CA 13 Av ve 44 20 20 RE 3 ai 78 08 08 la 9 PH bl AR e MA CY LL C 00 07 04 02 30 5 ME 21 No Ac 71 -2 -1 .0 D 06 t ti 30 7- 7- 00 CA 47 Av ve 29 20 20 RE 3 ai 83 07 08 la 1 PH bl AR e MA CY LL C 58 01 04 02 30 30 ME 24 No Ac 17 -2 -1 .0 D 89 t ti 70 1- 7- 00 CA 50 Av ve 00 20 20 RE 7 ai 11 08 08 la 1 PH bl AR e MA CY LL C RE 00 01 04 02 30 30 ME 24 No Ac QU 00 -1 -1 .0 D 73 t ti IP 74 3- 7- 00 CA 03 Av ve 1 89 20 20 RE 2 ai 22 08 08 la MG 0 PH bl AR e TA MA BL CY ET LL C 00 03 04 00 90 1 ME 26 No Ac 13 -1 -1 .0 D 21 t ti 20 2- 7- 00 CA 94 Av ve 10 20 20 RE 1 ai 81 08 08 la 5 PH bl AR e MA CY LL C MO 00 03 04 01 14 7 ME 26 No Ac EV 24 -1 -1 .0 D 21 t ti AL 50 2- 7- 00 CA 93 Av ve IT 03 20 20 RE 9 ai E 66 08 08 la PA 0 PH bl CK AR e ET MA CY LL C RI 50 01 04 02 60 30 ME 24 No Ac SP 45 -2 -1 .0 D 89 t ti ER 80 1- 7- 00 CA 50 Av ve DA 30 20 20 RE 8 ai L 20 08 08 la 0. 1 PH bl 5 AR e MG MA CY TA BL LL ET C MO 00 03 04 02 14 7 ME 26 No Ac EV 24 -1 -1 .0 D 21 t ti AL 50 2- 0- 00 CA 93 Av ve IT 03 20 20 RE 9 ai E 66 08 08 la PA 0 PH bl CK AR e ET MA CY LL C LO 51 01 04 02 20 5 ME 24 No Ac PE 07 -1 -1 .0 D 85 t ti RA 90 1- 0- 00 CA 62 Av ve MD 69 20 20 RE 0 ai DE 02 08 08 la 2 0 PH bl AR e MG MA CY CA PS LL UL C E DI 00 02 04 02 30 10 ME 25 No Ac CY 59 -1 -1 .0 D 71 t ti CL 10 9- 0- 00 CA 89 Av ve OM 79 20 20 RE 4 ai IN 50 08 08 la E 1 PH bl 20 AR e MA MG CY TA LL BL C ET 50 02 04 00 30 10 ME 25 No Ac 11 -2 -0 .0 D 84 t ti 10 5- 7- 00 CA 17 Av ve 39 20 20 RE 9 ai 30 08 08 la 1 PH bl AR e MA CY LL C 51 02 04 00 4. 1 ME 25 No Ac 07 -2 -0 00 D 85 t ti 90 5- 7- 0 CA 49 Av ve 60 20 20 RE 0 ai 02 08 08 la 0 PH bl AR e MA CY LL C 66 03 04 00 21 6 ME 26 No Ac 99 -0 -0 .0 D 11 t ti 30 7- 7- 00 CA 09 Av ve 84 20 20 RE 5 ai 02 08 08 la 1 PH bl AR e MA CY LL C 51 02 04 00 30 10 ME 25 No Ac 07 -2 -0 .0 D 84 t ti 90 5- 7- 00 CA 99 Av ve 60 20 20 RE 8 ai 12 08 08 la 0 PH bl AR e MA CY LL C DO 62 03 04 00 10 10 ME 26 No Ac CU 58 -0 -0 .0 D 06 t ti SA 40 5- 7- 00 CA 86 Av ve TE 68 20 20 RE 8 ai 30 08 08 la SO 1 PH bl DI AR e UM MA CY 10 0 LL MG C SO FT GE L DI 00 02 04 01 30 10 ME 25 No Ac CY 59 -1 -0 .0 D 71 t ti CL 10 9- 7- 00 CA 89 Av ve OM 79 20 20 RE 4 ai IN 50 08 08 la E 1 PH bl 20 AR e MA MG CY TA LL BL C ET RI 50 01 03 01 60 30 ME 24 No Ac SP 45 -2 -2 .0 D 89 t ti ER 80 1- 6- 00 CA 50 Av ve DA 30 20 20 RE 8 ai L 20 08 08 la 0. 1 PH bl 5 AR e MG MA CY TA BL LL ET C DI 00 12 03 03 30 10 ME 24 No Ac CY 59 -3 -2 .0 D 60 t ti CL 10 1- 6- 00 CA 28 Av ve OM 79 20 20 RE 6 ai IN 50 07 08 la E 1 PH bl 20 AR e MA MG CY TA LL BL C ET 00 10 03 03 20 3 ME 23 No Ac 18 -2 -2 .0 D 01 t ti 28 2- 6- 00 CA 08 Av ve 44 20 20 RE 0 ai 78 07 08 la 9 PH bl AR e MA CY LL C MD 57 01 03 01 30 30 ME 24 No Ac RT 66 -1 -2 .0 D 79 t ti AZ 40 6- 6- 00 CA 80 Av ve AP 50 20 20 RE 1 ai IN 01 08 08 la E 8 PH bl 30 AR e MA MG CY TA LL BL C ET RE 00 01 03 01 30 30 ME 24 No Ac QU 00 -1 -2 .0 D 73 t ti IP 74 3- 6- 00 CA 03 Av ve 1 89 20 20 RE 2 ai 22 08 08 la MG 0 PH bl AR e TA MA BL CY ET LL C LO 51 01 03 01 20 5 ME 24 No Ac PE 07 -1 -2 .0 D 85 t ti RA 90 1- 6- 00 CA 62 Av ve MD 69 20 20 RE 0 ai DE 02 08 08 la 2 0 PH bl AR e MG MA CY CA PS LL UL C E 58 01 03 01 30 30 ME 24 No Ac 17 -2 -2 .0 D 89 t ti 70 1- 6- 00 CA 50 Av ve 00 20 20 RE 7 ai 11 08 08 la 1 PH bl AR e MA CY LL C 58 01 03 00 30 30 ME 24 No Ac 17 -2 -2 .0 D 89 t ti 70 1- 5- 00 CA 50 Av ve 00 20 20 RE 7 ai 11 08 08 la 1 PH bl AR e MA CY LL C DI 00 12 03 01 30 10 ME 24 No Ac CY 59 -3 -2 .0 D 60 t ti CL 10 1- 5- 00 CA 28 Av ve OM 79 20 20 RE 6 ai IN 50 07 08 la E 1 PH bl 20 AR e MA MG CY TA LL BL C ET 51 01 03 00 60 10 ME 25 No Ac 07 -2 -2 .0 D 06 t ti 90 1- 5- 00 CA 94 Av ve 60 20 20 RE 8 ai 02 08 08 la 0 PH bl AR e MA CY LL C RI 50 01 03 00 60 30 ME 24 No Ac SP 45 -2 -2 .0 D 89 t ti ER 80 1- 5- 00 CA 50 Av ve DA 30 20 20 RE 8 ai L 20 08 08 la 0. 1 PH bl 5 AR e MG MA CY TA BL LL ET C MD 57 01 03 00 30 30 ME 24 No Ac RT 66 -1 -2 .0 D 79 t ti AZ 40 6- 5- 00 CA 80 Av ve AP 50 20 20 RE 1 ai IN 01 08 08 la E 8 PH bl 30 AR e MA MG CY TA LL BL C ET 50 12 03 03 30 10 ME 23 No Ac 11 -0 -2 .0 D 95 t ti 10 3- 5- 00 CA 97 Av ve 39 20 20 RE 8 ai 30 07 08 la 1 PH bl AR e MA CY LL C RE 00 01 03 00 30 30 ME 24 No Ac QU 00 -1 -2 .0 D 73 t ti IP 74 3- 5- 00 CA 03 Av ve 1 89 20 20 RE 2 ai 22 08 08 la MG 0 PH bl AR e TA MA BL CY ET LL C LO 51 01 03 00 20 5 ME 24 No Ac PE 07 -1 -2 .0 D 85 t ti RA 90 1- 4- 00 CA 62 Av ve MD 69 20 20 RE 0 ai DE 02 08 08 la 2 0 PH bl AR e MG MA CY CA PS LL UL C E Vital Signs 04-23-2013 00:57 Name Value Interpretat Reference Comment ion Range Body 98.4 [degF] Temperature BP 65 mm[Hg] Diastolic BP Systolic 123 mm[Hg] Heart 82 /min Rate/Pulse O2% 97 % Respiratory 20 /min Rate 04-22-2013 22:24 Name Value Interpretat Reference Comment ion Range BP 62 mm[Hg] Diastolic BP Systolic 120 mm[Hg] Heart 97 /min Rate/Pulse O2% 93 % Respiratory 20 /min Rate Results Labs Lab Lab Date Result Refere Interp Status Commen Order Detail nces retati t Range on Antibiotic sensitivity studies (04-16-2017 06:15) Cefazol 11-21-2 <= 4 complet in 017 ug/ml ed suscept 06:15 ibility test by minimum inhibit ory concent ration Ceftria 11-21-2 <= 1 complet xone 017 ug/ml ed suscept 06:15 ibility test by minimum inhibit ory concent ration Ceftazi 11-21-2 <= 1 complet dime/po 017 ug/ml ed tassium 06:15 clavula mekhi suscept ibility test by minimum inhibit ory concent ration Amoxici 11-21-2 = 16 complet llin/cl 017 ug/ml ed avulana 06:15 te suscept ibility test by minimum inhibit ory concent ration Ampicil 11-21-2 >= 32 complet paris 017 ug/ml ed suscept 06:15 ibility test by minimum inhibit ory concent ration Piperac 11-21-2 <= 4 complet illin/t 017 ug/ml ed azobact 06:15 am suscept ibility test by minimum inhibit ory concent ration Tobramy 21-2 = 8 complet deangelo 017 ug/ml ed suscept 06:15 ibility test by minimum inhibit ory concent ration Trimeth -21-2 <= 20 complet oprim/s 017 ug/ml ed ulfamet 06:15 hoxazol e suscept ibility test by minimum inhibit ory concent ration Ampicil 11-21-2 >= 32 complet paris/sul 017 ug/ml ed bactam 06:15 suscept ibility test by minimum inhibit ory concent ration Levoflo -21-2 = 1 complet xacin 017 ug/ml ed suscept 06:15 ibility test by minimum inhibit ory concent ration Imipene -21-2 <= 0.25 complet m 017 ug/ml ed suscept 06:15 ibility test by minimum inhibit ory concent ration Gentami 11-21-2 >= 16 complet deangelo 017 ug/ml ed suscept 06:15 ibility test by minimum inhibit ory concent ration Cefepim 11-21-2 <= 1 complet e 017 ug/ml ed suscept 06:15 ibility test by minimum inhibit ory concent ration Ertapen 11-21-2 <= 0.5 complet em 017 ug/ml ed suscept 06:15 ibility test by minimum inhibit ory concent ration Extende 11-21-2 = ug/ml complet d 017 ed spectru 06:15 m beta lactama se (ESBL) produci ng bacteri a suscept ibility test by minimum inhibit ory Antibiotic sensitivity studies (04-16-2017 06:14) Ampicil 11-21-2 >= 32 complet paris 017 ug/ml ed suscept 06:14 ibility test by minimum inhibit ory concent ration Amoxici 21-2 = 16 complet llin/cl 017 ug/ml ed avulana 06:14 te suscept ibility test by minimum inhibit ory concent ration Ceftazi 21-2 <= 1 complet dime/po 017 ug/ml ed tassium 06:14 clavula mekhi suscept ibility test by minimum inhibit ory concent ration Ceftria 21-2 <= 1 complet xone 017 ug/ml ed suscept 06:14 ibility test by minimum inhibit ory concent ration Cefazol 21-2 <= 4 complet in 017 ug/ml ed suscept 06:14 ibility test by minimum inhibit ory concent ration Extende 21-2 = ug/ml complet d 017 ed spectru 06:14 m beta lactama se (ESBL) produci ng bacteri a suscept ibility test by minimum inhibit ory Ertapen -21-2 <= 0.5 complet em 017 ug/ml ed suscept 06:14 ibility test by minimum inhibit ory concent ration Cefepim 21-2 <= 1 complet e 017 ug/ml ed suscept 06:14 ibility test by minimum inhibit ory concent ration Gentami -21-2 >= 16 complet deangelo 017 ug/ml ed suscept 06:14 ibility test by minimum inhibit ory concent ration Imipene -21-2 <= 0.25 complet m 017 ug/ml ed suscept 06:14 ibility test by minimum inhibit ory concent ration Levoflo -21-2 = 1 complet xacin 017 ug/ml ed suscept 06:14 ibility test by minimum inhibit ory concent ration Piperac -21-2 <= 4 complet illin/t 017 ug/ml ed azobact 06:14 am suscept ibility test by minimum inhibit ory concent ration Tobramy = 8 complet deangelo 017 ug/ml ed suscept 06:14 ibility test by minimum inhibit ory concent ration Trimeth <= 20 complet oprim/s 017 ug/ml ed ulfamet 06:14 hoxazol e suscept ibility test by minimum inhibit ory concent ration Ampicil >= 32 complet paris/sul 017 ug/ml ed bactam 06:14 suscept ibility test by minimum inhibit ory concent ration Glucose capillary blood glucometer (04-16-2017 05:57) Glucose = 113 70-110 complet 017 mg/dl ed capilla 05:[address] CBC w auto diff (04-15-2017 23:15) Automat = 1.2 % 0.1-12. complet ed 017 0 ed blood 23:15 eosinop hils/10 0 leukocy t Blood = 6.7 1.8-7.8 complet granulo 017 K/mm3 ed cytes 23:15 automat ed count (numb Granulo = 74.8 37.0-80 complet cyte 017 % .0 ed percent 23:15 age Blood = 30.6 37.0-47 complet hematoc 017 % .0 ed rit 23:15 (volume fractio n) Blood = 10.1 12.2-16 complet hemoglo 017 g/dL .2 ed bin 23:15 measure ment (mass/v olum Absolut = 1.4 0.7-4.5 complet e 017 K/mm3 ed lymphoc 23:15 yte count Lymphoc = 15.4 10-50.0 complet yte 017 % ed count, 23:15 blood, automat ed Mean = 26.8 27-31.2 complet corpusc 017 pg ed ular 23:15 hemoglo bin (MCH) determ Automat = 32.9 31.8-35 complet ed 017 g/dl .4 ed erythro 23:15 cyte mean corpusc ular h Automat = 81.3 82.2-97 complet ed 017 fl .8 ed erythro 23:15 cyte mean corpusc ular v Absolut = 0.7 0.1-1.0 complet e 017 K/mm3 ed monocyt 23:15 e count Garza % = 8.3 % 1.7-9.3 complet 017 ed 23:15 Automat = 7.6 7.4-10. complet ed 017 fl 4 ed blood 23:15 platele t mean volume ximena Blood = 243 142-424 complet platele 017 K/mm3 ed t count 23:15 Red = 3.76 4.2-5.4 complet blood 017 M/mm3 ed cell 23:15 count Automat = 16.1 11.5-17 complet ed 017 % .5 ed erythro 23:15 cyte distrib ution width Blood = 9.0 4.8-10. complet leukocy 017 K/MM3 8 ed daryl 23:15 count (number /volume ) Automat = 0.0 0-0.2 complet ed 017 K/MM3 ed blood 23:15 basophi l count (count/ vo Baso % = 0.3 % 0.1-2.0 complet 017 ed 23:15 Automat = 0.1 0.0-0.4 complet ed 017 K/mm3 ed blood 23:15 eosinop hil count Basic metabolic panel (04-15-2017 23:15) Serum = 14 7-18 complet or 017 mg/dL ed plasma 23:15 urea nitroge n measure men Serum = 8.6 8.5-10. complet or 017 mg/dL 1 ed plasma 23:15 calcium measure ment (mas Serum = 96 98-107 complet or 017 mmoL/L ed plasma 23:15 chlorid e measure ment (mo Carbon = 29 21.0-32 complet dioxide 017 mmoL/L .0 ed 23:15 measure ment Serum = 1.1 0.55-1. complet or 017 mg/dL 02 ed plasma 23:15 creatin ine measure ment ( Estimat 04-15-2 = 69 50-200 complet ion of 017 ML/MIN ed creatin 23:15 ine renal clearan ce Estimat = 49 59- complet ed 017 ML/MIN ed glomeru 23:15 lar filtrat ion rate (GF Comment: REFERENCE RANGE: >60 ML/MIN/1.73 SQUARE METERS Comment: If this patient is -[place], then multiply the Comment: result by 1.210. Serum -20-2 = 92 74-106 complet or 017 mg/dL ed plasma 23:15 glucose measure ment (mas Serum 04-15-2 = 3.1 3.5-5.1 complet potassi 017 mmoL/L ed um 23:15 measure ment Serum 2 = 133 136-145 complet sodium 017 mmoL/L ed measure 23:15 ment Glucose capillary blood glucometer (04-15-2017 20:01) Glucose -20-2 = 180 70-110 complet 017 mg/dl ed capilla 20:[address] Glucose capillary blood glucometer (04-15-2017 16:38) Glucose 11-20-2 = 108 70-110 complet 017 mg/dl ed capilla 16:[address] Glucose capillary blood glucometer (04-15-2017 11:29) Glucose 11-20-2 = 112 70-110 complet 017 mg/dl ed capilla 11:[address] Basic metabolic panel (04-15-2017 06:49) Serum 11-20-2 = 18 7-18 complet or 017 mg/dL ed plasma 06:49 urea nitroge n measure men Serum 04-15-2 = 8.5 8.5-10. complet or 017 mg/dL 1 ed plasma 06:49 calcium measure ment (mas Serum 04-15-2 = 95 98-107 complet or 017 mmoL/L ed plasma 06:49 chlorid e measure ment (mo Carbon 04-15-2 = 27 21.0-32 complet dioxide 017 mmoL/L .0 ed 06:49 measure ment Serum 04-15-2 = 1.3 0.55-1. complet or 017 mg/dL 02 ed plasma 06:49 creatin ine measure ment ( Estimat 2 = 59 50-200 complet ion of 017 ML/MIN ed creatin 06:49 ine renal clearan ce Estimat = 41 59- complet ed 017 ML/MIN ed glomeru 06:49 lar filtrat ion rate (GF Comment: REFERENCE RANGE: >60 ML/MIN/1.73 SQUARE METERS Comment: If this patient is -[place], then multiply the Comment: result by 1.210. Serum = 97 74-106 complet or 017 mg/dL ed plasma 06:49 glucose measure ment (mas Serum = 2.7 3.5-5.1 complet potassi 017 mmoL/L ed um 06:49 measure ment Comment: CRITICAL RESULTS Comment: RESULTS CALLED TO: LIAM 04/15/17 0712 Raza Huston Comment: Donna Serum = 132 136-145 complet sodium 017 mmoL/L ed measure 06:49 ment CBC w auto diff (04-15-2017 06:49) Automat = 0.0 0-0.2 complet ed 017 K/MM3 ed blood 06:49 basophi l count (count/ vo Baso % = 0.3 % 0.1-2.0 complet 017 ed 06:49 Automat = 0.1 0.0-0.4 complet ed 017 K/mm3 ed blood 06:49 eosinop hil count Automat = 1.2 % 0.1-12. complet ed 017 0 ed blood 06:49 eosinop hils/10 0 leukocy t Blood = 7.0 1.8-7.8 complet granulo 017 K/mm3 ed cytes 06:49 automat ed count (numb Granulo = 76.3 37.0-80 complet cyte 017 % .0 ed percent 06:49 age Blood = 30.2 37.0-47 complet hematoc 017 % .0 ed rit 06:49 (volume fractio n) Blood = 10.0 12.2-16 complet hemoglo 017 g/dL .2 ed bin 06:49 measure ment (mass/v olum Absolut 11-20-2 = 1.2 0.7-4.5 complet e 017 K/mm3 ed lymphoc 06:49 yte count Lymphoc = 12.8 10-50.0 complet yte 017 % ed count, 06:49 blood, automat ed Mean = 26.6 27-31.2 complet corpusc 017 pg ed ular 06:49 hemoglo bin (MCH) determ Automat = 32.7 31.8-35 complet ed 017 g/dl .4 ed erythro 06:49 cyte mean corpusc ular h Automat = 81.1 82.2-97 complet ed 017 fl .8 ed erythro 06:49 cyte mean corpusc ular v Absolut = 0.9 0.1-1.0 complet e 017 K/mm3 ed monocyt 06:49 e count Garza % = 9.4 % 1.7-9.3 complet 017 ed 06:49 Automat = 7.8 7.4-10. complet ed 017 fl 4 ed blood 06:49 platele t mean volume ximena Blood = 229 142-424 complet platele 017 K/mm3 ed t count 06:49 Red = 3.72 4.2-5.4 complet blood 017 M/mm3 ed cell 06:49 count Automat = 16.1 11.5-17 complet ed 017 % .5 ed erythro 06:49 cyte distrib ution width Blood = 9.1 4.8-10. complet leukocy 017 K/MM3 8 ed daryl 06:49 count (number /volume ) Antibiotic sensitivity studies (04-15-2017 06:19) Ampicil 04-15-2 >= 32 complet paris 017 ug/ml ed suscept 06:19 ibility test by minimum inhibit ory concent ration Amoxici = 16 complet llin/cl 017 ug/ml ed avulana 06:19 te suscept ibility test by minimum inhibit ory concent ration Ceftazi <= 1 complet dime/po 017 ug/ml ed tassium 06:19 clavula mekhi suscept ibility test by minimum inhibit ory concent ration Ceftria 11-20-2 <= 1 complet xone 017 ug/ml ed suscept 06:19 ibility test by minimum inhibit ory concent ration Cefazol 11-20-2 = 8 complet in 017 ug/ml ed suscept 06:19 ibility test by minimum inhibit ory concent ration Extende 11-20-2 = ug/ml complet d 017 ed spectru 06:19 m beta lactama se (ESBL) produci ng bacteri a suscept ibility test by minimum inhibit ory Ertapen 11-20-2 <= 0.5 complet em 017 ug/ml ed suscept 06:19 ibility test by minimum inhibit ory concent ration Cefepim 11-20-2 <= 1 complet e 017 ug/ml ed suscept 06:19 ibility test by minimum inhibit ory concent ration Nitrofu -20-2 <= 16 complet rantoin 017 ug/ml ed 06:19 suscept ibility test by minimum inhibit ory concent ration Gentami 11-20-2 >= 16 complet deangelo 017 ug/ml ed suscept 06:19 ibility test by minimum inhibit ory concent ration Imipene 11-20-2 <= 0.25 complet m 017 ug/ml ed suscept 06:19 ibility test by minimum inhibit ory concent ration Levoflo 11-20-2 = 1 complet xacin 017 ug/ml ed suscept 06:19 ibility test by minimum inhibit ory concent ration Ampicil -20-2 >= 32 complet paris/sul 017 ug/ml ed bactam 06:19 suscept ibility test by minimum inhibit ory concent ration Trimeth 11-20-2 <= 20 complet oprim/s 017 ug/ml ed ulfamet 06:19 hoxazol e suscept ibility test by minimum inhibit ory concent ration Tobramy 11-20-2 = 8 complet deangelo 017 ug/ml ed suscept 06:19 ibility test by minimum inhibit ory concent ration Piperac 11-20-2 <= 4 complet illin/t 017 ug/ml ed azobact 06:19 am suscept ibility test by minimum inhibit ory concent ration Glucose capillary blood glucometer (04-15-2017 05:59) Glucose 11-20-2 = 102 70-110 complet 017 mg/dl ed capilla 05:[address] Glucose capillary blood glucometer (04-14-2017 20:10) Glucose = 153 70-110 complet 017 mg/dl ed capilla 20:[address] Glucose capillary blood glucometer (04-14-2017 16:16) Glucose 2 = 106 70-110 complet 017 mg/dl ed capilla 16:[address] Glucose capillary blood glucometer (04-14-2017 11:21) Glucose = 137 70-110 complet 017 mg/dl ed capilla 11:[address] CBC w auto diff (04-14-2017 06:40) Automat = 0.0 0-0.2 complet ed 017 K/MM3 ed blood 06:40 basophi l count (count/ vo Baso % = 0.1 % 0.1-2.0 complet 017 ed 06:40 Automat = 0.1 0.0-0.4 complet ed 017 K/mm3 ed blood 06:40 eosinop hil count Automat = 1.0 % 0.1-12. complet ed 017 0 ed blood 06:40 eosinop hils/10 0 leukocy t Blood = 10.3 1.8-7.8 complet granulo 017 K/mm3 ed cytes 06:40 automat ed count (numb Granulo = 85.3 37.0-80 complet cyte 017 % .0 ed percent 06:40 age Blood = 33.3 37.0-47 complet hematoc 017 % .0 ed rit 06:40 (volume fractio n) Blood = 11.3 12.2-16 complet hemoglo 017 g/dL .2 ed bin 06:40 measure ment (mass/v olum Comment: 04/14/17 0709: Comment: HGB previously reported as: 11.4 # L g/dL Absolut = 0.9 0.7-4.5 complet e 017 K/mm3 ed lymphoc 06:40 yte count Lymphoc = 7.1 % 10-50.0 complet yte 017 ed count, 06:40 blood, automat ed Mean = 26.7 27-31.2 complet corpusc 017 pg ed ular 06:40 hemoglo bin (MCH) determ Automat = 33.7 31.8-35 complet ed 017 g/dl .4 ed erythro 06:40 cyte mean corpusc ular h Automat = 79.4 82.2-97 complet ed 017 fl .8 ed erythro 06:40 cyte mean corpusc ular v Absolut = 0.8 0.1-1.0 complet e 017 K/mm3 ed monocyt 06:40 e count Garza % = 6.5 % 1.7-9.3 complet 017 ed 06:40 Automat = 9.0 7.4-10. complet ed 017 fl 4 ed blood 06:40 platele t mean volume ximena Blood = 160 142-424 complet platele 017 K/mm3 ed t count 06:40 Red = 4.20 4.2-5.4 complet blood 017 M/mm3 ed cell 06:40 count Automat = 16.3 11.5-17 complet ed 017 % .5 ed erythro 06:40 cyte distrib ution width Blood = 12.0 4.8-10. complet leukocy 017 K/MM3 8 ed daryl 06:40 count (number /volume ) Basic metabolic panel (04-14-2017 06:40) Serum = 8.9 8.5-10. complet or 017 mg/dL 1 ed plasma 06:40 calcium measure ment (mas Serum = 22 7-18 complet or 017 mg/dL ed plasma 06:40 urea nitroge n measure men Serum = 93 98-107 complet or 017 mmoL/L ed plasma 06:40 chlorid e measure ment (mo Carbon = 27 21.0-32 complet dioxide 017 mmoL/L .0 ed 06:40 measure ment Serum = 1.6 0.55-1. complet or 017 mg/dL 02 ed plasma 06:40 creatin ine measure ment ( Estimat 11-19-2 = 48 50-200 complet ion of 017 ML/MIN ed creatin 06:40 ine renal clearan ce Estimat = 32 59- complet ed 017 ML/MIN ed glomeru 06:40 lar filtrat ion rate (GF Comment: REFERENCE RANGE: >60 ML/MIN/1.73 SQUARE METERS Comment: If this patient is -[place], then multiply the Comment: result by 1.210. Serum --2 = 142 74-106 complet or 017 mg/dL ed plasma 06:40 glucose measure ment (mas Serum 04-14-2 = 3.0 3.5-5.1 complet potassi 017 mmoL/L ed um 06:40 measure ment Comment: CRITICAL RESULTS Comment: RESULTS CALLED TO: William SAMANO RN 04/14/17 0716 Luis Alfaro Serum --2 = 134 136-145 complet sodium 017 mmoL/L ed measure 06:40 ment Glucose capillary blood glucometer (04-14-2017 06:37) Glucose --2 = 138 70-110 complet 017 mg/dl ed capilla 06:[address] Glucose capillary blood glucometer (04-14-2017 00:38) Glucose 11-19-2 = 128 70-110 complet 017 mg/dl ed capilla 00:[address] Urinalysis with microscopy (04-13-2017 21:00) Urine 04-13-2 NEGATIV NEG complet total 017 E ed bilirub 21:00 NEGATIV in E L detecti on by test Urine 04-13-2 CLOUDY CLEAR complet appeara 017 CLOUDY ed nce 21:00 L determi nation Urine 04-13-2 2+ 2+ L NEG complet blood 017 ed detecti 21:00 on Urine 04-13-2 YELLOW YELLOW complet color 017 YELLOW ed 21:00 L Glucose 18-2 = NEG complet ur 017 NEGATIV ed test 21:00 E strip Urine 04-13-2 NEGATIV NEG complet ketones 017 E ed 21:00 NEGATIV detecti E L on by mg/dL automat ed daryl Mucus 04-13-2 3+ 3+ L NEG complet detecti 017 ed on in 21:00 urine sedimen t by lig Urine 11-18-2 NEGATIV NEG complet nitrite 017 E ed [...] E.U./dL detecti on by test str Urine 18-2 = TNTC O complet leukocy 017 wbc/hpf ed daryl 21:00 count (number /volume ) Urine culture (04-13-2017 21:00) Urine -18-2 [id number] complet culture 017 07 ed 21:00 Escheri saturnino coli SCT EC ESCHERI SATURNINO COLI L Urinalysis dipstick W Reflex Microscopic panel in Urine (04-13-2017 21:00) Erythro 11-18-2 20-50 0 complet cytes 017 ed [Presen 21:00 ce] in Urine sedimen t by Light microsc opy Urinalysis dipstick W Reflex Microscopic panel in Urine (04-13-2017 21:00) Appeara -18-2 CLOUDY CLEAR complet nce of 017 ed Urine 21:00 Bilirub -18-2 NEGATIV NEG complet in 017 E ed [Presen 21:00 ce] in Urine by Test strip Erythro 11-18-2 2+ NEG Abnorma complet cytes 017 l ed [Presen 21:00 ce] in Urine Color 11-18-2 YELLOW YELLOW complet of 017 ed Urine 21:00 Ketones 11-18-2 NEGATIV NEG complet 017 E ed [Presen 21:00 ce] in Urine by Automat ed test strip Mucus 11-18-2 3+ NEG Abnorma complet [Presen 017 l ed ce] in 21:00 Urine sedimen t by Light microsc opy Nitrite 11-18-2 NEGATIV NEG complet 017 E ed [Presen 21:00 ce] in Urine by Test strip Urobili 0.2 NEG complet nogen 017 ed [Presen 21:00 ce] in Urine by Test strip Blood lactic acid measurement (moles/vol (04-13-2017 20:50) Blood 18-2 = 1.2 0.4-2.0 complet lactic 017 mmol/L ed acid 20:50 measure ment (moles/ vol Cardiac enzymes (04-13-2017 20:50) Serum 04-13-2 = 2.5 0-4.0 complet or 017 U/L ed plasma 20:50 creatin e kinase MB (CK-M Serum < 0.5 0.0-3.6 complet or 017 ng/mL ed plasma 20:50 creatin e kinase MB measu Serum = 20 26-192 complet or 017 U/L ed plasma 20:50 creatin e kinase measure m Serum 2 < 0.02 0.00-0. complet or 017 ng/mL 06 ed plasma 20:50 troponi n i.cardi ac measu Comprehensive metabolic panel (04-13-2017 20:50) Serum 04-13-2 = 0.6 1.1-1.8 complet or 017 ed plasma 20:50 albumin /globul in mass ra Serum 04-13-2 = 2.9 3.4-5.0 complet or 017 gm/dL ed plasma 20:50 albumin measure ment (mas Serum 04-13-2 = 132 46-116 complet or 017 U/L [...] plasma 20:50 calcium measure ment (mas Serum 04-13-2 = 90 98-107 complet or 017 mmoL/L ed plasma 20:50 chlorid e measure ment (mo Carbon = 28 21.0-32 complet dioxide 017 mmoL/L .0 ed 20:50 measure ment Serum = 1.7 0.55-1. complet or 017 mg/dL 02 ed plasma 20:50 creatin ine measure ment ( Estimat = 68 50-200 complet ion of 017 ML/MIN ed creatin 20:50 ine renal clearan ce Estimat = 30 59- complet ed 017 ML/MIN ed glomeru 20:50 lar filtrat ion rate (GF Comment: REFERENCE RANGE: >60 ML/MIN/1.73 SQUARE METERS Comment: If this patient is -[place], then multiply the Comment: result by 1.210. Serum = 4.5 1.3-3.2 complet globuli 017 gm/dL ed n 20:50 measure ment (mass/v olume) Serum = 163 74-106 complet or 017 mg/dL ed plasma 20:50 glucose measure ment (mas Serum = 2.8 3.5-5.1 complet potassi 017 mmoL/L ed um 20:50 measure ment Comment: CRITICAL RESULTS Comment: RESULTS CALLED TO: Rosie RAYA [employer]ESP[employer] 04/13/172139 Comment: Luis Alfaro Serum = 128 136-145 complet sodium 017 mmoL/L ed measure 20:50 ment Serum = 11 15-37 complet or 017 U/L ed plasma 20:50 asparta te aminotr ansfera ALT = 14 12-78 complet (SGPT) 017 U/L ed ser/ayo 20:50 s Protein = 7.4 6.4-8.2 complet total 017 gm/dL ed ser/ayo 20:50 s CBC w auto diff (04-13-2017 20:50) Automat = 0.0 0-0.2 complet ed 017 K/MM3 ed blood 20:50 basophi l count (count/ vo Baso % = 0.1 % 0.1-2.0 complet 017 ed 20:50 Automat = 0.1 0.0-0.4 complet ed 017 K/mm3 ed blood 20:50 eosinop hil count Automat = 0.4 % 0.1-12. complet ed 017 0 ed blood 20:50 eosinop hils/10 0 leukocy t Blood = 15.9 1.8-7.8 complet granulo 017 K/mm3 ed cytes 20:50 automat ed count (numb Granulo = 88.4 37.0-80 complet cyte 017 % .0 ed percent 20:50 age Blood = 39.7 37.0-47 complet hematoc 017 % .0 ed rit 20:50 (volume fractio n) Blood = 13.3 12.2-16 complet hemoglo 017 g/dL .2 ed bin 20:50 measure ment (mass/v olum Absolut = 1.0 0.7-4.5 complet e 017 K/mm3 ed lymphoc 20:50 yte count Lymphoc = 5.4 % 10-50.0 complet yte 017 ed count, 20:50 blood, automat ed Mean = 27.0 27-31.2 complet corpusc 017 pg ed ular 20:50 hemoglo bin (MCH) determ Automat = 33.5 31.8-35 complet ed 017 g/dl .4 ed erythro 20:50 cyte mean corpusc ular h Garza % = 5.7 % 1.7-9.3 complet 017 ed 20:50 Automat = 80.6 82.2-97 complet ed 017 fl .8 ed erythro 20:50 cyte mean corpusc ular v Absolut = 1.0 0.1-1.0 complet e 017 K/mm3 ed monocyt 20:50 e count Automat = 7.5 7.4-10. complet ed 017 fl 4 ed blood 20:50 platele t mean volume ximena Blood = 298 142-424 complet platele 017 K/mm3 ed t count 20:50 Red = 4.93 4.2-5.4 complet blood 017 M/mm3 ed cell 20:50 count Automat 11-18-2 = 16.2 11.5-17 complet ed 017 % .5 ed erythro 20:50 cyte distrib ution width Blood 04-13-2 = 18.0 4.8-10. complet leukocy 017 K/MM3 8 ed daryl 20:50 count (number /volume ) Differential panel, method unspecified - (04-13-2017 20:50) Automat -18-2 = 11 % 0-8 complet ed 017 ed blood 20:50 band neutrop hil percent a LYMPH 18-2 2 % 10-50 complet 017 ed 20:50 Monocyt 18-2 = 1 % 2-9 complet e % 017 ed 20:50 Platele 04-13- NORMAL complet t 017 NORMAL ed estimat 20:50 L e Neutrop 04-13- = 86 % 42-76 complet hil 017 ed count 20:50 RBC 04-13- NORMAL complet morphol 017 NORMAL ed ogy 20:50 L Blood = 100 complet total 017 #CELLS ed cell 20:50 count Aerobic bacterial blood culture (04-13-2017 20:50) Comment: Is patient on antibiotics? N Aerobic RESULTS complet 017 : ed bacteri 20:50 al blood culture Aerobic GS: complet 017 GRAM ed bacteri 20:50 NEGATIV al E RODS blood culture Aerobic PCR: E. complet 017 COLI ed bacteri 20:50 al blood culture Aerobic REFER complet 017 TO AERO ed bacteri 20:50 FOR al SENSITI blood VITIES culture Aerobic RESULTS complet 017 CALLED ed bacteri 20:50 TO: al [email or web address].GRA blood K culture 7 1232 Danny,Ri chard Aerobic [id number] complet 017 07 ed bacteri 20:50 Escheri al saturnino blood coli culture SCT EC ESCHERI SATURNINO COLI L Blood anaerobic culture (04-13-2017 20:50) Comment: Is patient on antibiotics? N Blood RESULTS complet anaerob 017 : ed ic 20:50 culture Blood GS: complet anaerob 017 GRAM ed ic 20:50 NEGATIV culture E RODS Blood PCR: complet anaerob 017 REFER ed ic 20:50 TO AERO culture Blood RESULTS complet anaerob 017 CALLED ed ic 20:50 TO: culture [email or web address].GRA K 7 1233 Danny,Ri chard Blood [id number] complet anaerob 017 07 ed ic 20:50 Escheri culture saturnino coli SCT EC ESCHERI SATURNINO COLI L Differential panel, method unspecified - (04-13-2017 20:50) LYMPH 04-13- 2 % 10% - Low complet 017 50% ed 20:50 Platele NORMAL complet ts 017 ed [Presen 20:50 ce] in Blood by Light microsc opy Erythro NORMAL complet cyte 017 ed morphol 20:50 ogy finding [Identi fier] in Blood Arterial blood gas (04-13-2017 20:31) Arteria 04-13-2 = 1.9 -2.4-+2 complet l blood 017 MMOL/L .3 ed base 20:31 excess determi nation Az's 04-13-2 Y Y L complet test 017 ed before 20:31 arteria l blood gas Arteria = 25.4 22.0-26 complet l blood 017 MMOL/L .0 ed 20:31 bicarbo mekhi measure ment ( Arteria 04-13-2 = 4 complet l blood 017 ed total 20:31 oxygen content nichole Arteria = 34.6 35.0-45 complet l blood 017 MMHG .0 ed 20:31 partial pressur e of carbo Arteria = 7.48 7.35-7. complet l blood 017 MMOL/L 45 ed pH 20:31 measure ment Arteria 04-13-2 = 99.1 80-100 complet l whole 017 MMHG ed blood 20:31 PO2 at POC Arteria = 97.6 90-100 complet l blood 017 % ed oxygen 20:31 saturat ion calcula SOURCE R/R complet 017 ed 20:31 Arteria 04-13-2 = 26.4 23-27 complet l blood 017 MMOL/L ed carbon 20:31 dioxide , total ximena Gas panel in Arterial blood (04-13-2017 20:31) Arteria 04-13-2 Y complet l 017 ed patency 20:31 Wrist artery --pre arteria l punctur e SOURCE R/R complet 017 ed 20:31 Blood anaerobic culture (04-13-2017 20:10) Comment: Is patient on antibiotics? N Blood [id number] complet anaerob 017 07 ed ic 20:10 Escheri culture saturnino coli SCT EC ESCHERI SATURNINO COLI L Blood RESULTS complet anaerob 017 CALLED ed ic 20:10 TO: culture [email or web address].GRA K 7 1231 Danny,Ri chard Blood REFER complet anaerob 017 TO AERO ed ic 20:10 FOR culture SENSITI VITIES Blood PCR: E. complet anaerob 017 COLI ed ic 20:10 culture Blood GS: complet anaerob 017 GRAM ed ic 20:10 NEGATIV culture E RODS Blood RESULTS complet anaerob 017 : ed ic 20:10 culture Aerobic bacterial blood culture (04-13-2017 20:10) Comment: Is patient on antibiotics? N Aerobic [id number] complet 017 07 ed bacteri 20:10 Escheri al saturnino blood coli culture SCT EC ESCHERI SATURNINO COLI L Aerobic RESULTS complet 017 CALLED ed bacteri 20:10 TO: al FEROZ.GRA blood K culture 7 1230 Danny,Ri chard Aerobic PCR: complet 017 REFER ed bacteri 20:10 TO BHAVANA al blood culture Aerobic GS: complet 017 GRAM ed bacteri 20:10 NEGATIV al E RODS blood culture Aerobic RESULTS complet 017 : ed bacteri 20:10 al blood culture Urinalysis dipstick W Reflex Microscopic panel in [...] sedimen t by Light microsc opy Nitrite 10-24-2 NEGATIV NEG complet 017 E ed [Presen ce] in Urine by Test strip Erythro 10-24-2 3-5 0 complet cytes 017 ed [Presen ce] in Urine sedimen t by Light microsc opy Urobili 10-24-2 1.0 NEG complet nogen 017 ed [Presen [...] 013 mmoL/L .0 ed Cnc 21:45 Calcium 04-22- 8.8 8.5-10. complet 013 mg/dL 1 ed [...] 013 mg/dL ed SerPl-m 21:45 Cnc AST 11-27-2 21 U/L 15-37 complet SerPl-c 013 ed [...] % 10-50.0 complet 013 ed 21:45 Monocyt --2 4.8 % 1.7-9.3 complet es Fr 013 ed Bld 21:45 Auto Eosinop --2 0.8 % 0.1-12. complet hil Fr 013 0 ed Bld 21:45 Auto Basophi 04-22-2 0.3 % 0.1-2.0 complet ls Fr 013 ed Bld 21:45 Auto Granulo 8.1 1.8-7.8 complet cytes # 013 K/mm3 ed Bld 21:45 Auto Lymphoc 2 2.5 0.7-4.5 complet ytes Fr 013 K/mm3 ed Bld 21:45 Auto Monocyt 04-22-2 0.5 0.1-1.0 complet es # 013 K/mm3 ed Bld 21:45 Auto Eosinop 04-22-2 0.1 0.0-0.4 complet hil # 013 K/mm3 ed Bld 21:45 Auto Basophi 2 0.0 0-0.2 complet ls # 013 K/MM3 ed Bld 21:45 Auto Procedures Procedure DOS Code Location Performer Comment [facility] [address] [place] [facility] 8 [facility] Encounters Encounter Start End Date Code Location Performer Type Date [place] [facility] - OTHER 7 7 [facility] - 7 7 [facility] [place] - JESUS 7 7 [facility] [facility] OTHER 7 7 [facility] - 7 7 [facility] - 5 5 [facility], 5 5 HOME [facility]PATIENT [facility] [address] [facility] [place] - 5 5 [facility] - 5 5 [facility], 4 4 HOME OUTPATIEN [facility]Y [facility] 4 4 HOME OUTPATIEN HEALTH AGENCY Emergency JOSE Sargent MD (ER) 3 22:07 3 00:57 [facility] - 3 3 [facility] - 2 2 [facility], 0 0 REGISTRY OUTPATIEN & HOME [facility], 0 0 REGISTRY OUTPATIEN & [facility], 0 0 REGISTRY OUTPATIEN & [facility] - 9 9 [facility] - 8 8 [facility] - 8 8 [facility] - 8 8 [facility] - 8 8 [facility] - 8 8 [facility]
--- OUTSIDE RECORDS SUMMARY | 2017-04-25 15:40 | External Medical Summary Rpt | CCD ---
Author Author , JANICE Organization [facility] Address Unknown Phone Care Team Providers Care Wood Cabinetmaker Name Role Phone [facility] Unavailable Unavailable [facility], [facility] LORI PEREZ, Unavailable Unavailable LORI PEREZ [facility] Unavailable Unavailable [facility], [facility] BRAUDIS JAM, BRAUDIS Unavailable Unavailable JAM [facility] Unavailable Unavailable SERVICE, [facility] Unavailable Unavailable SERVICE, [facility] CHIPPS JULIENNE & Unavailable Unavailable DUBILIER, [facility] DUBILIER [facility] Unavailable Unavailable [place], [facility] Unavailable Unavailable DIAGNOSTIC SE, [facility] FED[facility]ATED Unavailable Unavailable TRANSPORTATION SER, [facility] ALEXANDRA SARGENT, Unavailable Unavailable ALEXANDRA SARGENT [facility] Unavailable Unavailable INC, [facility] Unavailable Unavailable HOSPITAL P, [facility], Unavailable Unavailable [facility] Unavailable Unavailable IMAGING ASS, [facility] Unavailable [...] Unavailable Unavailable EQUIPME, [facility] Un[facility] Un[facility] DEPT PITA, [facility] Unavailable Unavailable AGENCY, [facility] Unavailable Unavailable PHARMACY Purpose Continuity of Care Document - 08-05-2007 through 2016 Problems Code Diagnosis DOS Provider Status D649 ANEMIA 04-04-2017 [facility] E119 TYPE 2 04-04-2017 [facility] MELL[facility]US [facility] WITHOUT COMPLICATIO NS E785 HYPERLIPIDE 04-04-2017 [facility] UNSPECIFIED ASSOCIATES E876 HYPOKALEMIA 04-04-2017 [facility] I10 ESSENTIAL 04-04-2017 [facility] HYPERTENSIO [facility]IATES N C07564 OTHER LONG 04-04-2017 [facility] DRUG THERAPY R0602 SHORTNESS 03-03-2017 [facility] [id number] UNSPECIFIED 03-03-2017 [facility] BREAST INC INITIAL ENC R509 FEVER 03-01-2017 [facility]PEC[facility]IED [facility] D485 NEOPLASM OF 02-27-2017 [facility] OF INC SKIN L821 OTHER 02-27-2017 [facility] SEBORRHEIC JULIENNE & KERATOSIS DUBILIER R339 RETENTION 12-18-[address] [facility] P R69 ILLNESS 12-18-2016 FEDERATED UNSPECIFIED TRANSPORTAT ION SER N390 URINARY 11-28-2016 [facility] SITE NOT SPECIFIED R7989 OTHER SPEC 11-05-2016 [facility] ABNORMAL [facility]ALTH FINDINGS [facility]ATES BLOOD CHEMISTRY R300 DYSURIA 10-24-2016 [facility] N289 DISORDER OF 10-02-2016 [facility]RETER GROUP UNSPECIFIED M160 BILATERAL 09-30-2016 [facility]STEOAR[facility] TIS OF HIP F89756 PAIN IN 09-30-2016 [facility]NSPEC[facility]IED [facility] HIP [facility] M542 CERVICALGIA 09-30-2016 [facility] N3000 ACUTE 09-30-2016 [facility] CYSTITIS PHYSICIANS, WITHOUT PLLC HEMATURIA R51 HEADACHE 09-30-2016 [facility] AM[facility]ULANCE SERVICE R531 WEAKNESS 09-30-2016 [facility] AMB[facility] SERVICE Z043 ENCOUNTER 09-30-2016 [facility] EXAM [facility]BSERVATION [facility]ING ASS FOLLOW OTH ACCIDENT R220 LOCALIZED 09-10-2016 [facility] M[facility] LUMP HEAD [id number] CONTUSION 09-10-2016 [facility] OF SCALP PHYSICIANS, INITIAL PLLC ENCOUNTER D08RRSI UNSPECIFIED 09-10-2016 [facility] AMBULANCE INITIAL SERVICE ENCOUNTER E559 VITAMIN D 07-19-2016 [facility] DEFICIENCY PHYSICIANS UNSPECIFIED LA N183 CHRONIC 07-19-2016 [facility] KIDNEY PHYSICIANS DISEASE LA STAGE 3 MODERATE [id number] LACERATION 05-09-2016 [facility] W/O FB PHYSICIANS, OTHER PART PLLC HEAD INITIAL ENC R8889PP UNSPECIFIED 05-09-2016 [facility] INJURY OF AMBULANCE FACE SERVICE INITIAL ENCOUNTER Z23 ENCOUNTER 04-04-2016 [facility] IMMUNIZATIO [facility] DEPT N PITA J310 CHRONIC 12-19-2015 [facility] RHINITIS PHYSICIANS GROUP J320 CHRONIC 12-19-2015 [facility] MAXILLARY PHYSICIANS SINUSITIS GROUP M3500 SICCA 12-19-2015 [facility] SYNDROME PHYSICIANS UNSPECIFIED GROUP F17867 UNS 12-14-2015 [facility] ATHEROSCLER [place] ART EXTREM BILATERAL LEGS L851 ACQ 12-14-2015 [facility] KERATOSIS KERATODERMA PALMARIS ET PLANTARIS P23336 PAIN IN 12-14-2015 [facility] RIGHT TOES Z04685 PAIN IN 12-14-2015 [facility]IV LEFT TOES E77285 PAIN IN 11-24-2015 [facility] LEFT HAND MOBILE DIAGNOSTIC SE E871 HYPO-OSMOLA 09-12-2015 IN MEDICAL LITY AND SERV HYPONATREMI FOUNDATION A I129 HYPERTENSIV 09-12-2015 IN MEDICAL E CKD SERV W/STAGE 1-4 FOUNDATION CKD OR UNS CKD N184 CHRONIC 09-12-2015 IN MEDICAL KIDNEY SERV DISEASE FOUNDATION STAGE 4 SEVERE N250 RENAL 09-12-2015 IN MEDICAL OSTEODYSTRO SERV PHY FOUNDATION Z794 GENERAL LABOR 09-12-2015 IN MEDICAL 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 INSULIN FOUNDATION B351 TINEA 08-29-2015 [facility] UNGUIUM Z71427 PAIN IN 08-18-2015 [facility] LEFT KNEE MOBILE DIAGNOSTIC SE S26315 PAIN IN 05-23-2015 [facility] RIGHT FOOT T51162 PAIN IN 05-23-2015 [facility] LEFT FOOT O61193 PAIN IN 04-08-2015 EXPRESS LEFT WRIST MOBILE DIAGNOSTIC SE R600 LOCALIZED 03-08-2015 [facility] EDEMA 62362 DIAB W/O 01-20-2015 [facility] COMP TYPE PHYSICIANS II/UNS NOT LA STATED UNCNTRL 2724 OTHER AND 01-20-2015 [facility]ED UNSPECIFIED PHYSICIANS LA HYPERLIPIDE [place] 4019 UNSPECIFIED 01-20-2015 COM[facility]ED ESSENTIAL PHYSICIANS [place]ERT[place]SIO [place] N 96787 01-06-2015 FEDERATED TRANSPORTAT ION SER 5854 CHRONIC 01-04-2015 [facility] DISEASE INC STAGE IV (SEVERE) 81328 DIAB 12-23-2014 [facility] W/PERIPH CIRC D/O TYPE II/UNS NOT UNCNTRL 7295 PAIN IN 12-23-2014 [facility] SOFT TISSUES OF LIMB 7823 EDEMA 12-23-2014 [facility] 19427 UNSPECIFIED 11-19-2014 [facility] HOME URINARY HEALTH INCONTINENC AGENCY E 97270 PAIN IN 10-25-2014 EXPRESS JOINT MOBILE PELVIC DIAGNOSTIC REGION AND SE THIGH 7011 ACQUIRED 09-16-2014 [facility] KERATODERMA 46957 OSTEOARTHRO 06-30-2014 [facility] UNSPEC MEDICAL GEN/LOC IMAGING ASS PELV REGION&THIG H 5859 CHRONIC 06-29-2014 [facility] DISEASE IM[facility]ING ASS UNSPECIFIED 5932 ACQUIRED 06-29-2014 [place] CYST OF MEDICAL KIDNEY IMAGING ASS 7242 LUMBAGO 06-12-2014 [facility] MOBILE DIAGNOSTIC SE 5853 CHRONIC 05-31-2014 IN Merchant Atlas KIDNEY SERV DISEASE FOUNDATION STAGE III (MODERATE) 5880 RENAL 05-31-2014 IN MEDICAL OSTEODYSTRO SERV PHY [facility] 2689 UNSPECIFIED 04-21-2014 COMBINED VITAMIN D PHYSIC[place]ANS DEF[place]IENCY [place] 0062 AMEBIC 01-28-2014 [facility] IC COLITIS MEDICAL EQUIPME 65818 DISORDER OF 10-13-2013 EXPRESS BONE AND MOBILE CARTILAGE DIAGNOSTIC UNSPECIFIED SE 805.6 805.6 FX 04-23-2013 [facility] SACRUM/COCC [facility] YX-CLOSED Hospital 808.2 808.2 04-23-2013 [facility] FRACTURE OF [facility] PUBIS-CLOSE D 847.0 847.0 04-23-2013 [facility] SPRAIN OF [facility] 850.11 850.11 04-23-2013 [facility] CONCUSSION, [facility] W LOSS OF Hospital CONSCIOUSNE SS OF 30 MINUTES OR LESS E849.7 E849.7 04-23-2013 [facility] ACCID IN [facility] INSTIT E885.9 E885.9 FALL 04-23-2013 [facility] FROM [facility] SLIPPING, Hospital TRIPPING, OR STUMBLING NEC 44639 ACUTE PAIN 04-22-2013 [facility] DUE TO AMBULANCE TRAUMA SERVICE 6259 UNSPEC 04-22-2013 [facility] W/FEMALE GENITAL ORGANS 47564 SPASM OF 04-22-2013 [facility] 8056 CLOS FX 04-22-2013 [facility] YX W/O INC MENTION SP CORD INJURY 8082 CLOSED 04-22-2013 [facility] FRACTURE OF MEM HOS[facility] PUBIS INC 8470 NECK SPRAIN 04-22-2013 [facility] AND STRAIN [facility] P 09202 CONCUSSION 04-22-2013 [facility] WITH LOC OF [facility] 30 MINUTES [facility] P OR LESS 920 CONTUSION 04-22-2013 [facility] SCALP AND IMAGING ASS NECK EXCEPT EYE 38568 INJURY OF 04-22-2013 [place] FACE AND MEDICAL NECK OTHER IMAGING ASS AND UNSPECIFIED E8497 PLACE OF 04-22-2013 [facility] OCCURRENCE [facility] RESIDENTIAL [facility] P INSTITUTION E8859 FALL FROM 04-22-2013 [facility] OTHER [facility] TRIPPING OR STUMBLING E8889 UNSPECIFIED 04-22-2013 [facility] V5413 AFTERCARE 04-22-2013 [facility] FOR HEALING MEDICAL TRAUMATIC IMAGING ASS FRACTURE OF HIP V0481 NEED 04-02-2013 [facility] PROPHYLACTI [facility] DEPT VACCINATION PITA &INOCULATIO N FLU 30842 ATHEROSCLER 09-16-2012 [facility] [place] ART EXTREMITIES UNSPEC V5869 LONG-TERM 07-23-2012 COMBINED (CURRENT) PHYSICIANS USE OF LA OTHER MEDICATIONS 2449 UNSPECIFIED 06-18-2012 COMBINED PHYSICIANS HYPOTHYROID [place] ISM 02878 PAIN IN 05-05-2012 [facility] JOINT, MOBILE FOREARM DIAGNOSTIC SE 4619 ACUTE 04-14-2012 [facility] SINUSITIS, UNSPECIFIED 4779 ALLERGIC 04-14-2012 [facility] RHINITIS CAUSE UNSPECIFIED 7804 DIZZINESS 04-14-2012 [facility] AND GIDDINESS 3319 UNSPECIFIED 03-14-2012 [facility] CEREBRAL [facility]ICAL DEGENERATIO IMAGING ASS N 7840 HEADACHE 02-20-2012 [facility] 1101 DERMATOPHYT 07-04-2011 [facility] OSIS OF NAIL 7812 ABNORMALITY 09-26-2009 N[facility] OF GAIT REGISTRY & HOME HEAL 64905 ANAL OR 10-18-2008 [place] 88429 DIARRHEA 10-18-2008 [facility] 09924 ABDOMINAL 10-18-2008 [facility] RIGHT EMERGENCY LOWER [facility] 01482 ABDOMINAL 10-18-2008 [facility] PAIN, AMBULANCE GENERALIZED SERVICE 5693 HEMORRHAGE 02-14-2008 [facility] OF RECTUM AMBULANCE AND ANUS SERVICE 5789 UNSPECIFIED 02-14-2008 [facility] HEMORRHAGE [facility] OF INC GASTROINTES TINAL TRACT 3829 UNSPECIFIED 12-23-2007 ARNOLD, OTITIS LORI W MEDIA 5690 ANAL AND 11-26-2007 [facility] RECTAL AMBULANCE POLYP SERVICE 5691 RECTAL 11-26-2007 [facility] PROLAPSE [facility] 4552 INTERNAL 10-04-2007 [facility] HEMORRHOIDS AMBULANCE WITH OTHER SERVICE COMPLICATIO N [...] 0 RE 36 AT 65 17 17 DC E 0 PH CH 10 AR AE 0 MA L MG CY S CA LL PS C UL E HE 64 11 11 0 50 5 ME 15 GA Ac PA 25 -2 -2 0. D 36 IN ti RI 30 1- 7- 00 CA 09 EY ve N 22 20 20 0 RE 60 50 23 17 17 DC 5 PH CH UN AR AE IT MA L S/ CY S 5 ML LL C (1 0/ ML ) NO 64 11 11 0 20 5 ME 15 GA Ac RM 25 -2 -2 00 D 34 IN ti AL 30 1- 1- .0 CA 44 EY ve 11 20 20 00 RE 97 SA 13 17 17 DC LI 0 PH CH NE AR AE MA L FL CY S US H LL SY C RI NG E HE 64 11 11 0 50 5 ME 15 GA Ac PA 25 -2 -2 0. D 34 IN ti RI 30 1- 1- 00 CA 45 EY ve N 22 20 20 0 RE 01 50 23 17 17 DC 5 PH CH UN AR AE IT MA L S/ CY S 5 ML LL C (1 0/ ML ) MA 00 05 11 0 30 5 ME 15 GA Ac PA 90 -1 -1 0. D 28 IN ti P 41 0- 3- 00 CA 67 EY ve 50 98 20 20 0 RE 29 0 86 17 17 DC MG 1 PH CH AR AE TA MA L BL CY S ET LL C BE 67 06 10 0 60 30 ME 15 GA Ac NZ 87 -1 -2 0. D 18 IN ti ON 70 8- 5- 00 CA 49 EY ve AT 10 20 20 0 RE 87 AT 50 17 17 DC E 5 PH CH 10 AR AE 0 MA L MG CY S CA LL PS C UL E SE 00 06 10 0 12 30 ME 15 GA Ac NE 53 -0 -2 00 D 16 IN ti XO 64 1- 4- .0 CA 78 EY ve N- 08 20 20 00 RE 15 S 60 17 17 DC TA 1 PH CH BL AR AE ET MA L CY S LL C MA 00 05 10 0 30 5 ME 15 GA Ac PA 90 -1 -2 0. D 18 IN ti P 41 0- 4- 00 CA 10 EY ve 50 98 20 20 0 RE 13 0 86 17 17 DC MG 1 PH CH AR AE TA MA L BL CY S ET LL C MA 00 05 10 0 30 5 ME 15 GA Ac PA 90 -1 -0 0. D 08 IN ti P 41 0- 7- 00 CA 91 EY ve 50 98 20 20 0 RE 31 0 86 17 17 DC MG 1 PH CH AR AE TA MA L BL CY S ET LL C SE 00 06 09 0 12 30 ME 15 GA Ac NE 53 -0 -2 00 D 01 IN ti XO 64 1- 6- .0 CA 96 EY ve N- 08 20 20 00 RE 48 S 60 17 17 DC TA 1 PH CH BL AR AE ET MA L CY S LL C BE 67 06 09 0 60 30 ME 15 GA Ac NZ 87 -1 -2 0. D 01 IN ti ON 70 8- 6- 00 CA 96 EY ve AT 10 20 20 0 RE 45 AT 50 17 17 DC E 5 PH CH 10 AR AE 0 MA L MG CY S CA LL PS C UL E DC 00 07 09 0 30 30 ME 15 GA Ac -A 90 -2 -2 0. D 00 IN ti CI 45 3- 3- 00 CA 90 EY ve D 06 20 20 0 RE 44 GA 86 17 17 DC S 0 PH CH 80 AR AE MA L MG CY S TA LL B C CH EW MA 00 05 09 0 30 5 ME 14 GA Ac PA 90 -1 -1 0. D 96 IN ti P 41 0- 6- 00 CA 78 EY ve 50 98 20 20 0 RE 69 0 86 17 17 DC MG 1 PH CH AR AE TA MA L BL CY S ET LL C SE 00 06 09 0 12 30 ME 14 GA Ac NE 53 -0 -0 00 D 86 IN ti XO 64 1- 1- .0 CA 87 EY ve N- 08 20 20 00 RE 65 S 60 17 17 DC TA 1 PH CH BL AR AE ET MA L CY S LL C MA 00 05 08 0 30 5 ME 14 GA Ac PA 90 -1 -2 0. D 85 IN ti P 41 0- 9- 00 CA 64 EY ve 50 98 20 20 0 RE 43 0 86 17 17 DC MG 1 PH CH AR AE TA MA L BL CY S ET LL C BE 67 06 08 0 60 30 ME 14 GA Ac NZ 87 -1 -2 0. D 84 IN ti ON 70 8- 6- 00 CA 52 EY ve AT 10 20 20 0 RE 63 AT 50 17 17 DC E 5 PH CH 10 AR AE 0 MA L MG CY S CA LL PS C UL E SE 00 06 08 0 12 30 ME 14 GA Ac NE 53 -0 -0 00 D 70 IN ti XO 64 1- 3- .0 CA 16 EY ve N- 08 20 20 00 RE 39 S 60 17 17 DC TA 1 PH CH BL AR AE ET MA L CY S LL C MA 00 05 07 0 30 5 ME 14 GA Ac PA 90 -1 -2 0. D 68 IN ti P 41 0- 8- 00 CA 10 EY ve 50 98 20 20 0 RE 14 0 86 17 17 DC MG 1 PH CH AR AE TA MA L BL CY S ET LL C BE 67 06 07 0 60 30 ME 14 GA Ac NZ 87 -1 -2 0. D 67 IN ti ON 70 8- 6- 00 CA 06 EY ve AT 10 20 20 0 RE 14 AT 50 17 17 DC E 5 PH CH 10 AR AE 0 MA L MG CY S CA LL PS C UL E DC 00 07 07 0 30 30 ME 14 GA Ac -A 90 -2 -2 0. D 64 IN ti CI 45 3- 4- 00 CA 88 EY ve D 06 20 20 0 RE 55 GA 86 17 17 DC S 0 PH CH 80 AR AE [...] 00 RE 69 S 60 17 17 DC TA 1 PH CH BL AR AE [...] 05 06 30 5 00 ME Ac WY 78 -2 -1 .0 00 D ti [...] 17 17 72 E 9 68 PH WY AR OP MA CY 50 MC G SP RA Y WY 68 05 06 30 30 00 ME [...] 05 06 30 5 00 ME Ac WY 78 -1 -0 .0 00 D ti [...] 17 17 67 TA 1 90 PH DC AR N- MA CA CY FF 50 [...] 65 PH ZI AR ME MA CY WY OT EC T PA ST E RO [...] 04 05 30 7 00 ME Ac WY 78 -1 -0 .0 00 D ti [...] MA 10 CY MG TA BL ET WY 68 04 05 30 30 00 ME [...] 30 3- 7- 00 13 CA ve DC 31 20 20 88 RE DE 10 17 17 53 2 1 78 PH AR MG MA CY CA PS UL E AL 00 03 04 30 7 00 ME Ac WY 78 -1 -0 .0 00 D ti [...] MA 10 CY MG TA BL ET [place] 68 03 04 30 30 00 ME [...] 17 17 52 TA 1 35 PH DC AR N- MA CA CY FF 50 [...] CY 20 ME Q TA BL ET W[place] 68 02 03 30 30 00 ME [...] 17 17 61 TA 1 25 PH DC AR N- MA CA CY FF 50 -3 25 -4 0 AL 00 02 03 30 7 00 ME Ac WY 78 -0 -1 .0 00 D ti [...] CY MG LL C TA BL ET WY 68 01 02 30 30 00 ME [...] 01 02 30 7 00 ME Ac WY 78 -2 -1 .0 00 D ti [...] 17 17 62 TA 1 50 PH DC AR N- MA CA CY FF LL [...] 17 17 40 TA 1 79 PH DC AR N- MA CA CY FF LL 50 C -3 25 -4 0 AL 00 01 02 30 7 00 ME Ac WY 78 -0 -0 .0 00 D ti [...] 1- 0- 00 CA 40 LD ve DC 02 20 20 0 RE 4 N [...] MG LL C CA PS UL E WY 00 12 03 0 30 30 ME [...] 1- 9- 00 CA 07 LD ve DC 02 20 20 0 RE 7 N [...] MG LL C CA PS UL E WY 00 12 02 0 30 30 ME [...] 1- 0- 00 CA 52 LD ve DC 02 20 20 0 RE 9 N [...] CY W TA BL LL ET C WY 00 05 01 0 30 5 ME 97 AR Ac OM 59 -0 -0 0. D 24 NO ti ET 15 9- 9- 00 CA 48 LD ve TYLER 30 20 20 0 RE 0 ZI [...] W MG LL TA C BL ET WY 00 12 01 0 30 30 ME [...] 9- 6- 00 CA 01 LD ve DC 10 20 20 0 RE 6 DE 00 13 13 RI 2 5 PH CH AR AR MG MA D CY W CA PS LL UL C E ME 68 01 12 0 60 30 ME 96 AR Ac TF 38 -3 -2 0. D 67 NO ti OR 20 1- 1- 00 CA 08 LD ve DC 02 20 20 0 RE 7 N [...] W MG LL C TA BL ET WY 00 12 12 0 30 30 ME [...] 1- 1- 00 CA 61 LD ve DC 02 20 20 0 RE 2 N [...] 13 13 RI E 5 PH CH WY AR AR OP MA D CY W [...] 1- 3- 00 CA 90 LD ve DC 02 20 20 0 RE 8 N [...] 1- 3- 00 CA 90 LD ve DC 02 20 20 0 RE 0 N [...] 1- 3- 00 CA 65 LD ve DC 02 20 20 0 RE 8 N [...] 1- 5- 00 CA 00 LD ve DC 02 20 20 0 RE 1 N [...] 9- 5- 00 CA 66 LD ve DC 10 20 20 0 RE 4 DE [...] 1- 5- 00 CA 75 LD ve DC 02 20 20 0 RE 2 N [...] 9- 7- 00 CA 30 LD ve DC 10 20 20 0 RE 8 DE [...] 1- 4- 00 CA 29 LD ve DC 02 20 20 0 RE 1 N [...] 4- 6- 00 CA 94 LD ve DC 10 20 20 0 RE 7 DE [...] 1- 5- 00 CA 32 LD ve DC 02 20 20 0 RE 3 N [...] 1- 7- 00 CA 11 LD ve DC 02 20 20 0 RE 5 N [...] 1- 7- 00 CA 27 LD ve DC 25 20 20 0 RE 8 N 90 13 13 RI HC 1 PH CH L AR AR 50 MA D 0 CY W MG LL TA C BL ET WY 00 11 02 0 30 5 ME [...] MG LL C CA PS UL E DC 68 02 02 0 14 14 ME [...] 11 13 RI E 5 PH CH WY AR AR OP MA D CY W [...] 1- 1- 00 CA 38 LD ve DC 25 20 20 0 RE 7 N [...] ME C Q CA PS UL E WY 37 07 01 0 30 30 ME [...] W MG LL C TA BL ET DC 68 01 01 0 30 30 ME [...] CY W TA LL BL C ET DC 68 11 01 0 90 9 ME [...] 4- 3- 00 CA 15 LD ve DC 69 20 20 0 RE 8 DE [...] W MG LL C TA BL ET WY 68 11 12 0 30 5 ME [...] CY W TA BL LL ET C WY 37 07 12 0 30 30 ME [...] -5 LL 0 C MG TA B DC 68 11 12 0 30 30 ME [...] ME C Q CA PS UL E WY 37 07 11 0 30 30 ME [...] W D LI LL QU C ID WY 68 11 11 0 30 5 ME [...] 11 12 RI E 1 PH CH WY AR AR OP MA D CY W [...] CY W TA LL BL C ET DC 68 11 11 0 30 30 ME [...] W MG LL TA C BL ET WY 37 07 10 0 30 30 ME [...] CY W TA LL BL C ET DC 68 11 10 0 30 30 ME [...] CY W TA BL LL ET C WY 68 11 10 0 30 5 ME [...] W MG LL TA C BL ET WY 37 07 10 8 30 30 ME [...] 4- 1- 00 CA 35 LD ve DC 10 20 20 0 RE 7 DE [...] 4- 1- 00 CA 93 LD ve DC 10 20 20 0 RE 2 DE 00 12 12 RI 2 1 PH CH AR AR MG MA D CY W CA PS LL UL C E DC 68 11 09 0 30 30 ME [...] CY W TA LL BL C ET WY 37 07 08 9 30 30 ME [...] W MG LL TA C BL ET WY 00 11 08 0 30 5 ME 83 AR Ac OM 60 -0 -2 0. D 47 NO ti ET 35 7- 7- 00 CA 57 LD ve TYLER 43 20 20 0 RE 1 ZI [...] NT CY W ME NT LL C DC 68 11 08 0 30 30 ME [...] AR MA D CY W LL C WY 37 07 08 10 30 30 ME [...] 6- 1- 00 CA 71 LD ve WY 05 20 20 0 RE 5 AM [...] 4- 4- 00 CA 56 LD ve DC 10 20 20 0 RE 9 DE [...] CY W MG LL C CA P DC 68 11 07 0 30 30 ME [...] ME C Q CA PS UL E WY 37 07 07 11 30 30 ME [...] CY W TA BL LL ET C WY 68 11 07 0 30 5 ME [...] 9- 9- 00 CA 45 LD ve WY 05 20 20 RE 7 AM 45 [...] 6- 6- 00 CA 45 LD ve WY 05 20 20 RE 8 AM 35 [...] -5 LL 0 C MG TA B DC 68 11 06 0 30 30 ME [...] 1- 6- 00 CA 59 LD ve WY 05 20 20 RE 8 AM 45 [...] W D LI LL QU C ID WY 68 11 06 0 30 5 ME [...] CY W TA LL BL C ET WY 37 03 05 0 30 30 ME [...] W D LI LL QU C ID DC 68 11 05 0 30 30 ME [...] 1- 9- 00 CA 54 LD ve WY 05 20 20 0 RE 4 AM [...] CY W TA LL BL C ET WY 37 03 05 0 30 30 ME 79 AR Ac IL 00 -0 -0 0. D 29 NO ti OS 00 6- 2- 00 CA 60 LD ve EC 45 20 20 0 RE 9 50 12 12 RI OT 4 PH CH C AR AR 20 MA D .6 CY W MG LL C TA BL ET WY 68 11 05 0 30 5 ME [...] 11 12 RI E 1 PH CH WY AR AR OP MA D CY W [...] -5 LL 0 C MG TA B DC 68 11 04 0 30 30 ME [...] 1- 9- 00 CA 37 LD ve WY 05 20 20 0 RE 6 AM [...] CY W TA LL BL C ET WY 37 03 04 10 30 0 ME [...] D BL CY W ET LL C WY 68 11 03 0 30 0 ME [...] -5 LL 0 C MG TA B DC 68 11 03 0 30 0 ME [...] 1- 0- 00 CA 95 LD ve WY 05 20 20 0 RE 5 AM 45 11 12 RI 0 PH CH HB AR AR R MA D 40 CY W MG LL C TA BL ET WY 68 11 03 0 30 0 ME 77 AR Ac OM 38 -0 -0 0. D 93 NO ti ET 20 7- 8- 00 CA 65 LD ve TYLER 04 20 20 0 RE 3 ZI 11 11 12 RI NE 0 PH CH AR AR 25 MA D CY W MG LL TA C BL ET WY 37 03 03 11 30 0 ME [...] -5 LL 0 C MG TA B WY 68 11 02 0 30 0 ME [...] CY W TA BL LL ET C DC 68 11 02 0 30 0 ME [...] 1- 9- 00 CA 16 LD ve WY 01 20 20 0 RE 7 AM 10 11 12 RI 5 PH CH HB AR AR R MA D 40 CY W MG LL C TA BL ET WY 37 11 02 0 30 0 ME [...] CY W TA BL LL ET C DC 68 11 01 0 30 0 ME [...] 1- 0- 00 CA 47 LD ve WY 01 20 20 0 RE 8 AM [...] W MG LL TA C BL ET WY 37 11 12 0 30 0 ME [...] CY W TA BL LL ET C DC 68 11 12 0 30 30 ME [...] 1- 1- 00 CA 20 LD ve WY 01 20 20 RE AM 10 11 [...] AR MA D CY W LL C WY 37 11 12 10 30 30 ME [...] -5 LL 0 C MG TA B DC 68 11 11 0 30 30 ME [...] 7- 3- 00 CA 81 LD ve WY 01 20 20 RE AM 10 11 [...] CY W TA LL BL C ET WY 37 11 11 11 30 30 ME [...] MA D ON CY W LL C DC 68 07 10 3 30 30 ME [...] 6- 4- 00 CA 09 LD ve WY 01 20 20 RE 8 AM 10 11 11 RI 5 PH CH HB AR AR R MA D 40 CY W MG LL C TA BL ET LO 51 10 10 3 20 5 ME 60 AR Ac PE 07 -1 -1 .0 D 10 NO ti RA 90 1- 1- 00 CA 13 LD ve DC 69 20 20 RE 1 DE 02 [...] 11 11 RI E 1 PH CH WY AR AR OP MA D CY W [...] W MG LL TA C BL ET WY 37 10 10 3 30 30 ME [...] AR MA D CY W LL C DC 68 07 09 3 30 30 ME [...] 6- 6- 00 CA 09 LD ve WY 01 20 20 RE 8 AM 10 [...] W MG LL TA C BL ET WY 37 06 09 3 30 30 ME [...] 8- 5- 0 CA 13 LD ve WY 37 20 20 RE 8 AM 30 [...] D BL CY W ET LL C DC 68 07 08 3 30 30 ME [...] W MG LL TA C BL ET WY 37 06 08 3 30 30 ME [...] 4- 1- 00 CA 02 LD ve DC 69 20 20 RE 6 DE 02 [...] 8- 8- 00 CA 13 LD ve WY 37 20 20 RE 8 AM 30 11 11 RI 1 PH CH HB AR AR R MA D 40 CY W MG LL C TA BL ET DC 68 07 07 3 30 30 ME [...] 2- 2- 0 CA 27 LD ve WY 05 20 20 RE 3 AM 35 [...] AR MA D CY W LL C DC 00 07 07 3 35 7 ME 57 AR Ac 90 -0 -0 5. D 44 NO ti AC 40 9- 9- 00 CA 78 LD ve ID 00 20 20 0 RE 2 41 11 11 RI LOZOYA 4 PH CH SP AR AR EN MA D SI CY W ON LL C DC 68 04 07 3 30 30 ME [...] W MG LL TA C BL ET WY 37 06 07 3 30 30 ME [...] 4- 0- 00 CA 02 LD ve DC 69 20 20 RE 6 DE 02 [...] W 5 MG LL C TA B DC 68 04 06 3 30 30 ME [...] D BL CY W ET LL C WY 37 06 06 3 30 30 ME [...] W 5 MG LL C TA B DC 68 04 05 3 30 30 ME [...] W MG LL TA C BL ET WY 37 02 05 3 30 30 ME 52 AR Ac IL 00 -0 -0 .0 D 57 NO ti OS 00 4- 5- 00 CA 39 LD ve EC 45 20 20 RE 8 50 11 11 RI OT 4 PH CH C AR AR 20 MA D .6 CY W MG LL C TA BL ET DC 00 11 05 3 35 7 ME [...] 11 11 RI E 6 PH CH WY AR AR OP MA D CY W [...] W 5 MG LL C TA B DC 68 04 04 3 30 30 ME [...] W MG LL TA C BL ET WY 37 02 04 3 30 30 ME [...] 4- 4- 00 CA 02 LD ve DC 69 20 20 RE 6 DE 02 [...] CY W TA LL BL C ET DC 68 12 03 3 30 30 ME [...] W MG LL TA C BL ET WY 37 02 03 3 30 30 ME [...] 11 11 RI E 9 PH CH WY AR AR OP MA D CY W 50 LL MC C G SP RA Y DC 00 11 03 3 35 7 ME [...] 4- 4- 00 CA 02 LD ve DC 69 20 20 RE 6 DE 02 [...] CY W TA LL BL C ET DC 68 12 02 3 30 30 ME [...] W MG LL TA C BL ET [place] 37 02 02 3 30 30 ME [...] CY W TA LL BL C ET DC 68 12 01 3 30 30 ME [...] W MG LL TA C BL ET [place] 37 10 01 3 30 30 ME [...] CY W TA LL BL C ET [place] 37 10 12 3 30 30 ME 49 AR Ac IL 00 -1 -0 .0 D 36 NO ti OS 00 3- 8- 00 CA 22 LD ve EC 45 20 20 RE 1 50 10 10 RI OT 4 PH CH C AR AR 20 MA D .6 CY W MG LL C TA BL ET DC 68 12 12 3 30 30 ME [...] 8- 7- 00 CA 22 LD ve DC 69 20 20 RE 3 DE 02 [...] CY W TA LL BL C ET [place] 37 10 11 3 30 30 ME 49 AR Ac IL 00 -1 -1 .0 D 36 NO ti OS 00 3- 2- 00 CA 22 LD ve EC 45 20 20 RE 1 50 10 10 RI OT 4 PH CH C AR AR 20 MA D .6 CY W MG LL C TA BL ET DC 00 11 11 3 35 7 ME [...] ME C Q CA PS UL E WY 37 10 10 3 30 30 ME [...] D BL CY W ET LL C [place] 37 06 09 3 30 30 ME [...] 8- 8- 00 CA 22 LD ve DC 69 20 20 RE 3 DE 02 [...] W 5 MG LL C TA B [place] 37 06 08 3 30 30 ME [...] 2- 7- 00 CA 26 LD ve DC 69 20 20 RE 8 DE 02 [...] CY W TA LL BL C ET [place] 37 06 07 3 30 30 ME [...] AR MA D CY W LL C W[place] 37 06 06 3 30 30 ME [...] CY W TA BL LL ET C DC 00 04 06 3 35 7 ME [...] W 5 MG LL C TA B DC 00 04 05 3 35 7 ME [...] 2- 8- 00 CA 26 LD ve DC 69 20 20 RE 8 DE 02 10 10 RI 2 0 PH CH AR AR MG MA D CY W CA PS LL UL C E [place] 37 02 05 3 30 30 ME [...] CY W TA LL BL C ET DC 00 04 05 3 35 7 ME [...] 2- 3- 00 CA 26 LD ve DC 69 20 20 RE 8 DE 02 10 10 RI 2 0 PH CH AR AR MG MA D CY W CA PS LL UL C E DC 00 04 04 3 35 7 ME 44 AR Ac 90 -2 -2 5. D 81 NO ti AC 40 1- 1- 00 CA 80 LD ve ID 00 20 20 0 RE 7 41 10 10 RI LOZOYA 4 PH CH SP AR AR EN MA D SI CY W ON LL C [place] 37 02 04 3 30 30 ME [...] AR MA D CY W LL C [place] 37 02 03 3 30 30 ME [...] W MG LL TA C BL ET [place] 68 03 03 3 30 5 ME [...] 2- 1- 00 CA 26 LD ve DC 69 20 20 RE 8 DE 02 [...] ME C Q CA PS UL E W[place] 37 10 02 03 30 30 ME [...] AR MA D CY W LL C [place] 68 07 01 03 30 5 ME [...] 9- 4- 00 CA 15 LD ve DC 69 20 20 RE 9 DE 02 [...] CY W TA LL BL C ET [place] 37 10 12 02 30 30 ME [...] W MG LL TA C BL ET [place] 68 07 12 02 30 5 ME [...] 9- 7- 00 CA 15 LD ve DC 69 20 20 RE 9 DE 02 [...] AR MA D CY W LL C DC 60 10 12 01 30 30 ME 40 AR Ac RT 50 -2 -0 .0 D 01 NO ti AZ 50 6- 3- 00 CA 94 LD ve AP 24 20 20 RE 2 IN 80 09 09 RI E 8 PH CH 30 AR AR MA D MG CY W TA LL BL C ET [place] 37 10 12 01 30 30 ME [...] CY W TA LL BL C ET [place] 37 10 11 00 30 30 ME [...] CY W TA BL LL ET C DC 60 10 11 00 30 30 ME [...] 9- 2- 00 CA 15 LD ve DC 69 20 20 RE 9 DE 02 [...] AR MA D CY W LL C DC 00 08 10 01 35 3 ME [...] CY W TA LL BL C [place] 37 07 10 03 20 20 ME [...] CY W TA LL BL C [place] 37 07 10 03 30 30 ME [...] AR MA D CY W LL C DC 60 07 10 03 30 30 ME [...] W MG LL TA C BL [place] 68 07 09 01 30 5 ME [...] 9- 0- 00 CA 15 LD ve DC 69 20 20 RE 9 DE 02 [...] AR MA D CY W LL C DC 60 07 09 02 30 30 ME 37 AR Ac RT 50 -0 -1 .0 D 08 NO ti AZ 50 4- 0- 00 CA 25 LD ve AP 24 20 20 RE 9 IN 80 09 09 RI E 8 PH CH 30 AR AR MA D MG CY W TA LL BL C ET [place] 37 07 09 02 30 30 ME [...] CY W TA LL BL C ET DC 00 08 08 00 35 3 ME [...] 6- 3- 00 CA 66 LD ve DC 69 20 20 RE 4 DE 02 09 09 RI 2 0 PH CH AR AR MG MA D CY W CA PS LL UL C E WY 37 07 08 01 30 30 ME [...] AR MA D CY W LL C W[place] 68 07 08 00 30 5 ME [...] W MG LL TA C BL ET DC 00 07 08 01 35 15 ME 37 AR Ac 90 -1 -1 5. D 57 NO ti AC 40 6- 3- 00 CA 17 LD ve ID 00 20 20 0 RE 8 41 09 09 RI LOZOYA 4 PH CH SP AR AR EN MA D SI CY W ON LL C DC 60 07 08 01 30 30 ME 37 AR Ac RT 50 -0 -1 .0 D 08 NO ti AZ 50 4- 3- 00 CA 25 LD ve AP 24 20 20 RE 9 IN 80 09 09 RI E 8 PH CH 30 AR AR MA D MG CY W TA LL BL C ET DC 00 07 07 00 35 15 ME [...] AR MA D CY W LL C DC 60 07 07 00 30 30 ME [...] AR MA D CY W LL C W[place] 37 07 07 00 30 30 ME [...] W MG LL TA C BL [place] 37 03 06 03 30 30 ME [...] 6- 8- 00 CA 66 LD ve DC 69 20 20 RE 4 DE 02 [...] AR MA D CY W LL C DC 60 03 06 03 30 30 ME [...] AR MA D CY W LL C [place] 37 03 05 02 30 30 ME [...] ME C Q CA PS UL E DC 60 03 05 02 30 30 ME [...] AR MA D CY W LL C [place] 37 03 04 01 30 30 ME [...] 6- 3- 00 CA 66 LD ve DC 69 20 20 RE 4 DE 02 [...] AR MA D CY W LL C DC 60 03 04 01 30 30 ME [...] AR MA D CY W LL C [place] 37 03 03 00 30 30 ME [...] W MG LL TA C BL ET DC 60 03 03 00 30 30 ME [...] 6- 2- 00 CA 66 LD ve DC 69 20 20 RE 4 DE 02 [...] CY W TA LL BL C ET [place] 37 11 02 03 30 30 ME [...] CY W TA BL LL ET C DC 57 01 02 01 30 30 ME [...] 9- 5- 00 CA 86 LD ve DC 69 20 20 RE 0 DE 02 [...] AR MA D CY W LL C DC 57 01 01 00 30 30 ME 32 AR Ac RT 66 -0 -1 .0 D 69 NO ti AZ 40 5- 5- 00 CA 70 LD ve AP 50 20 20 RE 4 IN 01 09 09 RI E 8 PH CH 30 AR AR MA D MG CY W TA LL BL C ET [place] 37 11 01 02 30 30 ME [...] W MG LL TA C BL ET DC 57 09 12 03 30 30 ME 29 AR Ac RT 66 -0 -1 .0 D 92 NO ti AZ 40 7- 8- 00 CA 13 LD ve AP 50 20 20 RE 0 IN 01 08 08 RI E 8 PH CH 30 AR AR MA D MG CY W TA LL BL C ET [place] 37 11 12 01 30 30 ME [...] 9- 8- 00 CA 86 LD ve DC 69 20 20 RE 0 DE 02 [...] AR MA D CY W LL C [place]Y 64 11 12 00 30 5 ME [...] CY W TA BL LL ET C [place] 37 11 11 00 30 30 ME [...] AR MA D CY W LL C DC 57 09 11 02 30 30 ME [...] 9- 7- 00 CA 86 LD ve DC 69 20 20 RE 0 DE 02 [...] D UL CY W E LL C [place]Y 64 07 11 03 30 5 ME [...] W MG LL TA C BL ET DC 57 09 10 01 30 30 ME [...] AR MA D CY W LL C [place] 00 09 10 03 14 7 ME 30 AR Ac EV 24 -1 -0 .0 D 00 NO ti AL 50 0- 9- 00 CA 15 LD ve IT 03 20 20 RE 5 E 66 08 08 RI PA 0 PH CH CK AR AR ET MA D CY W LL C WY 64 07 10 02 30 5 ME [...] CY W TA LL BL C ET DC 57 09 09 00 30 30 ME [...] CY W TA LL BL C ET [place] 00 09 09 01 14 7 ME [...] 90 9- 6- CA 86 LD ve DC 69 20 20 RE 0 DE 02 [...] bl AR e MA CY LL C [place] 64 07 09 01 30 5 ME 29 No Ac OC 98 -3 -1 .0 D 31 t ti TO 00 CA 49 Av ve ZO 30 20 20 RE 8 ai NE 13 08 08 la -H 0 PH bl C AR e 2. MA 5% CY CR LL EA C M [place]Y 00 07 09 05 14 7 ME [...] bl AR e MA CY LL C WY 00 07 08 03 14 7 ME [...] bl AR e MA CY LL C DC 57 05 08 03 30 30 ME [...] 7- 8- 00 CA 81 Av ve DC 69 20 20 RE 9 ai DE 02 08 08 la 2 0 PH bl AR e MG MA CY CA PS LL UL C E WY 64 07 08 00 30 5 ME [...] CY MG LL TA C BL ET [place] 00 07 08 00 14 7 ME [...] bl AR e MA CY LL C DC 57 05 08 02 30 30 ME [...] bl AR e MA CY LL C DC 57 05 07 01 30 30 ME [...] 7- 3- 00 CA 81 Av ve DC 69 20 20 RE 9 ai DE [...] 7- 5- 00 CA 81 Av ve DC 69 20 20 RE 9 ai DE [...] bl AR e MA CY LL C DC 57 05 05 00 30 30 ME [...] 7- 2- 00 CA 81 Av ve DC 69 20 20 RE 9 ai DE [...] LL MG C SO FT GE L DC 57 01 04 03 30 30 ME [...] 90 1 4 CA 62 Av ve DC 69 20 20 RE 0 ai DE [...] TA MA BL CY ET LL C DC 57 01 04 02 30 30 ME [...] bl AR e MA CY LL C WY 00 03 04 01 14 7 ME [...] MA CY TA BL LL ET C [place] 00 03 04 02 14 7 ME [...] 1- 0- 00 CA 62 Av ve DC 69 20 20 RE 0 ai DE [...] bl AR e MA CY LL C DC 57 01 03 01 30 30 ME [...] 1- 6- 00 CA 62 Av ve DC 69 20 20 RE 0 ai DE [...] MA CY TA BL LL ET C DC 57 01 03 00 30 30 ME [...] 1- 4- 00 CA 62 Av ve DC 69 20 20 RE 0 ai DE [...] 017 K/mm3 ed monocyt 23:15 e count [place] % = 8.3 % 1.7-9.3 complet 017 [...] SQUARE METERS Comment: If this patient is -Maltese, then multiply the Comment: result by 1.210. [...] SQUARE METERS Comment: If this patient is -Maltese, then multiply the Comment: result by 1.210. [...] 017 K/mm3 ed monocyt 06:49 e count [place] % = 9.4 % 1.7-9.3 complet 017 [...] 017 K/mm3 ed monocyt 06:40 e count [place] % = 6.5 % 1.7-9.3 complet 017 [...] SQUARE METERS Comment: If this patient is -Maltese, then multiply the Comment: result by 1.210. [...] ) Urine culture (04-13-2017 21:00) Urine -18-2 [id number] complet culture 017 07 ed 21:00 Escheri [...] SQUARE METERS Comment: If this patient is -Maltese, then multiply the Comment: result by 1.210. Serum = 4.5 1.3-3.2 complet globuli 017 gm/dL ed n 20:50 measure ment (mass/v olume) Serum = 163 74-106 complet or 017 mg/dL ed plasma 20:50 glucose measure ment (mas Serum = 2.8 3.5-5.1 complet potassi 017 mmoL/L ed um 20:50 measure ment Comment: CRITICAL RESULTS Comment: RESULTS CALLED TO: Rosie RYAA CRANBERRY GROWER [id number] Comment: Luis Alfaro Serum = 128 [...] erythro 20:50 cyte mean corpusc ular h [place] % = 5.7 % 1.7-9.3 complet 017 [...] 4.8-10. complet leukocy 017 K/MM3 8 ed adryl 20:50 count (number /volume ) Differential panel, [...] K culture 7 1232 Danny,Ri chard Aerobic [id number] complet 017 07 ed bacteri 20:50 Escheri [...] FEROZ.GRA K 7 1233 Danny,Ri chard Blood [id number] complet anaerob 017 07 ed ic 20:50 [...] Comment: Is patient on antibiotics? N Blood [id number] complet anaerob 017 07 ed ic 20:10 [...] Comment: Is patient on antibiotics? N Aerobic [id number] complet 017 07 ed bacteri 20:10 Escheri [...] Comment [place] 45[address] [place] 8 [facility] Encounters Encounter Start End Date Code Location Performer Type Date [facility] - OTHER 7 7 [facility] - 7 7 [facility] - JESUS 7 7 [facility] OTHER 7 7 [facility] - 7 7 [facility] - 5 5 [facility], 5 5 HOME [facility] 5 5 [facility] F[facility] - 5 5 [facility] - 5 5 [facility], 4 4 HOME [facility] 4 4 HOME OUTPATIEN HEALTH AGENCY Emergency JOSE Sargent MD (ER) 3 22:07 3 00:57 [facility] F[facility]AZ - 3 3 [facility] F[facility] - 2 2 [facility], 0 0 REGISTRY OUTPATIEN & HOME [facility], 0 0 REGISTRY OUTPATIEN & [facility] N[facility], 0 0 REGISTRY OUTPATIEN & [facility] FARAZ - 9 9 [facility] - 8 8 [facility] - 8 8 [facility] - 8 8 [facility] - 8 8 [facility] - 8 8 [facility]
[2017-04-25 15:43] LABS: HEMOGLOBIN 13.4 g/dL (12.2-16.2)
[2017-04-25 16:17] VITALS: BP 171/101
--- OUTSIDE RECORDS SUMMARY | 2017-04-25 16:23 | External Medical Summary Rpt | CCD ---
Author Author , JANICE Oh JANICE Address Unknown Phone [email or web address] Care Team Providers Care Production Recovery Operator Name Role Phone [facility], [facility] LORI PEREZ, Unavailable Unavailable LORI PEREZ [facility] Un[facility], [facility] BRAUDIS JAM, BRAUDIS Unavailable Unavailable JAM [facility] Unavailable Unavailable SERVICE, [facility] Unavailable Unavailable [facility], [facility]ULI[facility] & Unavailable Unavailable DUBILIER, [facility]UBILIER [facility] Unavailable Unavailable [facility], [facility] Unavailable Unavailable DIAGNOSTIC [facility], [facility] Unavailable Unavailable TRANSPORTATION SER, [facility] ALEXANDRA SARGENT, Unavailable Unavailable ALEXANDRA SARGENT [facility] Unavailable Unavailable INC, [facility] Unavailable Unavailable [facility]PITAL P, [facility], Unavailable Unavailable [facility] Un[facility] Un[facility], [facility] FAN JAYDA, FAN Unavailable Unavailable [facility] Un[facility], [facility] & Unavailable Unavailable [facility], [facility], Unavailable Unavailable [facility], [facility], Unavailable Unavailable [facility] Unavailable Unavailable [facility], [facility] Unavailable Un[facility] DEPT PITA, [facility] Unavailable Unavailable AGENCY, [facility] Unavailable Unavailable PHARMACY Purpose Continuity of Care Document - 08-05-2007 through 2016 Problems Code Diagnosis DOS Provider Status D649 ANEMIA 04-04-2017 [facility] E119 TYPE 2 04-04-2017 [facility] ME[facility]US [facility] WITHOUT COMPLICATIO NS E785 HYPERLIPIDE 04-04-2017 [facility] UNSPECIFIED [facility] E876 HYPOKALEMIA 04-04-2017 [facility] I10 ESSENTIAL 04-04-2017 [facility] HYPERTENSIO [facility] N [id number] OTHER LONG 04-04-2017 [facility] CURRENT [facility] DRUG THERAPY R0602 SHORTNESS 03-03-2017 [facility] [id number] UNSPECIFIED 03-03-2017 [facility] BREAST INC INITIAL ENC R509 FEVER 03-01-2017 [facility] D485 NEOPLASM OF 02-27-2017 [facility] OF INC SKIN L821 OTHER 02-27-2017 [facility] SEBORRHEIC JULIENNE & KERATOSIS DUBILIER R339 RETENTION 12-18-2016 [facility] OF URINE [facility] UNSPECIFIED HOSPITAL P R69 ILLNESS 12-18-2016 [facility] UNSPECIFIED TRANSPORTAT ION SER N390 URINARY 11-28-2016 [facility] SITE NOT SPECIFIED R7989 OTHER SPEC 11-05-2016 [facility] ABNORMAL [facility] FINDINGS [facility] BLOOD CHEMISTRY R300 DYSURIA 10-24-2016 [facility] N289 DISORDER OF 10-02-2016 [facility] URETER GROUP UNSPECIFIED M160 BILATERAL 09-30-2016 [facility] OSTEOARTHRI [facility] TIS OF HIP P03901 PAIN IN 09-30-2016 [facility]IP [facility] M542 CERVICALGIA 09-30-2016 [facility] N3000 ACUTE 09-30-2016 [facility] CYSTITIS [facility], WITHOUT PLLC HEMATURIA R51 HEADACHE 09-30-2016 [facility] AMBULANCE SERVICE R531 WEAKNESS 09-30-2016 [facility] AMBULANCE SERVICE Z043 ENCOUNTER 09-30-2016 [facility]ATION [facility] FOLLOW OTH ACCIDENT R220 LOCALIZED 09-10-2016 [facility] SWELLING [facility] MASS AND [facility] LUMP HEAD [id number] CONTUSION 09-10-2016 [facility] OF SCALP PHYSICIANS, INITIAL PLLC ENCOUNTER [id number] UNSPECIFIED 09-10-2016 [facility] INITIAL SERVICE ENCOUNTER E559 VITAMIN D 07-19-2016 [facility] DEFICIENCY [facility]ICIANS UNSPECIFIED LA N183 CHRONIC 07-19-2016 [facility] KIDNEY [facility] DISEASE LA STAGE 3 MODERATE [id number] LACERATION 05-09-2016 [facility] W/O FB PHYSICIANS, OTHER PART PLLC HEAD INITIAL ENC [id number] UNSPECIFIED 05-09-2016 [facility] INJURY OF AMBULANCE FACE SERVICE INITIAL ENCOUNTER Z23 ENCOUNTER 04-04-2016 [facility] IMMUNIZATIO TH DEPT N PITA J310 CHRONIC 12-19-2015 [facility] RHINITIS PHYSICIANS GROUP J320 CHRONIC 12-19-2015 [facility] MAXILLARY PHYSICIANS SINUSITIS GROUP M3500 SICCA 12-19-2015 [facility] SYNDROME PHYSICIANS UNSPECIFIED GROUP W09189 UNS 12-14-2015 [facility] ATHEROSCLER [place] ART EXTREM BILATERAL LEGS L851 ACQ 12-14-2015 [facility] KERATOSIS KERATODERMA PALMARIS ET PLANTARIS Q07782 PAIN IN 12-14-2015 [facility] RIGHT TOES X52365 PAIN IN 12-14-2015 [facility] LEFT TOES Y48264 PAIN IN 11-24-2015 [facility] LEFT HAND [facility]BILE DIAGNOSTIC SE E871 HYPO-OSMOLA 09-12-2015 [facility] HYPONATREMI FOUNDATION A I129 HYPERTENSIV 09-12-2015 [facility] E CKD SERV W/STAGE 1-4 FOUNDATION CKD OR UNS CKD N184 CHRONIC 09-12-2015 [facility] DISEASE [facility] STAGE 4 SEVERE N250 RENAL 09-12-2015 [facility] OSTEODYSTRO SERV PHY [facility] Z794 RETIREMENT 09-12-2015 [facility] 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 INSULIN [facility] B351 TINEA 08-29-2015 [facility] UNGUIUM F07909 PAIN IN 08-18-2015 [facility] LEFT KNEE MOBILE DIAGNOSTIC SE J32805 PAIN IN 05-23-2015 [facility] RIGHT FOOT E72757 PAIN IN 05-23-2015 [facility] LEFT FOOT P72879 PAIN IN 04-08-2015 [facility] LEFT WRIST MOBILE DIAGNOSTIC SE R600 LOCALIZED 03-08-2015 [facility] EDEMA 73985 DIAB W/O 01-20-2015 [facility] COMP TYPE PHYSICIANS II/UNS NOT LA STATED UNCNTRL 2724 OTHER AND 01-20-2015 [facility] UNSPECIFIED PHYSICIANS LA HYPERLIPIDE [place] 4019 UNSPECIFIED 01-20-2015 [facility] [place]ENTIAL [place] [address] 01-06-2015 [facility] TRANSPORTAT ION SER 5854 CHRONIC 01-04-2015 [facility] DISEASE INC STAGE IV (SEVERE) 67683 DIAB 12-23-2014 [facility] LIV W/PERIPH CIRC D/O TYPE II/UNS NOT UNCNTRL 7295 PAIN IN 12-23-2014 [facility] SOFT TISSUES OF LIMB 7823 EDEMA 12-23-2014 [facility] 05793 UNSPECIFIED 11-19-2014 [facility] URINARY HEALTH INCONTINENC AGENCY E 57996 PAIN IN 10-25-2014 [facility] JOINT MOBILE PELVIC DIAGNOSTIC REGION AND SE THIGH 7011 ACQUIRED 09-16-2014 [facility] KERATODERMA 19277 OSTEOARTHRO 06-30-2014 [facility] UNSPEC MEDICAL GEN/LOC IMAGING ASS PELV REGION&THIG H 5859 CHRONIC 06-29-2014 [facility] KIDNEY MEDICAL DISEASE IM[facility] ASS UNSPECIFIED 5932 ACQUIRED 06-29-2014 [facility] CYST OF MEDICAL KIDNEY IMAGING ASS 7242 LUMBAGO 06-12-2014 [facility] DIAGNOSTIC SE 5853 CHRONIC 05-31-2014 [facility] DISEASE FOUNDATION STAGE III (MODERATE) 5880 RENAL 05-31-2014 [facility] OSTEODYSTRO SERV PHY FOUNDATION 2689 UNSPECIFIED 04-21-2014 [facility] VITAMIN D PHYSICIANS DEFICIENCY [place] 0062 AMEBIC 01-28-2014 [facility] IC COLITIS MEDICAL EQUIPME 30704 DISORDER OF 10-13-2013 [facility] BONE AND MOBILE [place] [address] ACUTE PAIN 04-22-2013 [facility] DUE TO AMBULANCE TRAUMA SERVICE 6259 UNSPEC 04-22-2013 [facility] W/FEMALE GENITAL ORGANS 01814 SPASM OF 04-22-2013 [facility] 8056 CLOS FX 04-22-2013 [facility] YX W/O INC MENTION SP CORD INJURY 8082 CLOSED 04-22-2013 [facility] FRACTURE OF MEM HOSP PUBIS INC 8470 NECK SPRAIN 04-22-2013 [facility] AND STRAIN [facility] P 50517 CONCUSSION 04-22-2013 [facility] WITH LOC OF [facility] 30 MINUTES HOSPITAL P OR LESS 920 CONTUSION 04-22-2013 [facility] OF FACE MEDICAL SCALP AND IMAGING ASS NECK EXCEPT EYE 56750 INJURY OF 04-22-2013 [facility] FACE AND MEDICAL NECK OTHER IMAGING ASS AND UNSPECIFIED E8497 PLACE OF 04-22-2013 [facility] OCCURRENCE [facility] RESIDENTIAL [facility] P INSTITUTION E8859 FALL FROM 04-22-2013 [facility] P TRIPPING OR STUMBLING E8889 UNSPECIFIED 04-22-2013 [facility] V5413 AFTERCARE 04-22-2013 [facility] FOR HEALING MEDICAL TRAUMATIC IMAGING ASS FRACTURE OF HIP V0481 NEED 04-02-2013 [facility] DEPT VACCINATION PITA &INOCULATIO N FLU 54750 ATHEROSCLER 09-16-2012 [facility] [place] ART EXTREMITIES UNSPEC V5869 LONG-TERM 07-23-2012 [facility] (CURRENT) PHYSICIANS USE OF LA OTHER MEDICATIONS 2449 UNSPECIFIED 06-18-2012 [facility]ICI[facility] [place] 83992 PAIN IN 05-05-2012 [facility] JOINT, MOBILE FOREARM DIAGNOSTIC SE 4619 ACUTE 04-14-2012 [facility] SINUSITIS, UNSPECIFIED 4779 ALLERGIC 04-14-2012 [facility] RHINITIS CAUSE UNSPECIFIED 7804 DIZZINESS 04-14-2012 [facility] AND GIDDINESS 3319 UNSPECIFIED 03-14-2012 [facility] CEREBRAL [facility]ICAL DEGENERATIO IMAGING ASS N 7840 HEADACHE 02-20-2012 [facility] 1101 DERMATOPHYT 07-04-2011 [facility] OSIS OF NAIL 7812 ABNORMALITY 09-26-2009 [facility] OF GAIT REGISTRY & HOME HEAL 49936 ANAL OR 10-18-2008 [facility] 62821 DIARRHEA 10-18-2008 [facility] 97741 ABDOMINAL 10-18-2008 [facility] RIGHT EMERGENCY LOWER SERVICES [facility] 09649 ABDOMINAL 10-18-2008 [facility] PAIN, AMBULANCE GENERALIZED SERVICE 5693 HEMORRHAGE 02-14-2008 [facility] OF RECTUM AMBULANCE AND ANUS SERVICE 5789 UNSPECIFIED 02-14-2008 [facility] HEMORRHAGE [facility] OF INC GASTROINTES TINAL TRACT 3829 UNSPECIFIED 12-23-2007 ARNOLD, OTITIS LORI W MEDIA 5690 ANAL AND 11-26-2007 [facility] RECT[facility] AMBULANCE POLYP SERVICE 5691 RECTAL 11-26-2007 [facility] PROLAPSE [facility] INC 4552 INTERNAL 10-04-2007 [facility] HEMORRHOIDS AMBULANCE WITH OTHER SERVICE COMPLICATIO N 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 D 36 IN ti RI 30 1- 7- 00 CA 09 EY ve N 22 20 20 0 RE 60 50 23 17 17 NC 5 PH CH UN AR AE IT MA L S/ CY S 5 ML LL C (1 0/ ML ) BE 65 11 11 0 20 10 ME 15 GA Ac NZ 16 -2 -2 0. D 34 IN ti ON 20 1- 7- 00 CA 21 EY ve AT 53 20 20 0 RE 36 AT 65 17 17 NC E 0 PH CH 10 AR AE 0 MA L MG CY S CA LL PS C UL E NO 64 11 11 0 20 5 ME 15 GA Ac RM 25 -2 -2 00 D 34 IN ti AL 30 1- 1- .0 CA 44 EY ve 11 20 20 00 RE 97 SA 13 17 17 NC LI 0 PH CH NE AR AE MA L FL CY S US H LL SY C RI NG E HE 64 11 11 0 50 5 ME 15 GA Ac PA 25 -2 -2 0. D 34 IN ti RI 30 1- 1- 00 CA 45 EY ve N 22 20 20 0 RE 01 50 23 17 17 NC 5 PH CH UN AR AE IT MA L S/ CY S 5 ML LL C (1 0/ ML ) MA 00 05 11 0 30 5 ME 15 GA Ac PA 90 -1 -1 0. D 28 IN ti P 41 0- 3- 00 CA 67 EY ve 50 98 20 20 0 RE 29 0 86 17 17 NC MG 1 PH CH AR AE TA MA L BL CY S ET LL C BE 67 06 10 0 60 30 ME 15 GA Ac NZ 87 -1 -2 0. D 18 IN ti ON 70 8- 5- 00 CA 49 EY ve AT 10 20 20 0 RE 87 AT 50 17 17 NC E 5 PH CH 10 AR AE 0 MA L MG CY S CA LL PS C UL E SE 00 06 10 0 12 30 ME 15 GA Ac NE 53 -0 -2 00 D 16 IN ti XO 64 1- 4- .0 CA 78 EY ve N- 08 20 20 00 RE 15 S 60 17 17 NC TA 1 PH CH BL AR AE ET MA L CY S LL C MA 00 05 10 0 30 5 ME 15 GA Ac PA 90 -1 -2 0. D 18 IN ti P 41 0- 4- 00 CA 10 EY ve 50 98 20 20 0 RE 13 0 86 17 17 NC MG 1 PH CH AR AE TA MA L BL CY S ET LL C MA 00 05 10 0 30 5 ME 15 GA Ac PA 90 -1 -0 0. D 08 IN ti P 41 0- 7- 00 CA 91 EY ve 50 98 20 20 0 RE 31 0 86 17 17 NC MG 1 PH CH AR AE TA MA L BL CY S ET LL C SE 00 06 09 0 12 30 ME 15 GA Ac NE 53 -0 -2 00 D 01 IN ti XO 64 1- 6- .0 CA 96 EY ve N- 08 20 20 00 RE 48 S 60 17 17 NC TA 1 PH CH BL AR AE ET MA L CY S LL C BE 67 06 09 0 60 30 ME 15 GA Ac NZ 87 -1 -2 0. D 01 IN ti ON 70 8- 6- 00 CA 96 EY ve AT 10 20 20 0 RE 45 AT 50 17 17 NC E 5 PH CH 10 AR AE 0 MA L MG CY S CA LL PS C UL E NC 00 07 09 0 30 30 ME 15 GA Ac -A 90 -2 -2 0. D 00 IN ti CI 45 3- 3- 00 CA 90 EY ve D 06 20 20 0 RE 44 GA 86 17 17 NC S 0 PH CH 80 AR AE MA L MG CY S TA LL B C CH EW MA 00 05 09 0 30 5 ME 14 GA Ac PA 90 -1 -1 0. D 96 IN ti P 41 0- 6- 00 CA 78 EY ve 50 98 20 20 0 RE 69 0 86 17 17 NC MG 1 PH CH AR AE TA MA L BL CY S ET LL C SE 00 06 09 0 12 30 ME 14 GA Ac NE 53 -0 -0 00 D 86 IN ti XO 64 1- 1- .0 CA 87 EY ve N- 08 20 20 00 RE 65 S 60 17 17 NC TA 1 PH CH BL AR AE ET MA L CY S LL C MA 00 05 08 0 30 5 ME 14 GA Ac PA 90 -1 -2 0. D 85 IN ti P 41 0- 9- 00 CA 64 EY ve 50 98 20 20 0 RE 43 0 86 17 17 NC MG 1 PH CH AR AE TA MA L BL CY S ET LL C BE 67 06 08 0 60 30 ME 14 GA Ac NZ 87 -1 -2 0. D 84 IN ti ON 70 8- 6- 00 CA 52 EY ve AT 10 20 20 0 RE 63 AT 50 17 17 NC E 5 PH CH 10 AR AE 0 MA L MG CY S CA LL PS C UL E SE 00 06 08 0 12 30 ME 14 GA Ac NE 53 -0 -0 00 D 70 IN ti XO 64 1- 3- .0 CA 16 EY ve N- 08 20 20 00 RE 39 S 60 17 17 NC TA 1 PH CH BL AR AE ET MA L CY S LL C MA 00 05 07 0 30 5 ME 14 GA Ac PA 90 -1 -2 0. D 68 IN ti P 41 0- 8- 00 CA 10 EY ve 50 98 20 20 0 RE 14 0 86 17 17 NC MG 1 PH CH AR AE TA MA L BL CY S ET LL C BE 67 06 07 0 60 30 ME 14 GA Ac NZ 87 -1 -2 0. D 67 IN ti ON 70 8- 6- 00 CA 06 EY ve AT 10 20 20 0 RE 14 AT 50 17 17 NC E 5 PH CH 10 AR AE 0 MA L MG CY S CA LL PS C UL E NC 00 07 07 0 30 30 ME 14 GA Ac -A 90 -2 -2 0. D 64 IN ti CI 45 3- 4- 00 CA 88 EY ve D 06 20 20 0 RE 55 GA 86 17 17 NC S 0 PH CH 80 AR AE MA L MG CY S TA LL B C CH EW AC 00 06 07 35 2 00 ME Ac ID 90 -2 -2 5. 00 D ti 47 9- 1- 00 14 CA ve GO 72 20 20 0 49 RE NE 71 17 17 78 4 82 PH AN AR TA MA CI CY D LI QU ID MA 00 06 07 30 5 00 ME Ac PA 90 -3 -2 .0 00 D ti P 41 0- 1- 00 14 CA ve 50 98 20 20 50 RE 0 86 17 17 79 MG 1 94 PH AR TA MA BL CY ET BE 67 06 07 60 30 00 ME Ac NZ 87 -1 -1 .0 00 D ti ON 70 9- 4- 00 14 CA ve AT 10 20 20 [...] MA 10 CY MG TA BL ET SE 00 06 07 12 30 00 ME Ac NE 53 -1 -0 0. 00 D ti XO 64 0- 7- 00 14 CA ve N- 08 20 20 0 36 RE S 60 17 17 81 TA 1 46 PH BL AR ET MA CY PA 00 06 07 30 30 00 [...] BL CY ET SE 00 06 07 0 12 30 ME 14 GA Ac NE 53 -0 -0 00 D 49 IN ti XO 64 1- 6- .0 CA 76 EY ve N- 08 20 20 00 RE 69 S 60 17 17 NC TA 1 PH CH BL AR AE ET MA L CY S LL C SE 00 06 06 40 10 00 ME Ac NE 53 -0 -2 .0 00 D ti XO 64 1- 3- 00 14 CA ve N- 08 20 20 31 RE S 60 17 17 44 TA 1 92 PH BL AR ET MA CY AL 00 05 06 30 5 00 ME Ac NC 78 -2 -1 .0 00 D ti AZ 11 5- 6- 00 14 CA ve OL 07 20 20 25 RE AM 90 17 17 87 1 5 53 PH AR MG MA CY TA BL ET MA 00 05 06 30 5 00 ME Ac PA 90 -2 -1 .0 00 D ti P 41 7- 6- 00 14 CA ve 50 98 20 20 26 RE 0 86 17 17 99 MG 1 61 PH AR TA MA BL CY ET PA 00 05 06 30 30 [...] -0 .0 00 D ti IC 43 1 9 00 14 CA ve 27 20 20 18 RE ON 09 17 17 72 E 9 68 PH NC AR OP MA CY 50 MC G SP RA Y NC 68 05 06 30 30 00 ME [...] 05 06 30 5 00 ME Ac NC 78 -1 -0 .0 00 D ti AZ 11 1 9 00 14 CA ve OL 07 20 20 18 RE AM 90 17 17 70 1 5 27 PH AR MG MA CY TA BL ET AL 00 05 06 30 30 00 ME Ac LO 37 -1 -0 .0 00 D ti PU 80 0- 9- 00 14 CA ve RI 18 20 20 18 RE NO 10 17 17 60 L 5 36 PH 30 AR 0 MA MG CY TA BL ET BE 00 05 06 60 30 00 ME Ac NZ 83 -1 -0 .0 00 D ti TR 21 0- 9- 00 14 CA ve OP 08 [...] 17 17 67 TA 1 90 PH NC AR N- MA CA CY FF 50 [...] 65 PH ZI AR ME MA CY NC OT EC T PA ST E DI 00 05 05 30 30 00 ME Ac CY 37 -0 -2 .0 00 D ti CL 81 1- 6- 00 14 CA ve OM 62 20 20 09 RE IN 00 17 17 97 E 1 13 PH 20 AR MA MG CY TA BL ET RO 43 05 05 30 30 00 ME Ac PI 54 -0 -2 .0 00 D ti NI 70 3- 6- 00 14 CA ve RO 27 20 20 12 RE LE 01 17 17 67 0 53 PH HC AR L MA 1 CY MG TA BL ET OX 62 04 05 60 30 00 ME Ac CA 75 -2 -1 .0 00 D ti RB 60 4 9 00 14 CA ve AZ 18 20 [...] -1 .0 00 D ti TR 21 6 9 00 14 CA ve OP 08 20 20 09 RE IN 00 17 17 97 E 0 48 PH ME AR S MA 0. CY 5 MG TA B OM 00 04 05 30 30 00 ME Ac EP 78 -2 -1 .0 00 D ti RA 12 8 9 14 CA ve ZO 79 20 [...] 20 CY MG CA PS UL E DI 00 03 05 30 30 00 [...] MA 0. CY 5 MG TA B MA 00 04 05 60 10 00 [...] 0 MA MG CY TA BL ET AC 00 04 05 35 5 00 ME Ac ID 90 -0 -0 5. 00 D ti 47 3- 5- 00 13 CA ve GO 72 20 20 0 99 RE NE 71 17 17 56 4 89 PH AN AR TA MA CI CY D LI QU ID RO 43 04 05 30 30 00 ME Ac PI 54 -0 -0 .0 00 D ti NI 70 7- 5- 00 14 CA ve RO 27 20 20 01 RE LE 01 17 17 01 0 80 PH HC AR L MA 1 CY MG TA BL ET AL 00 04 05 30 7 00 ME Ac NC 78 -1 -0 .0 00 D ti [...] MA 10 CY MG TA BL ET NC 68 04 05 30 30 00 ME [...] CY 75 -5 0 MG TA B AZ 50 03 04 [...] MG AR MA TA CY BL ET LO 00 03 04 30 4 00 ME Ac PE 09 -1 -0 .0 00 D ti RA 30 3- 7- 00 13 CA ve NC 31 20 20 88 RE DE 10 17 17 53 2 1 78 PH AR MG MA CY CA PS UL E AL 00 03 04 30 7 00 ME Ac NC 78 -1 -0 .0 00 D ti [...] MA 10 CY MG TA BL ET NC 68 03 04 30 30 00 ME Ac AV 46 -1 -0 .0 00 D ti 20 7 7- 13 CA ve TA 19 20 20 90 RE TI 60 17 17 65 N 5 89 PH SO AR DI MA UM CY 20 MG TA B PO 62 03 04 60 30 00 ME Ac TA 03 -1 -0 .0 00 D ti SS 70 7- 7- 00 13 CA ve IU 99 20 20 90 RE M 90 17 17 65 CL 1 95 PH AR ER MA CY 20 ME Q TA BL ET MO 27 03 04 30 30 00 ME Ac NT 24 -1 -0 .0 00 D ti EL 10 7- 13 CA ve UK 01 20 20 89 RE 80 17 17 25 T 9 79 PH SO AR D MA 10 CY MG TA BL ET TR 00 03 04 30 30 00 ME Ac IA 78 -1 -0 .0 00 D ti MT 11 6 7 13 CA ve ER 00 20 20 [...] MA 0 CY MG TA BL ET RO 43 [...] .0 00 D ti RA 12 1- 4- 00 13 CA ve ZO 79 20 20 82 RE LE 01 17 [address] AR MA 20 CY MG CA PS UL E AC 00 03 03 35 5 00 ME Ac ID 90 -0 -2 5. 00 D ti 47 4- 4- 00 13 CA ve GO 72 20 20 0 85 RE NE 71 17 17 05 4 97 PH AN AR TA MA CI CY D LI QU ID AL 00 02 03 30 30 00 [...] MA 0. CY 5 MG TA B BU 00 02 03 30 7 00 ME Ac TA 60 -2 -1 .0 00 D ti LB 32 1- 7- 00 13 CA ve -A 54 20 20 78 RE CE 42 17 17 52 TA 1 35 PH NC AR N- MA CA CY FF 50 -3 25 -4 0 RO 43 02 03 30 30 00 [...] 17 17 61 TA 1 25 PH NC AR N- MA CA CY FF 50 -3 25 -4 0 AL 00 02 03 30 7 00 ME Ac NC 78 -0 -1 .0 00 D ti AZ 11 9- 0- 00 13 CA ve OL 07 20 20 72 RE AM 90 17 17 99 1 5 78 PH AR MG MA CY TA BL ET MO 27 02 03 30 30 00 [...] CY 20 ME Q TA BL ET NC 68 02 03 30 30 00 ME Ac AV 46 -1 -1 .0 00 D ti 20 6- 0- 00 13 CA ve TA 19 20 20 75 RE TI 60 17 17 60 N 5 94 PH SO AR DI MA UM CY 20 MG TA B CE 00 02 03 30 30 00 [...] CY MG LL C TA BL ET NC 68 01 02 30 30 00 ME [...] 01 02 30 7 00 ME Ac NC 78 -2 -1 .0 00 D ti [...] 17 17 62 TA 1 50 PH NC AR N- MA CA CY FF LL [...] 17 17 40 TA 1 79 PH NC AR N- MA CA CY FF LL 50 C -3 25 -4 0 AL 00 01 02 30 7 00 ME Ac NC 78 -0 -0 .0 00 D ti AZ 11 9- 3- 00 13 CA ve OL 07 20 20 57 RE AM 90 17 17 40 1 5 78 PH AR MG MA CY TA BL LL ET C TR 00 01 02 30 30 00 ME Ac IA 78 -1 -0 .0 00 D ti MT 11 4- 3- 00 13 CA ve ER 00 20 20 59 RE EN 80 17 17 51 E- 5 04 PH HC AR TZ MA CY 75 -5 LL 0 C MG TA B AL 00 01 02 7. 7 00 ME Ac LO 37 -1 -0 00 00 D ti PU 80 4- 3- 0 13 CA ve RI 13 20 20 60 RE NO 70 17 17 26 L 1 00 PH 10 AR 0 MA MG CY TA LL BL C ET MA 00 01 02 60 10 00 ME Ac PA 90 -0 -0 .0 00 D ti P 41 9- 3- 00 13 CA ve 32 98 20 20 57 RE 5 26 17 17 58 MG 1 14 PH AR TA MA BL CY ET LL C RO 43 01 02 30 30 [...] MA TA CY BL ET LL C DI 00 01 01 30 30 00 ME Ac CY 37 -0 -2 .0 00 D ti CL 81 4- 7- 00 13 CA ve OM 62 20 20 54 RE IN 00 17 17 32 E 1 51 PH 20 AR MA MG CY TA LL BL C ET BE 00 01 01 60 30 00 ME Ac NZ [...] CY MG LL C TA BL ET AC 00 12 01 35 5 00 ME Ac ID 90 -1 -0 5. 00 D ti 47 2- 9- 00 13 CA ve GO 72 20 20 0 44 RE NE 71 16 17 34 4 33 PH AN AR TA MA CI CY D LI LL QU C ID DE 00 12 01 44 30 00 ME Ac EP 90 -1 -0 .0 00 D ti 43 3- 9- 00 13 CA ve SE 86 20 20 44 RE A 57 16 17 59 0. 5 61 PH 65 AR % MA NO CY SE LL SP C RA Y MA 00 05 06 0 60 7 [...] MA D CI CY W D LI QU C ID Q- 00 05 06 [...] MA D CI CY W D LI QU C ID DI 00 05 03 [...] 1- 0- 00 CA 40 LD ve NC 02 20 20 0 RE 4 N [...] W MG LL C TA BL ET NC 00 12 03 0 30 30 ME [...] W TA BL LL ET C OM 55 02 03 0 30 30 ME 98 AR Ac EP 11 -2 -1 0. D 97 NO ti RA 10 2- 0- 00 CA 26 LD ve ZO 15 20 20 0 RE 8 LE 81 14 [address] AR AR MA D 20 CY W MG LL C CA PS UL E MA 00 05 03 0 60 7 [...] 1- 9- 00 CA 07 LD ve NC 02 20 20 0 RE 7 N [...] CA PS UL E AC 00 05 02 0 35 7 ME 98 AR Ac ID 90 -0 -1 50 D 21 NO ti 47 9- 0- .0 CA 75 LD ve GO 72 20 20 00 RE 5 NE 71 13 14 RI 4 PH CH AN AR AR TA MA D CI CY W D LI LL QU C ID MO 00 05 02 0 30 30 ME 98 AR Ac NT 09 -0 -1 0. D 17 NO ti EL 37 9- 0- 00 CA 21 LD ve UK 42 20 20 0 RE 8 69 13 14 RI T 8 PH CH SO AR AR D MA D 10 CY W MG LL C TA BL ET FR 99 02 02 11 10 30 YO 26 AR Ac EE 07 -1 -1 00 UR [address] 30 5- 0- .0 3 LD ve YL 70 20 20 00 PH E 82 13 14 AR RI LI 2 MA CH TE CY AR D TE W ST ST RI P SA 38 02 02 11 10 30 YO 26 AR Ac FE 41 -1 -1 00 UR 92 NO ti TY 50 5- 0- .0 4 LD ve 10 20 20 00 PH SE 03 13 14 AR RI AL 0 MA CH CY AR 30 D G W LA NC ET S RO 68 05 02 0 30 30 [...] MG LL C CA PS UL E NC 00 12 02 0 30 30 ME [...] 1- 0- 00 CA 52 LD ve NC 02 20 20 0 RE 9 N [...] C TA BL ET OM 55 02 01 0 30 30 ME 97 AR Ac EP 11 -2 -1 0. D 32 NO ti RA 10 2- 1- 00 CA 92 LD ve ZO 15 20 20 0 RE 4 LE 81 13 [address] AR AR MA D 20 CY W MG LL C CA PS UL E RI 68 12 01 0 60 30 [...] CY W TA BL LL ET C NC 00 05 01 0 30 5 ME [...] W MG LL TA C BL ET NC 00 12 01 0 30 30 ME [...] 9- 6- 00 CA 01 LD ve NC 10 20 20 0 RE 6 DE 00 13 13 RI 2 5 PH CH AR AR MG MA D CY W CA PS LL UL C E ME 68 01 12 0 60 30 ME 96 AR Ac TF 38 -3 -2 0. D 67 NO ti OR 20 1- 1- 00 CA 08 LD ve NC 02 20 20 0 RE 7 N [...] MG LL C CA PS UL E NC 00 12 12 0 30 30 ME 96 AR Ac IS 00 -1 -1 0. D 37 NO ti TI 81 2- 3- 00 CA 08 LD ve Q 21 20 20 0 RE 0 ER 13 13 13 RI 0 PH CH 50 AR AR MA D MG CY W TA LL BL C ET MO 00 05 12 0 30 30 ME 96 AR Ac NT 09 -0 -1 0. D 38 NO ti EL 37 9- 3- 00 CA 52 LD ve UK 42 20 20 0 RE 8 69 13 13 RI T 8 PH CH SO AR AR D MA D 10 CY W MG LL C TA BL ET OL 00 12 12 0 30 [...] W TA LL BL C ET PO 68 05 11 0 30 [...] CA PS UL E ME 68 01 11 0 60 30 ME 95 AR Ac TF 38 -3 -2 0. D 73 NO ti OR 20 1- 1- 00 CA 61 LD ve NC 02 20 20 0 RE 2 N 80 13 13 RI HC 5 PH CH L AR AR 50 MA D 0 CY W MG LL TA C BL ET RI 68 09 11 0 30 30 [...] MA D CY W LL C FL 49 09 11 0 42 21 ME 95 AR Ac UO 88 -2 -1 0. D 61 NO ti XE 40 1- 8- 00 CA 14 LD ve TI 87 20 20 0 RE 6 NE 20 13 13 RI 5 PH CH HC AR AR L MA D 40 CY W MG LL C CA PS UL E OM 55 02 11 0 30 30 [...] 13 13 RI E 5 PH CH NC AR AR OP MA D CY W [...] 1- 3- 00 CA 90 LD ve NC 02 20 20 0 RE 8 N [...] LL C TA B FR 99 02 10 11 10 30 YO 26 AR Ac EE 07 -1 -0 00 UR [address] 30 5- 3- .0 3 LD ve YL 70 20 20 00 PH E 82 13 13 AR RI LI 2 MA CH TE CY AR D TE W ST ST RI P SA 38 02 10 11 10 30 YO 26 AR Ac FE 41 -1 -0 00 UR 92 NO ti TY 50 5- 3- .0 4 LD ve 10 20 20 00 PH SE 03 13 13 AR RI AL 0 MA CH CY AR 30 D G W LA NC ET S 00 05 10 0 30 30 ME [...] 1- 3- 00 CA 90 LD ve NC 02 20 20 0 RE 0 N 80 13 13 RI HC 5 PH CH L AR AR 50 MA D 0 CY W MG LL TA C BL ET PO 68 05 09 0 30 30 [...] CA PS UL E FL 49 09 09 0 60 30 [...] LL C TA B SA 38 02 09 11 10 30 YO 26 AR Ac FE 41 -1 -0 00 UR 92 NO ti TY 50 5- 3- .0 4 LD ve 10 20 20 00 PH SE 03 13 13 AR RI AL 0 MA CH CY AR 30 D G W LA NC ET S FR 99 02 09 11 10 30 YO 26 AR Ac EE 07 -1 -0 00 UR [address] 30 5- 3- .0 3 LD ve YL 70 20 20 00 PH E 82 13 13 AR RI LI 2 MA CH TE CY AR D TE W ST ST RI P MA 00 05 09 0 60 7 [...] 1- 3- 00 CA 65 LD ve NC 02 20 20 0 RE 8 N [...] 1- 5- 00 CA 00 LD ve NC 02 20 20 0 RE 1 N [...] 9- 5- 00 CA 66 LD ve NC 10 20 20 0 RE 4 DE [...] 1- 5- 00 CA 75 LD ve NC 02 20 20 0 RE 2 N [...] 9- 7- 00 CA 30 LD ve NC 10 20 20 0 RE 8 DE [...] 1- 4- 00 CA 29 LD ve NC 02 20 20 0 RE 1 N [...] 4- 6- 00 CA 94 LD ve NC 10 20 20 0 RE 7 DE [...] 1- 5- 00 CA 32 LD ve NC 02 20 20 0 RE 3 N [...] MG LL C CA PS UL E Q- 00 11 04 0 11 3 ME 90 AR Ac TU 60 -0 -1 80 D 07 NO ti SS 30 7- 8- .0 CA 82 LD ve IN 85 20 20 00 RE 9 59 11 13 RI DM 4 PH CH AR AR SY MA D RU CY W P LL C MO 62 11 04 0 30 30 ME 90 AR Ac NT 17 -0 -1 0. D 06 NO ti EL 50 7- 8- 00 CA 05 LD ve [place] 21 20 20 0 RE 9 04 11 13 RI T 6 PH CH SO AR AR D MA D 10 CY W MG LL C TA BL ET RI 68 01 04 0 [...] 1- 7- 00 CA 11 LD ve NC 02 20 20 0 RE 5 N [...] 1- 7- 00 CA 27 LD ve NC 25 20 20 0 RE 8 N 90 13 13 RI HC 1 PH CH L AR AR 50 MA D 0 CY W MG LL TA C BL ET NC 00 11 02 0 30 5 ME [...] MG LL C CA PS UL E NC 68 02 02 0 14 14 ME [...] 11 13 RI E 5 PH CH NC AR AR OP MA D CY W [...] RU CY W P LL C DI 00 10 02 0 30 30 ME 88 AR Ac CY 59 -1 -0 0. D 20 NO ti CL 10 0- 1- 00 CA 71 LD ve OM 79 20 20 0 RE 8 IN 51 12 13 RI E 0 PH CH 20 AR AR MA D MG CY W TA LL BL C ET FR 99 02 02 0 10 36 [...] D G W LA NC ET S ME 62 01 01 0 60 30 ME 88 AR Ac TF 58 -3 -3 0. D 19 NO ti OR 40 1- 1- 00 CA 38 LD ve NC 25 20 20 0 RE 7 N [...] ME C Q CA PS UL E NC 37 07 01 0 30 30 ME [...] W MG LL C TA BL ET NC 68 01 01 0 30 30 ME [...] CY W TA LL BL C ET NC 68 11 01 0 90 9 ME [...] 4- 3- 00 CA 15 LD ve NC 69 20 20 0 RE 8 DE [...] W MG LL C TA BL ET NC 68 11 12 0 30 5 ME [...] CY W TA BL LL ET C NC 37 07 12 0 30 30 ME [...] -5 LL 0 C MG TA B NC 68 11 12 0 30 30 ME [...] ME C Q CA PS UL E NC 37 07 11 0 30 30 ME [...] W D LI LL QU C ID NC 68 11 11 0 30 5 ME [...] 11 12 RI E 1 PH CH NC AR AR OP MA D CY W [...] CY W TA LL BL C ET NC 68 11 11 0 30 30 ME [...] W MG LL TA C BL ET NC 37 07 10 0 30 30 ME [...] CY W TA LL BL C ET NC 68 11 10 0 30 30 ME [...] CY W TA BL LL ET C NC 68 11 10 0 30 5 ME 84 AR Ac OM 38 -0 -0 0. D 77 NO ti ET 20 7- 3- 00 CA 95 LD ve TYLER 04 20 20 0 RE 1 ZI 11 11 12 RI NE 0 PH CH AR AR 25 MA D CY W MG LL TA C BL ET NC 37 07 10 8 30 30 ME [...] W 75 LL C MG CA P RO 68 07 10 8 30 30 ME 81 AR Ac PI 46 -0 -0 0. D 21 NO ti NI 20 6- 2- 00 CA 75 LD ve RO 25 20 20 0 RE 3 LE 50 12 12 RI 1 PH CH HC AR AR L MA D 1 CY W MG LL TA C BL ET LO 00 07 10 0 30 4 ME 84 AR Ac PE 37 -2 -0 0. D 66 NO ti RA 82 4- 1- 00 CA 35 LD ve NC 10 20 20 0 RE 7 DE [...] C TA BL ET RI 68 11 09 0 30 30 ME 84 AR Ac SP 38 -0 -2 0. D 54 NO ti ER 20 7- 6- 00 CA 18 LD ve ID 11 20 20 0 RE 0 ON 30 11 12 RI E 5 PH CH 0. AR AR 5 MA D MG CY W TA LL BL C ET DI 00 11 09 0 30 [...] 4- 1- 00 CA 93 LD ve NC 10 20 20 0 RE 2 DE 00 12 12 RI 2 1 PH CH AR AR MG MA D CY W CA PS LL UL C E NC 68 11 09 0 30 30 ME 83 AR Ac RT 08 -0 -0 0. D 82 NO ti AZ 40 7- 6- 00 CA 65 LD ve AP 11 20 20 0 RE 2 IN 90 11 12 RI E 1 PH CH 15 AR AR MA D MG CY W TA LL BL C ET PO 00 11 09 0 30 30 [...] CA PS UL E RI 51 11 09 0 30 30 ME 83 AR Ac SP 07 -0 -0 0. D 71 NO ti ER 90 7- 4- 00 CA 04 LD ve ID 46 20 20 0 RE 1 ON 35 11 12 RI E 6 PH CH 2 AR AR MG MA D CY W TA BL LL ET C DI 00 11 09 0 30 10 ME 83 AR Ac CY 59 -0 -0 0. D 68 NO ti CL 10 7- 1- 00 CA 31 LD ve OM 79 20 20 0 RE 2 IN 50 11 12 RI E 1 PH CH 20 AR AR MA D MG CY W TA LL BL C ET RO 68 07 08 9 30 30 ME 81 AR Ac PI 46 -0 -3 0. D 21 NO ti NI 20 6- 1- 00 CA 75 LD ve RO 25 20 20 0 RE 3 LE 50 12 12 RI 1 PH CH HC AR AR L MA D 1 CY W MG LL TA C BL ET NC 37 07 08 9 30 30 ME 81 AR Ac IL 00 -0 -3 0. D 21 NO ti OS 00 6- 1- 00 CA 75 LD ve EC 45 20 20 0 RE 5 50 12 12 RI OT 4 PH CH C AR AR 20 MA D .6 CY W MG LL C TA BL ET MO 68 11 08 0 [...] W MG LL TA C BL ET NC 00 11 08 0 30 5 ME [...] NT CY W ME NT LL C NC 68 11 08 0 30 30 ME [...] LL BL C ET RI 51 11 08 0 30 30 ME 82 AR Ac SP 07 -0 -0 0. D 59 NO ti ER 90 7- 3- 00 CA 38 LD ve ID 46 20 20 0 RE 2 ON 35 11 12 RI E 6 PH CH 2 AR AR MG MA D CY W TA BL LL ET C PO 00 11 08 0 30 30 ME 82 AR Ac TA 57 -0 -0 0. D 59 NO ti SS 40 7- 3- 00 CA 37 LD ve IU 18 20 20 0 RE 2 M 10 11 12 RI CL 5 PH CH AR AR ER MA D CY W 10 LL ME C Q CA PS UL E 00 11 08 0 30 30 ME 82 AR Ac 00 -0 -0 0. D 59 NO ti 60 7- 3- 00 CA 38 LD ve 11 20 20 0 RE 1 72 11 12 RI 8 PH CH AR AR MA D CY W LL C NC 37 07 08 10 30 30 ME [...] 6- 1- 00 CA 71 LD ve NC 05 20 20 0 RE 5 AM [...] 4- 4- 00 CA 56 LD ve NC 10 20 20 0 RE 9 DE [...] CY W MG LL C CA P NC 68 11 07 0 30 30 ME [...] ME C Q CA PS UL E NC 37 07 07 11 30 30 ME [...] CY W TA BL LL ET C NC 68 11 07 0 30 5 ME [...] 9- 9- 00 CA 45 LD ve NC 05 20 20 RE 7 AM 45 [...] 6- 6- 00 CA 45 LD ve NC 05 20 20 RE 8 AM 35 [...] -5 LL 0 C MG TA B NC 68 11 06 0 30 30 ME 80 AR Ac RT 08 -0 -0 0. D 32 NO ti AZ 40 7- 9- 00 CA 78 LD ve AP 11 20 20 0 RE 9 IN 90 11 12 RI E 1 PH CH 15 AR AR MA D MG CY W TA LL BL C ET PO 00 11 06 0 30 [...] CY W LL C CI 65 12 06 0 50 5 ME 80 AR Ac TA 16 -1 -0 .0 D 34 NO ti LO 20 1- 6- 00 CA 59 LD ve NC 05 20 20 RE 8 AM 45 [...] W D LI LL QU C ID NC 68 11 06 0 30 5 ME [...] CY W TA LL BL C ET NC 37 03 05 0 30 30 ME [...] W D LI LL QU C ID NC 68 11 05 0 30 30 ME [...] 1- 9- 00 CA 54 LD ve NC 05 20 20 0 RE 4 AM 45 11 12 RI 0 PH CH HB AR AR R MA D 40 CY W MG LL C TA BL ET 00 11 05 0 30 30 ME 79 AR Ac 00 -0 -0 0. D 33 NO ti 60 7- 7- 00 CA 83 LD ve 11 20 20 0 RE 9 72 11 12 RI 8 PH CH AR AR MA D CY W LL C PO 00 11 05 0 30 30 [...] CA PS UL E RI 51 11 05 0 30 30 [...] CY W TA LL BL C ET NC 37 03 05 0 30 30 ME 79 AR Ac IL 00 -0 -0 0. D 29 NO ti OS 00 6- 2- 00 CA 60 LD ve EC 45 20 20 0 RE 9 50 12 12 RI OT 4 PH CH C AR AR 20 MA D .6 CY W MG LL C TA BL ET NC 68 11 05 0 30 5 ME [...] CY W MG LL C CA P RI 68 11 05 0 30 30 ME 79 AR Ac SP 38 -0 -0 0. D 30 NO ti ER 20 7- 1- 00 CA 19 LD ve ID 11 20 20 0 RE 4 ON 30 11 12 RI E 5 PH CH 0. AR AR 5 MA D MG CY W TA LL BL C ET NE 61 05 05 0 10 10 ME 79 AR Ac OM 31 -0 -0 0. D 34 NO ti YC 40 1- 1- 00 CA 73 LD ve IN 64 20 20 0 RE 6 -P 61 12 12 RI OL 0 PH CH YM AR AR YX MA D IN CY W -H C LL EA C R SO LN MA 00 11 04 0 60 7 [...] 11 12 RI E 1 PH CH NC AR AR OP MA D CY W [...] -5 LL 0 C MG TA B NC 68 11 04 0 30 30 ME [...] 1- 9- 00 CA 37 LD ve NC 05 20 20 0 RE 6 AM [...] CY W TA LL BL C ET NC 37 03 04 10 30 0 ME [...] D BL CY W ET LL C NC 68 11 03 0 30 0 ME [...] -5 LL 0 C MG TA B NC 68 11 03 0 30 0 ME [...] 1- 0- 00 CA 95 LD ve NC 05 20 20 0 RE 5 AM 45 11 12 RI 0 PH CH HB AR AR R MA D 40 CY W MG LL C TA BL ET NC 68 11 03 0 30 0 ME 77 AR Ac OM 38 -0 -0 0. D 93 NO ti ET 20 7- 8- 00 CA 65 LD ve TYLER 04 20 20 0 RE 3 ZI 11 11 12 RI NE 0 PH CH AR AR 25 MA D CY W MG LL TA C BL ET NC 37 03 03 11 30 0 ME [...] -5 LL 0 C MG TA B NC 68 11 02 0 30 0 ME [...] CY W TA BL LL ET C NC 68 11 02 0 30 0 ME [...] TA BL LL ET C PO 62 11 02 0 30 [...] Q CA PS UL E 00 11 02 0 30 0 ME 75 AR Ac 00 -0 -1 0. D 50 NO ti 60 7- 0- 00 CA 83 LD ve 11 20 20 0 RE 7 72 11 12 RI 8 PH CH AR AR MA D CY W LL C CI 13 12 02 0 30 0 ME 75 AR Ac TA 66 -1 -0 0. D 50 NO ti LO 80 1- 9- 00 CA 16 LD ve NC 01 20 20 0 RE 7 AM 10 11 12 RI 5 PH CH HB AR AR R MA D 40 CY W MG LL C TA BL ET NC 37 11 02 0 30 0 ME [...] CY W TA BL LL ET C NC 68 11 01 0 30 0 ME [...] 1- 0- 00 CA 47 LD ve NC 01 20 20 0 RE 8 AM [...] W MG LL TA C BL ET NC 37 11 12 0 30 0 ME [...] CY W TA LL BL C ET NC 68 11 12 0 30 30 ME [...] TA BL LL ET C PO 62 11 12 0 30 30 [...] 1- 1- 00 CA 20 LD ve NC 01 20 20 RE AM 10 11 [...] AR MA D CY W LL C NC 37 11 12 10 30 30 ME [...] -5 LL 0 C MG TA B NC 68 11 11 0 30 30 ME [...] 7- 3- 00 CA 81 LD ve NC 01 20 20 RE AM 10 11 [...] CY W TA LL BL C ET NC 37 11 11 11 30 30 ME [...] 53 NO ti MT 90 1- 9- 00 CA 85 LD ve ER 43 [...] MA D ON CY W LL C NC 68 07 10 3 30 30 ME [...] 6- 4- 00 CA 09 LD ve NC 01 20 20 RE 8 AM 10 11 11 RI 5 PH CH HB AR AR R MA D 40 CY W MG LL C TA BL ET LO 51 10 10 3 20 5 ME 60 AR Ac PE 07 -1 -1 .0 D 10 NO ti RA 90 1- 1- 00 CA 13 LD ve NC 69 20 20 RE 1 DE 02 [...] 11 11 RI E 1 PH CH NC AR AR OP MA D CY W [...] W MG LL TA C BL ET NC 37 10 10 3 30 30 ME [...] D CY W LL C RI 51 07 09 3 30 30 ME 57 AR Ac SP 07 -2 -1 .0 D 82 NO ti ER 90 2- 8- 00 CA 87 LD ve ID 46 20 20 RE 8 ON 35 11 11 RI E 6 PH CH 2 AR AR MG MA D CY W TA BL LL ET C NC 68 07 09 3 30 30 ME 57 AR Ac RT 08 -2 -1 .0 D 82 NO ti AZ 40 2- 8- 00 CA 86 LD ve AP 11 20 20 RE 5 IN 90 11 11 RI E 1 PH CH 15 AR AR MA D MG CY W TA LL BL C ET PO 62 08 09 3 30 30 [...] 6- 6- 00 CA 09 LD ve NC 01 20 20 RE 8 AM 10 [...] W MG LL TA C BL ET NC 37 06 09 3 30 30 ME [...] 8- 5- 0 CA 13 LD ve NC 37 20 20 RE 8 AM 30 [...] D BL CY W ET LL C NC 68 07 08 3 30 30 ME [...] W MG LL TA C BL ET NC 37 06 08 3 30 30 ME [...] 4- 1- 00 CA 02 LD ve NC 69 20 20 RE 6 DE 02 [...] 8- 8- 00 CA 13 LD ve NC 37 20 20 RE 8 AM 30 11 11 RI 1 PH CH HB AR AR R MA D 40 CY W MG LL C TA BL ET NC 68 07 07 3 30 30 ME [...] 2- 2- 0 CA 27 LD ve NC 05 20 20 RE 3 AM 35 [...] AR MA D CY W LL C NC 00 07 07 3 35 7 ME 57 AR Ac 90 -0 -0 5. D 44 NO ti AC 40 9- 9- 00 CA 78 LD ve ID 00 20 20 0 RE 2 41 11 11 RI LOZOYA 4 PH CH SP AR AR EN MA D SI CY W ON LL C NC 68 04 07 3 30 30 ME [...] W MG LL TA C BL ET NC 37 06 07 3 30 30 ME [...] 4- 0- 00 CA 02 LD ve NC 69 20 20 RE 6 DE 02 [...] W 5 MG LL C TA B NC 68 04 06 3 30 30 ME [...] D BL CY W ET LL C NC 37 06 06 3 30 30 ME [...] W 5 MG LL C TA B NC 68 04 05 3 30 30 ME [...] W MG LL TA C BL ET NC 37 02 05 3 30 30 ME 52 AR Ac IL 00 -0 -0 .0 D 57 NO ti OS 00 4- 5- 00 CA 39 LD ve EC 45 20 20 RE 8 50 11 11 RI OT 4 PH CH C AR AR 20 MA D .6 CY W MG LL C TA BL ET NC 00 11 05 3 35 7 ME [...] 11 11 RI E 6 PH CH NC AR AR OP MA D CY W [...] W 5 MG LL C TA B NC 68 04 04 3 30 30 ME [...] W MG LL TA C BL ET NC 37 02 04 3 30 30 ME [...] 4- 4- 00 CA 02 LD ve NC 69 20 20 RE 6 DE 02 [...] CY W TA LL BL C ET NC 68 12 03 3 30 30 ME [...] W MG LL TA C BL ET NC 37 02 03 3 30 30 ME [...] 11 11 RI E 9 PH CH NC AR AR OP MA D CY W 50 LL MC C G SP RA Y NC 00 11 03 3 35 7 ME [...] 4- 4- 00 CA 02 LD ve NC 69 20 20 RE 6 DE 02 [...] CY W TA LL BL C ET NC 68 12 02 3 30 30 ME [...] W MG LL TA C BL ET NC 37 02 02 3 30 30 ME [...] CY W TA LL BL C ET NC 68 12 01 3 30 30 ME [...] W MG LL TA C BL ET NC 37 10 01 3 30 30 ME [...] CY W TA LL BL C ET NC 37 10 12 3 30 30 ME 49 AR Ac IL 00 -1 -0 .0 D 36 NO ti OS 00 3- 8- 00 CA 22 LD ve EC 45 20 20 RE 1 50 10 10 RI OT 4 PH CH C AR AR 20 MA D .6 CY W MG LL C TA BL ET NC 68 12 12 3 30 30 ME [...] 8- 7- 00 CA 22 LD ve NC 69 20 20 RE 3 DE 02 [...] CY W TA LL BL C ET NC 37 10 11 3 30 30 ME 49 AR Ac IL 00 -1 -1 .0 D 36 NO ti OS 00 3- 2- 00 CA 22 LD ve EC 45 20 20 RE 1 50 10 10 RI OT 4 PH CH C AR AR 20 MA D .6 CY W MG LL C TA BL ET NC 00 11 11 3 35 7 ME [...] ME C Q CA PS UL E NC 37 10 10 3 30 30 ME [...] D BL CY W ET LL C NC 37 06 09 3 30 30 ME [...] 8- 8- 00 CA 22 LD ve NC 69 20 20 RE 3 DE 02 [...] W 5 MG LL C TA B NC 37 06 08 3 30 30 ME [...] 2- 7- 00 CA 26 LD ve NC 69 20 20 RE 8 DE 02 [...] CY W TA LL BL C ET NC 37 06 07 3 30 30 ME [...] D CY W LL C 00 04 07 3 30 30 ME [...] TA LL BL C ET RI 68 06 07 3 30 30 [...] AR MA D CY W LL C NC 37 06 06 3 30 30 ME [...] CY W TA BL LL ET C NC 00 04 06 3 35 7 ME [...] W 5 MG LL C TA B NC 00 04 05 3 35 7 ME [...] 2- 8- 00 CA 26 LD ve NC 69 20 20 RE 8 DE 02 10 10 RI 2 0 PH CH AR AR MG MA D CY W CA PS LL UL C E NC 37 02 05 3 30 30 ME [...] W TA BL LL ET C 00 03 05 3 60 7 [...] AR MA D CY W LL C NC 00 04 05 3 35 7 ME 44 AR Ac 90 -2 -0 5. D 81 NO ti AC 40 1- 7- 00 CA 80 LD ve ID 00 20 20 0 RE 7 41 10 10 RI LOZOYA 4 PH CH SP AR AR EN MA D SI CY W ON LL C DI 00 05 05 3 30 10 ME 45 AR Ac CY 59 -0 -0 .0 D 26 NO ti CL 10 7- 7- 00 CA 01 LD ve OM 79 20 20 RE 8 IN 50 10 10 RI E 1 PH CH 20 AR AR MA D MG CY W TA LL BL C ET PO 62 05 05 3 30 30 [...] 2- 3- 00 CA 26 LD ve NC 69 20 20 RE 8 DE 02 10 10 RI 2 0 PH CH AR AR MG MA D CY W CA PS LL UL C E NC 00 04 04 3 35 7 ME 44 AR Ac 90 -2 -2 5. D 81 NO ti AC 40 1- 1- 00 CA 80 LD ve ID 00 20 20 0 RE 7 41 10 10 RI LOZOYA 4 PH CH SP AR AR EN MA D SI CY W ON LL C NC 37 02 04 3 30 30 ME 43 AR Ac IL 00 -2 -1 .0 D 13 NO ti OS 00 2- 5- 00 CA 91 LD ve EC 45 20 20 RE 7 50 10 10 RI OT 4 PH CH C AR AR 20 MA D .6 CY W MG LL C TA BL ET RO 00 02 04 3 30 30 ME 43 AR Ac PI 37 -1 -1 .0 D 05 NO ti NI 85 6- 4- 00 CA 72 LD ve RO 50 20 20 RE 1 LE 10 10 10 RI 1 PH CH HC AR AR L MA D 1 CY W MG LL TA C BL ET 00 03 04 3 60 7 ME 44 AR Ac 18 -2 -1 .0 D 02 NO ti 28 2- 4- 00 CA 89 LD ve 44 20 20 RE 1 78 10 10 RI 9 PH CH AR AR MA D CY W LL C 24 04 04 3 56 5 ME [...] TA LL BL C ET 00 04 04 3 30 30 ME 44 AR Ac 18 -1 -1 .0 D 28 NO ti 50 1- 1- 00 CA 74 LD ve 21 20 20 RE 6 21 10 10 RI 0 PH CH AR AR MA D CY W LL C RI 68 02 04 3 30 30 [...] AR MA D CY W LL C NC 37 02 03 3 30 30 ME [...] W MG LL TA C BL ET NC 68 03 03 3 30 5 ME [...] TA BL LL ET C PO 62 01 03 3 30 30 ME 41 AR Ac TA 03 -0 -0 .0 D 84 NO ti SS 70 4- 2- 00 CA 77 LD ve IU 56 20 20 RE 7 M 00 10 10 RI CL 5 PH CH AR AR ER MA D CY W 10 LL ME C Q CA PS UL E 00 12 03 3 60 7 ME [...] W MG LL TA C BL ET BE 68 12 02 02 30 10 ME 41 AR Ac NZ 08 -2 -2 .0 D 82 NO ti TR 40 9- 6- 00 CA 62 LD ve OP 38 20 20 RE 4 IN 10 09 10 RI E 1 PH CH ME AR AR S MA D 0. CY W 5 MG LL C TA B 00 12 02 02 30 30 ME 41 AR Ac 18 -1 -2 .0 D 49 NO ti 50 9- 6- 00 CA 66 LD ve 21 20 20 RE 8 21 09 10 RI 0 PH CH AR AR MA D CY W LL C 00 12 02 02 60 7 ME 41 AR Ac 18 -1 -2 .0 D 58 NO ti 28 9- 6- 00 CA 86 LD ve 44 20 20 RE 0 78 09 10 RI 9 PH CH AR AR MA D CY W LL C 00 10 02 03 35 7 ME [...] 2- 1- 00 CA 26 LD ve NC 69 20 20 RE 8 DE 02 10 10 RI 2 0 PH CH AR AR MG MA D CY W CA PS LL UL C E BE 68 12 02 01 30 10 ME 41 AR Ac NZ 08 -2 -1 .0 D 82 NO ti TR 40 9- 1- 00 CA 62 LD ve OP 38 20 20 RE 4 IN 10 09 10 RI E 1 PH CH ME AR AR S MA D 0. CY W 5 MG LL C TA B 00 11 02 02 30 5 ME 40 AR Ac 71 -2 -1 .0 D 83 NO ti 30 0- 1- 00 CA 34 LD ve 29 20 20 RE 2 83 09 10 RI 1 PH CH AR AR MA D CY W LL C PO 62 01 02 01 30 30 ME 41 AR Ac TA 03 -0 -1 .0 D 84 NO ti SS 70 4- 1- 00 CA 77 LD ve IU 56 20 20 RE 7 M 00 10 10 RI CL 5 PH CH AR AR ER MA D CY W 10 LL ME C Q CA PS UL E NC 37 10 02 03 30 30 ME 39 AR Ac IL 00 -2 -1 .0 D 91 NO ti OS 00 5- 1- 00 CA 74 LD ve EC 45 20 20 RE 6 50 09 10 RI OT 4 PH CH C AR AR 20 MA D .6 CY W MG LL C TA BL ET NC 68 07 01 03 30 5 ME 37 AR Ac OM 38 -2 -2 .0 D 80 NO ti ET 20 5- 8- 00 CA 41 LD ve TYLER 04 20 20 RE 1 ZI 11 09 10 RI NE 0 PH CH AR AR 25 MA D CY W MG LL TA C BL ET 00 12 01 01 60 7 ME 41 AR Ac 18 -1 -2 .0 D 58 NO ti 28 9- 8- 00 CA 86 LD ve 44 20 20 RE 0 78 09 10 RI 9 PH CH AR AR MA D CY W LL C RO 00 10 01 03 30 30 ME 40 AR Ac PI 37 -3 -2 .0 D 07 NO ti NI 85 1 8- CA 92 LD ve RO 50 20 20 RE 4 LE 10 09 10 RI 1 PH CH HC AR AR L MA D 1 CY W MG LL TA C BL ET RI 65 11 01 02 60 30 ME 40 AR Ac SP 86 -0 -2 .0 D 21 NO ti ER 20 4- 8- 00 CA 80 LD ve ID 12 20 20 RE 4 ON 00 09 10 RI E 5 PH CH 0. AR AR 5 MA D MG CY W TA LL BL C ET 00 12 01 01 30 30 ME 41 AR Ac 18 -1 -2 .0 D 49 NO ti 50 9- 8- 00 CA 66 LD ve 21 20 20 RE 8 21 09 10 RI 0 PH CH AR AR MA D CY W LL C DO 62 01 01 00 10 10 ME 42 AR Ac CU 58 -1 -2 .0 D 24 NO ti SA 40 4- 8- 00 CA 70 LD ve TE 68 20 20 RE 3 30 10 10 RI SO 1 PH CH DI AR AR UM MA D CY W 10 0 LL MG C SO FT GE L DI 00 05 27 00 30 10 ME 41 AR Ac CY 59 -0 -1 .0 D 92 NO ti CL 10 2- 4- 00 CA 74 LD ve OM 79 20 20 RE 0 IN 50 10 10 RI E 1 PH CH 20 AR AR MA D MG CY W TA LL BL C ET PO 62 01 01 00 30 30 ME 41 AR Ac TA 03 -0 -1 .0 D 84 NO ti SS 70 4- 4- 00 CA 77 LD ve IU 56 20 20 RE 7 M 00 10 10 RI CL 5 PH CH AR AR ER MA D CY W 10 LL ME C Q CA PS UL E LO 51 08 01 03 20 5 ME 38 AR Ac PE 07 -2 -1 .0 D 71 NO ti RA 90 9- 4- 00 CA 15 LD ve NC 69 20 20 RE 9 DE 02 09 10 RI 2 0 PH CH AR AR MG MA D CY W CA PS LL UL C E DO 00 11 01 01 10 10 ME 40 AR Ac K 90 -1 -1 .0 D 57 NO ti 10 42 1- 4- 00 CA 77 LD ve 0 24 20 20 RE 0 MG 46 09 10 RI 1 PH CH CA AR AR PS MA D UL CY W E LL C BE 68 12 01 00 30 10 [...] LL TA C BL ET DI 00 06 12 03 22 [...] W LL C 00 12 12 00 60 7 ME [...] CY W TA LL BL C ET NC 37 10 12 02 30 30 ME 39 AR Ac IL 00 -2 -3 .0 D 91 NO ti OS 00 5- 1- 00 CA 74 LD ve EC 45 20 20 RE 6 50 09 09 RI OT 4 PH CH C AR AR 20 MA D .6 CY W MG LL C TA BL ET 00 11 12 01 30 5 ME [...] CY W TA LL BL C ET NC 68 07 12 02 30 5 ME 37 AR Ac OM 38 -2 -1 .0 D 80 NO ti ET 20 5- 7- 00 CA 41 LD ve TYLER 04 20 20 RE 1 ZI 11 09 09 RI NE 0 PH CH AR AR 25 MA D CY W MG LL TA C BL ET LO 51 08 12 02 20 5 ME 38 AR Ac PE 07 -2 -1 .0 D 71 NO ti RA 90 9- 7- 00 CA 15 LD ve NC 69 20 20 RE 9 DE 02 09 09 RI 2 0 PH CH AR AR MG MA D CY W CA PS LL UL C E PO 62 09 12 03 30 30 ME 38 AR Ac TA 03 -0 -1 .0 D 82 NO ti SS 70 9- 7- 00 CA 76 LD ve IU 56 20 20 RE 9 M 00 09 09 RI CL 5 PH CH AR AR ER MA D CY W 10 LL ME C Q CA PS UL E 00 11 12 00 30 10 ME [...] CY W TA BL LL ET C NC 37 10 12 01 30 30 ME 39 AR Ac IL 00 -2 -0 .0 D 91 NO ti OS 00 5- 3- 00 CA 74 LD ve EC 45 20 20 RE 6 50 09 09 RI OT 4 PH CH C AR AR 20 MA D .6 CY W MG LL C TA BL ET 00 11 12 00 30 5 ME [...] AR MA D CY W LL C NC 60 10 12 01 30 30 ME 40 AR Ac RT 50 -2 -0 .0 D 01 NO ti AZ 50 6- 3- 00 CA 94 LD ve AP 24 20 20 RE 2 IN 80 09 09 RI E 8 PH CH 30 AR AR MA D MG CY W TA LL BL C ET RO 00 10 12 01 30 30 ME 40 AR Ac PI 37 -3 -0 .0 D 07 NO ti NI 85 1- 3- 00 CA 92 LD ve RO 50 20 20 RE 4 LE 10 09 09 RI 1 PH CH HC AR AR L MA D 1 CY W MG LL TA C BL ET 00 10 12 01 35 7 ME 40 AR Ac 18 -2 -0 5. D 26 NO ti 26 9- 3- 00 CA 94 LD ve 16 20 20 0 RE 0 03 09 09 RI 9 PH CH AR AR MA D CY W LL C 00 10 11 00 35 7 ME [...] MG LL TA C BL ET DO 00 11 11 00 10 10 ME 40 AR Ac K 90 -1 -1 .0 D 57 NO ti 10 42 1- 00 CA 77 LD ve 0 24 20 20 RE 0 MG 46 09 09 RI 1 PH CH CA AR AR PS MA D UL CY W E LL C 00 11 11 00 28 25 ME [...] .0 D 82 NO ti SS 70 9 CA 76 LD ve IU 56 20 20 RE 9 M 00 09 09 RI CL 5 PH CH AR AR ER MA D CY W 10 LL ME C Q CA PS UL E 00 08 11 03 30 5 ME 38 AR Ac 71 -2 -1 .0 D 59 NO ti 30 - CA 98 LD ve 29 20 20 RE 0 83 09 09 RI 1 PH CH AR AR MA D CY W LL C RI 65 11 11 00 60 30 ME 40 AR Ac SP 86 -0 -1 .0 D 21 NO ti ER 20 4- 00 CA 80 LD ve ID 12 20 20 RE 4 ON 00 09 09 RI E 5 PH CH 0. AR AR 5 MA D MG CY W TA LL BL C ET 00 08 11 03 30 10 ME 38 AR Ac 90 -2 -1 .0 D 68 NO ti 41 8- 9- 00 CA 60 LD ve 05 20 20 RE 7 56 09 09 RI 1 PH CH AR AR MA D CY W LL C NC 60 10 11 00 30 30 ME 40 AR Ac RT 50 -2 -0 .0 D 01 NO ti AZ 50 6- 5- 00 CA 94 LD ve AP 24 20 20 RE 2 IN 80 09 09 RI E 8 PH CH 30 AR AR MA D MG CY W TA LL BL C ET NC 37 10 11 00 30 30 ME [...] TA BL LL ET C LO 51 08 10 01 20 5 ME 38 AR Ac PE 07 -2 -2 .0 D 71 NO ti RA 90 9- 2- 00 CA 15 LD ve NC 69 20 20 RE 9 DE 02 09 09 RI 2 0 PH CH AR AR MG MA D CY W CA PS LL UL C E PO 62 09 10 01 30 30 ME 38 AR Ac TA 03 -0 -2 .0 D 82 NO ti SS 70 9- 2- 00 CA 76 LD ve IU 56 20 20 RE 9 M 00 09 09 RI CL 5 PH CH AR AR ER MA D CY W 10 LL ME C Q CA PS UL E 00 08 10 02 60 7 ME 38 AR Ac 18 -3 -2 .0 D 74 NO ti 28 1- 2- 00 CA 41 LD ve 44 20 20 RE 5 78 09 09 RI 9 PH CH AR AR MA D CY W LL C NC 00 08 10 01 35 3 ME [...] LL BL C ET DI 00 06 10 02 30 10 ME 37 AR Ac CY 59 -2 -2 .0 D 07 NO ti CL 10 5- 2- 00 CA 76 LD ve OM 79 20 20 RE 2 IN 50 09 09 RI E 1 PH CH 20 AR AR MA D MG CY W TA LL BL C ET 00 08 10 02 30 10 ME [...] AR MA D CY W LL C NC 37 07 10 03 20 20 ME [...] CY W LL C RI 65 09 10 00 30 30 ME 39 AR Ac SP 86 -2 -0 .0 D 19 NO ti ER 20 6- 8- 00 CA 25 LD ve ID 12 20 20 RE 8 ON 10 09 09 RI E 5 PH CH 1 AR AR MG MA D CY W TA BL LL ET C NC 60 07 10 03 30 30 ME 37 AR Ac RT 50 -0 -0 .0 D 08 NO ti AZ 50 4- 8- 00 CA 25 LD ve AP 24 20 20 RE 9 IN 80 09 09 RI E 8 PH CH 30 AR AR MA D MG CY W TA LL BL C ET RO 00 07 10 03 30 30 ME 37 AR Ac PI 37 -0 -0 .0 D 03 NO ti NI 85 3- 8- 00 CA 14 LD ve RO 50 20 20 RE 0 LE 10 09 09 RI 1 PH CH HC AR AR L MA D 1 CY W MG LL TA C BL ET NC 37 07 10 03 30 30 ME 37 AR Ac IL 00 -0 -0 .0 D 18 NO ti OS 00 8- 8- 00 CA 60 LD ve EC 45 20 20 RE 9 50 09 09 RI OT 4 PH CH C AR AR 20 MA D .6 CY W MG LL C TA BL ET 00 08 09 01 30 [...] LL BL C ET 00 08 09 01 30 10 ME 38 AR Ac 90 -2 -2 .0 D 68 NO ti 41 8- 4- 00 CA 60 LD ve 05 20 20 RE 7 56 09 09 RI 1 PH CH AR AR MA D CY W LL C 00 09 09 00 10 5 ME [...] TA C BL ET 00 08 09 00 30 10 ME 38 AR Ac 90 -2 -1 .0 D 68 NO ti 41 8- 0- 00 CA 60 LD ve 05 20 20 RE 7 56 09 09 RI 1 PH CH AR AR MA D CY W LL C NC 68 07 09 01 30 5 ME 37 AR Ac OM 38 -2 -1 .0 D 80 NO ti ET 20 5- 0- 00 CA 41 LD ve TYLER 04 20 20 RE 1 ZI 11 09 09 RI NE 0 PH CH AR AR 25 MA D CY W MG LL TA C BL ET RI 65 06 09 03 30 30 ME 36 AR Ac SP 86 -0 -1 .0 D 37 NO ti ER 20 1- 0- 00 CA 04 LD ve ID 12 20 20 RE 8 ON 10 09 09 RI E 5 PH CH 1 AR AR MG MA D CY W TA BL LL ET C LO 51 08 09 00 20 5 ME 38 AR Ac PE 07 -2 -1 .0 D 71 NO ti RA 90 9- 0- 00 CA 15 LD ve NC 69 20 20 RE 9 DE 02 09 09 RI 2 0 PH CH AR AR MG MA D CY W CA PS LL UL C E NC 60 07 09 02 30 30 ME 37 AR Ac RT 50 -0 -1 .0 D 08 NO ti AZ 50 4- 0- 00 CA 25 LD ve AP 24 20 20 RE 9 IN 80 09 09 RI E 8 PH CH 30 AR AR MA D MG CY W TA LL BL C ET NC 37 07 09 02 30 30 ME [...] TA LL BL C ET 00 06 08 03 30 10 ME 36 AR Ac 90 -1 -2 .0 D 73 NO ti 41 1- 7- 00 CA 36 LD ve 05 20 20 RE 5 56 09 09 RI 1 PH CH AR AR MA D CY W LL C NC 00 08 08 00 35 3 ME 38 AR Ac 90 -0 -2 5. D 16 NO ti AC 40 8- 7- 00 CA 69 LD ve ID 00 20 20 0 RE 2 41 09 09 RI LOZOYA 4 PH CH SP AR AR EN MA D SI CY W ON LL C PO 62 05 08 03 30 [...] UL E 00 06 08 03 30 5 ME [...] 6- 3- 00 CA 66 LD ve NC 69 20 20 RE 4 DE 02 09 09 RI 2 0 PH CH AR AR MG MA D CY W CA PS LL UL C E NC 37 07 08 01 30 30 ME 37 AR Ac IL 00 -0 -1 .0 D 18 NO ti OS 00 8- 3- 00 CA 60 LD ve EC 45 20 20 RE 9 50 09 09 RI OT 4 PH CH C AR AR 20 MA D .6 CY W MG LL C TA BL ET NC 60 07 08 01 30 30 ME 37 AR Ac RT 50 -0 -1 .0 D 08 NO ti AZ 50 4- 3- 00 CA 25 LD ve AP 24 20 20 RE 9 IN 80 09 09 RI E 8 PH CH 30 AR AR MA D MG CY W TA LL BL C ET NC 68 07 08 00 30 5 ME [...] W MG LL TA C BL ET NC 00 07 08 01 35 15 ME 37 AR Ac 90 -1 -1 5. D 57 NO ti AC 40 6- 3- 00 CA 17 LD ve ID 00 20 20 0 RE 8 41 09 09 RI LOZOYA 4 PH CH SP AR AR EN MA D SI CY W ON LL C 00 02 08 03 5. 5 ME 33 AR Ac 24 -1 -1 00 D 79 NO ti 50 1- 3- 0 CA 75 LD ve 04 20 20 RE 7 10 09 09 RI 1 PH CH AR AR MA D CY W LL C 00 06 07 02 30 10 ME 36 AR Ac 90 -1 -3 .0 D 73 NO ti 41 1- 0- 00 CA 36 LD ve 05 20 20 RE 5 56 09 09 RI 1 PH CH AR AR MA D CY W LL C NC 00 07 07 00 35 15 ME 37 AR Ac 90 -1 -3 5. D 57 NO ti AC 40 6- 0- 00 CA 17 LD ve ID 00 20 20 0 RE 8 41 09 09 RI LOZOYA 4 PH CH SP AR AR EN MA D SI CY W ON LL C RI 65 07 07 00 60 30 [...] Q CA PS UL E 00 06 07 01 30 10 ME [...] AR MA D CY W LL C NC 60 07 07 00 30 30 ME 37 AR Ac RT 50 -0 -1 .0 D 08 NO ti AZ 50 4- 6- 00 CA 25 LD ve AP 24 20 20 RE 9 IN 80 09 09 RI E 8 PH CH 30 AR AR MA D MG CY W TA LL BL C ET 00 06 07 01 30 5 ME 37 AR Ac 71 -2 -1 .0 D 04 NO ti 30 4- 6- 00 CA 18 LD ve 29 20 20 RE 8 83 09 09 RI 1 PH CH AR AR MA D CY W LL C NC 37 07 07 00 30 30 ME [...] LL BL C ET DI 00 06 07 00 30 10 [...] CY W LL C 00 06 07 00 30 5 ME [...] W MG LL TA C BL ET NC 37 03 06 03 30 30 ME 34 AR Ac IL 00 -1 -1 .0 D 30 NO ti OS 00 0- 8- 00 CA 53 LD ve EC 45 20 20 RE 0 50 09 09 RI OT 4 PH CH C AR AR 20 MA D .6 CY W MG LL C TA BL ET 00 06 06 00 30 10 ME 36 AR Ac 90 -1 -1 .0 D 73 NO ti 41 1- 8- 00 CA 36 LD ve 05 20 20 RE 5 56 09 09 RI 1 PH CH AR AR MA D CY W LL C NC 60 03 06 03 30 30 ME 34 AR Ac RT 50 -0 -1 .0 D 18 NO ti AZ 50 6- 8- 00 CA 80 LD ve AP 24 20 20 RE 9 IN 80 09 09 RI E 8 PH CH 30 AR AR MA D MG CY W TA LL BL C ET RI 65 06 06 00 30 [...] 6- 8- 00 CA 66 LD ve NC 69 20 20 RE 4 DE 02 09 09 RI 2 0 PH CH AR AR MG MA D CY W CA PS LL UL C E 00 03 06 03 30 10 ME [...] D CY W LL C DO 00 10 06 00 1. 1 ME 31 AR Ac K 90 -3 -0 00 D 29 NO ti 10 42 1- 4- 0 CA 94 LD ve 0 24 20 20 RE 4 MG 46 08 09 RI 1 PH CH CA AR AR PS MA D UL CY W E LL C NC 60 03 05 02 30 30 ME 34 AR Ac RT 50 -0 -2 .0 D 18 NO ti AZ 50 6- 1- 00 CA 80 LD ve AP 24 20 20 RE 9 IN 80 09 09 RI E 8 PH CH 30 AR AR MA D MG CY W TA LL BL C ET NC 37 03 05 02 30 30 ME [...] C Q CA PS UL E 00 03 05 02 30 10 ME [...] MG LL TA C BL ET 00 05 05 00 28 30 ME [...] W TA LL BL C ET DO 62 05 05 00 10 10 ME 35 AR Ac CU 58 -0 -2 .0 D 82 NO ti SA 40 4- 1- 00 CA 17 LD ve TE 68 20 20 RE 0 30 09 09 RI SO 1 PH CH DI AR AR UM MA D CY W 10 0 LL MG C SO FT GE L 00 03 05 03 60 7 ME [...] AR MA D CY W LL C NC 60 03 04 01 30 30 ME [...] CY W LL C RI 65 02 04 02 60 30 ME 33 AR Ac SP 86 -1 -2 .0 D 66 NO ti ER 20 4- 3- 00 CA 73 LD ve ID 12 20 20 RE 6 ON 00 09 09 RI E 5 PH CH 0. AR AR 5 MA D MG CY W TA LL BL C ET NC 37 03 04 01 30 30 ME [...] 6- 3- 00 CA 66 LD ve NC 69 20 20 RE 4 DE 02 09 09 RI 2 0 PH CH AR AR MG MA D CY W CA PS LL UL C E 00 03 04 02 60 7 ME [...] LL TA C BL ET 00 03 04 00 30 5 ME [...] CY W LL C 00 03 03 01 60 7 ME [...] D CY W LL C 00 02 03 01 30 30 ME 33 AR Ac 24 -1 -2 .0 D 79 NO ti 50 1- 6- 00 CA 75 LD ve 04 20 20 RE 7 10 09 09 RI 1 PH CH AR AR MA D CY W LL C NC 37 03 03 00 30 30 ME 34 AR Ac IL 00 -1 -2 .0 D 30 NO ti OS 00 0- 6- 00 CA 53 LD ve EC 45 20 20 RE 0 50 09 09 RI OT 4 PH CH C AR AR 20 MA D .6 CY W MG LL C TA BL ET 00 12 03 03 30 10 ME 32 AR Ac 90 -1 -1 .0 D 39 NO ti 41 5- 2- 00 CA 44 LD ve 05 20 20 RE 1 56 08 09 RI 1 PH CH AR AR MA D CY W LL C Q- 00 06 03 02 11 5 ME 28 AR Ac TU 60 -2 -1 8. D 40 NO ti SS 30 0- 2- 00 CA 09 LD ve IN 85 20 20 0 RE 4 79 08 09 RI 10 4 PH CH 0 AR AR MG MA D /5 CY W ML LL C SO KEN TI ON 00 03 03 00 60 7 ME [...] 6- 2- 00 CA 66 LD ve NC 69 20 20 RE 4 DE 02 09 09 RI 2 0 PH CH AR AR MG MA D CY W CA PS LL UL C E 00 10 03 04 35 15 ME 31 AR Ac 60 -2 -1 5. D 20 NO ti 30 7- 2- 00 CA 00 LD ve 71 20 20 0 RE 4 25 08 09 RI 7 PH CH AR AR MA D CY W LL C 00 12 03 03 30 5 ME [...] W MG LL TA C BL ET NC 60 03 03 00 30 30 ME 34 AR Ac RT 50 -0 -1 .0 D 18 NO ti AZ 50 6- 2- 00 CA 80 LD ve AP 24 20 20 RE 9 IN 80 09 09 RI E 8 PH CH 30 AR AR MA D MG CY W TA LL BL C ET 00 02 02 00 30 30 ME 33 AR Ac 24 -1 -2 .0 D 79 NO ti 50 1- 6- 00 CA 75 LD ve 04 20 20 RE 7 10 09 09 RI 1 PH CH AR AR MA D CY W LL C NC 37 11 02 03 30 30 ME 31 AR Ac IL 00 -1 -2 .0 D 60 NO ti OS 00 3- 6- 00 CA 65 LD ve EC 45 20 20 RE 6 50 08 09 RI OT 4 PH CH C AR AR 20 MA D .6 CY W MG LL C TA BL ET RI 65 02 02 00 60 30 ME 33 AR Ac SP 86 -1 -2 .0 D 66 NO ti ER 20 4- 6- 00 CA 73 LD ve ID 12 20 20 RE 6 ON 00 09 09 RI E 5 PH CH 0. AR AR 5 MA D MG CY W TA LL BL C ET 00 11 02 04 60 7 [...] AR MA D CY W LL C NC 57 01 02 01 30 30 ME 32 AR Ac RT 66 -0 -1 .0 D 69 NO ti AZ 40 5- 2- 00 CA 70 LD ve AP 50 20 20 RE 4 IN 01 09 09 RI E 8 PH CH 30 AR AR MA D MG CY W TA LL BL C ET RI 65 02 02 00 30 30 ME 33 AR Ac SP 86 -0 -1 .0 D 46 NO ti ER 20 5- 2- 00 CA 75 LD ve ID 12 20 20 RE 4 ON 10 09 09 RI E 5 PH CH 1 AR AR MG MA D CY W TA BL LL ET C RO 00 11 02 03 30 30 ME 31 AR Ac PI 37 -0 -1 .0 D 23 NO ti NI 85 5- 2- 00 CA 42 LD ve RO 50 20 20 RE 3 LE 10 08 09 RI 1 PH CH HC AR AR L MA D 1 CY W MG LL TA C BL ET 00 11 01 03 60 7 ME [...] MA D CY W LL C 58 01 01 00 30 30 ME [...] AR MA D CY W LL C NC 57 01 01 00 30 30 ME 32 AR Ac RT 66 -0 -1 .0 D 69 NO ti AZ 40 5- 5- 00 CA 70 LD ve AP 50 20 20 RE 4 IN 01 09 09 RI E 8 PH CH 30 AR AR MA D MG CY W TA LL BL C ET 60 12 01 01 30 30 ME 32 AR Ac 50 -1 -1 .0 D 06 NO ti 52 0- 5- 00 CA 67 LD ve 58 20 20 RE 0 60 08 09 RI 6 PH CH AR AR MA D CY W LL C NC 37 11 01 02 30 30 ME 31 AR Ac IL 00 -1 -1 .0 D 60 NO ti OS 00 3- 5- 00 CA 65 LD ve EC 45 20 20 RE 6 50 08 09 RI OT 4 PH CH C AR AR 20 MA D .6 CY W MG LL C TA BL ET RO 00 11 01 02 30 30 [...] 9- 5- 00 CA 86 LD ve NC 69 20 20 RE 0 DE 02 [...] TA C BL ET 00 11 01 02 60 [...] AR MA D CY W LL C NC 57 09 12 03 30 30 ME 29 AR Ac RT 66 -0 -1 .0 D 92 NO ti AZ 40 7- 8- 00 CA 13 LD ve AP 50 20 20 RE 0 IN 01 08 08 RI E 8 PH CH 30 AR AR MA D MG CY W TA LL BL C ET NC 37 11 12 01 30 30 ME 31 AR Ac IL 00 -1 -1 .0 D 60 NO ti OS 00 3- 8- 00 CA 65 LD ve EC 45 20 20 RE 6 50 08 08 RI OT 4 PH CH C AR AR 20 MA D .6 CY W MG LL C TA BL ET 60 12 12 00 30 30 ME 32 AR Ac 50 -1 -1 .0 D 06 NO ti 52 0- 8- 00 CA 67 LD ve 58 20 20 RE 0 60 08 08 RI 6 PH CH AR AR MA D CY W LL C LO 51 09 12 02 20 5 ME 30 AR Ac PE 07 -1 -1 .0 D 37 NO ti RA 90 9- 8- 00 CA 86 LD ve NC 69 20 20 RE 0 DE 02 08 08 RI 2 0 PH CH AR AR MG MA D CY W CA PS LL UL C E 00 12 12 00 30 5 ME [...] MG LL TA C BL ET 60 11 12 00 60 30 ME 31 AR Ac 50 -1 -0 .0 D 48 NO ti 52 6- 4- 00 CA 53 LD ve 58 20 20 RE 7 50 08 08 RI 6 PH CH AR AR MA D CY W LL C NC 64 11 12 00 30 5 ME 31 AR Ac OC 98 -1 -0 .0 D 69 NO ti TO 00 7- 4- 00 CA 65 LD ve ZO 30 20 20 RE 6 NE 13 08 08 RI -H 0 PH CH C AR AR 2. MA D 5% CY W CR LL EA C M 50 11 12 00 30 10 ME [...] AR MA D CY W LL C NC 37 11 11 00 30 30 ME 31 AR Ac IL 00 -1 -2 .0 D 60 NO ti OS 00 3- 0- 00 CA 65 LD ve EC 45 20 20 RE 6 50 08 08 RI OT 4 PH CH C AR AR 20 MA D .6 CY W MG LL C TA BL ET 00 10 11 01 35 15 ME 31 AR Ac 60 -2 -2 5. D 20 NO ti 30 7- 0- 00 CA 00 LD ve 71 20 20 0 RE 4 25 08 08 RI 7 PH CH AR AR MA D CY W LL C NC 57 09 11 02 30 30 ME [...] D CY W LL C 00 11 11 00 60 7 ME [...] CY W TA BL LL ET C DO 00 10 11 00 10 10 ME 31 AR Ac K 90 -3 -0 .0 D 29 NO ti 10 42 1- 7- 00 CA 94 LD ve 0 24 20 20 RE 4 MG 46 08 08 RI 1 PH CH CA AR AR PS MA D UL CY W E LL C NC 64 07 11 03 30 5 ME 29 AR Ac OC 98 -3 -0 .0 D 31 NO ti TO 00 1- 7- 00 CA 49 LD ve ZO 30 20 20 RE 8 NE 13 08 08 RI -H 0 PH CH C AR AR 2. MA D 5% CY W CR LL EA C M LO 51 09 11 01 20 5 ME 30 AR Ac PE 07 -1 -0 .0 D 37 NO ti RA 90 9- 7- 00 CA 86 LD ve NC 69 20 20 RE 0 DE 02 08 08 RI 2 0 PH CH AR AR MG MA D CY W CA PS LL UL C E 00 10 11 00 35 15 ME [...] LL TA C BL ET RI 00 08 10 02 60 30 ME 29 AR Ac SP 09 -1 -2 .0 D 55 NO ti ER 30 8- 3- 00 CA 39 LD ve ID 22 20 20 RE 9 ON 50 08 08 RI E 6 PH CH 0. AR AR 5 MA D MG CY W TA LL BL C ET NC 57 09 10 01 30 30 ME 29 AR Ac RT 66 -0 -2 .0 D 92 NO ti AZ 40 7- 3- 00 CA 13 LD ve AP 50 20 20 RE 0 IN 01 08 08 RI E 8 PH CH 30 AR AR MA D MG CY W TA LL BL C ET Q- 00 06 10 01 11 5 [...] D CY W LL C 58 09 10 01 30 30 ME [...] AR MA D CY W LL C NC 00 09 10 03 14 7 ME 30 AR Ac EV 24 -1 -0 .0 D 00 NO ti AL 50 0- 9- 00 CA 15 LD ve IT 03 20 20 RE 5 E 66 08 08 RI PA 0 PH CH CK AR AR ET MA D CY W LL C DI 00 07 10 01 30 10 ME 28 AR Ac CY 59 -0 -0 .0 D 75 NO ti CL 10 5- 9- 00 CA 53 LD ve OM 79 20 20 RE 9 IN 50 08 08 RI E 1 PH CH 20 AR AR MA D MG CY W TA LL BL C ET NC 64 07 10 02 30 5 ME 29 AR Ac OC 98 -3 -0 .0 D 31 NO ti TO 00 1- 9- 00 CA 49 LD ve ZO 30 20 20 RE 8 NE 13 08 08 RI -H 0 PH CH C AR AR 2. MA D 5% CY W CR LL EA C M 00 08 10 02 60 7 ME [...] 37 NO ti RA 90 9- 6- 00 CA 86 LD ve NC 69 20 20 RE 0 DE 02 08 08 RI 2 0 PH CH AR AR MG MA D CY W CA PS LL UL C E NC 57 09 09 00 30 30 ME 29 AR Ac RT 66 -0 -2 .0 D 92 NO ti AZ 40 7- 6- 00 CA 13 LD ve AP 50 20 20 RE 0 IN 01 08 08 RI E 8 PH CH 30 AR AR MA D MG CY W TA LL BL C ET 58 09 09 00 30 30 ME 30 AR Ac 17 -1 -2 .0 D 17 NO ti 70 7- 6- 00 CA 64 LD ve 00 20 20 RE 9 11 08 08 RI 1 PH CH AR AR MA D CY W LL C RI 00 08 09 01 60 30 ME 29 AR Ac SP 09 -1 -2 .0 D 55 NO ti ER 30 8- 6- 00 CA 39 LD ve ID 22 20 20 RE 9 ON 50 08 08 RI E 6 PH CH 0. AR AR 5 MA D MG CY W TA LL BL C ET NC 00 09 09 01 14 7 ME 30 AR Ac EV 24 -1 -2 .0 D 00 NO ti AL 50 0- 6- 00 CA 15 LD ve IT 03 20 20 RE 5 E 66 08 08 RI PA 0 PH CH CK AR AR ET MA D CY W LL C NC 00 07 09 05 14 7 ME 29 No Ac EV 24 -3 -1 .0 D 31 t ti AL 50 CA 49 Av ve IT 03 20 20 RE 1 ai E 66 08 08 la PA 0 PH bl CK AR e ET MA CY LL C 00 08 09 01 60 7 ME 29 No Ac 18 -1 -1 .0 D 50 t ti 28 CA 15 Av ve 44 20 20 RE 3 ai 78 08 08 la 9 PH bl AR e MA CY LL C NC 64 07 09 01 30 5 ME 29 No Ac OC 98 -3 -1 .0 D 31 t ti TO 00 CA 49 Av ve ZO 30 20 20 RE 8 ai NE 13 08 08 la -H 0 PH bl C AR e 2. MA 5% CY CR LL EA C M RI 00 08 08 00 60 30 ME 29 No Ac SP 09 -1 -2 .0 D 55 t ti ER 30 CA 39 Av ve ID 22 20 20 RE 9 ai ON 50 08 08 la E 6 PH bl 0. AR e 5 MA MG CY TA LL BL C ET NC 57 05 08 03 30 30 ME 27 No Ac RT 66 -1 -2 .0 D 53 t ti AZ 40 5 8 CA 80 Av ve AP 50 20 20 RE 9 ai IN 01 08 08 la E 8 PH bl 30 AR e MA MG CY TA LL BL C ET 50 07 08 01 30 10 ME 28 No Ac 11 -1 -2 .0 D 99 t ti 10 6 CA 06 Av ve 39 20 20 RE 4 ai 30 08 08 la 1 PH bl AR e MA CY LL C LO 51 05 08 03 20 5 ME 27 No Ac PE 07 -0 -2 .0 D 43 t ti RA 90 7- 8- 00 CA 81 Av ve NC 69 20 20 RE 9 ai DE 02 08 08 la 2 0 PH bl AR e MG MA CY CA PS LL UL C E 00 08 08 00 60 7 ME 29 No Ac 18 -1 -2 .0 D 50 t ti 28 1 CA 15 Av ve 44 20 20 RE 3 ai 78 08 08 la 9 PH bl AR e MA CY LL C NE 24 08 [...] C LL EA C R SO LN NC 00 07 08 03 14 7 ME [...] CY MG LL TA C BL ET 00 08 08 00 10 10 ME 29 No Ac 04 -0 -1 .0 D 32 t ti 51 1- 4- 00 CA 59 Av ve 52 20 20 RE 5 ai 51 08 08 la 0 PH bl AR e MA CY LL C NC 00 07 08 00 14 7 ME 29 No Ac EV 24 -3 -1 .0 D 31 t ti AL 50 1- 4- 00 CA 49 Av ve IT 03 20 20 RE 1 ai E 66 08 08 la PA 0 PH bl CK AR e ET MA CY LL C NC 64 07 08 00 30 5 ME [...] bl AR e MA CY LL C 50 07 08 00 30 10 ME 28 No Ac 11 -1 -0 .0 D 99 t ti 10 6- 1- 00 CA 06 Av ve 39 20 20 RE 4 ai 30 08 08 la 1 PH bl AR e MA CY LL C RI 50 07 08 00 60 30 ME 28 No Ac SP 45 -1 -0 .0 D 89 t ti ER 80 9- 1- 00 CA 16 Av ve ID 59 20 20 RE 5 ai ON 16 08 08 la E 0 PH bl 0. AR e 5 MA MG CY TA LL BL C ET NC 57 05 08 02 30 30 ME [...] MG CY TA LL BL C ET NC 57 05 07 01 30 30 ME 27 No Ac RT 66 -1 -0 .0 D 53 t ti AZ 40 5- 3- 00 CA 80 Av ve AP 50 20 20 RE 9 ai IN 01 08 08 la E 8 PH bl 30 AR e MA MG CY TA LL BL C ET 00 07 07 04 30 5 ME [...] MA CY LL C RE 00 05 07 01 30 30 ME 27 No Ac QU 00 -1 -0 .0 D 45 t ti IP 74 2- 3- 00 CA 37 Av ve 1 89 20 20 RE 1 ai 22 08 08 la MG 0 PH bl AR e TA MA BL CY ET LL C 50 02 07 03 30 10 ME [...] 7- 3- 00 CA 81 Av ve NC 69 20 20 RE 9 ai DE 02 08 08 la 2 0 PH bl AR e MG MA CY CA PS LL UL C E 00 07 07 03 30 5 ME 21 No Ac 71 -2 -0 .0 D 06 t ti 30 7- 3- 00 CA 47 Av ve 29 20 20 RE 3 ai 83 07 08 la 1 PH bl AR e MA CY LL C DI 00 04 07 03 30 10 [...] ML LL C SO KEN TI ON DI 00 04 06 02 30 10 [...] 7- 5- 00 CA 81 Av ve NC 69 20 20 RE 9 ai DE 02 08 08 la 2 0 PH bl AR e MG MA CY CA PS LL UL C E 50 02 06 02 30 10 ME [...] bl AR e MA CY LL C NC 57 05 05 00 30 30 ME [...] CY LL C 00 05 05 00 1. 1 ME [...] ET LL C DI 00 04 05 01 30 10 ME 27 No Ac CY 59 -2 -2 .0 D 11 t ti CL 10 2- 2- 00 CA 06 Av ve OM 79 20 20 RE 0 ai IN 50 08 08 la E 1 PH bl 20 AR e MA MG CY TA LL BL C ET 00 03 05 02 60 7 ME [...] 7- 2- 00 CA 81 Av ve NC 69 20 20 RE 9 ai DE 02 08 08 la 2 0 PH bl AR e MG MA CY CA PS LL UL C E DI 00 04 05 00 30 10 [...] D 89 t ti ER 80 1- 8- 00 CA 50 Av ve DA 30 20 20 RE 8 ai L 20 08 08 la 0. 1 PH bl 5 AR e MG MA CY TA BL LL ET C 58 01 05 03 30 30 ME 24 No Ac 17 -2 -0 .0 D 89 t ti 70 1- 8- 00 CA 50 Av ve 00 20 20 RE 7 ai 11 08 08 la 1 PH bl AR e MA CY LL C DO 62 03 05 01 10 10 ME 26 No Ac CU 58 -0 -0 .0 D 06 t ti SA 40 5- 8- 00 CA 86 Av ve TE 68 20 20 RE 8 ai 30 08 08 la SO 1 PH bl DI AR e UM MA CY 10 0 LL MG C SO FT GE L NC 57 01 04 03 30 30 ME 24 No Ac RT 66 -1 -2 .0 D 79 t ti AZ 40 6- 4- 00 CA 80 Av ve AP 50 20 20 RE 1 ai IN 01 08 08 la E 8 PH bl 30 AR e MA MG CY TA LL BL C ET LO 51 01 04 03 20 5 ME 24 No Ac PE 07 -1 -2 .0 D 85 t ti RA 90 1- 4- 00 CA 62 Av ve NC 69 20 20 RE 0 ai DE [...] BL CY ET LL C DI 00 02 04 03 30 10 ME 25 No Ac CY 59 -1 -2 .0 D 71 t ti CL 10 9- 4- 00 CA 89 Av ve OM 79 [...] e MA CY LL C 00 03 04 00 20 3 ME 26 No Ac 18 -1 -1 .0 D 37 t ti 28 9- 7- 00 CA 13 Av ve 44 20 20 RE 3 ai 78 08 08 la 9 PH bl AR e MA CY LL C NC 00 03 04 01 14 7 ME [...] MA CY TA BL LL ET C NC 57 01 04 02 30 30 ME 24 No Ac RT 66 -1 -1 .0 D 79 t ti AZ 40 6- 7- 00 CA 80 Av ve AP 50 20 20 RE 1 ai IN 01 08 08 la E 8 PH bl 30 AR e MA MG CY TA LL BL C ET 00 07 04 02 30 5 ME [...] e MA CY LL C DI 00 02 04 02 30 10 ME 25 No Ac CY 59 -1 -1 .0 D 71 t ti CL 10 9- 0- 00 CA 89 Av ve OM 79 20 20 RE 4 ai IN 50 08 08 la E 1 PH bl 20 AR e MA MG CY TA LL BL C ET NC 00 03 04 02 14 7 ME [...] 1- 0- 00 CA 62 Av ve NC 69 20 20 RE 0 ai DE 02 08 08 la 2 0 PH bl AR e MG MA CY CA PS LL UL C E 50 02 04 00 30 10 ME [...] CY TA LL BL C ET 51 02 04 00 4. 1 ME 25 No Ac 07 -2 -0 00 D 85 t ti 90 5- 7- 0 CA 49 Av ve 60 20 20 RE 0 ai 02 08 08 la 0 PH bl AR e MA CY LL C LO 51 01 03 01 20 5 ME 24 No Ac PE 07 -1 -2 .0 D 85 t ti RA 90 1- 6- 00 CA 62 Av ve NC 69 20 20 RE 0 ai DE [...] CY LL C RI 50 01 03 01 60 30 ME 24 No Ac SP 45 -2 -2 .0 D 89 t ti ER 80 1- 6- 00 CA 50 Av ve DA 30 20 20 RE 8 ai L 20 08 08 la 0. 1 PH bl 5 AR e MG MA CY TA BL LL ET C RE 00 01 03 01 30 30 ME 24 No Ac QU 00 -1 -2 .0 D 73 t ti IP 74 3- 6- 00 CA 03 Av ve 1 89 20 20 RE 2 ai 22 08 08 la MG 0 PH bl AR e TA MA BL CY ET LL C NC 57 01 03 01 30 30 ME 24 No Ac RT 66 -1 -2 .0 D 79 t ti AZ 40 6- 6- 00 CA 80 Av ve AP 50 20 20 RE 1 ai IN 01 08 08 la E 8 PH bl 30 AR e MA MG CY TA LL BL C ET DI 00 12 03 03 30 10 [...] MA CY TA BL LL ET C NC 57 01 03 00 30 30 ME [...] TA MA BL CY ET LL C 58 01 03 00 30 [...] MA CY LL C LO 51 01 03 00 20 5 ME 24 No Ac PE 07 -1 -2 .0 D 85 t ti RA 90 1- 4- 00 CA 62 Av ve NC 69 20 20 RE 0 ai DE 02 08 08 la 2 0 PH bl AR e MG MA CY CA PS LL UL C E Procedures Procedure DOS Code Location Performer Comment [facility] F[facility] PY 8 [facility] Encounters Encounter Start End Date Code Location Performer Type Date [facility] - OTHER 7 7 [facility] - 7 7 [facility] OTHER 7 7 [facility] OTHER 7 7 [facility] - 7 7 [facility]IEN [facility] - 5 5 [facility] Number [facility], 5 5 HOME [facility]IENT [facility], 5 5 HOME OUTPATIEN [facility]ALTH [facility] - 5 5 [facility] - 5 5 [facility] 4 4 HOME OUTPATIEN HEALTH [facility], 4 4 HOME OUTPATIEN HEALTH [facility] - 3 3 [facility] - 2 2 [facility], 0 0 REGISTRY OUTPATIEN & HOME [facility] N[facility]SES [facility], 0 0 REGISTRY OUTPATIEN & HOME [facility], 0 0 REGISTRY OUTPATIEN & HOME [facility] - 9 9 [facility] - 8 8 [facility] - 8 8 [facility] - 8 8 [facility] - 8 8 [facility]
--- OUTSIDE RECORDS SUMMARY | 2017-04-25 16:23 | External Medical Summary Rpt | CCD ---
Author Author , JANICE Oh JANICE Address Unknown Phone [email or web address] Care Team Providers Care Scorekeeper Name Role Phone [facility] Unavailable Un[facility], [facility] LORI PEREZ, Unavailable Unavailable LORI PEREZ [facility] BRAUDIS JAM, BRAUDIS Unavailable Unavailable JAM [facility] Unavailable Unavailable SERVICE, [facility] Unavailable Unavailable SERVICE, [facility]ULIENNE & Unavailable Unavailable DUBILIER, [facility]ILIER [facility] Unavailable Unavailable [facility], [facility] Unavailable Unavailable DIAGNOSTIC SE, [facility] Unavailable Unavailable TRANSPORTATION SER, [facility] ALEXANDRA SARGENT, Unavailable Unavailable ALEXANDRA SARGENT [facility] Unavailable Unavailable INC, [facility] Unavailable Unavailable HOSPITAL P, [facility] P [facility], Unavailable Unavailable [facility] Unavailable Unavailable [facility], [facility] Unavailable [...] Unavailable Unavailable EQUIPME, [facility] Unavailable Unavailable DEPT PITA, [facility] Unavailable Unavailable AGENCY, [facility] Unavailable Unavailable PHARMACY Purpose Continuity of Care Document - 08-05-2007 through 2016 Problems Code Diagnosis DOS Provider Status D649 ANEMIA 04-04-2017 [facility] E119 TYPE 2 04-04-2017 [facility] WITHOUT COMPLICATIO NS E785 HYPERLIPIDE 04-04-2017 [facility] UNSPECIFIED ASSOCIATES E876 HYPOKALEMIA 04-04-2017 [facility] I10 ESSENTIAL 04-04-2017 [facility] HYPERTENSIO [facility] N [id number] OTHER LONG 04-04-2017 [facility]RENT [facility] DRUG THERAPY R0602 SHORTNESS 03-03-2017 [facility] [id number] UNSPECIFIED 03-03-2017 [facility] BREAST INC INITIAL ENC R509 FEVER 03-01-2017 [facility] D485 NEOPLASM OF 02-27-2017 [facility]IOR OF INC SKIN L821 OTHER 02-27-2017 [facility] SEBORRHEIC JULIENNE & KERATOSIS DUBILIER R339 RETENTION 12-18-2016 [facility] URINE [facility] UNSPECIFIED HOSPITAL P R69 ILLNESS 12-18-2016 [facility]ATED UNSPECIFIED TRANSPORTAT ION SER N390 URINARY 11-28-2016 [facility] SITE NOT SPECIFIED R7989 OTHER SPEC 11-05-2016 [facility] FINDINGS [facility] BLOOD CHEMISTRY R300 DYSURIA 10-24-2016 [facility] N289 DISORDER OF 10-02-2016 [facility] UNSPECIFIED M160 BILATERAL 09-30-2016 [facility] OSTEOARTHRI IMAG[facility] ASS TIS OF HIP [id number] PAIN IN 09-30-2016 [facility]NSPEC[facility]IED [facility] HIP IMAGING ASS M542 CERVICALGIA 09-30-2016 [facility] N3000 ACUTE 09-30-2016 [facility] CYSTITIS PHYSICIANS, WITHOUT PLLC HEMATURIA R51 HEADACHE 09-30-2016 [facility] SERV[facility] R531 WEAKNESS 09-30-2016 [facility] SERVICE Z043 ENCOUNTER 09-30-2016 [facility]BSERVATION [facility]ING ASS FOLLOW OTH ACCIDENT R220 LOCALIZED 09-10-2016 [facility] S[facility]ING [facility] MASS [facility] IMAG[facility] LUMP HEAD [id number] CONTUSION 09-10-2016 [facility] OF SCALP PHYSICIANS, INITIAL PLLC ENCOUNTER J05DXSL UNSPECIFIED 09-10-2016 [facility] INITIAL SERVICE ENCOUNTER E559 VITAMIN D 07-19-2016 [facility] DEFICIENCY PHYSICIANS UNSPECIFIED LA N183 CHRONIC 07-19-2016 [facility] KIDNEY [facility] DISEASE LA STAGE 3 MODERATE [id number] LACERATION 05-09-2016 [facility] W/O FB PHYSICIANS, OTHER PART PLLC HEAD INITIAL ENC F0557AG UNSPECIFIED 05-09-2016 [facility] INJURY OF AMBULANCE FACE SERVICE INITIAL ENCOUNTER Z23 ENCOUNTER 04-04-2016 [facility] IMMUNIZATIO TH DEPT N PITA J310 CHRONIC 12-19-2015 [facility] RHINITIS PHYS[facility] GROUP J320 CHRONIC 12-19-2015 [facility] MAXILLARY PHYSICIANS SINUSITIS GROUP M3500 SICCA 12-19-2015 [facility] SYNDROME PHYSICIANS UNSPECIFIED GROUP K80637 UNS 12-14-2015 [facility] ATHEROSCLER [place] ART EXTREM BILATERAL LEGS L851 ACQ 12-14-2015 [facility] KERATOSIS KERATODERMA PALMARIS ET PLANTARIS [id number] PAIN IN 12-14-2015 [facility] RIGHT TOES B79308 PAIN IN 12-14-2015 [facility] LEFT TOES R75962 PAIN IN 11-24-2015 [facility] LEFT HAND MOBILE DIAGNOSTIC SE E871 HYPO-OSMOLA 09-12-2015 [facility] MEDICAL LITY AND SERV HYPONATREMI FOUNDATION A I129 HYPERTENSIV 09-12-2015 OR MEDICAL E CKD SERV W/STAGE 1-4 FOUNDATION CKD OR UNS CKD N184 CHRONIC 09-12-2015 [facility] MEDICAL KIDNEY SERV DISEASE FOUNDATION STAGE 4 SEVERE N250 RENAL 09-12-2015 OR MEDICAL OSTEODYSTRO SERV PHY FOUNDATION Z794 LONG-TERM 09-12-2015 [facility] MEDICAL 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 INSULIN [place] EMERGENCY DEPARTMENT B351 TINEA 08-29-2015 [facility] UNGUIUM Y83131 PAIN IN 08-18-2015 [facility] LEFT KNEE MOBILE DIAGNOSTIC SE W99247 PAIN IN 05-23-2015 [facility] RIGHT FOOT L55587 PAIN IN 05-23-2015 [facility] LEFT FOOT H54784 PAIN IN 04-08-2015 EXPRESS LEFT WRIST MOBILE DIAGNOSTIC SE R600 LOCALIZED 03-08-2015 [facility] EDEMA 49932 DIAB W/O 01-20-2015 [facility] COMP TYPE PHYSICIANS II/UNS NOT LA STATED UNCNTRL 2724 OTHER AND 01-20-2015 [facility] UNSPECIFIED PHYSICIANS LA HYPERLIPIDE BIB[place] 4019 UNSPECIFIED 01-20-2015 [facility] ESSENTIAL PHYSICI[place]SIO [place] N 14747 01-06-2015 [facility] TRANSPORTAT ION SER 5854 CHRONIC 01-04-2015 [facility] DISEASE INC STAGE IV (SEVERE) 63251 DIAB 12-23-2014 [facility] LIV W/PERIPH CIRC D/O TYPE II/UNS NOT UNCNTRL 7295 PAIN IN 12-23-2014 [facility] SOFT TISSUES OF LIMB 7823 EDEMA 12-23-2014 [facility] 25828 UNSPECIFIED 11-19-2014 [facility]INARY HEALTH INCONTINENC AGENCY E 26431 PAIN IN 10-25-2014 [facility] JOINT MOBILE PELVIC DIAGNOSTIC REGION AND SE THIGH 7011 ACQUIRED 09-16-2014 [facility] KERATODERMA 15526 OSTEOARTHRO 06-30-2014 [facility] S UNSPEC MEDICAL GEN/LOC IMAGING ASS PELV REGION&THIG H 5859 CHRONIC 06-29-2014 [facility] MEDICAL DISEASE IMAGING ASS UNSPECIFIED 5932 ACQUIRED 06-29-2014 [facility] CYST OF MEDICAL KIDNEY IMAGING ASS 7242 LUMBAGO 06-12-2014 [facility] DIAGNOSTIC SE 5853 CHRONIC 05-31-2014 [facility] MEDICAL KIDNEY SERV DISEASE FOUNDATION STAGE III (MODERATE) 5880 RENAL 05-31-2014 [facility] MEDICAL OSTEODYSTRO SERV PHY FOUNDATION 2689 UNSPECIFIED 04-21-2014 [facility] VITAMIN D PHYSICIANS DEFICIENCY [place] 0062 AMEBIC 01-28-2014 [facility] IC COLITIS MEDICAL EQUIPME 93674 DISORDER OF 10-13-2013 EXPRESS BONE [place]BI[place] [address] ACUTE PAIN 04-22-2013 [facility] DUE TO AMBULANCE TRAUMA SERVICE 6259 UNSPEC 04-22-2013 [facility] IMAGING ASS W/FEMALE GENITAL ORGANS 13848 SPASM OF 04-22-2013 [facility] 8056 CLOS FX 04-22-2013 [facility] YX W/O INC MENTION SP CORD INJURY 8082 CLOSED 04-22-2013 [facility] FRACTURE OF MEM HOSP PUBIS INC 8470 NECK SPRAIN 04-22-2013 [place] AND STRAIN [facility] P 08606 CONCUSSION 04-22-2013 [facility] WITH LOC OF [facility] 30 MINUTES HOSPITAL P OR LESS 920 CONTUSION 04-22-2013 [facility] OF FACE MEDICAL SCALP AND IMAGING ASS NECK EXCEPT EYE 45301 INJURY OF 04-22-2013 [facility] F[facility] AND MEDICAL NECK OTHER IMAGING ASS AND UNSPECIFIED E8497 PLACE OF 04-22-2013 [facility] OCCURRENCE [facility] RESIDENTIAL [facility] P INSTITUTION E8859 FALL FROM 04-22-2013 [facility] TRIPPING OR STUMBLING E8889 UNSPECIFIED 04-22-2013 [facility] ASS V5413 AFTERCARE 04-22-2013 [facility] FOR HEALING MEDICAL TRAUMATIC IMAGING ASS FRACTURE OF HIP V0481 NEED 04-02-[address] [facility] [address] [facility] DEPT VACCINATION PITA &INOCULATIO N FLU 39799 ATHEROSCLER 09-16-2012 [facility] [place] ART EXTREMITIES UNSPEC V5869 LONG-TERM 07-23-2012 COM[facility]ED (CURRENT) PHYSICIANS USE OF LA OTHER MEDICATIONS 2449 UNSPECIFIED 06-18-2012 [facility] PHYSICIANS HYPOTHYROID [place] ISM 06560 PAIN IN 05-05-2012 [facility] JOINT, MOBILE FOREARM DIAGNOSTIC SE 4619 ACUTE 04-14-2012 [facility] SINUSITIS, UNSPECIFIED 4779 ALLERGIC 04-14-2012 [facility] RHINITIS CAUSE UNSPECIFIED 7804 DIZZINESS 04-14-2012 [facility] AND GIDDINESS 3319 UNSPECIFIED 03-14-2012 [facility] CEREBRAL MEDICAL DEGENERATIO IMAGING ASS N 7840 HEADACHE 02-20-2012 [facility] [place] [facility] 1101 DERMATOPHYT 07-04-2011 [facility] OSIS OF NAIL 7812 ABNORMALITY 09-26-2009 [facility] REG[facility] HOME HEAL 48129 ANAL OR 10-18-2008 [facility] 10936 DIARRHEA 10-18-2008 [facility] 11491 ABDOMINAL 10-18-2008 [facility] RIGHT EMERGENCY LOWER SERVICES [facility] 14306 ABDOMINAL 10-18-2008 [facility] PAIN, AMBULANCE GENERALIZED SERVICE 5693 HEMORRHAGE 02-14-2008 [facility] OF RECTUM AMBULANCE AND ANUS SERVICE 5789 UNSPECIFIED 02-14-2008 [facility] HEMORRHAGE [facility] OF INC GASTROINTES TINAL TRACT 3829 UNSPECIFIED 12-23-2007 ARNOLD, OTITIS LORI W MEDIA 5690 ANAL AND 11-26-2007 [facility] RECTAL AMBULANCE POLYP SERVICE 5691 RECTAL 11-26-2007 [...] 0 RE 60 50 23 17 17 IL 5 PH CH UN AR AE IT MA L S/ CY S 5 ML LL C (1 0/ ML ) BE 65 11 11 0 20 10 ME 15 GA Ac NZ 16 -2 -2 0. D 34 IN ti ON 20 1- 7- 00 CA 21 EY ve AT 53 20 20 0 RE 36 AT 65 17 17 IL E 0 PH CH 10 AR AE 0 MA L MG CY S CA LL PS C UL E NO 64 11 11 0 20 5 ME 15 GA Ac RM 25 -2 -2 00 D 34 IN ti AL 30 1- 1- .0 CA 44 EY ve 11 20 20 00 RE 97 SA 13 17 17 IL LI 0 PH CH NE AR AE MA L FL CY S US H LL SY C RI NG E HE 64 11 11 0 50 5 ME 15 GA Ac PA 25 -2 -2 0. D 34 IN ti RI 30 1- 1- 00 CA 45 EY ve N 22 20 20 0 RE 01 50 23 17 17 IL 5 PH CH UN AR AE IT MA L S/ CY S 5 ML LL C (1 0/ ML ) MA 00 05 11 0 30 5 ME 15 GA Ac PA 90 -1 -1 0. D 28 IN ti P 41 0- 3- 00 CA 67 EY ve 50 98 20 20 0 RE 29 0 86 17 17 IL MG 1 PH CH AR AE TA MA L BL CY S ET LL C BE 67 06 10 0 60 30 ME 15 GA Ac NZ 87 -1 -2 0. D 18 IN ti ON 70 8- 5- 00 CA 49 EY ve AT 10 20 20 0 RE 87 AT 50 17 17 IL E 5 PH CH 10 AR AE 0 MA L MG CY S CA LL PS C UL E SE 00 06 10 0 12 30 ME 15 GA Ac NE 53 -0 -2 00 D 16 IN ti XO 64 1- 4- .0 CA 78 EY ve N- 08 20 20 00 RE 15 S 60 17 17 IL TA 1 PH CH BL AR AE ET MA L CY S LL C MA 00 05 10 0 30 5 ME 15 GA Ac PA 90 -1 -2 0. D 18 IN ti P 41 0- 4- 00 CA 10 EY ve 50 98 20 20 0 RE 13 0 86 17 17 IL MG 1 PH CH AR AE TA MA L BL CY S ET LL C MA 00 05 10 0 30 5 ME 15 GA Ac PA 90 -1 -0 0. D 08 IN ti P 41 0- 7- 00 CA 91 EY ve 50 98 20 20 0 RE 31 0 86 17 17 IL MG 1 PH CH AR AE TA MA L BL CY S ET LL C SE 00 06 09 0 12 30 ME 15 GA Ac NE 53 -0 -2 00 D 01 IN ti XO 64 1- 6- .0 CA 96 EY ve N- 08 20 20 00 RE 48 S 60 17 17 IL TA 1 PH CH BL AR AE ET MA L CY S LL C BE 67 06 09 0 60 30 ME 15 GA Ac NZ 87 -1 -2 0. D 01 IN ti ON 70 8- 6- 00 CA 96 EY ve AT 10 20 20 0 RE 45 AT 50 17 17 IL E 5 PH CH 10 AR AE 0 MA L MG CY S CA LL PS C UL E IL 00 07 09 0 30 30 ME 15 GA Ac -A 90 -2 -2 0. D 00 IN ti CI 45 3- 3- 00 CA 90 EY ve D 06 20 20 0 RE 44 GA 86 17 17 IL S 0 PH CH 80 AR AE MA L MG CY S TA LL B C CH EW MA 00 05 09 0 30 5 ME 14 GA Ac PA 90 -1 -1 0. D 96 IN ti P 41 0- 6- 00 CA 78 EY ve 50 98 20 20 0 RE 69 0 86 17 17 IL MG 1 PH CH AR AE TA MA L BL CY S ET LL C SE 00 06 09 0 12 30 ME 14 GA Ac NE 53 -0 -0 00 D 86 IN ti XO 64 1- 1- .0 CA 87 EY ve N- 08 20 20 00 RE 65 S 60 17 17 IL TA 1 PH CH BL AR AE ET MA L CY S LL C MA 00 05 08 0 30 5 ME 14 GA Ac PA 90 -1 -2 0. D 85 IN ti P 41 0- 9- 00 CA 64 EY ve 50 98 20 20 0 RE 43 0 86 17 17 IL MG 1 PH CH AR AE TA MA L BL CY S ET LL C BE 67 06 08 0 60 30 ME 14 GA Ac NZ 87 -1 -2 0. D 84 IN ti ON 70 8- 6- 00 CA 52 EY ve AT 10 20 20 0 RE 63 AT 50 17 17 IL E 5 PH CH 10 AR AE 0 MA L MG CY S CA LL PS C UL E SE 00 06 08 0 12 30 ME 14 GA Ac NE 53 -0 -0 00 D 70 IN ti XO 64 1- 3- .0 CA 16 EY ve N- 08 20 20 00 RE 39 S 60 17 17 IL TA 1 PH CH BL AR AE ET MA L CY S LL C MA 00 05 07 0 30 5 ME 14 GA Ac PA 90 -1 -2 0. D 68 IN ti P 41 0- 8- 00 CA 10 EY ve 50 98 20 20 0 RE 14 0 86 17 17 IL MG 1 PH CH AR AE TA MA L BL CY S ET LL C BE 67 06 07 0 60 30 ME 14 GA Ac NZ 87 -1 -2 0. D 67 IN ti ON 70 8- 6- 00 CA 06 EY ve AT 10 20 20 0 RE 14 AT 50 17 17 IL E 5 PH CH 10 AR AE 0 MA L MG CY S CA LL PS C UL E IL 00 07 07 0 30 30 ME 14 GA Ac -A 90 -2 -2 0. D 64 IN ti CI 45 3- 4- 00 CA 88 EY ve D 06 20 20 0 RE 55 GA 86 17 17 IL S 0 PH CH 80 AR AE [...] 00 RE 69 S 60 17 17 IL TA 1 PH CH BL AR AE [...] 05 06 30 5 00 ME Ac UT 78 -2 -1 .0 00 D ti [...] 17 17 72 E 9 68 PH UT AR OP MA CY 50 MC G SP RA Y UT 68 05 06 30 30 00 ME [...] 05 06 30 5 00 ME Ac UT 78 -1 -0 .0 00 D ti [...] 17 17 67 TA 1 90 PH IL AR N- MA CA CY FF 50 [...] 65 PH ZI AR ME MA CY UT OT EC T PA ST E DI [...] 04 05 30 7 00 ME Ac UT 78 -1 -0 .0 00 D ti [...] MA 10 CY MG TA BL ET UT 68 04 05 30 30 00 ME [...] 30 3- 7- 00 13 CA ve IL 31 20 20 88 RE DE 10 17 17 53 2 1 78 PH AR MG MA CY CA PS UL E AL 00 03 04 30 7 00 ME Ac UT 78 -1 -0 .0 00 D ti [...] MA 10 CY MG TA BL ET UT 68 03 04 30 30 00 ME [...] 17 17 52 TA 1 35 PH IL AR N- MA CA CY FF 50 [...] 17 17 61 TA 1 25 PH IL AR N- MA CA CY FF 50 -3 25 -4 0 AL 00 02 03 30 7 00 ME Ac UT 78 -0 -1 .0 00 D ti [...] CY 20 ME Q TA BL ET UT 68 02 03 30 30 00 ME [...] CY MG LL C TA BL ET UT 68 01 02 30 30 00 ME [...] 01 02 30 7 00 ME Ac UT 78 -2 -1 .0 00 D ti [...] 17 17 62 TA 1 50 PH IL AR N- MA CA CY FF LL [...] 17 17 40 TA 1 79 PH IL AR N- MA CA CY FF LL 50 C -3 25 -4 0 AL 00 01 02 30 7 00 ME Ac UT 78 -0 -0 .0 00 D ti [...] 1- 0- 00 CA 40 LD ve IL 02 20 20 0 RE 4 N [...] W MG LL C TA BL ET UT 00 12 03 0 30 30 ME [...] 1- 9- 00 CA 07 LD ve IL 02 20 20 0 RE 7 N [...] MG LL C CA PS UL E UT 00 12 02 0 30 30 ME [...] 1- 0- 00 CA 52 LD ve IL 02 20 20 0 RE 9 N [...] CY W TA BL LL ET C UT 00 05 01 0 30 5 ME [...] W MG LL TA C BL ET UT 00 12 01 0 30 30 ME [...] 9- 6- 00 CA 01 LD ve IL 10 20 20 0 RE 6 DE 00 13 13 RI 2 5 PH CH AR AR MG MA D CY W CA PS LL UL C E ME 68 01 12 0 60 30 ME 96 AR Ac TF 38 -3 -2 0. D 67 NO ti OR 20 1- 1- 00 CA 08 LD ve IL 02 20 20 0 RE 7 N [...] MG LL C CA PS UL E UT 00 12 12 0 30 30 ME [...] 1- 1- 00 CA 61 LD ve IL 02 20 20 0 RE 2 N [...] 13 13 RI E 5 PH CH UT AR AR OP MA D CY W [...] 1- 3- 00 CA 90 LD ve IL 02 20 20 0 RE 8 N [...] 1- 3- 00 CA 90 LD ve IL 02 20 20 0 RE 0 N [...] 1- 3- 00 CA 65 LD ve IL 02 20 20 0 RE 8 N [...] 1- 5- 00 CA 00 LD ve IL 02 20 20 0 RE 1 N [...] 9- 5- 00 CA 66 LD ve IL 10 20 20 0 RE 4 DE [...] 1- 5- 00 CA 75 LD ve IL 02 20 20 0 RE 2 N [...] 9- 7- 00 CA 30 LD ve IL 10 20 20 0 RE 8 DE [...] 1- 4- 00 CA 29 LD ve IL 02 20 20 0 RE 1 N [...] 4- 6- 00 CA 94 LD ve IL 10 20 20 0 RE 7 DE [...] 1- 5- 00 CA 32 LD ve IL 02 20 20 0 RE 3 N [...] 1- 7- 00 CA 11 LD ve IL 02 20 20 0 RE 5 N [...] 1- 7- 00 CA 27 LD ve IL 25 20 20 0 RE 8 N 90 13 13 RI HC 1 PH CH L AR AR 50 MA D 0 CY W MG LL TA C BL ET UT 00 11 02 0 30 5 ME [...] MG LL C CA PS UL E IL 68 02 02 0 14 14 ME [...] 11 13 RI E 5 PH CH UT AR AR OP MA D CY W [...] 1- 1- 00 CA 38 LD ve IL 25 20 20 0 RE 7 N [...] ME C Q CA PS UL E UT 37 07 01 0 30 30 ME [...] W MG LL C TA BL ET IL 68 01 01 0 30 30 ME [...] CY W TA LL BL C ET IL 68 11 01 0 90 9 ME [...] 4- 3- 00 CA 15 LD ve IL 69 20 20 0 RE 8 DE [...] W MG LL C TA BL ET UT 68 11 12 0 30 5 ME [...] CY W TA BL LL ET C UT 37 07 12 0 30 30 ME [...] -5 LL 0 C MG TA B IL 68 11 12 0 30 30 ME [...] ME C Q CA PS UL E UT 37 07 11 0 30 30 ME [...] W D LI LL QU C ID UT 68 11 11 0 30 5 ME [...] 11 12 RI E 1 PH CH UT AR AR OP MA D CY W [...] CY W TA LL BL C ET IL 68 11 11 0 30 30 ME [...] W MG LL TA C BL ET UT 37 07 10 0 30 30 ME [...] CY W TA LL BL C ET IL 68 11 10 0 30 30 ME [...] CY W TA BL LL ET C UT 68 11 10 0 30 5 ME 84 AR Ac OM 38 -0 -0 0. D 77 NO ti ET 20 7- 3- 00 CA 95 LD ve TYLER 04 20 20 0 RE 1 ZI 11 11 12 RI NE 0 PH CH AR AR 25 MA D CY W MG LL TA C BL ET UT 37 07 10 8 30 30 ME [...] 4- 1- 00 CA 35 LD ve IL 10 20 20 0 RE 7 DE [...] 4- 1- 00 CA 93 LD ve IL 10 20 20 0 RE 2 DE 00 12 12 RI 2 1 PH CH AR AR MG MA D CY W CA PS LL UL C E IL 68 11 09 0 30 30 ME [...] W MG LL TA C BL ET UT 37 07 08 9 30 30 ME [...] W MG LL TA C BL ET UT 00 11 08 0 30 5 ME [...] NT CY W ME NT LL C IL 68 11 08 0 30 30 ME [...] AR MA D CY W LL C UT 37 07 08 10 30 30 ME [...] 6- 1- 00 CA 71 LD ve UT 05 20 20 0 RE 5 AM [...] 4- 4- 00 CA 56 LD ve IL 10 20 20 0 RE 9 DE [...] CY W MG LL C CA P IL 68 11 07 0 30 30 ME [...] ME C Q CA PS UL E UT 37 07 07 11 30 30 ME [...] CY W TA BL LL ET C UT 68 11 07 0 30 5 ME [...] 9- 9- 00 CA 45 LD ve UT 05 20 20 RE 7 AM 45 [...] 6- 6- 00 CA 45 LD ve UT 05 20 20 RE 8 AM 35 [...] -5 LL 0 C MG TA B IL 68 11 06 0 30 30 ME [...] 1- 6- 00 CA 59 LD ve UT 05 20 20 RE 8 AM 45 [...] W D LI LL QU C ID UT 68 11 06 0 30 5 ME [...] CY W TA LL BL C ET UT 37 03 05 0 30 30 ME [...] W D LI LL QU C ID IL 68 11 05 0 30 30 ME [...] 1- 9- 00 CA 54 LD ve UT 05 20 20 0 RE 4 AM [...] CY W TA LL BL C ET UT 37 03 05 0 30 30 ME 79 AR Ac IL 00 -0 -0 0. D 29 NO ti OS 00 6- 2- 00 CA 60 LD ve EC 45 20 20 0 RE 9 50 12 12 RI OT 4 PH CH C AR AR 20 MA D .6 CY W MG LL C TA BL ET UT 68 11 05 0 30 5 ME [...] 11 12 RI E 1 PH CH UT AR AR OP MA D CY W [...] -5 LL 0 C MG TA B IL 68 11 04 0 30 30 ME [...] 1- 9- 00 CA 37 LD ve UT 05 20 20 0 RE 6 AM [...] CY W TA LL BL C ET UT 37 03 04 10 30 0 ME [...] D BL CY W ET LL C UT 68 11 03 0 30 0 ME [...] -5 LL 0 C MG TA B IL 68 11 03 0 30 0 ME [...] 1- 0- 00 CA 95 LD ve UT 05 20 20 0 RE 5 AM 45 11 12 RI 0 PH CH HB AR AR R MA D 40 CY W MG LL C TA BL ET UT 68 11 03 0 30 0 ME 77 AR Ac OM 38 -0 -0 0. D 93 NO ti ET 20 7- 8- 00 CA 65 LD ve TYLER 04 20 20 0 RE 3 ZI 11 11 12 RI NE 0 PH CH AR AR 25 MA D CY W MG LL TA C BL ET UT 37 03 03 11 30 0 ME [...] -5 LL 0 C MG TA B UT 68 11 02 0 30 0 ME [...] CY W TA BL LL ET C IL 68 11 02 0 30 0 ME [...] 1- 9- 00 CA 16 LD ve UT 01 20 20 0 RE 7 AM 10 11 12 RI 5 PH CH HB AR AR R MA D 40 CY W MG LL C TA BL ET UT 37 11 02 0 30 0 ME [...] CY W TA BL LL ET C IL 68 11 01 0 30 0 ME [...] 1- 0- 00 CA 47 LD ve UT 01 20 20 0 RE 8 AM [...] W MG LL TA C BL ET UT 37 11 12 0 30 0 ME [...] CY W TA LL BL C ET IL 68 11 12 0 30 30 ME [...] 1- 1- 00 CA 20 LD ve UT 01 20 20 RE AM 10 11 [...] AR MA D CY W LL C UT 37 11 12 10 30 30 ME [...] -5 LL 0 C MG TA B IL 68 11 11 0 30 30 ME [...] 7- 3- 00 CA 81 LD ve UT 01 20 20 RE AM 10 11 [...] CY W TA LL BL C ET UT 37 11 11 11 30 30 ME [...] MA D ON CY W LL C IL 68 07 10 3 30 30 ME [...] 6- 4- 00 CA 09 LD ve UT 01 20 20 RE 8 AM 10 11 11 RI 5 PH CH HB AR AR R MA D 40 CY W MG LL C TA BL ET LO 51 10 10 3 20 5 ME 60 AR Ac PE 07 -1 -1 .0 D 10 NO ti RA 90 1- 1- 00 CA 13 LD ve IL 69 20 20 RE 1 DE 02 [...] 11 11 RI E 1 PH CH UT AR AR OP MA D CY W [...] W MG LL TA C BL ET UT 37 10 10 3 30 30 ME [...] CY W TA BL LL ET C IL 68 07 09 3 30 30 ME [...] 6- 6- 00 CA 09 LD ve UT 01 20 20 RE 8 AM 10 [...] W MG LL TA C BL ET UT 37 06 09 3 30 30 ME [...] 8- 5- 0 CA 13 LD ve UT 37 20 20 RE 8 AM 30 [...] D BL CY W ET LL C IL 68 07 08 3 30 30 ME [...] W MG LL TA C BL ET UT 37 06 08 3 30 30 ME [...] 4- 1- 00 CA 02 LD ve IL 69 20 20 RE 6 DE 02 [...] 8- 8- 00 CA 13 LD ve UT 37 20 20 RE 8 AM 30 11 11 RI 1 PH CH HB AR AR R MA D 40 CY W MG LL C TA BL ET IL 68 07 07 3 30 30 ME [...] 2- 2- 0 CA 27 LD ve UT 05 20 20 RE 3 AM 35 [...] AR MA D CY W LL C IL 00 07 07 3 35 7 ME 57 AR Ac 90 -0 -0 5. D 44 NO ti AC 40 9- 9- 00 CA 78 LD ve ID 00 20 20 0 RE 2 41 11 11 RI LOZOYA 4 PH CH SP AR AR EN MA D SI CY W ON LL C IL 68 04 07 3 30 30 ME [...] W MG LL TA C BL ET UT 37 06 07 3 30 30 ME [...] 4- 0- 00 CA 02 LD ve IL 69 20 20 RE 6 DE 02 [...] W 5 MG LL C TA B IL 68 04 06 3 30 30 ME [...] D BL CY W ET LL C UT 37 06 06 3 30 30 ME [...] W 5 MG LL C TA B IL 68 04 05 3 30 30 ME [...] W MG LL TA C BL ET UT 37 02 05 3 30 30 ME 52 AR Ac IL 00 -0 -0 .0 D 57 NO ti OS 00 4- 5- 00 CA 39 LD ve EC 45 20 20 RE 8 50 11 11 RI OT 4 PH CH C AR AR 20 MA D .6 CY W MG LL C TA BL ET IL 00 11 05 3 35 7 ME [...] 11 11 RI E 6 PH CH UT AR AR OP MA D CY W [...] W 5 MG LL C TA B IL 68 04 04 3 30 30 ME [...] W MG LL TA C BL ET UT 37 02 04 3 30 30 ME [...] 4- 4- 00 CA 02 LD ve IL 69 20 20 RE 6 DE 02 [...] CY W TA LL BL C ET IL 68 12 03 3 30 30 ME [...] W MG LL TA C BL ET UT 37 02 03 3 30 30 ME [...] 11 11 RI E 9 PH CH UT AR AR OP MA D CY W 50 LL MC C G SP RA Y IL 00 11 03 3 35 7 ME [...] 4- 4- 00 CA 02 LD ve IL 69 20 20 RE 6 DE 02 [...] CY W TA LL BL C ET IL 68 12 02 3 30 30 ME [...] W MG LL TA C BL ET UT 37 02 02 3 30 30 ME [...] CY W TA LL BL C ET IL 68 12 01 3 30 30 ME [...] W MG LL TA C BL ET UT 37 10 01 3 30 30 ME [...] CY W TA LL BL C ET UT 37 10 12 3 30 30 ME 49 AR Ac IL 00 -1 -0 .0 D 36 NO ti OS 00 3- 8- 00 CA 22 LD ve EC 45 20 20 RE 1 50 10 10 RI OT 4 PH CH C AR AR 20 MA D .6 CY W MG LL C TA BL ET IL 68 12 12 3 30 30 ME [...] 8- 7- 00 CA 22 LD ve IL 69 20 20 RE 3 DE 02 [...] CY W TA LL BL C ET UT 37 10 11 3 30 30 ME 49 AR Ac IL 00 -1 -1 .0 D 36 NO ti OS 00 3- 2- 00 CA 22 LD ve EC 45 20 20 RE 1 50 10 10 RI OT 4 PH CH C AR AR 20 MA D .6 CY W MG LL C TA BL ET IL 00 11 11 3 35 7 ME [...] ME C Q CA PS UL E UT 37 10 10 3 30 30 ME [...] D BL CY W ET LL C UT 37 06 09 3 30 30 ME [...] 8- 8- 00 CA 22 LD ve IL 69 20 20 RE 3 DE 02 [...] W 5 MG LL C TA B UT 37 06 08 3 30 30 ME [...] 2- 7- 00 CA 26 LD ve IL 69 20 20 RE 8 DE 02 [...] CY W TA LL BL C ET UT 37 06 07 3 30 30 ME [...] AR MA D CY W LL C UT 37 06 06 3 30 30 ME [...] CY W TA BL LL ET C IL 00 04 06 3 35 7 ME [...] W 5 MG LL C TA B IL 00 04 05 3 35 7 ME [...] 2- 8- 00 CA 26 LD ve IL 69 20 20 RE 8 DE 02 10 10 RI 2 0 PH CH AR AR MG MA D CY W CA PS LL UL C E UT 37 02 05 3 30 30 ME [...] AR MA D CY W LL C IL 00 04 05 3 35 7 ME [...] 2- 3- 00 CA 26 LD ve IL 69 20 20 RE 8 DE 02 10 10 RI 2 0 PH CH AR AR MG MA D CY W CA PS LL UL C E IL 00 04 04 3 35 7 ME 44 AR Ac 90 -2 -2 5. D 81 NO ti AC 40 1- 1- 00 CA 80 LD ve ID 00 20 20 0 RE 7 41 10 10 RI LOZOYA 4 PH CH SP AR AR EN MA D SI CY W ON LL C UT 37 02 04 3 30 30 ME [...] AR MA D CY W LL C UT 37 02 03 3 30 30 ME [...] W MG LL TA C BL ET UT 68 03 03 3 30 5 ME [...] 2- 1- 00 CA 26 LD ve IL 69 20 20 RE 8 DE 02 [...] ME C Q CA PS UL E UT 37 10 02 03 30 30 ME 39 AR Ac IL 00 -2 -1 .0 D 91 NO ti OS 00 5- 1- 00 CA 74 LD ve EC 45 20 20 RE 6 50 09 10 RI OT 4 PH CH C AR AR 20 MA D .6 CY W MG LL C TA BL ET UT 68 07 01 03 30 5 ME [...] 9- 4- 00 CA 15 LD ve IL 69 20 20 RE 9 DE 02 [...] CY W TA LL BL C ET UT 37 10 12 02 30 30 ME [...] CY W TA LL BL C ET UT 68 07 12 02 30 5 ME [...] 9- 7- 00 CA 15 LD ve IL 69 20 20 RE 9 DE 02 [...] CY W TA BL LL ET C UT 37 10 12 01 30 30 ME [...] AR MA D CY W LL C IL 60 10 12 01 30 30 ME [...] AR MA D CY W LL C IL 60 10 11 00 30 30 ME 40 AR Ac RT 50 -2 -0 .0 D 01 NO ti AZ 50 6- 5- 00 CA 94 LD ve AP 24 20 20 RE 2 IN 80 09 09 RI E 8 PH CH 30 AR AR MA D MG CY W TA LL BL C ET UT 37 10 11 00 30 30 ME [...] 9- 2- 00 CA 15 LD ve IL 69 20 20 RE 9 DE 02 [...] AR MA D CY W LL C IL 00 08 10 01 35 3 ME [...] AR MA D CY W LL C UT 37 07 10 03 20 20 ME [...] CY W TA BL LL ET C IL 60 07 10 03 30 30 ME [...] W MG LL TA C BL ET UT 37 07 10 03 30 30 ME [...] AR MA D CY W LL C UT 68 07 09 01 30 5 ME [...] 9- 0- 00 CA 15 LD ve IL 69 20 20 RE 9 DE 02 09 09 RI 2 0 PH CH AR AR MG MA D CY W CA PS LL UL C E IL 60 07 09 02 30 30 ME 37 AR Ac RT 50 -0 -1 .0 D 08 NO ti AZ 50 4- 0- 00 CA 25 LD ve AP 24 20 20 RE 9 IN 80 09 09 RI E 8 PH CH 30 AR AR MA D MG CY W TA LL BL C ET UT 37 07 09 02 30 30 ME [...] AR MA D CY W LL C IL 00 08 08 00 35 3 ME [...] 6- 3- 00 CA 66 LD ve IL 69 20 20 RE 4 DE 02 09 09 RI 2 0 PH CH AR AR MG MA D CY W CA PS LL UL C E UT 37 07 08 01 30 30 ME 37 AR Ac IL 00 -0 -1 .0 D 18 NO ti OS 00 8- 3- 00 CA 60 LD ve EC 45 20 20 RE 9 50 09 09 RI OT 4 PH CH C AR AR 20 MA D .6 CY W MG LL C TA BL ET IL 60 07 08 01 30 30 ME 37 AR Ac RT 50 -0 -1 .0 D 08 NO ti AZ 50 4- 3- 00 CA 25 LD ve AP 24 20 20 RE 9 IN 80 09 09 RI E 8 PH CH 30 AR AR MA D MG CY W TA LL BL C ET UT 68 07 08 00 30 5 ME [...] W MG LL TA C BL ET IL 00 07 08 01 35 15 ME [...] AR MA D CY W LL C IL 00 07 07 00 35 15 ME [...] AR MA D CY W LL C IL 60 07 07 00 30 30 ME [...] AR MA D CY W LL C UT 37 07 07 00 30 30 ME [...] W MG LL TA C BL ET UT 37 03 06 03 30 30 ME [...] AR MA D CY W LL C IL 60 03 06 03 30 30 ME [...] 6- 8- 00 CA 66 LD ve IL 69 20 20 RE 4 DE 02 [...] D UL CY W E LL C IL 60 03 05 02 30 30 ME 34 AR Ac RT 50 -0 -2 .0 D 18 NO ti AZ 50 6- 1- 00 CA 80 LD ve AP 24 20 20 RE 9 IN 80 09 09 RI E 8 PH CH 30 AR AR MA D MG CY W TA LL BL C ET UT 37 03 05 02 30 30 ME [...] AR MA D CY W LL C IL 60 03 04 01 30 30 ME [...] CY W TA LL BL C ET UT 37 03 04 01 30 30 ME [...] 6- 3- 00 CA 66 LD ve IL 69 20 20 RE 4 DE 02 [...] AR MA D CY W LL C UT 37 03 03 00 30 30 ME [...] 6- 2- 00 CA 66 LD ve IL 69 20 20 RE 4 DE 02 [...] W MG LL TA C BL ET IL 60 03 03 00 30 30 ME [...] AR MA D CY W LL C UT 37 11 02 03 30 30 ME [...] AR MA D CY W LL C IL 57 01 02 01 30 30 ME [...] AR MA D CY W LL C IL 57 01 01 00 30 30 ME [...] AR MA D CY W LL C UT 37 11 01 02 30 30 ME [...] 9- 5- 00 CA 86 LD ve IL 69 20 20 RE 0 DE 02 [...] AR MA D CY W LL C IL 57 09 12 03 30 30 ME 29 AR Ac RT 66 -0 -1 .0 D 92 NO ti AZ 40 7- 8- 00 CA 13 LD ve AP 50 20 20 RE 0 IN 01 08 08 RI E 8 PH CH 30 AR AR MA D MG CY W TA LL BL C ET UT 37 11 12 01 30 30 ME [...] 9- 8- 00 CA 86 LD ve IL 69 20 20 RE 0 DE 02 [...] AR MA D CY W LL C UT 64 11 12 00 30 5 ME [...] AR MA D CY W LL C UT 37 11 11 00 30 30 ME [...] AR MA D CY W LL C IL 57 09 11 02 30 30 ME [...] D UL CY W E LL C UT 64 07 11 03 30 5 ME [...] 9- 7- 00 CA 86 LD ve IL 69 20 20 RE 0 DE 02 [...] CY W TA LL BL C ET IL 57 09 10 01 30 30 ME [...] AR MA D CY W LL C UT 00 09 10 03 14 7 ME [...] CY W TA LL BL C ET UT 64 07 10 02 30 5 ME [...] 9- 6- 00 CA 86 LD ve IL 69 20 20 RE 0 DE 02 08 08 RI 2 0 PH CH AR AR MG MA D CY W CA PS LL UL C E IL 57 09 09 00 30 30 ME [...] CY W TA LL BL C ET UT 00 09 09 01 14 7 ME 30 AR Ac EV 24 -1 -2 .0 D 00 NO ti AL 50 0- 6- 00 CA 15 LD ve IT 03 20 20 RE 5 E 66 08 08 RI PA 0 PH CH CK AR AR ET MA D CY W LL C UT 00 07 09 05 14 7 ME [...] bl AR e MA CY LL C UT 64 07 09 01 30 5 ME [...] MG CY TA LL BL C ET IL 57 05 08 03 30 30 ME [...] 7- 8- 00 CA 81 Av ve IL 69 20 20 RE 9 ai DE [...] C LL EA C R SO LN UT 00 07 08 03 14 7 ME [...] bl AR e MA CY LL C UT 00 07 08 00 14 7 ME 29 No Ac EV 24 -3 -1 .0 D 31 t ti AL 50 1- 4- 00 CA 49 Av ve IT 03 20 20 RE 1 ai E 66 08 08 la PA 0 PH bl CK AR e ET MA CY LL C UT 64 07 08 00 30 5 ME [...] MG CY TA LL BL C ET IL 57 05 08 02 30 30 ME [...] MG CY TA LL BL C ET IL 57 05 07 01 30 30 ME [...] 7- 3- 00 CA 81 Av ve IL 69 20 20 RE 9 ai DE [...] 7- 5- 00 CA 81 Av ve IL 69 20 20 RE 9 ai DE [...] bl AR e MA CY LL C IL 57 05 05 00 30 30 ME [...] 7- 2- 00 CA 81 Av ve IL 69 20 20 RE 9 ai DE [...] LL MG C SO FT GE L IL 57 01 04 03 30 30 ME [...] 1- 4- 00 CA 62 Av ve IL 69 20 20 RE 0 ai DE [...] bl AR e MA CY LL C UT 00 03 04 01 14 7 ME [...] MA CY TA BL LL ET C IL 57 01 04 02 30 30 ME [...] MG CY TA LL BL C ET UT 00 03 04 02 14 7 ME [...] 1- 0- 00 CA 62 Av ve IL 69 20 20 RE 0 ai DE [...] 1- 6- 00 CA 62 Av ve IL 69 20 20 RE 0 ai DE [...] TA MA BL CY ET LL C IL 57 01 03 01 30 30 ME [...] MA CY TA BL LL ET C IL 57 01 03 00 30 30 ME [...] 1- 4- 00 CA 62 Av ve IL 69 20 20 RE 0 ai DE 02 08 08 la 2 0 PH bl AR e MG MA CY CA PS LL UL C E Procedures Procedure DOS Code Location Performer Comment [place] [facility] PY 8 [facility] Encounters Encounter Start End Date Code Location Performer Type Date [facility] - OTHER [address] [facility] - 7 7 [facility] [address] [facility] - OTHER [address] [facility] - 7 7 [facility] - 5 5 [facility], 5 5 [facility] 5 [facility] - 5 5 [facility] - 5 5 [facility], 4 4 HOME OUTPATI[facility], 4 4 HOME OUTPATIEN [facility] - 3 3 [facility] - 2 2 [facility], 0 0 REGISTRY OUTPATIEN & HOME [facility] N[facility], 0 0 REGISTRY OUTPATIEN & HOME [facility] 0 0 REGISTRY OUTPATIEN & HOME [facility] - 9 9 [facility] - 8 8 [facility] - 8 8 [facility] 8 [facility]
[2017-04-25 16:33] LABS: NEUTROPHILS 82 % (42-76)
--- OUTSIDE RECORDS SUMMARY | 2017-04-25 16:36 | External Medical Summary Rpt | CCD ---
Demographics Preferred Language Czech Marital Status Unknown Mu-Ism Affiliation Unknown Race Unknown Ethnic Group Unknown Author Author JANICE Address Unknown Phone Immunization No patient found.
--- OUTSIDE RECORDS SUMMARY | 2017-04-25 16:36 | External Medical Summary Rpt | CCD ---
Demographics Preferred Language Luxembourgish Marital Status Unknown Advent Affiliation Unknown Race Unknown Ethnic Group Unknown Author Author JANICE Address Unknown Phone Immunization No patient found.
--- OUTSIDE RECORDS SUMMARY | 2017-04-25 16:37 | External Medical Summary Rpt ---
Author Author [employer], [employer] Organization [employer] Address Unknown Phone Unavailable Results Glucose [Mass/volume] in Capillary blood by Glucometer Observa Value Referen Units Interpr Notes Date tion ce etation Range Glucose 70 - 110 mg/dl High No Apr 16 [Mass/vol informati 2017 5:57 ume] in on in AM Capillary source blood by data Glucomete r Basic metabolic panel in Blood Observa Value Referen Units Interpr Notes Date tion ce etation Range Urea 7 - 18 mg/dL Normal No Apr 15 nitrogen informati 2016 [Mass/vol on in 11:15 PM ume] in source Serum or data Plasma Calcium 8.5 - mg/dL Normal No Apr 15 [Mass/vol 10.1 informati 2016 ume] in on in 11:15 PM Serum or source Plasma data Chloride 98 - 107 mmoL/L Low No Apr 15 [Moles/vo informati 2016 lume] in on in 11:15 PM Serum or source Plasma data Carbon 21.0 - mmoL/L Normal No Apr 15 dioxide, 32.0 informati 2016 total on in 11:15 PM [Moles/vo source lume] in data Serum or Plasma Creatinin 0.55 - mg/dL High No Apr 15 e 1.02 informati 2016 [Mass/vol on in 11:15 PM ume] in source Serum or data Plasma Creatinin 50 - 200 ML/MIN Normal No Apr 15 e renal informati 2017 clearance on in 11:15 PM source predicted data by Cockcroft -Gault formula Estimated 59- ML/MIN Low REFERENCE Apr 15 RANGE: 2017 glomerula >60 11:15 PM r ML/MIN/1. filtratio 73 SQUARE n rate METERSIf (GF this patient is -A merican, then multiply theresult by 1.210. Glucose 74 - 106 mg/dL Normal No Apr 15 [Mass/vol informati 2016 ume] in on in 11:15 PM Serum or source Plasma data Potassium 3.5 - 5.1 mmoL/L Low No Apr 152016 [Moles/vo on in 11:15 PM lume] in source Serum or data Plasma Sodium 136 - 145 mmoL/L Low No Apr 15 [Moles/vo inform2016 lume] in on in 11:15 PM Serum or source Plasma data CBC W Auto Differential panel in Blood Observa Value Referen Units Interpr Notes Date tion ce etation Range Basophils 0 - 0.2 K/MM3 Normal No Apr 152016 [#/volume on in 11:15 PM ] in source Blood by data Automated count Basophils 0.1 - 2.0 % Normal No Apr 15 /100 inform2016 leukocyte on in 11:15 PM s in source Blood by data Automated count Eosinophi 0.0 - 0.4 K/mm3 Normal No Apr 15 ls 2016 [#/volume on in 11:15 PM ] in source Blood by data Automated count Eosinophi 0.1 - % Normal No Apr 15 ls/100 12.0 2016 leukocyte on in 11:15 PM s in source Blood by data Automated count Granulocy 1.8 - 7.8 K/mm3 Normal No Apr 15 daryl 2016 [#/volume on in 11:15 PM ] in source Blood by data Automated count Granulocy 37.0 - % Normal No Apr 15 daryl/100 80.0 2016 leukocyte on in 11:15 PM s in source Blood by data Automated count Hematocri 37.0 - % Low No Apr 15 t [Volume 47.0 2016 on in 11:15 PM Fraction] source of Blood data Hemoglobi 12.2 - g/dL Low Apr 15 n 16.2 2016 [Mass/vol on in 11:15 PM ume] in source Blood data Lymphocyt 0.7 - 4.5 K/mm3 Normal No Apr 15 es 2016 [#/volume on in 11:15 PM ] in source Unspecifi data ed specimen by Automated count Lymphocyt 10 - 50.0 % Normal No Apr 15 es 2016 [#/volume on in 11:15 PM ] in source Unspecifi data ed specimen by Automated count Erythrocy 27 - 31.2 pg Low No Apr 15 te mean 2016 corpuscul on in 11:15 PM ar source hemoglobi data n [Entitic mass] Erythrocy 31.8 - g/dl Normal Apr 15 te mean 35.4 2016 corpuscul on in 11:15 PM ar source hemoglobi data n concentra tion [Mass/vol ume] by Automated count Erythrocy 82.2 - fl Low Apr 15 te mean 97.8 2016 corpuscul on in 11:15 PM ar volume source [Entitic data volume] by Automated count Monocytes 0.1 - 1.0 K/mm3 Normal No Apr 15 inform2016 [#/volume on in 11:15 PM ] in source Blood by data Automated count Monocytes 1.7 - 9.3 % Normal No Apr 15 /100 inform2016 leukocyte on in 11:15 PM s in source Blood by data Automated count Platelet 7.4 - fl Normal Apr 15 mean 10.4 inform2016 volume on in 11:15 PM [Entitic source volume] data in Blood by Automated count Platelets 142 - 424 K/mm3 Normal Apr 15 inform2016 [#/volume on in 11:15 PM ] in source Blood data Erythrocy 4.2 - 5.4 M/mm3 Low No Apr 15 daryl informati 2016 [#/volume on in 11:15 PM ] in source Amniotic data fluid Erythrocy 11.5 - % Normal Apr 15 te 17.5 inform2016 distribut on in 11:15 PM ion width source [Entitic data volume] by Automated count Leukocyte 4.8 - K/MM3 Normal Apr 15 s 10.8 informati 2016 [#/volume on in 11:15 PM ] in source Blood data Glucose [Mass/volume] in Capillary blood by Glucometer Observa Value Referen Units Interpr Notes Date ti ce etation Range Glucose 70 - 110 mg/dl High Apr 15 [Mass/vol informati 2016 8:01 ume] in on in PM Capillary source blood by data Glucomete r Glucose [Mass/volume] in Capillary blood by Glucometer Observa Value Referen Units Interpr Notes Date etation Range Glucose 70 - 110 mg/dl Normal Apr 15 [Mass/vol informati 2016 4:38 ume] in on in PM Capillary source blood by data Glucomete r Glucose [Mass/volume] in Capillary blood by Glucometer Observa Value Referen Units Interpr Notes Date ce etation Range Glucose 70 - 110 mg/dl High Apr 15 [Mass/vol informati 2017 ume] in on in 11:29 AM Capillary source blood by data Glucomete r CBC W Auto Differential panel in Blood Observa Value Referen Units Interpr Notes Date tion ce etation Range Basophils 0 - 0.2 K/MM3 Normal No Apr 15 informati 2016 6:49 [#/volume on in AM ] in source Blood by data Automated count Basophils 0.1 - 2.0 % Normal No Apr 15 /100 informati 2017 6:49 leukocyte on in AM s in source Blood by data Automated count Eosinophi 0.0 - 0.4 K/mm3 Normal No Apr 15 ls informati 2016 6:49 [#/volume on in AM ] in source Blood by data Automated count Eosinophi 0.1 - % Normal No Apr 15 ls/100 12.0 informati 2017 6:49 leukocyte on in AM s in source Blood by data Automated count Granulocy 1.8 - 7.8 K/mm3 Normal No Apr 15 daryl informati 2016 6:49 [#/volume on in AM ] in source Blood by data Automated count Granulocy 37.0 - % Normal No Apr 15 daryl/100 80.0 informati 2016 6:49 leukocyte on in AM s in source Blood by data Automated count Hematocri 37.0 - % Low No Apr 15 t [Volume 47.0 informati 2016 6:49 on in AM Fraction] source of Blood data Hemoglobi 12.2 - g/dL Low Apr 15 n 16.2 informati 2016 6:49 [Mass/vol on in AM ume] in source Blood data Lymphocyt 0.7 - 4.5 K/mm3 Normal No Apr 15 es informati 2016 6:49 [#/volume on in AM ] in source Unspecifi data ed specimen by Automated count Lymphocyt 10 - 50.0 % Normal No Apr 15 es informati 2016 6:49 [#/volume on in AM ] in source Unspecifi data ed specimen by Automated count Erythrocy 27 - 31.2 pg Low No Apr 15 te mean informati 2016 6:49 corpuscul on in AM ar source hemoglobi data n [Entitic mass] Erythrocy 31.8 - g/dl Normal No Apr 15 te mean 35.4 informati 2016 6:49 corpuscul on in AM ar source hemoglobi data n concentra tion [Mass/vol ume] by Automated count Erythrocy 82.2 - fl Low No Apr 15 te mean 97.8 informati 2017 6:49 corpuscul on in AM ar volume source [Entitic data volume] by Automated count Monocytes 0.1 - 1.0 K/mm3 Normal No Apr 15 informati 2017 6:49 [#/volume on in AM ] in source Blood by data Automated count Monocytes 1.7 - 9.3 % High No Mar 20 /100 informati 2017 6:49 leukocyte on in AM s in source Blood by data Automated count Platelet 7.4 - fl Normal Apr 15 mean 10.4 informati 2017 6:49 volume on in AM [Entitic source volume] data in Blood by Automated count Platelets 142 - 424 K/mm3 No Apr 15 informati informati 2017 6:49 [#/volume on in on in AM ] in source source Blood data data Erythrocy 4.2 - 5.4 M/mm3 Low No Apr 15 daryl informati 2016 6:49 [#/volume on in AM ] in source Amniotic data fluid Erythrocy 11.5 - % Normal Apr 15 te 17.5 informati 2016 6:49 distribut on in AM ion width source [Entitic data volume] by Automated count Leukocyte 4.8 - K/MM3 Normal Apr 15 s 10.8 informati 2016 6:49 [#/volume on in AM ] in source Blood data Basic metabolic panel in Blood Observa Value Referen Units Interpr Notes Date tion ce etation Range Urea 7 - 18 mg/dL Normal No Apr 15 nitrogen informati 2016 6:49 [Mass/vol on in AM ume] in source Serum or data Plasma Calcium 8.5 - mg/dL Normal Apr 15 [Mass/vol 10.1 informati 2016 6:49 ume] in on in AM Serum or source Plasma data Chloride 98 - 107 mmoL/L Low Apr 15 [Moles/vo informati 2016 6:49 lume] in on in AM Serum or source Plasma data Carbon 21.0 - mmoL/L Normal No Apr 15 dioxide, 32.0 informati 2017 6:49 total on in AM [Moles/vo source lume] in data Serum or Plasma Creatinin 0.55 - mg/dL High No Apr 15 e 1.02 informati 2016 6:49 [Mass/vol on in AM ume] in source Serum or data Plasma Creatinin 50 - 200 ML/MIN Normal No Apr 15 e renal informati 2017 6:49 clearance on in AM source predicted data by Cockcroft -Gault formula Estimated 59- ML/MIN Low REFERENCE Apr 15 RANGE: 2016 6:49 glomerula >60 AM r ML/MIN/1. filtratio 73 SQUARE n rate METERSIf (GF this patient is -A merican, then multiply theresult by 1.210. Glucose 74 - 106 mg/dL Normal No Apr 15 [Mass/vol informati 2017 6:49 ume] in on in AM Serum or source Plasma data Potassium 3.5 - 5.1 mmoL/L Low alert Apr 15 2017 6:49 [Moles/vo CRITICAL AM lume] in RESULTS Serum or Plasma RESU LTS CALLED TO: LIAM 04/15/17 0712 Racquel Huston e Sodium 136 - 145 mmoL/L Low No Apr 15 [Moles/vo informati 2016 6:49 lume] in on in AM Serum or source Plasma data Glucose [Mass/volume] in Capillary blood by Glucometer Observa Value Referen Units Interpr Notes Date tion ce etation Range Glucose 70 - 110 mg/dl No No Apr 15 [Mass/vol informati informati 2016 5:59 ume] in on in on in AM Capillary source source blood by data data Glucomete r Glucose [Mass/volume] in Capillary blood by Glucometer Observa Value Referen Units Interpr Notes Date tion ce etation Range Glucose 70 - 110 mg/dl High No Apr 14 [Mass/vol informati 2016 8:10 ume] in on in PM Capillary source blood by data Glucomete r Glucose [Mass/volume] in Capillary blood by Glucometer Observa Value Referen Units Interpr Notes Date tion ce etation Range Glucose 70 - 110 mg/dl Normal No Apr 14 [Mass/vol informati 2016 4:16 ume] in on in PM Capillary source blood by data Glucomete r Glucose [Mass/volume] in Capillary blood by Glucometer Observa Value Referen Units Interpr Notes Date tion ce etation Range Glucose 70 - 110 mg/dl High No Apr 14 [Mass/vol informati 2016 ume] in on in 11:21 AM Capillary source blood by data Glucomete r Basic metabolic panel in Blood Observa Value Referen Units Interpr Notes Date tion ce etation Range Urea 7 - 18 mg/dL High No Apr 14 nitrogen informati 2016 6:40 [Mass/vol on in AM ume] in source Serum or data Plasma Calcium 8.5 - mg/dL Normal No Apr 14 [Mass/vol 10.1 informati 2016 6:40 ume] in on in AM Serum or source Plasma data Chloride 98 - 107 mmoL/L Low No Apr 14 [Moles/vo informati 2016 6:40 lume] in on in AM Serum or source Plasma data Carbon 21.0 - mmoL/L Normal No Apr 14 dioxide, 32.0 informati 2016 6:40 total on in AM [Moles/vo source lume] in data Serum or Plasma Creatinin 0.55 - mg/dL High No Apr 14 e 1.02 informati 2016 6:40 [Mass/vol on in AM ume] in source Serum or data Plasma Creatinin 50 - 200 ML/MIN Low No Apr 14 e renal informati 2016 6:40 clearance on in AM source predicted data by Cockcroft -Gault formula Estimated 59- ML/MIN Low REFERENCE Apr 14 RANGE: 2017 6:40 glomerula >60 AM r ML/MIN/1. filtratio 73 SQUARE n rate METERSIf (GF this patient is -A merican, then multiply theresult by 1.210. Glucose 74 - 106 mg/dL High No Apr 14 [Mass/vol informati 2016 6:40 ume] in on in AM Serum or source Plasma data Potassium 3.5 - 5.1 mmoL/L Low Apr 14 2016 6:40 [Moles/vo CRITICAL AM lume] in RESULTS Serum or Plasma RESU LTS CALLED TO: William SAMANO RN 04/14/17 0716 Xi [place] Sodium 136 - 145 mmoL/L Low No Apr 14 [Moles/vo informati 2016 6:40 lume] in on in AM Serum or source Plasma data CBC W Auto Differential panel in Blood Observa Value Referen Units Interpr Notes Date tion ce etation Range Basophils 0 - 0.2 K/MM3 Normal No Apr 14 informati 2016 6:40 [#/volume on in AM ] in source Blood by data Automated count Basophils 0.1 - 2.0 % Normal No Apr 14 / informati 2016 6:40 leukocyte on in AM s in source Blood by data Automated count Eosinophi 0.0 - 0.4 K/mm3 Normal No Apr 14 ls informati 2016 6:40 [#/volume on in AM ] in source Blood by data Automated count Eosinophi 0.1 - % Normal Apr 14 ls/100 12.0 informati 2016 6:40 leukocyte on in AM s in source Blood by data Automated count Granulocy 1.8 - 7.8 K/mm3 High Apr 14 daryl informati 2016 6:40 [#/volume on in AM ] in source Blood by data Automated count Granulocy 37.0 - % High Apr 14 daryl/100 80.0 informati 2016 6:40 leukocyte on in AM s in source Blood by data Automated count Hematocri 37.0 - % Low Apr 14 t [Volume 47.0 informati 2016 6:40 on in AM Fraction] source of Blood data Hemoglobi 12.2 - g/dL Low 04/14/17 Apr 14 n 16.2 0709:HGB 2017 6:40 [Mass/vol previousl AM ume] in y Blood reported as: 11.4 # L g/dL Lymphocyt 0.7 - 4.5 K/mm3 Normal Apr 14 es inform2016 6:40 [#/volume on in AM ] in source Unspecifi data ed specimen by Automated count Lymphocyt 10 - 50.0 % Low Apr 14 es 2016 6:40 [#/volume on in AM ] in source Unspecifi data ed specimen by Automated count Erythrocy 27 - 31.2 pg Low Apr 14 te mean informati 2016 6:40 corpuscul on in AM ar source hemoglobi data n [Entitic mass] Erythrocy 31.8 - g/dl Normal Apr 14 te mean 35.4 informati 2016 6:40 corpuscul on in AM ar source hemoglobi data n concentra tion [Mass/vol ume] by Automated count Erythrocy 82.2 - fl Low Apr 14 te mean 97.8 informati 2016 6:40 corpuscul on in AM ar volume source [Entitic data volume] by Automated count Monocytes 0.1 - 1.0 K/mm3 Normal No Apr 14 informati 2016 6:40 [#/volume on in AM ] in source Blood by data Automated count Monocytes 1.7 - 9.3 % Normal No Apr 14 /100 informati 2016 6:40 leukocyte on in AM s in source Blood by data Automated count Platelet 7.4 - fl Normal No Apr 14 mean 10.4 informati 2016 6:40 volume on in AM [Entitic source volume] data in Blood by Automated count Platelets 142 - 424 K/mm3 No Apr 14 informati informati 2016 6:40 [#/volume on in on in AM ] in source source Blood data data Erythrocy 4.2 - 5.4 M/mm3 Normal No Apr 14 daryl informati 2016 6:40 [#/volume on in AM ] in source Amniotic data fluid Erythrocy 11.5 - % Normal Apr 14 te 17.5 informati 2016 6:40 distribut on in AM ion width source [Entitic data volume] by Automated count Leukocyte 4.8 - K/MM3 High No Apr 14 s 10.8 ati 2016 6:40 [#/volume on in AM ] in source Blood data Glucose [Mass/volume] in Capillary blood by Glucometer Observa Value Referen Units Interpr Notes Date ti ce etation Range Glucose 70 - 110 mg/dl High No Apr 14 [Mass/vol informati 2016 6:37 ume] in on in AM Capillary source blood by data Glucomete r Glucose [Mass/volume] in Capillary blood by Glucometer Observa Value Referen Units Interpr Notes Date ti ce etation Range Glucose 70 - 110 mg/dl High No Apr 14 [Mass/vol informati 2016 ume] in on in 12:38 AM Capillary source blood by data Glucomete r Urinalysis dipstick W Reflex Microscopic panel in Urine Observa Value Referen Units Interpr Notes Date ti ce etation Range Appeara CLOUDY CLEAR No [...] No Apr 13 of informa informa informa 2017 Urine tion [...] of 5.0 - 8.5 No Normal No Apr 13 Urine informati informati 2017 9:00 on in [...] No Apr 13 gravity 1.030 informati informati 2017 9:00 of Urine on in on in PM source source data data Urobili 0.2 NEG E.U./dL No No Apr 13 nogen informa informa 2016 [Presen tion in tion in 9:00 PM ce] in source source Urine data data by Test strip Leukocyte O wbc/hpf No No Mar 18 s informati informati 2017 9:00 [#/volume on in on in PM [...] mg/dL High No Apr 13 [Mass/vol informati 2017 9:00 ume] in on in PM Urine by source Automated data test strip Specific 1.005 - No Normal No Mar 18 gravity 1.030 informati informati 2017 9:00 of Urine on in on in PM source source data data Urobili 0.2 NEG E.U./dL No No Apr 13 nogen informa informa 2016 [Presen tion in tion in 9:00 PM ce] in source source Urine data data by Test strip CBC W Auto Differential panel in Blood Observa Value Referen Units Interpr Notes Date tion ce etation Range Basophils 0 - 0.2 K/MM3 Normal No Apr 132016 8:50 [#/volume on in PM ] in source Blood by data Automated count Basophils 0.1 - 2.0 % Normal No Mar 18 /100 inform2016 8:50 leukocyte on in PM s in source Blood by data Automated count Eosinophi 0.0 - 0.4 K/mm3 Normal No Apr 13 ls informati 2016 8:50 [#/volume on in PM ] in source Blood by data Automated count Eosinophi 0.1 - % Normal No Apr 13 ls/100 12.0 informati 2016 8:50 leukocyte on in PM s in source Blood by data Automated count Granulocy 1.8 - 7.8 K/mm3 High No Apr 13 daryl inform2016 8:50 [#/volume on in PM ] in source Blood by data Automated count Granulocy 37.0 - % High No Apr 13 daryl/100 80.0 informati 2016 8:50 leukocyte on in PM s in source Blood by data Automated count Hematocri 37.0 - % Normal No Apr 13 t [Volume 47.0 ati 2016 8:50 on in PM Fraction] source of Blood data Hemoglobi 12.2 - g/dL No Apr 13 n 16.2 informati informati 2016 8:50 [Mass/vol on in on in PM ume] in source source Blood data data Lymphocyt 0.7 - 4.5 K/mm3 Normal No Apr 13 es inform2016 8:50 [#/volume on in PM ] in source Unspecifi data ed specimen by Automated count Lymphocyt 10 - 50.0 % Low No Apr 13 es 2016 8:50 [#/volume on in PM ] in source Unspecifi data ed specimen by Automated count Erythrocy 27 - 31.2 pg Normal No Apr 13 te mean informati 2016 8:50 corpuscul on in PM ar source hemoglobi data n [Entitic mass] Erythrocy 31.8 - g/dl Normal No Apr 13 te mean 35.4 informati 2016 8:50 corpuscul on in PM ar source hemoglobi data n concentra tion [Mass/vol ume] by Automated count Erythrocy 82.2 - fl Low No Nov 18 te mean 97.8 informati 2016 8:50 corpuscul on in PM ar volume source [Entitic data volume] by Automated count Monocytes 0.1 - 1.0 K/mm3 Normal No Mar 18 inform2016 8:50 [#/volume on in PM ] in source Blood by data Automated count Monocytes 1.7 - 9.3 % Normal No Mar 18 /100 informati 2016 8:50 leukocyte on in PM s in source Blood by data Automated count Platelet 7.4 - fl Normal No Apr 13 mean 10.4 informati 2016 8:50 volume on in PM [Entitic source volume] data in Blood by Automated count Platelets 142 - 424 K/mm3 Normal No Mar 18 informati 2016 8:50 [#/volume on in PM ] in source Blood data Erythrocy 4.2 - 5.4 M/mm3 Normal No Apr 13 daryl informati 2016 8:50 [#/volume on in PM ] in source Amniotic data fluid Erythrocy 11.5 - % Normal No Apr 13 te 17.5 informati 2016 8:50 distribut on in PM ion width source [Entitic data volume] by Automated count Leukocyte 4.8 - K/MM3 High No Mar 18 s 10.8 informati 2016 8:50 [#/volume on in PM ] in source Blood data Differential panel, method unspecified - Observa Value Referen Units Interpr Notes Date tion ce etation Range Neutrophi 0 - 8 % High No Apr 13 ls.band informati 2016 8:50 form/100 on in PM leukocyte source s in data Blood by Automated count LYMPH 2 10 - 50 % Low No Apr 132016 tion in 8:50 PM source data Monocytes 2 - 9 % Low No Mar 18 /100 informati 2016 8:50 leukocyte on in PM s in source Blood by data Automated count Platele NORMAL No No No No Mar 18 ts informa informa informa informa 2016 [Presen tion in tion in tion in tion in 8:50 PM ce] in source source source source Blood data data data data by Light microsc opy Neutrophi 42 - 76 % High No Mar 18 ls informati 2016 8:50 [#/volume on in PM ] in source Blood by data Automated count Erythro NORMAL No No No No Apr 13 cyte informa informa informa informa 2017 morphol tion in tion in tion in tion in 8:50 PM ogy source source source source finding data data data data [Identi fier] in Blood Cells No #CELLS No No Apr 13 Counted informati informati informati 2016 8:50 Total [#] on in on in on in PM in Blood source source source data data data Lactate [Moles/volume] in Blood Observa Value Referen Units Interpr Notes Date tion ce etation Range Lactate 0.4 - 2.0 mmol/L Normal No Apr 13 [Moles/vo informati 2016 8:50 lume] in on in PM Blood source data Gas panel in Arterial blood Observa Value Referen Units Interpr Notes Date ti ce etation Range Base -2.4-+2.3 MMOL/L Normal No Apr 13 excess in informati 2016 8:31 Arterial on in PM blood source data Arteria Y No No No No Apr 13 l informa informa informa informa 2017 patency tion in tion in tion in tion in 8:31 PM Wrist source source source source artery data data data data --pre arteria l punctur e Bicarbona 22.0 - MMOL/L Normal No Apr 13 te 26.0 informati 2016 8:31 [Moles/vo on in PM lume] in source Arterial data blood Oxygen No No No No Apr 13 content informati informati informati informati 2017 8:31 in on in on in on in on in PM Arterial source source source source blood data data data data Carbon 35.0 - MMHG Low No Apr 13 dioxide 45.0 informati 2017 8:31 [Partial on in PM pressure] source in data Arterial blood pH of 7.35 - MMOL/L High No Apr 13 Arterial 7.45 informati 2017 8:31 blood on in PM source data Oxygen 80 - 100 MMHG Normal No Apr 13 [Partial informati 2017 8:31 pressure] on in PM in source Arterial data blood Oxygen 90 - 100 % Normal No Apr 13 saturatio informati 2017 8:31 n.calcula on in PM ken from source oxygen data partial pressure in Arterial blood SOURCE R/R No No No No Apr 13 informa informa informa informa 2017 tion in tion in tion in tion in 8:31 PM source source source source data data data data Carbon 23 - 27 MMOL/L Normal No Apr 13 dioxide, informati 2017 8:31 total on in PM [Moles/vo source lume] in data Arterial blood Glucose [Mass/volume] in Capillary blood by Glucometer Observa Value Referen Units Interpr Notes Date tion ce etation Range Glucose 70 - 110 mg/dl No No Feb 4 [Mass/vol informati informati 2016 9:50 ume] in on in on in AM Capillary source source blood by data data Glucomete r Urinalysis dipstick W Reflex Microscopic panel in Urine Observa Value Referen Units Interpr Notes Date tion ce etation Range Appeara CLOUDY CLEAR No No No Oct 3 nce of informa informa informa 2016 Urine [...] No Oct 3 [Mass/vol informati informati informati 2016 6:00 ume] in on in on in on in PM Urine by source source source Test data data data strip Ketones NEGATIV NEG mg/dL No No Oct 3 E informa informa 2016 [Presen tion in tion in 6:00 PM ce] in source source Urine data data by Automat ed test strip Mucus 1+ NEG No Abnorma No Oct 3 [Presen informa l informa 2016 ce] in tion in tion in 6:00 PM Urine source source sedimen data data t by Light microsc opy Nitrite NEGATIV NEG No No No Oct 27 E informa informa informa 2016 [Presen tion [...] data Bilirub NEGATIV NEG No No No Oct 3 in E informa informa informa 2016 [Presen tion in tion in tion in 6:00 PM ce] in source source source Urine data data data by Test strip Erythro NEGATIV NEG No No No Oct 3 cytes E informa informa informa 2016 [Presen [...] Nitrite NEGATIV NEG No No No Oct 27 E informa informa informa 2016 [Presen tion in tion in tion in 6:00 PM ce] in source source source Urine data data data by Test strip pH of 5.0 - 8.5 No Normal No Wero 3 Urine informati informati 2017 6:00 on in on in PM source source data data Protein NEG mg/dL No No Oct 3 [Mass/vol informati informati 2016 6:00 ume] in on in on in PM Urine by source source Automated data data test strip Specific 1.005 - No Normal No Oct 3 gravity 1.030 informati informati 2016 6:00 of Urine on in on in PM source source data data Urobili 1.0 NEG E.U./dL No No Oct 27 nogen informa informa 2016 [Presen tion in [...] October 24 in E informa informa informa 2017 [Presen tion in tion in tion in ce] in source source source Urine data data data by Test strip Erythro TRACE-I NEG No No No October 24 cytes NTACT informa informa informa 2017 [Presen tion in tion in tion in ce] in source source source Urine data data data Color YELLOW YELLOW No No No October 24 of informa informa informa 2017 Urine tion in tion in tion in source source source data data data Glucose NEG No No No October 24 [Mass/vol informati informati informati 2017 ume] in on in on in on [...] No No October 24 [Mass/vol informati informati 2017 ume] in on in on in Urine [...]
[2017-05-14] MEDS ORDERED: LEVAQUIN500 MG PO (16:59)
[2017-05-14] MEDS ORDERED: K-DUR 2020 MEQ PO (16:59)
[2017-05-15] MEDS ORDERED: ALPRAZOLAM1 MG PO (16:37)
[2017-05-15] MEDS ORDERED: BISAC-EVAC10 MG PR (16:49)
== END 2017-04-25 16:44 | disposition home or self-care (01) ==
LOC: ER 14:44
PROVIDERS: Emergency Medicine
DX: E87.6 Hypokalemia (principal); I10 Essential (primary) hypertension; J45.909 Unspecified asthma, uncomplicated; E11.9 Type 2 diabetes mellitus without complications; F41.8 Other specified anxiety disorders

== ENCOUNTER → 2017-04-25 | Outpatient (CLI) | payer MEDICARE, MEDICAID ==
[~2017-04-25] MED LIST changes: +ACID GONE 420420 ML PO; +BETHANECHOL CHL25 MG PO; +FLUTICASONE 50M16 GM; +INVANZ 1 GM1 GM IV; +MAXZIDE 25 MG-31 TAB PO; +OLANZAPINE5 MG PO; +RISPERIDONE2 MG PO; +SENNA PLUS 50 M1 TAB PO; +SIMETHICONE80 MG PO
[2017-04-25 15:24] LABS: URINE BILIRUBIN - DIPSTICK NEGATIVE (NEG); URINE BLOOD NEGATIVE (NEG)
== END ==
LOC: LAB 15:08
PROVIDERS: Emergency Medicine
DX: R53.83 Other fatigue (principal)